=== PATIENT | male | born 1940 | race Caucasian/White ===

== ENCOUNTER 2016-08-18 14:46 | Inpatient (IN) | payer MEDICARE, BC ==
[2016-08-18] MEDS ORDERED: SODIUM CHLORIDE 0.9% 1,000 ML IV STA (15:18)
[2016-08-18 15:40] LABS: Basophils # (A) 0.1 k/uL (0-0.2); Basophils % (A) 1 %; CH 30.2; CHCM 34.6; Eosinophils # (A) 0.2 k/uL (0-0.7); Eosinophils % (A) 2 %; HCT 41.3 % (39.0-53.0); HDW 2.87; HGB 13.9 gm/dL (13.0-17.5); Luc # (Auto) 0.21; Luc % (Auto) 2; Lymphocytes % (A) 35 %; MCH 29.6 pg (25.0-35.0); MCHC 33.8 g/dL (31.0-37.0); MCV 87.7 fL (80.0-100.0); Mean Platelet Volume 7.3; Monocytes # (A) 0.5 k/uL (0-1.0); Monocytes % (A) 5 %; Neutrophils # (A) 4.8 k/uL (1.3-7.7); Neutrophils % (A) 55 %; RBC 4.71 m/uL (4.30-5.90); RDW 13.7 % (11.5-15.5); WBC 8.7 k/uL (3.8-10.6); WBC (Perox) 9.03
[2016-08-18 15:47] LABS: ALT 26 U/L (21-72); AST 21 U/L (17-59); Alkaline Phosphatase 63 U/L (38-126); Anion Gap 14 mmol/L; Blood Urea Nitrogen 21 mg/dL (9-20); Calcium 9.4 mg/dL (8.4-10.2); Carbon Dioxide 23 mmol/L (22-30); Chloride 102 mmol/L (98-107); Glucose 253 mg/dL (74-99); Non-African American GFR(MDRD) >60 (>60 ml/min/1.73 sqM); Potassium 4.4 mmol/L (3.5-5.1); Sodium 139 mmol/L (137-145); Total Bilirubin 0.5 mg/dL (0.2-1.3); Total Protein 6.7 g/dL (6.3-8.2)
[2016-08-18 15:50] LABS: INR 1.1 (<1.1); Prothrombin Time 10.9 sec (9.0-12.0)
--- NOTE | 2016-08-18 15:58 | CT ---
EXAMINATION TYPE: CT brain wo con DATE OF EXAM: 08/18/2016 3:44 PM COMPARISON: 01/14/2015 HISTORY: 75-year-old male with slurred speech yesterday on 08/17/16. TECHNIQUE: Examination was done in axial plane without intravenous contrast. Coronal and sagittal reconstructio ns performed. CT DLP: 993.6 mGycm Automated exposure control for dose reduction was used. FINDINGS: There is no evidence of acute intracranial hemorrhage, acute ischemic changes, mass, mass-effect, or extra-axial fluid collection. There is no effacement of cerebral sulci or basal subarachnoid cister ns. There is no hydrocephalus. There is no midline shift. E[place]-white matter distinction is preserv ed. There is mild patchy periventricular white matter hypodensity. Paranasal sinuses and mastoid air cells are well pneumatized. Orbits and globes are intact. IMPRESSION: No acute intracranial abnormality seen. Mild changes of chronic small vessel ischemic disease.
[2016-08-18 16:00] LABS: Creatine Kinase 36 U/L (55-170)
--- NOTE | 2016-08-18 16:00 | XR ---
EXAMINATION TYPE: XR chest 2V DATE OF EXAM: 08/18/2016 3:45 PM COMPARISON: 01/14/2015 HISTORY: 75 year-old male altered mental status TECHNIQUE: Frontal and lateral views FINDINGS: The cardiomediastinal silhouette, aorta, and pulmonary vasculature are within normal limits. Hazy low er lung densities especially on the left related to overlying soft tissue. Some strandy atelectasis i s also noted at the left base. No consolidation or pleural effusion seen. A lap band device is presen t. IMPRESSION: Slightly underpenetrated left base. No acute cardiopulmonary process seen.
--- NOTE | 2016-08-18 16:04 | ED ---
General Adult HPI <Brett Dove J - Last Filed: 08/18/16 16:46> - General Source: patient, RN notes reviewed Mode of arrival: ambulatory <Valdemar Pope - Last Filed: 08/18/16 17:01> - General Chief complaint: Neuro Symptoms/Deficit Stated complaint: Poss stroke/yesterday Time Seen by Provider: 08/18/16 15:07 - History of Present Illness Initial comments: Patient 75-year-old male who presents emergency room today with a chief complaint of possible TIA that occurred yesterday. He does admit that between the hours of 3 and 4 PM he experienced a episode that lasted less than 15 minutes where he had a difficult time with his speech and finding words. Daughter at bedside states she didn't witness and was less than 15 minutes that lasted. States today he has no problems no complaints. He admits to some low back pain but he states this is chronic. He denies any other complaints or symptoms currently at this time. Patient denies any recent fever, chills, shortness of breath, chest pain, abdominal pain, nausea or vomiting, numbness or tingling, dysuria or hematuria, constipation or diarrhea, headaches or visual changes, or any other complaints. (Valdemar Pope) - Related Data Home Medications Medication Instructions Recorded Confirmed Citalopram Hydrobromide [CeleXA] 40 mg PO DAILY 01/14/15 08/18/16 amLODIPine [Norvasc] 5 mg PO DAILY 01/14/15 08/18/16 Carvedilol [Coreg] 6.25 mg PO BID 01/15/15 08/18/16 metFORMIN HCL 1,000 mg PO BID 01/15/15 08/18/16 Cholecalciferol [Vitamin D3] 2,000 unit PO DAILY 08/18/16 08/18/16 HYDROcodone/APAP 10-325MG [[place] 1 tab PO Q8H PRN 08/18/16 08/18/16 10-325] Pravastatin Sodium [Pravachol] 20 mg PO DAILY 08/18/16 08/18/16 Vit C/E/Zn/Coppr/Lutein/Zeaxan 2 cap PO DAILY 08/18/16 08/18/16 [Preservision Areds 2 Softgel] glipiZIDE [Glucotrol] 5 mg PO AC-SUPPER 08/18/16 08/18/16 Allergies Allergy/AdvReac Type Severity Reaction Status Date / Time Penicillins Allergy Rash/Hives Verified 08/18/16 15:04 Review of Systems ROS Other: All systems not noted in ROS Statement are negative. <Brett Dove - Last Filed: 08/18/16 16:46> ROS Other: All systems not noted in ROS Statement are negative. <Valdemar Pope - Last Filed: 08/18/16 17:01> ROS Statement: Those systems with pertinent positive or pertinent negative responses have been documented in the HPI. Past Medical History Past Medical History: Diabetes Mellitus, Hyperlipidemia, Hypertension, Sleep Apnea/CPAP/BIPAP History of Any Multi-Drug Resistant Organisms: None Reported Past Surgical History: Appendectomy, Cholecystectomy Additional Past Surgical History / Comment(s): lap band Past Anesthesia/Blood Transfusion Reactions: No Reported Reaction Past Psychological History: Anxiety Smoking Status: Former smoker Past Alcohol Use History: None Reported Past Drug Use History: None Reported - Past Family History Father Additional Family Medical History / Comment(s): stroke Mother Additional Family Medical History / Comment(s): stroke <Valdemar Pope - Last Filed: 08/18/16 17:01> General Exam <Brett Dove - Last Filed: 08/18/16 16:46> <Valdemar Pope - Last Filed: 08/18/16 17:01> - General Exam Comments Initial Comments: General: The patient is awake and alert, in no distress, and does not appear acutely ill. Eye: Pupils are equal, round and reactive to light, extra-ocular movements are intact. No nystagmus. There is normal conjunctiva bilaterally. No signs of icterus. Ears, nose, mouth and throat: There are moist mucous membranes and no oral lesions. Neck: The neck is supple, there is no tenderness or JVD. Cardiovascular: There is a regular rate and rhythm. No murmur, rub or gallop is appreciated. Respiratory: Lungs are clear to auscultation, respirations are non-labored, breath sounds are equal. No wheezes, stridor, rales, or rhonchi. Gastrointestinal: Soft, non-distended, non-tender abdomen without masses or organomegaly noted. There is no rebound or guarding present. No CVA tenderness. Bowel sounds are unremarkable. Musculoskeletal: Normal ROM, no tenderness. Strength 5/5. Sensation intact. Pulses equal bilaterally 2+. Neurological: A&O x 3. CN II-XII intact, There are no obvious motor or sensory deficits. Coordination appears grossly intact. Speech is normal. Skin: Skin is warm and dry and no rashes or lesions are noted. Psychiatric: Cooperative, appropriate mood & affect, normal judgment. (Valdemar Pope) EKG Findings - EKG Comments: EKG Findings:: EKG performed at 1509: A 12-lead EKG was performed and interpreted by me as showing the following: Rate is 70, and rhythm is normal sinus. There are normal QRS complexes and normal R-wave progression. ST segments have no elevation or depression, and VA segments appear normal. <Valdemar Pope - Last Filed: 08/18/16 17:01> Medical Decision Making - Lab Data Result diagrams: 08/18/16 15:20 08/18/16 15:20 <Brett Dove - Last Filed: 08/18/16 16:46> - Lab Data Result diagrams: 08/18/16 15:20 08/18/16 15:20 <Valdemar Pope - Last Filed: 08/18/16 17:01> - Medical Decision Making The patient was seen and examined. All diagnostics were reviewed. Case will be discussed with internal medicine in the near future and patient will be admitted to the hospital. The case is discussed with the PA and I agree with the findings as documented. (Brett Dove) - Lab Data Lab Results 08/18/16 08/18/16 08/18/16 Range/Units 15:20 15:20 15:20 WBC 8.7 (3.8-10.6) k/uL RBC 4.71 (4.30-5.90) m/uL Hgb 13.9 (13.0-17.5) gm/dL Hct 41.3 (39.0-53.0) % MCV 87.7 (80.0-100.0) fL MCH 29.6 (25.0-35.0) pg MCHC 33.8 (31.0-37.0) g/dL RDW 13.7 (11.5-15.5) % Plt Count 201 (150-450) k/uL Neutrophils % 55 % Lymphocytes % 35 % Monocytes % 5 % Eosinophils % 2 % Basophils % 1 % Neutrophils # 4.8 (1.3-7.7) k/uL Lymphocytes # 3.0 (1.0-4.8) k/uL Monocytes # 0.5 (0-1.0) k/uL Eosinophils # 0.2 (0-0.7) k/uL Basophils # 0.1 (0-0.2) k/uL PT (9.0-12.0) sec INR (<1.1) APTT (22.0-30.0) sec Sodium 139 (137-145) mmol/L Potassium 4.4 (3.5-5.1) mmol/L Chloride 102 (98-107) mmol/L Carbon Dioxide 23 (22-30) mmol/L Anion Gap 14 mmol/L BUN 21 H (9-20) mg/dL Creatinine 0.89 (0.66-1.25) mg/dL Est GFR (MDRD) Af Amer >60 (>60 ml/min/1.73 sqM) Est GFR (MDRD) Non-Af >60 (>60 ml/min/1.73 sqM) Glucose 253 H (74-99) mg/dL Calcium 9.4 (8.4-10.2) mg/dL Total Bilirubin 0.5 (0.2-1.3) mg/dL AST 21 (17-59) U/L ALT 26 (21-72) U/L Alkaline Phosphatase 63 (38-126) U/L Total Creatine Kinase 36 L (55-170) U/L CK-MB (CK-2) 0.5 (0.0-2.4) ng/mL CK-MB (CK-2) Rel Index 1.4 Troponin I <0.012 (0.000-0.034) ng/mL Total Protein 6.7 (6.3-8.2) g/dL Albumin 4.3 (3.5-5.0) g/dL 08/18/16 Range/Units 15:20 WBC (3.8-10.6) k/uL RBC (4.30-5.90) m/uL Hgb (13.0-17.5) gm/dL Hct (39.0-53.0) % MCV (80.0-100.0) fL MCH (25.0-35.0) pg MCHC (31.0-37.0) g/dL RDW (11.5-15.5) % Plt Count (150-450) k/uL Neutrophils % % Lymphocytes % % Monocytes % % Eosinophils % % Basophils % % Neutrophils # (1.3-7.7) k/uL Lymphocytes # (1.0-4.8) k/uL Monocytes # (0-1.0) k/uL Eosinophils # (0-0.7) k/uL Basophils # (0-0.2) k/uL PT 10.9 (9.0-12.0) sec INR 1.1 (<1.1) APTT 25.0 (22.0-30.0) sec Sodium (137-145) mmol/L Potassium (3.5-5.1) mmol/L Chloride (98-107) mmol/L Carbon Dioxide (22-30) mmol/L Anion Gap mmol/L BUN (9-20) mg/dL Creatinine (0.66-1.25) mg/dL Est GFR (MDRD) Af Amer (>60 ml/min/1.73 sqM) Est GFR (MDRD) Non-Af (>60 ml/min/1.73 sqM) Glucose (74-99) mg/dL Calcium (8.4-10.2) mg/dL Total Bilirubin (0.2-1.3) mg/dL AST (17-59) U/L ALT (21-72) U/L Alkaline Phosphatase (38-126) U/L Total Creatine Kinase (55-170) U/L CK-MB (CK-2) (0.0-2.4) ng/mL CK-MB (CK-2) Rel Index Troponin I (0.000-0.034) ng/mL Total Protein (6.3-8.2) g/dL Albumin (3.5-5.0) g/dL Disposition <Brett Dove - Last Filed: 08/18/16 16:46> Time of Disposition: 17:01 <Valdemar Pope - Last Filed: 08/18/16 17:01> Clinical Impression: TIA (transient ischemic attack), Expressive aphasia Disposition: ADMITTED IP TO THIS [facility] Condition: Stable
[2016-08-18 16:12] LABS: Creatine Kinase MB 0.5 ng/mL (0.0-2.4); Troponin I <0.012 ng/mL (0.000-0.034)
[2016-08-18] MEDS ORDERED: ASPIRIN 325 MG TAB PO STA (17:01)
[2016-08-18] MEDS ORDERED: SODIUM CHLORIDE 0.9% 1,000 ML IV ONE (17:01)
[2016-08-18] MEDS ORDERED: HYDROcodone/APAP 10-325MG 1 EACH TAB PO PRN (17:06)
--- NOTE | 2016-08-18 18:44 | US ---
EXAMINATION TYPE: US carotid duplex BILAT DATE OF EXAM: 08/18/2016 5:58 PM COMPARISON: NONE CLINICAL HISTORY: slurred speech yesterday. EXAM MEASUREMENTS: RIGHT: Peak Systolic Velocity (PSV) cm/sec ----- Right CCA: 77.6 ----- Right ICA: 237.7 ----- Right ECA: 236.2 ICA/CCA ratio: 3.1 RIGHT: End Diastole cm/sec ----- Right CCA: 8.4 ----- Right ICA: 30.8 ----- Right ECA: 17.8 LEFT: Peak Systolic Velocity (PSV) cm/sec ----- Left CCA: 59.3 ----- Left ICA: 127.2 ----- Left ECA: 100.0 ICA/CCA ratio: 2.1 LEFT: End Diastole cm/sec ----- Left CCA: 10.2 ----- Left ICA: 28.9 ----- Left ECA: 6.9 VERTEBRALS (direction of flow): Right Vertebral: Antegrade Left Vertebral: Antegrade TECHNOLOGIST IMPRESSION: Moderate plaque seen bilaterally, stenosis seen at right mid ICA IMPRESSION: There is antegrade flow in the vertebral arteries. There is significant elevated velocity and plaque formation at the right carotid artery bifurcation c onsistent with more than 70% stenosis of the right internal carotid artery. The images and measurements suggest 50-70% stenosis of the left internal carotid artery. Criteria for Assigning % of Stenosis / Diameter reduction (Estimation based on the indirect measurements of the internal carotid artery velocities (ICA PSV). 1. Normal (no stenosis)=ICA PSV < 125 cm/s: ratio < 2.0: ICA EDV<40 cm/s. 2. Less than 50% stenosis=ICA PSV < 125 cm/s: ratio < 2.0: ICA EDV<40 cm/s. 3. 50 to 69% stenosis=ICA PSV of 125 to 230 cm/s: ration 2.0 ? 4.0: ICA EDV 40-100 cm/s. 4. Greater than 70% stenosis to near occlusion= ICA PSV > 230 cm/s: ratio > 4.0: ICA EDV > 100 cm/s. 5. Near occlusion= ICA PSV velocities may be low or undetectable: variable ratio and ICA EDV. 6. Total occlusion=unable to detect flow.
[2016-08-18] MEDS: INSULIN LISPRO (humaLOG) 300 UNIT/3 ML VIAL SQ SCH ×2 (18:58→21:30)
[2016-08-18] MEDS: CARVEDILOL 6.25 MG TAB PO SCH (19:11)
[2016-08-18 21:00] LABS: Glucose,Whole Blood 202 mg/dL (75-99)
[2016-08-19 05:53] LABS: CHCM 34.4; HCT 37.9 % (39.0-53.0); HGB 12.9 gm/dL (13.0-17.5); MCH 29.8 pg (25.0-35.0); MCV 87.7 fL (80.0-100.0); Mean Platelet Volume 8.2; RBC 4.32 m/uL (4.30-5.90); RDW 13.6 % (11.5-15.5); WBC 9.2 k/uL (3.8-10.6)
[2016-08-19 06:04] LABS: ALT 33 U/L (21-72); AST 18 U/L (17-59); Alkaline Phosphatase 59 U/L (38-126); Anion Gap 9 mmol/L; Blood Urea Nitrogen 17 mg/dL (9-20); Calcium 8.9 mg/dL (8.4-10.2); Carbon Dioxide 26 mmol/L (22-30); Chloride 105 mmol/L (98-107); Glucose 180 mg/dL (74-99); Non-African American GFR(MDRD) >60 (>60 ml/min/1.73 sqM); Potassium 4.3 mmol/L (3.5-5.1); Sodium 140 mmol/L (137-145); Total Bilirubin 0.6 mg/dL (0.2-1.3)
[2016-08-19 06:06] LABS: Glucose,Whole Blood 206 mg/dL (75-99)
[2016-08-19] MEDS: INSULIN LISPRO (humaLOG) 300 UNIT/3 ML VIAL SQ SCH ×4 (06:31→21:59)
[2016-08-19] MEDS: CARVEDILOL 6.25 MG TAB PO SCH ×2 (06:31→17:17)
[2016-08-19] MEDS: CHOLECALCIFEROL 1,000 UNIT TAB PO SCH (08:53)
[2016-08-19] MEDS: CITALOPRAM HYDROBROMIDE 20 MG TAB PO SCH (08:53)
[2016-08-19] MEDS: ASPIRIN 325 MG TAB PO SCH (08:53)
[2016-08-19] MEDS: amLODIPine 5 MG TAB PO SCH (08:53)
[2016-08-19] MEDS: PRAVASTATIN SODIUM 20 MG TAB PO SCH (08:54)
--- NOTE | 2016-08-19 11:46 | P.HPIM ---
History of Present Illness H&P Date: 08/18/16 Chief Complaint: Slurred speech 75-year-old gentleman who presented on the day of admission to the emergency room to be evaluated for developing an acute onset episode where "I could not get my words to come out" patient stated occurred suddenly last for "about a minute and then went away patient states he had no dizziness no lightheadedness no chest pain or shortness of breath. Patient denied any prior episodes. Patient stated that the symptoms occurred around 3 or 4 in the evening they lasted briefly and has not had any reoccurrence. Subsequently the patient was seen in the emergency room admitted to the services of the attending with a neurology consultation requested. Patient did have carotid Doppler studies done which did show 70% right internal carotid artery stenosis.. Past Medical History Past Medical History: Chest Pain / Angina, Diabetes Mellitus, Eye Disorder, Hyperlipidemia, Hypertension, Sleep Apnea/CPAP/BIPAP Additional Past Medical History / Comment(s): 2015 stress wnl, tinnitus, chronic lower back pain, rt eye blurry-diff reading needs new glasses,"knocked out at work 1975/concussion", "occassional hand tremors", shingles approx 10 years ago,uses a cpap machine History of Any Multi-Drug Resistant Organisms: None Reported Past Surgical History: Appendectomy, Cholecystectomy, Hernia Repair Additional Past Surgical History / Comment(s): lap band, colonoscopy, cataracts, Past Anesthesia/Blood Transfusion Reactions: No Reported Reaction Past Psychological History: Anxiety Smoking Status: Former smoker Past Alcohol Use History: None Reported Additional Past Alcohol Use History / Comment(s): started smoking at age 7(1948 ) ,quit 1994,was smoking 1.5 ppd. Past Drug Use History: None Reported - Past Family History Father Additional Family Medical History / Comment(s): stroke Mother Additional Family Medical History / Comment(s): stroke Medications and Allergies Home Medications Medication Instructions Recorded Confirmed Type Citalopram Hydrobromide [CeleXA] 40 mg PO DAILY 01/14/15 08/18/16 History amLODIPine [Norvasc] 5 mg PO DAILY 01/14/15 08/18/16 History Carvedilol [Coreg] 6.25 mg PO BID 01/15/15 08/18/16 History metFORMIN HCL 1,000 mg PO BID 01/15/15 08/18/16 History Cholecalciferol [Vitamin D3] 2,000 unit PO DAILY 08/18/16 08/18/16 History HYDROcodone/APAP 10-325MG [[place] 1 tab PO Q8H PRN 08/18/16 08/18/16 History 10-325] Pravastatin Sodium [Pravachol] 20 mg PO DAILY 08/18/16 08/18/16 History Vit C/E/Zn/Coppr/Lutein/Zeaxan 2 cap PO DAILY 08/18/16 08/18/16 History [Preservision Areds 2 Softgel] glipiZIDE [Glucotrol] 5 mg PO AC-SUPPER 08/18/16 08/18/16 History Allergies Allergy/AdvReac Type Severity Reaction Status Date / Time Penicillins Allergy Rash/Hives Verified 08/18/16 15:04 Physical Exam Vitals: Vital Signs Temp Pulse Pulse Resp BP BP Pulse Ox 08/19/16 10:02 96.8 F L 72 16 162/74 96 08/19/16 08:00 96.5 F L 66 18 175/72 92 L 08/19/16 06:02 68 18 143/66 98 08/19/16 04:02 97.0 F L 68 18 121/59 95 08/19/16 04:00 97.0 F L 68 18 121/59 95 08/19/16 02:02 60 18 147/67 96 08/19/16 00:02 97.5 F L 65 18 141/63 96 08/19/16 00:00 97.5 F L 65 18 141/63 96 08/18/16 22:02 65 18 153/71 96 08/18/16 20:02 96.9 F L 70 18 177/76 94 L 08/18/16 20:00 96.9 F L 70 18 177/76 94 L 08/18/16 18:56 97.1 F L 66 14 198/84 98 08/18/16 17:59 98.1 F 62 18 180/87 97 08/18/16 17:22 64 18 171/78 98 Intake and Output 08/18/16 08/19/16 08/19/16 22:59 06:59 14:59 Output Total 300 600 Balance -300 -600 Output: Urine 300 600 Other: # Voids 1 1 2 Weight 98.7 kg GENERAL APPEARANCE: 75-year-old male patient is alert, oriented, 3 in no acute distress. Speech audible no evidence of an expressive aphasia no facial droop VITAL SIGNS: Reviewed HEENT: Head is normocephalic and atraumatic. Pupils are equal and reactive. The nares are patent. Oropharynx is clear without lesions. NECK: Supple without lymphadenopathy. Traches midline. HEART: S1, S2. Regular rate and rhythm. Positive murmur noted monitor sinus rhythm denying chest pain when questioning LUNGS: No crackles or wheezes are heard. Currently on room air sats 94% no shortness of breath noted ABDOMEN: Soft, nontender, nondistended with good bowel sounds. No peritoneal signs. No palpable organomegaly or masses. EXTREMITIES: Normal skin color and turgor. No cyanosis, rash, ulceration, clubbing or edema. Radial pedal pulses are 2/4 bilaterally. NEUROLOGICAL: No focal deficits. Strength and sensation are grossly intact. Results CBC & Chem 7: 08/19/16 05:33 08/19/16 05:33 Labs: Abnormal Lab Results - Last 24 Hours (Table) 08/18/16 08/19/16 08/19/16 Range/Units 20:59 05:33 05:33 Hgb 12.9 L (13.0-17.5) gm/dL Hct 37.9 L (39.0-53.0) % Glucose 180 H (74-99) mg/dL POC Glucose (mg/dL) 202 H (75-99) mg/dL Total Protein 6.0 L (6.3-8.2) g/dL 08/19/16 Range/Units 06:05 Hgb (13.0-17.5) gm/dL Hct (39.0-53.0) % Glucose (74-99) mg/dL POC Glucose (mg/dL) 206 H (75-99) mg/dL Total Protein (6.3-8.2) g/dL Assessment and Plan Plan: Impression Present on admission episode of expressive aphasia suspect due to a TIA Carotid Doppler study shows evidence of 70% stenosis right internal carotid artery Type 2 diabetes insulin hemoglobin A1c 7 controlled Obesity BMI 33 History of hypertension essential benign Depressive disorder nonspecified Chronic lower back pain narcotic dependent Dyslipidemia New-onset heart murmur Plan Consult vascular Dr. Damian evaluate abnormal carotid Doppler studies await further recommendations PT OT eval Monitor blood sugars address as indicated Check a lipid panel Resume home meds as appropriate DVT and GI prophylaxis Further recommendations pending will follow Check echocardiogram follow up on results The above dictated assessment and findings were discussed with dr sarah Choe and the plan of care have been dictated as directed. Anjana Gonzalez nurse practitioner acting as a scribe for dr smith
[2016-08-19 11:49] LABS: Glucose,Whole Blood 227 mg/dL (75-99)
--- NOTE | 2016-08-19 11:55 | P.CNNES ---
History of Present Illness Consult date: 08/19/16 Reason for Consult: Patient with expressive aphasia and TIA. History of Present Illness: This patient is a 75-year-old right-handed white male who was in his usual state of health until yesterday afternoon. Patient was at home with his family and noted that he suddenly developed a episode of garbled speech and difficulty getting his words out. The episode lasted about 15 minutes in duration. The symptoms did resolve in the next day he did mention this to his daughter. His daughter was very concerned and recommended that he go into the emergency room for further evaluation. Patient denies any previous history of TIA like symptoms such as expressive aphasia. He does have several stroke risk factors including history of diabetes mellitus and hyperlipidemia. He states his blood sugars have not been well controlled recently. He is on treatment for hyperlipidemia and is currently taking pravastatin 20 mg daily. Patient was evaluated yesterday in the emergency room by Dr. Dove. He was sent for a computed tomography scan of the brain which revealed no acute abnormality. There is chronic small vessel ischemic changes noted. He also underwent a carotid Doppler ultrasound which was completed yesterday evening. This carotid reveals significant carotid stenosis greater than 70% of the right internal carotid artery. There is 50-70% stenosis of the left internal carotid artery. The patient's stroke risk factors include the diabetes mellitus and hyperlipidemia. His blood pressure has been under fairly good control. The patient has had no further recurrence of expressive aphasia. His clinical history does suggest acute TIA syndrome. We reviewed the clinical findings with the patient today in detail. We would recommend a complete stroke evaluation for the patient. Given the results of his carotid Doppler ultrasound we would recommend a vascular surgery consultation for further assessment. He should continue on 1 aspirin daily for secondary stroke prevention. We will continue close neurological follow-up for the patient during this admission. Review of Systems Constitutional: Denies chills, Denies fever Eyes: denies blurred vision, denies pain Ears, nose, mouth and throat: Denies headache, Denies sore throat Cardiovascular: Denies chest pain, Denies shortness of breath Respiratory: Denies cough Gastrointestinal: Denies abdominal pain, Denies diarrhea, Denies nausea, Denies vomiting Musculoskeletal: Denies myalgias Integumentary: Denies pruritus, Denies rash Neurological: Reports aphasia, Reports change in speech, Denies numbness, Denies weakness Psychiatric: Denies anxiety, Denies depression Endocrine: Denies fatigue, Denies weight change Past Medical History Past Medical History: Chest Pain / Angina, Diabetes Mellitus, Eye Disorder, Hyperlipidemia, Hypertension, Sleep Apnea/CPAP/BIPAP Additional Past Medical History / Comment(s): 2015 stress wnl, tinnitus, chronic lower back pain, rt eye blurry-diff reading needs new glasses,"knocked out at work 1976/concussion", "occassional hand tremors", shingles approx 10 years ago,uses a cpap machine History of Any Multi-Drug Resistant Organisms: None Reported Past Surgical History: Appendectomy, Cholecystectomy, Hernia Repair Additional Past Surgical History / Comment(s): lap band, colonoscopy, cataracts, Past Anesthesia/Blood Transfusion Reactions: No Reported Reaction Past Psychological History: Anxiety Smoking Status: Former smoker Past Alcohol Use History: None Reported Additional Past Alcohol Use History / Comment(s): started smoking at age 7(1948 ) ,quit 1994,was smoking 1.5 ppd. Past Drug Use History: None Reported - Past Family History Father Additional Family Medical History / Comment(s): stroke Mother Additional Family Medical History / Comment(s): stroke Medications and Allergies Home Medications Medication Instructions Recorded Confirmed Type Citalopram Hydrobromide [CeleXA] 40 mg PO DAILY 01/14/15 08/18/16 History amLODIPine [Norvasc] 5 mg PO DAILY 01/14/15 08/18/16 History Carvedilol [Coreg] 6.25 mg PO BID 01/15/15 08/18/16 History metFORMIN HCL 1,000 mg PO BID 01/15/15 08/18/16 History Cholecalciferol [Vitamin D3] 2,000 unit PO DAILY 08/18/16 08/18/16 History HYDROcodone/APAP 10-325MG [[place] 1 tab PO Q8H PRN 08/18/16 08/18/16 History 10-325] Pravastatin Sodium [Pravachol] 20 mg PO DAILY 08/18/16 08/18/16 History Vit C/E/Zn/Coppr/Lutein/Zeaxan 2 cap PO DAILY 08/18/16 08/18/16 History [Preservision Areds 2 Softgel] glipiZIDE [Glucotrol] 5 mg PO AC-SUPPER 08/18/16 08/18/16 History Allergies Allergy/AdvReac Type Severity Reaction Status Date / Time Penicillins Allergy Rash/Hives Verified 08/18/16 15:04 Physical Examination - Vital Signs Vital Signs: Vital Signs Temp Pulse Pulse Resp BP BP Pulse Ox 08/19/16 06:02 68 18 143/66 98 08/19/16 04:02 97.0 F L 68 18 121/59 95 08/19/16 04:00 97.0 F L 68 18 121/59 95 08/19/16 02:02 60 18 147/67 96 08/19/16 00:02 97.5 F L 65 18 141/63 96 08/19/16 00:00 97.5 F L 65 18 141/63 96 08/18/16 22:02 65 18 153/71 96 08/18/16 20:02 96.9 F L 70 18 177/76 94 L 08/18/16 20:00 96.9 F L 70 18 177/76 94 L 08/18/16 18:56 97.1 F L 66 14 198/84 98 08/18/16 17:59 98.1 F 62 18 180/87 97 08/18/16 17:22 64 18 171/78 98 Intake and Output 08/18/16 08/19/16 08/19/16 22:59 06:59 14:59 Output Total 300 600 Balance -300 -600 Output: Urine 300 600 Other: # Voids 1 1 Weight 98.7 kg - Constitutional General appearance: average body habitus, cooperative - EENT EENT: PERRL, mucous membranes moist - Respiratory Respiratory: lungs clear, normal breath sounds - Cardiovascular Cardiovascular: regular rate, normal S1, normal S2 Extremities: no peripheral edema bilaterally - Gastrointestinal Gastrointestinal: normoactive bowel sounds - Integumentary Integumentary: normal - Neurologic Cranial nerve examination: PERRL, EOMI, VFF, V1/V2/V3 grossly intact, face symmetric, tongue midline, intact gag reflex, intact corneal reflex, normal palatal elevation Speech examination: intact Sensorimotor examination: intact Detailed motor examination: grossly full strength in all extremities, full strength in all major muscle groups Motor examination - right side: 12/08: biceps, triceps, wrist flexion, wrist extension, hogshead hooper, hip flexors, knee extensors, dorsiflexion, toe extension (EHL) , plantarflexion Motor examination - left side: 5/5: biceps, triceps, wrist flexion, wrist extension, hogshead hooper, hip flexors, knee extensors, dorsiflexion, toe extension (EHL) , plantarflexion Detailed sensory examination: intact Reflex and gait examination: intact Reflexes: 1+: ankle, bicep, knee, tricep - Musculoskeletal Musculoskeletal: no pain - Psychiatric Psychiatric: mood/affect appropriate, cooperative Results - Laboratory Findings CBC and BMP: 08/19/16 05:33 08/19/16 05:33 Abnormal Lab Findings: Abnormal Labs 08/18/16 08/19/16 08/19/16 20:59 05:33 05:33 Hgb 12.9 L Hct 37.9 L Glucose 180 H POC Glucose (mg/dL) 202 H Total Protein 6.0 L 08/19/16 06:05 Hgb Hct Glucose POC Glucose (mg/dL) 206 H Total Protein Assessment and Plan (1) TIA (transient ischemic attack) Status: Acute Code(s): G45.9 - TRANSIENT CEREBRAL ISCHEMIC ATTACK, UNSPECIFIED (2) Expressive aphasia Status: Acute Code(s): R47.01 - APHASIA (3) Carotid artery stenosis Status: Acute Code(s): I65.29 - OCCLUSION AND STENOSIS OF UNSPECIFIED CAROTID ARTERY (4) Diabetes mellitus Status: Acute Code(s): E11.9 - TYPE 2 DIABETES MELLITUS WITHOUT COMPLICATIONS Plan: This patient is a 75-year-old male who experienced an episode of acute expressive aphasia yesterday afternoon at home. Apparently he had garbled speech and difficulty getting his words out and this episode lasted 15 minutes in duration. He subsequently was admitted to the emergency room for further evaluation. He underwent a computed tomography scan and carotid Doppler ultrasound the results of which are noted above. His clinical history at this time is consistent with acute TIA. He had an episode of expressive aphasia. He does have evidence of significant carotid artery stenosis involving the right internal carotid artery. We have recommended a vascular surgery consultation for further assessment. He shouldn't should be maintained on aspirin daily at this time for secondary stroke prevention. We will await further recommendations from vascular surgery in regards to his carotid artery stenosis. He does have several stroke risk factors including diabetes mellitus and hyperlipidemia. We recommend tight control of both of these conditions. Case was discussed at length with the patient today at bedside. All this questions were answered. He is aware of the guarded condition at this time. We will continue close neurological follow-up with this patient during this admission. Time with Patient: Greater than 30
--- NOTE | 2016-08-19 12:32 | P.PN ---
Progress Note - Text Patient seen and examined by myself H&P dictated by Anjana Gonzalez nurse practitioner working with me today
--- NOTE | 2016-08-19 12:43 | P.GSCN ---
History of Present Illness History of present illness: 75-year-old white male, patient had an episode of expressive a phase area and garbled speech this happened on Sunday. Patient came to the emergency room and had a stroke workup computed tomography scan showed no acute bleed no infarction noted speech came back which was for short duration had no motor deficit or any seizure episode patient was evaluated by neurology Medical history history of high cholesterol on medication, history of hypertension controlled with medication, patient has a history of diabetes which is uncontrolled Personal history ALLERGY to penicillin Neck examination neck is supple no bruit appreciated no jugular distention noted Chest examination first and second sound normal good entry both lungs Abdomen soft nontender Vascular examination brachial radial and femoral pulses are present Central nervous system oriented time and place normal motor function noted of both lower extremity Ultrasound of the carotids showed right carotid more than 70% left side 50-79 both vertebrals are antegrade Plan is patient had one episode of 4 a phase area with no motor deficit patient has known carotid artery stenosis under care of Dr. Levy discuss with Dr. Levy patient will be kept on antiplatelet therapy and we will schedule for angiography of the carotid if needed we will follow with you thank you very much Past Medical History Past Medical History: Chest Pain / Angina, Diabetes Mellitus, Eye Disorder, Hyperlipidemia, Hypertension, Sleep Apnea/CPAP/BIPAP Additional Past Medical History / Comment(s): 2015 stress wnl, tinnitus, chronic lower back pain, rt eye blurry-diff reading needs new glasses,"knocked out at work 1975/concussion", "occassional hand tremors", shingles approx 10 years ago,uses a cpap machine History of Any Multi-Drug Resistant Organisms: None Reported Past Surgical History: Appendectomy, Cholecystectomy, Hernia Repair Additional Past Surgical History / Comment(s): lap band, colonoscopy, cataracts, Past Anesthesia/Blood Transfusion Reactions: No Reported Reaction Past Psychological History: Anxiety Smoking Status: Former smoker Past Alcohol Use History: None Reported Additional Past Alcohol Use History / Comment(s): started smoking at age 7(1950 ) ,quit 1994,was smoking 1.5 ppd. Past Drug Use History: None Reported - Past Family History Father Additional Family Medical History / Comment(s): stroke Mother Additional Family Medical History / Comment(s): stroke Medications and Allergies Home Medications Medication Instructions Recorded Confirmed Type Citalopram Hydrobromide [CeleXA] 40 mg PO DAILY 01/14/15 08/18/16 History amLODIPine [Norvasc] 5 mg PO DAILY 01/14/15 08/18/16 History Carvedilol [Coreg] 6.25 mg PO BID 01/15/15 08/18/16 History metFORMIN HCL 1,000 mg PO BID 01/15/15 08/18/16 History Cholecalciferol [Vitamin D3] 2,000 unit PO DAILY 08/18/16 08/18/16 History HYDROcodone/APAP 10-325MG [[place] 1 tab PO Q8H PRN 08/18/16 08/18/16 History 10-325] Pravastatin Sodium [Pravachol] 20 mg PO DAILY 08/18/16 08/18/16 History Vit C/E/Zn/Coppr/Lutein/Zeaxan 2 cap PO DAILY 08/18/16 08/18/16 History [Preservision Areds 2 Softgel] glipiZIDE [Glucotrol] 5 mg PO AC-SUPPER 08/18/16 08/18/16 History Allergies Allergy/AdvReac Type Severity Reaction Status Date / Time Penicillins Allergy Rash/Hives Verified 08/18/16 15:04 Surgical - Exam Vital Signs Temp Pulse Resp BP Pulse Ox 98 F 70 18 164/72 96 08/18/16 14:58 08/18/16 14:58 08/18/16 14:58 08/18/16 14:58 08/18/16 14:58 Results - Labs 08/19/16 05:33 08/19/16 05:33 Abnormal Lab Results - Last 24 Hours (Table) 08/18/16 08/19/16 08/19/16 Range/Units 20:59 05:33 05:33 Hgb 12.9 L (13.0-17.5) gm/dL Hct 37.9 L (39.0-53.0) % Glucose 180 H (74-99) mg/dL POC Glucose (mg/dL) 202 H (75-99) mg/dL Total Protein 6.0 L (6.3-8.2) g/dL 08/19/16 08/19/16 Range/Units 06:05 11:41 Hgb (13.0-17.5) gm/dL Hct (39.0-53.0) % Glucose (74-99) mg/dL POC Glucose (mg/dL) 206 H 227 H (75-99) mg/dL Total Protein (6.3-8.2) g/dL Diabetes panel 08/19/16 Range/Units 05:33 Sodium 140 (137-145) mmol/L Potassium 4.3 (3.5-5.1) mmol/L Chloride 105 (98-107) mmol/L Carbon Dioxide 26 (22-30) mmol/L BUN 17 (9-20) mg/dL Creatinine 0.82 (0.66-1.25) mg/dL Glucose 180 H (74-99) mg/dL Calcium 8.9 (8.4-10.2) mg/dL AST 18 (17-59) U/L ALT 33 (21-72) U/L Alkaline Phosphatase 59 (38-126) U/L Total Protein 6.0 L (6.3-8.2) g/dL Albumin 3.7 (3.5-5.0) g/dL Calcium panel 08/19/16 Range/Units 05:33 Calcium 8.9 (8.4-10.2) mg/dL Albumin 3.7 (3.5-5.0) g/dL Pituitary panel 08/19/16 Range/Units 05:33 Sodium 140 (137-145) mmol/L Potassium 4.3 (3.5-5.1) mmol/L Chloride 105 (98-107) mmol/L Carbon Dioxide 26 (22-30) mmol/L BUN 17 (9-20) mg/dL Creatinine 0.82 (0.66-1.25) mg/dL Glucose 180 H (74-99) mg/dL Calcium 8.9 (8.4-10.2) mg/dL Adrenal panel 08/19/16 Range/Units 05:33 Sodium 140 (137-145) mmol/L Potassium 4.3 (3.5-5.1) mmol/L Chloride 105 (98-107) mmol/L Carbon Dioxide 26 (22-30) mmol/L BUN 17 (9-20) mg/dL Creatinine 0.82 (0.66-1.25) mg/dL Glucose 180 H (74-99) mg/dL Calcium 8.9 (8.4-10.2) mg/dL Total Bilirubin 0.6 (0.2-1.3) mg/dL AST 18 (17-59) U/L ALT 33 (21-72) U/L Alkaline Phosphatase 59 (38-126) U/L Total Protein 6.0 L (6.3-8.2) g/dL Albumin 3.7 (3.5-5.0) g/dL
--- NOTE | 2016-08-19 13:25 | ECHOF ---
Referral Reason:murmur MEASUREMENTS -------- HEIGHT: 172.7 cm WEIGHT: 98.4 kg BP: IVSd: 1.0 cm (0.6 - 1.1) LVIDd: 4.9 cm (3.9 - 5.3) LVPWd: 0.8 cm (0.6 - 1.1) IVSs: 1.8 cm LVIDs: 3.0 cm LVPWs: 1.7 cm Ao Diam: 3.0 cm (2.0 - 3.7) AV Cusp: 1.5 cm (1.5 - 2.6) LA Diam: 3.8 cm (2.7 - 3.8) MV E Uri: 0.77 m/s MV DecT: 259 ms MV A Uri: 0.99 m/s MV E/A Ratio: 0.77 AV maxP.12 mmHg AV meanP.20 mmHg RAP: 5.00 mmHg RVSP: 9.71 mmHg FINDINGS -------- Sinus rhythm. This was a technically difficult study with suboptimal views. Left ventricular wall thickness is normal. Overall left ventricular systolic function is normal with, an EF between 55 - 60 %. The right ventricle is normal in size and function. The left atrium was not well visualized. The right atrium is normal in size. 1.5mg of Definity was utilized for enhancement of images There is moderate aortic stenosis present. Peak/mean gradient across the Aortic Valve is 35.12mmHg / 19.20mmHg. The mitral valve leaflets are mildly thickened. Mild mitral regurgitation is present. Mild tricuspid regurgitation present. The right ventricular systolic pressure, as measured by Doppler, is 9.71mmHg. Pulmonic valve appears structurally normal. The aortic root, ascending aorta and aortic arch are normal. The pericardium is normal. CONCLUSIONS -------- 1. Sinus rhythm. 2. Peak/mean gradient across the Aortic Valve is 35.12mmHg / 19.20mmHg. 3. The mitral valve leaflets are mildly thickened. 4. Mild mitral regurgitation is present. 5. Mild tricuspid regurgitation present. 6. The right ventricular systolic pressure, as measured by Doppler, is 9.71mmHg. 7. Pulmonic valve appears structurally normal. 8. The aortic root, ascending aorta and aortic arch are normal. 9. The pericardium is normal. 10. This was a technically difficult study with suboptimal views. 11. Left ventricular wall thickness is normal. 12. Overall left ventricular systolic function is normal with, an EF between 55 - 60 %. 13. The right ventricle is normal in size and function. 14. The left atrium was not well visualized. 15. The right atrium is normal in size. 16. 1.5mg of Definity was utilized for enhancement of images 17. There is moderate aortic stenosis present. ZYGLO INSPECTOR: Morena Hensley RDCS
[2016-08-19 17:20] LABS: Glucose,Whole Blood 132 mg/dL (75-99)
[2016-08-19] MEDS ORDERED: glipiZIDE 5 MG TAB PO SCH (17:30)
[2016-08-19] MEDS: metFORMIN 500 MG TAB PO SCH (17:37)
[2016-08-19 21:02] LABS: Glucose,Whole Blood 189 mg/dL (75-99)
[2016-08-19] MEDS: FAMOTIDINE 20 MG TAB PO SCH (21:59)
[2016-08-20 06:17] LABS: Basophils # (A) 0.1 k/uL (0-0.2); Basophils % (A) 1 %; CH 29.9; CHCM 34.6; Eosinophils # (A) 0.3 k/uL (0-0.7); Eosinophils % (A) 3 %; HCT 37.9 % (39.0-53.0); HDW 2.92; HGB 12.7 gm/dL (13.0-17.5); Luc # (Auto) 0.16; Luc % (Auto) 2; Lymphocytes # (A) 2.8 k/uL (1.0-4.8); Lymphocytes % (A) 31 %; MCHC 33.4 g/dL (31.0-37.0); MCV 86.9 fL (80.0-100.0); Mean Platelet Volume 8.1; Monocytes # (A) 0.5 k/uL (0-1.0); Monocytes % (A) 5 %; Neutrophils # (A) 5.4 k/uL (1.3-7.7); Neutrophils % (A) 59 %; RBC 4.36 m/uL (4.30-5.90); RDW 13.6 % (11.5-15.5); WBC 9.2 k/uL (3.8-10.6); WBC (Perox) 9.74
[2016-08-20 06:21] LABS: Glucose,Whole Blood 162 mg/dL (75-99)
[2016-08-20] MEDS: INSULIN LISPRO (humaLOG) 300 UNIT/3 ML VIAL SQ SCH ×2 (06:32→11:59)
[2016-08-20] MEDS: CARVEDILOL 6.25 MG TAB PO SCH (06:32)
[2016-08-20 06:34] LABS: ALT 34 U/L (21-72); AST 21 U/L (17-59); Alkaline Phosphatase 57 U/L (38-126); Anion Gap 9 mmol/L; Blood Urea Nitrogen 17 mg/dL (9-20); Calcium 9.3 mg/dL (8.4-10.2); Carbon Dioxide 26 mmol/L (22-30); Chloride 103 mmol/L (98-107); Cholesterol 174 mg/dL (<200); Glucose 152 mg/dL (74-99); HDL Cholesterol 56 mg/dL (40-60); Non-African American GFR(MDRD) >60 (>60 ml/min/1.73 sqM); Potassium 4.6 mmol/L (3.5-5.1); Sodium 138 mmol/L (137-145); Total Bilirubin 0.6 mg/dL (0.2-1.3); Total Protein 5.8 g/dL (6.3-8.2); Triglycerides 87 mg/dL (<150)
[2016-08-20] MEDS: metFORMIN 500 MG TAB PO SCH (06:34)
[2016-08-20] MEDS: CITALOPRAM HYDROBROMIDE 20 MG TAB PO SCH (08:01)
[2016-08-20] MEDS: PRAVASTATIN SODIUM 20 MG TAB PO SCH (08:01)
[2016-08-20] MEDS: ASPIRIN 325 MG TAB PO SCH (08:01)
[2016-08-20] MEDS: amLODIPine 5 MG TAB PO SCH (08:01)
[2016-08-20] MEDS: CHOLECALCIFEROL 1,000 UNIT TAB PO SCH (08:01)
[2016-08-20] MEDS: FAMOTIDINE 20 MG TAB PO SCH (08:07)
[2016-08-20 11:31] VITALS: BP 154/72; PULSE 64; RESP 14; TEMP 97
[2016-08-20 11:55] LABS: Glucose,Whole Blood 201 mg/dL (75-99)
--- NOTE | 2016-08-20 12:13 | P.DS ---
Providers Date of admission: 08/18/16 17:05 Expected date of discharge: 08/20/16 Attending physician: Mell Baer Consults: 08/19/16 11:35 Consult Physician Stat Consulting Provider: John Damian Consult Reason/Comments: Abnormal carotid right Do you want consulting provider notified?: Yes Primary care physician: Mell Buffy [facility] Course: Diagnoses on discharge #1 transient ischemic attack #2 left internal carotid stenosis 50-70% #3 underlying history of hypertension #4 underlying history of hyperlipidemia #5 underlying history of diabetes [facility] course Patient is a 75-year-old male who presented to [facility] emergency room, was a chief complaint of slurred speech, patient was unable to find words or sentences, this lasted for a few minutes and then resolved, he decided to come to emergency room to be evaluated, he has a known history of hypertension hyperlipidemia and diabetes mellitus, he was not taking aspirin at home. He was admitted to telemetry floor he was asymptomatic through this admission, no recurrence of his symptoms, carotid Doppler revealed 50-70% stenosis on the left, echocardiogram revealed no significant abnormality, there was no evidence of atrial fibrillation or flutter during this admission. He was discharged home on 08/20/2016. Aspirin was added again to his regimen and he was counseled in length to take a full aspirin every day without missing any days he will be continued on his home medication for hypertension hyperlipidemia and diabetes he will be followed in our office in 2-3 days. Patient Condition at Discharge: Stable Plan - Discharge Summary Discharge Medication List Citalopram Hydrobromide [CeleXA] 40 mg PO DAILY 01/14/15 [History] amLODIPine [Norvasc] 5 mg PO DAILY 01/14/15 [History] Carvedilol [Coreg] 6.25 mg PO BID 01/15/15 [History] metFORMIN HCL 1,000 mg PO BID 01/15/15 [History] Cholecalciferol [Vitamin D3] 2,000 unit PO DAILY 08/18/16 [History] HYDROcodone/APAP 10-325MG [[place] 10-325] 1 tab PO Q8H PRN 08/18/16 [History] Pravastatin Sodium [Pravachol] 20 mg PO DAILY 08/18/16 [History] Vit C/E/Zn/Coppr/Lutein/Zeaxan [Preservision Areds 2 Softgel] 2 cap PO DAILY [History] glipiZIDE [Glucotrol] 5 mg PO AC-SUPPER 08/18/16 [History] Aspirin 325 mg PO DAILY tab 08/20/16 [Rx] Follow up Appointment(s)/Referral(s): Mell Baer MD [Primary Care Provider] - 1-2 days
--- NOTE | 2016-08-20 13:35 | P.PN ---
Subjective This patient is a 75-year-old male who was admitted to hospital with episode of expressive aphasia. Patient presented with 15 minute episode in which she had difficulty with word finding and garbled speech. He was noted to hospital for possible TIA versus stroke. He underwent a carotid Doppler ultrasound which revealed greater than 70% stenosis of the right internal carotid artery. There was 50-70% stenosis of the left internal carotid artery. Given this carotid artery stenosis of vascular surgery consultation was recommended. Patient was seen by vascular surgery yesterday and they're recommending that he continue with antiplatelet therapy. He'll be scheduled for a angiography study of the carotids in the outpatient setting. Patient otherwise seems to be doing well today and remains asymptomatic. Evaluation of his EKG and cardiac monitoring fails to reveal any evidence of atrial fibrillation or atrial flutter. He should follow-up with vascular surgery as recommended. Overall the patient seems to be doing otherwise well. Neurologically he is intact with no deficits on examination today. He is to be discharged home and should follow-up with vascular surgery as instructed. He may follow-up in the outpatient neurology clinic as needed. Objective - Vital Signs Vital signs: Vital Signs Temp 97 F L 08/20/16 11:30 Pulse 64 08/20/16 11:30 Resp 14 08/20/16 11:30 BP 154/72 08/20/16 11:30 Pulse Ox 95 08/20/16 11:30 Intake & Output 08/19/16 08/20/16 08/20/16 18:59 06:59 18:59 Intake Total 360 Output Total 350 600 Balance -350 -240 Weight 98.5 kg Intake: Oral 360 Output: Urine 350 600 Other: # Voids 3 0 2 # Bowel Movements 0 - Exam Physical examination: PHYSICAL EXAMINATION: Patient is resting comfortably in bed. VITAL SIGNS: Blood pressure is [154/72]. Heart rate is [64]. Respiration is [15] . Temperature is [97.0]. HEENT: Head is atraumatic, neck is supple, there were no carotid bruits. CHEST: Lungs are clear to auscultation and percussion. CARDIAC: S1, S2 normal rate and rhythm. There is no murmur. ABDOMEN: Soft and nontender. Bowel sounds are present. EXTREMITIES: There is no pedal edema. Peripheral pulses are present. Neurological examination: Patient has a nonfocal neurological exam at this time. - Labs CBC & Chem 7: 08/20/16 05:37 08/20/16 05:37 Labs: Abnormal Lab Results - Last 24 Hours (Table) 08/19/16 08/19/16 08/20/16 Range/Units 17:04 21:00 05:37 Hgb 12.7 L (13.0-17.5) gm/dL Hct 37.9 L (39.0-53.0) % Glucose (74-99) mg/dL POC Glucose (mg/dL) 132 H 189 H (75-99) mg/dL Total Protein (6.3-8.2) g/dL LDL Cholesterol, Calc (0-99) mg/dL 08/20/16 08/20/16 08/20/16 Range/Units 05:37 06:20 11:46 Hgb (13.0-17.5) gm/dL Hct (39.0-53.0) % Glucose 152 H (74-99) mg/dL POC Glucose (mg/dL) 162 H 201 H (75-99) mg/dL Total Protein 5.8 L (6.3-8.2) g/dL LDL Cholesterol, Calc 101 H (0-99) mg/dL Assessment and Plan (1) TIA (transient ischemic attack) Status: Acute Code(s): G45.9 - TRANSIENT CEREBRAL ISCHEMIC ATTACK, UNSPECIFIED (2) Expressive aphasia Status: Acute Code(s): R47.01 - APHASIA (3) Carotid artery stenosis Status: Acute Code(s): I65.29 - OCCLUSION AND STENOSIS OF UNSPECIFIED CAROTID ARTERY (4) Diabetes mellitus Status: Acute Code(s): E11.9 - TYPE 2 DIABETES MELLITUS WITHOUT COMPLICATIONS Plan: This patient is a 75-year-old male who was admitted to hospital with episode of expressive aphasia. He had a 15 minute episode on the day of admission in which he had word finding difficulties. He also had garbled speech. He was surgically admitted to Hospital. He underwent a carotid Doppler ultrasound which did reveal greater than 70% stenosis of the right internal carotid artery. He was seen by vascular surgery and they're recommending a angiogram study of the carotids to be done in the outpatient setting. Patient is to continue on aspirin for long-term antiplatelet therapy. His neurological examination today is nonfocal. His laboratory test results reveals his total cholesterol to be 174. His blood sugars are to be tightly controlled as well for secondary stroke prevention. We do recommend he continue on full adult aspirin 325 mg daily for secondary stroke prevention. He may follow-up in the outpatient neurology clinic as needed. So overall prognosis at this time remains guarded.
[2016-08-21 08:56] LABS: Hemoglobin A1C 7.1 % (4.2-6.1)
--- NOTE | 2016-08-22 11:42 | CDI ---
In responding to this query, please exercise your independent professional judgment. The [facility] Coding Staff and Clinical Documentation Specialists appreciate your assistance in clarifying documentation, maintaining compliance with coding guidelines, accurately documenting patients condition and capturing severity of illness. The fact that a question is asked does not imply that any particular answer is desired or expected. Communication forms are a method of clarifying documentation and are not made part of the Legal Health Record. Thank you in advance for your clarification. Last Revision, October 2015 Nikolay Petersen [address] [facility] [place] [address] Documentation Clarification Form Date: 08/22/2016 11:25:00 AM From: Tosha Hancock Phone: Admit Date: 08/18/2016 5:05:00 PM Patient Name: Alejo Lees Visit Number: [id number] Discharge Date: 08/22/16 Dr. Mell Baer TIA is documented as a diagnosis in the discharge summary. Patient history/risk factors: slurred speech, hx of angina, DM, hyperlipidemia, HTN, sleep apnea Clinical indicators: CT head: No acute intracranial abnormality seen. Mild changes of chronic small vessel ischemic disease. Carotid US: There is significan elevated velocity and plaque formation at the right carotid artery bifurcation consistent with more than 70% stenosis of the right internal carotid artery. Echo: no significant abnormality Treatment: Aspirin added. plan angography of carotids as an outpatient Consult: Neuro In your professional opinion, please specify underlying etiology of the transient ischemic attack: Carotid Sinus Syncope Carotid Stenosis Hemorrhagic Stroke (if know specify specific location) Ischemic Stroke (if know specify cause, specific vessel/location, and laterality): Sequelae of Cerebrovascular Disease (specify Type of Cerebrovascular Disease ) Vertebo-Basilar Artery Syndrome Other (please specify): Etiology unknown or Unable to determine Please document in your progress notes and discharge summary in order to capture severity of illness and risk of mortality. Include clinical findings that support your diagnosis. FYI: Press F11 to launch patient chart ROBIN Aguilera, CCS, AHICARLEEN Certified [employer] Line Painting Machine Operator/[place] [employer] Painting Machine Operator II CARLO
== END 2016-08-20 14:06 | disposition home or self-care (01) | DRG 69 ==
LOC: EC 14:46 → 6SEL 17:05
PROVIDERS: ADMIT Internal Medicine; ATTEND Internal Medicine
DX: G45.9 Transient cerebral ischemic attack, unspecified (principal); F11.20 Opioid dependence, uncomplicated; E11.9 Type 2 diabetes mellitus without complications; I10 Essential (primary) hypertension; I65.23 Occlusion and stenosis of bilateral carotid arteries; E78.00 Pure hypercholesterolemia, unspecified; E78.5 Hyperlipidemia, unspecified; G47.30 Sleep apnea, unspecified; F32.9 Major depressive disorder, single episode, unspecified; G89.29 Other chronic pain; M54.5 Low back pain; R25.1 Tremor, unspecified; E66.9 Obesity, unspecified; Z88.0 Allergy status to penicillin; Z87.891 Personal history of nicotine dependence; Z68.33 Body mass index [BMI] 33.0-33.9, adult; Z98.42 Cataract extraction status, left eye; Z98.41 Cataract extraction status, right eye; Z86.19 Personal history of other infectious and parasitic diseases; Z79.84 Long term (current) use of oral hypoglycemic drugs; Z79.899 Other long term (current) drug therapy; Z82.3 Family history of stroke
CPT/HCPCS: 36415; 70450; 71020; 80053; 80061; 82550; 82553; 83036; 84484; 85025; 85027; 85610; 85730; 93005; 93306; 93880; 99285

== ENCOUNTER 2017-05-28 19:15 | Emergency (ER) | payer MEDICARE, BC ==
[2017-05-28 19:21] VITALS: TEMP 97.7
--- NOTE | 2017-05-28 20:43 | ED ---
Extremity Problem HPI <JaidenBrett - Last Filed: 05/28/17 22:00> - General Source: patient, RN notes reviewed Mode of arrival: ambulatory Limitations: no limitations <Yolie Hawkins - Last Filed: 05/28/17 22:03> - General Chief complaint: Extremity Problem,Nontraumatic Stated complaint: RT ARM PAIN, Hx BLOCKAGE IN NECK Time Seen by Provider: 05/28/17 19:46 - History of Present Illness Initial comments: This is a 76-year-old male who presents emergency department chief complaint of right upper extremity pain. Patient states that he has been experiencing increased constant right upper extremity pain for the past few weeks. He states that ever since he fell from a boat dock one year ago he has experienced mild amount of pain. He describes the pain as a dull ache starting at the right side of his neck radiating down to proximal forearm. He denies any numbness or tingling. He states he has limited range of motion of his right shoulder. Denies fever, chills, chest pain, shortness of breath, abdominal pain, nausea or vomiting, constipation or diarrhea, dysuria or hematuria, headache or vision changes. (Yolie Hawkins) - Related Data Home Medications Medication Instructions Recorded Confirmed Citalopram Hydrobromide [CeleXA] 40 mg PO DAILY 01/14/15 05/28/17 amLODIPine [Norvasc] 5 mg PO DAILY 01/14/15 05/28/17 Carvedilol [Coreg] 6.25 mg PO BID 01/15/15 05/28/17 metFORMIN HCL 1,000 mg PO BID 01/15/15 05/28/17 HYDROcodone/APAP 10-325MG [Lapaz 1 tab PO Q8H PRN 08/18/16 05/28/17 10-325] Pravastatin Sodium [Pravachol] 20 mg PO HS 08/18/16 05/28/17 glipiZIDE [Glucotrol] 5 mg PO AC-SUPPER 08/18/16 05/28/17 Aspirin EC [Ecotrin Low Dose] 81 mg PO DAILY 05/28/17 05/28/17 Ergocalciferol (Vitamin D2) 50,000 unit PO SIMS 05/28/17 05/28/17 [Vitamin D2] Multivitamins, Thera [Multivitamin 1 tab PO DAILY 05/28/17 05/28/17 (formulary)] Ubidecarenone [Co Q-10] 100 mg PO DAILY 05/28/17 05/28/17 Allergies Allergy/AdvReac Type Severity Reaction Status Date / Time Penicillins Allergy Rash/Hives Verified 05/28/17 19:49 Review of Systems ROS Other: All systems not noted in ROS Statement are negative. <Brett Hwang - Last Filed: 05/28/17 22:00> ROS Other: All systems not noted in ROS Statement are negative. <Yolie Hawkins - Last Filed: 05/28/17 22:03> ROS Statement: Those systems with pertinent positive or pertinent negative responses have been documented in the HPI. Past Medical History Past Medical History: Chest Pain / Angina, Diabetes Mellitus, Eye Disorder, Hyperlipidemia, Hypertension, Sleep Apnea/CPAP/BIPAP Additional Past Medical History / Comment(s): 2015 stress wnl, tinnitus, chronic lower back pain, rt eye blurry-diff reading needs new glasses,"knocked out at work 1975/concussion", "occassional hand tremors", shingles approx 10 years ago,uses a cpap machine History of Any Multi-Drug Resistant Organisms: None Reported Past Surgical History: Appendectomy, Cholecystectomy, Hernia Repair Additional Past Surgical History / Comment(s): lap band, colonoscopy, cataracts, Past Anesthesia/Blood Transfusion Reactions: No Reported Reaction Past Psychological History: Anxiety Smoking Status: Former smoker Past Alcohol Use History: None Reported Past Drug Use History: None Reported - Past Family History Father Additional Family Medical History / Comment(s): stroke Mother Additional Family Medical History / Comment(s): stroke <Yolie Hawkins - Last Filed: 05/28/17 22:03> General Exam <Brett Hwang - Last Filed: 05/28/17 22:00> Limitations: no limitations <Yolie Hawkins - Last Filed: 05/28/17 22:03> - General Exam Comments Initial Comments: General: Awake and alert, well-developed; in no apparent distress. HEENT: Head atraumatic, normocephalic. Pupils are equal, round and reactive to light. Extraocular movements intact. Neck: Supple. Normal ROM. Tenderness on palpation of right sternocleidomastoid muscle. Cardiovascular: Regular rate and rhythm. No murmurs, rubs or gallops. Chest symmetrical. Respiratory: Lungs clear to auscultation bilaterally. No wheezes, rales or rhonchi. Normal respiratory effort with no use of accessory muscles. Musculoskeletal: Generalized tenderness on palpation of right upper arm, shoulder and neck. No bony point tenderness. Passive ROM of right shoulder and elbow are intact. Limited active ROM, particularly adduction of right shoulder. Sensation is intact. Strength 5/5. Radial pulses 2+ equal and palpable bilaterally. Skin: [place], warm and dry without rashes or lesions. Neurological: Alert and oriented x3. CN II-XII grossly intact. Speech is fluent and answers are appropriate. No focal neuro deficits. Psychiatric: Normal mood and affect. No overt signs of depression or anxiety noted. (Yolie Hawkins) Vital Signs 05/28/17 05/28/17 05/28/17 19:17 20:08 21:28 Temperature 97.7 F Pulse Rate 78 66 65 Respiratory 16 18 Rate Blood Pressure 224/96 187/85 164/70 O2 Sat by Pulse 99 95 Oximetry - Reevaluation(s) Reevaluation #1: 05/28/17 22:00 PG supervision: I did personally do a [id number] evaluation of this patient and did discuss the findings with him. Patient complains of right shoulder pain radiating down from the right side of his neck posteriorly. He's had of her weeks. He gets worse with certain movements and turning his head and moving his neck. He denies any focal weakness. He did demonstrate reproducible tenderness palpation over the lateral right neck musculature and trapezius tenderness palpation of the shoulder musculature. No sensorimotor vascular deficits. The presentation is consistent with a musculoskeletal etiology of pain likely with cervical radiculopathy. Patient does have an appointment to see his doctor tomorrow he'll get 1 shot of a nonsteroidal anti- inflammatory tonight. Chest lungs are clear in this patient neck was unremarkable no stridor JVD or bruits (Brett Hwang) Medical Decision Making <Brett Hwang - Last Filed: 05/28/17 22:00> - Radiology Data Radiology results: report reviewed <Yolie Hawkins - Last Filed: 05/28/17 22:03> - Medical Decision Making This is a 68-year-old male who presents with complaint of right upper extremity pain. Case was discussed in detail with attending physician, Dr. Hwang, who also evaluated the patient. Patient's cervical spine x-ray revealed narrowing of C5-C6 which is likely contributing to patient's right upper extremity pain. Tenderness with palpation of musculature of neck and shoulder. Patient received a dose of Toradol while in the emergency department and is in no acute distress at this time. He has a doctor's appointment scheduled for tomorrow morning and is to follow up about this issue at that time. Patient is in agreement to the plan voices understanding. All questions were answered. (Yolie Hawkins) - Radiology Data X-ray right shoulder findings: No fracture nor dislocation. Glenohumeral joint is intact. There are no pathologic calcifications of the greater tuberosity. Impression: Negative right shoulder exam Cervical spine x-ray findings: Vertebral have normal alignment. There is mild hypertrophic spurring of the endplates. Posterior elements are intact. The atlantoaxial facet joint is normal. There are no cervical ribs. Impression: Spondylotic changes. There is progression of disc space narrowing at C5 to C6 compared to old exam. No fracture. (Yolie Hawkins) Disposition <Brett Hwang - Last Filed: 05/28/17 22:00> Time of Disposition: 22:03 <Yolie Hawkins - Last Filed: 05/28/17 22:03> Clinical Impression: Cervical radiculopathy Disposition: HOME SELF-CARE Condition: Good Instructions: Cervical Radiculopathy (ED) Additional Instructions: Please follow up with primary care provider within 1-2 days. Return to emergency department if symptoms should worsen or any concerns arise. Referrals: Mell Baer MD [Primary Care Provider] - 1-2 days
--- NOTE | 2017-05-28 21:23 | XR ---
EXAMINATION TYPE: XR cervical spine comp DATE OF EXAM: 05/28/2017 COMPARISON: 08/15/2013 HISTORY: Pain TECHNIQUE: 6 views FINDINGS: Vertebra have normal alignment. There is mild hypertrophic spurring of the endplates. Poste rior elements are intact. The atlantoaxial facet joint is normal. There are no cervical ribs. IMPRESSION: Spondylotic changes. There is progression of disc space narrowing at C5-6 compared to old exam. No fracture.
--- NOTE | 2017-05-28 21:27 | XR ---
EXAMINATION TYPE: XR shoulder complete RT DATE OF EXAM: 05/28/2017 COMPARISON: NONE HISTORY: Neck pain arm pain TECHNIQUE: 3 views FINDINGS: I see no fracture nor dislocation. Glenohumeral joint is intact. There are no pathologic ca lcifications at the greater tuberosity. IMPRESSION: Negative right shoulder exam.
[2017-05-28 21:28] VITALS: BP 164/70; PULSE 65; RESP 18
[2017-05-28] MEDS ORDERED: KETOROLAC 30 MG/ML 1 ML VIAL IM STA (21:51)
== END 2017-05-28 22:11 | disposition home or self-care (01) ==
LOC: EC 19:15
DX: M47.22 Other spondylosis with radiculopathy, cervical region (principal); M48.02 Spinal stenosis, cervical region; E78.5 Hyperlipidemia, unspecified; I10 Essential (primary) hypertension; E11.9 Type 2 diabetes mellitus without complications; G89.29 Other chronic pain; Z87.891 Personal history of nicotine dependence; Z79.82 Long term (current) use of aspirin; Z79.84 Long term (current) use of oral hypoglycemic drugs; Z79.899 Other long term (current) drug therapy; Z88.0 Allergy status to penicillin; Z86.79 Personal history of other diseases of the circulatory system
CPT/HCPCS: 99283; 96372; 72050; 73030; J1885

== ENCOUNTER → 2017-06-15 | Outpatient (CLI) | payer MEDICARE, BC ==
[2017-06-15 11:18] LABS: Non-African American GFR(MDRD) >60 (>60 ml/min/1.73 sqM)
--- NOTE | 2017-06-15 17:09 | MR ---
EXAMINATION TYPE: MR cervical spine wo con DATE OF EXAM: 06/15/2017 COMPARISON: NONE HISTORY: Neck pain TECHNIQUE: Multiplanar, multisequence images of the cervical spine were acquired. C2-C3: Broad-based disc bulge has mild anterior thecal sac compression. No AP spinal canal stenosis c ord contact or neural foraminal stenosis is present. C3-C4: Broad-based disc bulge has anterior thecal sac compression. No AP spinal canal stenosis is pre sent. Neural foramen are patent. Degenerative disc changes are present C4-C5: There is a small central protrusion with mild anterior thecal sac compression. No AP spinal ca nal stenosis present. Neural foramen are patent. C5-C6: Broad-based disc bulge has mild to moderate anterior thecal sac compression. No AP spinal nura l stenosis present. Uncovertebral joint hypertrophy has moderate bilateral foraminal narrowing. C6-C7: Broad-based left paracentral disc herniation has moderate anterior thecal sac compression. Thi s comes in close approximation with spinal cord. No cord contact or deformity is evident. Moderate le ft foraminal narrowing is present from disc bulging and facet hypertrophy. Degenerative disc changes are present. C7-T1: No evidence for degenerative disc disease. No disc bulge/herniation or protrusion. No Canal stenosis. Foramina are patent bilaterally. There is normal alignment. Cervical spinal cord is of normal signal. Craniovertebral junction relat ionships are within normal limits. IMPRESSION: 1. Broad-based left paracentral disc herniation at C6-7 is moderate anterior thecal sac compression w ithout cord contact. 2. Degenerative disc changes and uncovertebral joint hypertrophy discussed above. 3. There are additional areas of disc bulging with milder anterior thecal sac impression.
--- NOTE | 2017-06-15 17:15 | MR ---
EXAMINATION TYPE: MR brain/orbits wo/w con DATE OF EXAM: 06/15/2017 COMPARISON: NONE HISTORY: Blurry vision, rt side CONTRAST: Performed utilizing 10 mL intravenous Gadavist gadolinium contrast. TECHNIQUE: Multiplanar, multiecho imaging on a 3.0 Denisha magnet is performed through the brain. Stud y is performed within 24 hours of arrival to the hospital. Dedicated images were obtained through the orbits. The craniovertebral junction is normal. The pituitary is normal. Diffusion-weighted imaging is performed. No abnormal hyperintensity is present to suggest an acute i ntracranial infarct or acute ischemic change. There is some increased signal within the lower brainstem can be compatible some ischemic type change . Some additional chronic appearing white matter ischemic changes in the periventricular white matter . Other etiologies that could be considered would be vasculitis, multiple sclerosis, Lyme disease. Globes are symmetrical. Intraconal and extraconal fat is normal. Extraocular muscles appear normal. L acrimal gland regions are normal. Optic chiasm is normal. Visualized intracranial cerebral vasculatur e is normal flow voids. The right A1 segment is hypoplastic. Paranasal sinuses are clear. No suspicious enhancement is evident within the brain within the visualized orbits. Ventricles and sulci are appropriate for the patient age. IMPRESSIONS: 1. Periventricular white matter ischemic type changes appear chronic. 2. Normal appearing bilateral orbits. 3. Hypoplastic right A1 segment within the [place] of [place].
== END | disposition home or self-care (01) ==
LOC: RADMRIMAIN 10:37
PROVIDERS: ATTEND Internal Medicine
DX: M50.223 Other cervical disc displacement at C6-C7 level (principal); M50.30 Other cervical disc degeneration, unspecified cervical region; M53.82 Other specified dorsopathies, cervical region; I67.89 Other cerebrovascular disease; Q28.3 Other malformations of cerebral vessels
CPT/HCPCS: 82565; 70543; 70553; 72141; 36415; A9581

== ENCOUNTER → 2018-10-25 | Outpatient (CLI) | payer MEDICARE, OTHER ==
--- NOTE | 2018-10-25 13:52 | US ---
EXAMINATION TYPE: US carotid duplex BILAT DATE OF EXAM: 10/25/2018 COMPARISON: US 2017 CLINICAL HISTORY: R42 Dizziness, I35.0 Aortic stenosis. Headaches and dizziness EXAM MEASUREMENTS: RIGHT: Peak Systolic Velocity (PSV) cm/sec ----- Right CCA: 41.1 ----- Right ICA: 474.0 ----- Right ECA: 230.3 ICA/CCA ratio: 11.5 RIGHT: End Diastole cm/sec ----- Right CCA: 7.6 ----- Right ICA: 97.5 ----- Right ECA: 0.0 LEFT: Peak Systolic Velocity (PSV) cm/sec ----- Left CCA: 61.6 ----- Left ICA: 213.5 ----- Left ECA: 148.1 ICA/CCA ratio: 3.5 LEFT: End Diastole cm/sec ----- Left CCA: 11.9 ----- Left ICA: 46.3 ----- Left ECA: 9.1 VERTEBRALS (direction of flow): Right Vertebral: Antegrade Left Vertebral: Antegrade Rhythm: Normal Significant increase in stenosis and ratio within right ICA when compared to previous/ Elevated veloc ities also within bilateral ECA's and left ICA IMPRESSION: 1. High-grade stenosis right ICA with progression noted relative to prior examination. 2. Estimated diameter reduction left ICA between 50 and 69%. Criteria for Assigning % of Stenosis / Diameter reduction (Estimation based on the indirect measurements of the internal carotid artery velocities (ICA PSV). 1. Normal (no stenosis)=ICA PSV < 125 cm/s: ratio < 2.0: ICA EDV<40 cm/s. 2. Less than 50% stenosis=ICA PSV < 125 cm/s: ratio < 2.0: ICA EDV<40 cm/s. 3. 50 to 69% stenosis=ICA PSV of 125 to 230 cm/s: ration 2.0 ? 4.0: ICA EDV 40-100 cm/s. 4. Greater than 70% stenosis to near occlusion= ICA PSV > 230 cm/s: ratio > 4.0: ICA EDV > 100 cm/s. 5. Near occlusion= ICA PSV velocities may be low or undetectable: variable ratio and ICA EDV. 6. Total occlusion=unable to detect flow.
--- NOTE | 2018-10-25 19:00 | ECHOF ---
Referral Reason:R42 Dizziness, I35.0 Aortic stenosis MEASUREMENTS -------- HEIGHT: 172.7 cm WEIGHT: 97.5 kg BP: RVIDd: 3.5 cm (< 3.3) IVSd: 1.3 cm (0.6 - 1.1) LVIDd: 4.1 cm (3.9 - 5.3) LVPWd: 1.3 cm (0.6 - 1.1) IVSs: 1.6 cm LVIDs: 3.5 cm LVPWs: 1.8 cm Ao Diam: 2.7 cm (2.0 - 3.7) AV Cusp: 0.8 cm (1.5 - 2.6) LA Diam: 4.1 cm (2.7 - 3.8) MV EXCURSION: 13.666 mm (> 18.000) MV EF SLOPE: 77 mm/s (70 - 150) EPSS: 0.3 cm MV E Uri: 0.75 m/s MV DecT: 310 ms MV A Uri: 1.15 m/s MV E/A Ratio: 0.65 AV maxP.20 mmHg AV meanP.62 mmHg RAP: 5.00 mmHg RVSP: 16.65 mmHg FINDINGS -------- Sinus rhythm. This was a technically adequate study. The left ventricular size is normal. There is mild concentric left ventricular hypertrophy. Overa ll left ventricular systolic function is low-normal with, an EF between 50 - 55 %. The right ventricle is normal in size. The left atrial size is normal. The right atrial size is normal. There is moderate to severe aortic valve sclerosis. Moderate to severe aortic stenosis with peak/me an pressure gradient of 53.20mmHg / 28.62mmHg, . Peak/mean gradient across the Aortic Valve is 53.20 mmHg / 28.62mmHg. Can't exclude possible Bicuspid Aov. Mild mitral annular calcification present. Mild mitral regurgitation is present. Mild tricuspid regurgitation present. There is no evidence of pulmonary hypertension. The right v entricular systolic pressure, as measured by Doppler, is 16.65mmHg. There is no pulmonic regurgitation present. The aortic root size is normal. There is no pericardial effusion. CONCLUSIONS -------- 1. The left ventricular size is normal. 2. There is mild concentric left ventricular hypertrophy. 3. Overall left ventricular systolic function is low-normal with, an EF between 50 - 55 %. 4. The right ventricle is normal in size. 5. The left atrial size is normal. 6. The right atrial size is normal. 7. Peak/mean gradient across the Aortic Valve is 53.20mmHg / 28.62mmHg. 8. Can't exclude possible Bicuspid Aov. 9. Mild mitral annular calcification present. 10. Mild mitral regurgitation is present. 11. Mild tricuspid regurgitation present. 12. There is no evidence of pulmonary hypertension. 13. The right ventricular systolic pressure, as measured by Doppler, is 16.65mmHg. 14. There is no pulmonic regurgitation present. 15. The aortic root size is normal. 16. There is no pericardial effusion. CAR SHUNTER: Michelle Russ RDCS
== END ==
LOC: RADUSMAIN 12:19
PROVIDERS: ATTEND Internal Medicine
DX: I65.21 Occlusion and stenosis of right carotid artery (principal)
CPT/HCPCS: 93306; 93880

== ENCOUNTER → 2018-12-19 | Outpatient (CLI) | payer MEDICARE, OTHER ==
--- NOTE | 2018-12-19 15:46 | US ---
EXAMINATION TYPE: US venous doppler duplex LE RT DATE OF EXAM: 12/19/2018 3:37 PM COMPARISON: US CLINICAL HISTORY: M79.661, R22.41 PAIN AND SWELLING IN RT LEG. Pt states right calf pain SIDE PERFORMED: Right TECHNIQUE: The lower extremity deep venous system is examined utilizing real time linear array sonog maicol with graded compression, doppler sonography and color-flow sonography. VESSELS IMAGED: External Iliac Vein (EIV) Common Femoral Vein Deep Femoral Vein Greater Saphenous Vein * Femoral Vein Popliteal Vein Small Saphenous Vein * Proximal Calf Veins (* superficial vessels) Right Leg: Negative for DVT Results called to Dr. Baer's office at time of exam IMPRESSION: 1. No diagnostic evidence of DVT as visualized.
== END | disposition home or self-care (01) ==
LOC: RADUSWWP 15:16
PROVIDERS: ATTEND Internal Medicine
DX: M79.661 Pain in right lower leg (principal); R22.41 Localized swelling, mass and lump, right lower limb

== ENCOUNTER → 2019-10-07 | Outpatient (CLI) | payer MEDICARE ==
[2019-10-07 16:53] LABS: African American GFR (CKD) 73.1 (60.0-200.0); Albumin 4.5 g/dL (3.80-4.90); Anion Gap 9.8 mmol/L (4.00-12.00); BUN/Creat Ratio 20.91 Ratio (12.00-20.00); Calcium 9.4 mg/dL (8.7-10.3); Carbon Dioxide 23.2 mmol/L (21.6-31.8); Non-African American GFR(CKD) 63.1 (60.0-200.0); Potassium 5.1 mmol/L (3.5-5.5)
== END | disposition home or self-care (01) ==
LOC: LABWHC1 09:07
PROVIDERS: ATTEND Orthopaedic Surgery
DX: Z01.812 Encounter for preprocedural laboratory examination (principal)
CPT/HCPCS: 36415; 80048; 82040; 87070

== ENCOUNTER → 2020-01-05 | Outpatient (CLI) | payer MEDICARE | END | disposition home or self-care (01) | LOC: LABWHC1 11:21 | PROVIDERS: ATTEND Internal Medicine Interventional Cardiology | DX: U07.1 COVID-19 (principal) ==

== ENCOUNTER 2020-01-07 05:51 | Day surgery (SDC) | payer MEDICARE ==
[2020-01-07] MEDS ORDERED: ASPIRIN 325 MG TAB PO STA (05:59)
[2020-01-07] MEDS ORDERED: ALPRAZolam 0.5 MG TAB PO PRN (05:59)
[2020-01-07] MEDS ORDERED: ALPRAZolam 0.25 MG TAB PO PRN (05:59)
[2020-01-07] MEDS ORDERED: SODIUM CHLORIDE 0.9% 1,000 ML in EMPTY BAG 1 BAG IV ONE (05:59)
[2020-01-07] MEDS ORDERED: NITROGLYCERIN SL TABS 0.4 MG TAB SUBLINGUAL PRN ×2 (05:59→09:43)
[2020-01-07] MEDS ORDERED: CARVEDILOL 6.25 MG TAB PO STA (06:38)
[2020-01-07] MEDS ORDERED: HYDROcodone/APAP 10-325MG 1 EACH TAB PO ONE (06:38)
[2020-01-07] MEDS ORDERED: LOSARTAN 50 MG TAB PO STA (06:38)
[2020-01-07] MEDS ORDERED: amLODIPine 5 MG TAB PO STA (06:39)
[2020-01-07 06:49] LABS: Glucose,Whole Blood 230 mg/dL (75-99)
[2020-01-07 06:56] LABS: Basophils % (A) 1 %; Eosinophils # (A) 0.2 k/uL (0-0.7); Eosinophils % (A) 3 %; HCT 38.8 % (39.0-53.0); Lymphocytes # (A) 2.3 k/uL (1.0-4.8); Lymphocytes % (A) 29 %; MCH 30.6 pg (25.0-35.0); MCHC 33.5 g/dL (31.0-37.0); MCV 91.5 fL (80.0-100.0); Mean Platelet Volume 8.6; Monocytes # (A) 0.5 k/uL (0-1.0); Monocytes % (A) 6 %; Neutrophils # (A) 4.7 k/uL (1.3-7.7); Neutrophils % (A) 59 %; Platelet Count 209 k/uL (150-450); RBC 4.24 m/uL (4.30-5.90); RDW 13.6 % (11.5-15.5); WBC 7.9 k/uL (3.8-10.6)
[2020-01-07] MEDS: INSULIN ASPART (NovoLOG) 100 UNIT/ML VIAL SQ SCH ×5 (06:56→21:35)
[2020-01-07] MEDS ORDERED: fentaNYL (PF) 50 MCG/ML 2 ML AMP ONE (07:05)
[2020-01-07] MEDS ORDERED: SODIUM CHLORIDE 0.9% 1,000 ML IV ONE (07:05)
[2020-01-07 07:09] LABS: African American GFR (CKD) >90 (>60 ml/min/1.73 sqM); Anion Gap 10 mmol/L; Blood Urea Nitrogen 25 mg/dL (9-20); Calcium 9.1 mg/dL (8.4-10.2); Carbon Dioxide 20 mmol/L (22-30); Chloride 106 mmol/L (98-107); Glucose 231 mg/dL (74-99); Non-African American GFR(CKD) 81 (>60 ml/min/1.73 sqM); Potassium 4.7 mmol/L (3.5-5.1); Sodium 136 mmol/L (137-145)
[2020-01-07] MEDS: BENZOCAINE SPRAY 1 CAN TOPICAL ONE ×2 (07:10→07:15)
[2020-01-07] MEDS: fentaNYL (PF) 50 MCG/ML 2 ML AMP IV ONE ×2 (07:15→07:25)
[2020-01-07] MEDS ORDERED: MIDAZOLAM 2 MG/2 ML VIAL IV ONE ×2 (07:15→07:25)
[2020-01-07] MEDS ORDERED: LIDOCAINE 1% INJ 10MG/ML (20 ML MDV) ONE (07:30)
[2020-01-07] MEDS ORDERED: HEPARIN SODIUM 1,000 UN/ML (10ML VL) ONE (07:30)
[2020-01-07] MEDS ORDERED: VERAPAMIL 2.5 MG/ML 2 ML AMP ONE (07:30)
[2020-01-07] MEDS ORDERED: LIDOCAINE 1% INJ 10MG/ML (20 ML MDV) SQ ONE (07:58)
[2020-01-07] MEDS ORDERED: VERAPAMIL SYRINGE (5 MG/10 ML) INTRAARTER ONE (08:13)
[2020-01-07 08:34] LABS: O2 Sat Blood Gas 71.7 %
[2020-01-07 08:36] LABS: O2 Sat Blood Gas 70.1 %
[2020-01-07] MEDS ORDERED: CLOPIDOGREL 75 MG TAB ONE (08:37)
[2020-01-07 08:38] LABS: O2 Sat Blood Gas 98.1 %
[2020-01-07] MEDS ORDERED: CLOPIDOGREL 75 MG TAB PO ONE (08:41)
[2020-01-07] MEDS ORDERED: IOPAMIDOL-370 125ML BTL INJ ONE ×2 (09:02→09:18)
[2020-01-07] MEDS ORDERED: NITROGLYCERIN SL TABS 0.4 MG TAB SUBLINGUAL ONE ×2 (09:19→09:21)
--- NOTE | 2020-01-07 09:22 | ECHOT ---
TRANSESOPHAGEAL ECHOCARDIOGRAM INDICATION: Evaluation of aortic valve. PROCEDURE: After explaining the procedure to the patient, its risks and complications, his blood pressure, heart rate, O2 saturation was monitored. The throat was sprayed with Cetacaine, he received 4 mg intravenous Versed, 100 mcg intravenous fentanyl. The probe was introduced in the esophagus without difficulty. Images were obtained. Following that, the probe was removed. There was no immediate complication. FINDINGS: Left atrial size is dilated. Left atrial appendage is normal. Left ventricular size and systolic function normal. The aortic valve is a tricuspid valve with severe fibrocalcific changes and reduced opening by planimetry the valve area is 0.8 cm2. Mitral anulus calcification was noted. The tricuspid valve is normal, descending thoracic aorta revealed mild atherosclerotic changes of the descending thoracic aorta. No pericardial effusion was noted. Contrast bubble study revealed no evidence of shunting across the interatrial septum with Valsalva maneuver. Doppler pulse wave and color Doppler obtained revealed mild mitral, tricuspid and mild aortic regurgitation. There was inability to obtain a gradient across the aortic valve. No shunting was noted by color Doppler study. CONCLUSION: 1. Mildly dilated left atrium. 2. Normal left ventricular size and systolic function. 3. Severe tricuspid aortic valve stenosis with mild aortic regurgitation. 4. Mild mitral and tricuspid regurgitation. 5. Mild atherosclerotic changes of the descending thoracic aorta. 6. No pericardial effusion. MMODL / IJN: [id number] /
[2020-01-07] MEDS ORDERED: MAG HYDROX/AL HYDROX/SIMETH 30 ML CUP PO PRN (09:43)
[2020-01-07] MEDS ORDERED: RX INFO: IV CONTRAST WAS GIVEN 1 EACH MISC MISCELLANE PRN (09:43)
[2020-01-07] MEDS ORDERED: ZOLPIDEM 5 MG TAB PO PRN (09:43)
[2020-01-07] MEDS ORDERED: ATROPINE SULFATE 0.1 MG/ML 10ML SYRINGE IV PRN (09:43)
[2020-01-07] MEDS ORDERED: SODIUM CHLORIDE 0.9% 1,000 ML IV SCH (09:45)
--- NOTE | 2020-01-07 10:34 | CC ---
CARDIAC CATHETERIZATION REPORT Mr. Lees is an 79-year-old male with a known history of hypertension, hyperlipidemia who is scheduled to undergo total knee arthroplasty and was found to have significant heart murmur. An echocardiogram was consistent with moderate severe aortic stenosis seen at stress test consistent with inducible ischemia involving the lateral wall. In view of that, recommendation made regarding cardiac catheterization. The procedures, risks, and complication were discussed with the patient under full understanding and agreement. PROCEDURE: Patient was brought to the computer lab aide in a fasting semi-sedated state after receiving fentanyl and Benadryl and achieving moderate conscious sedated state. Using Xylocaine anesthesia and Seldinger technique, a 6-Burmese sheath was introduced in the right radial artery. Subsequently using a guidewire exchange technique, the venous access catheter in the brachial vein was exchanged to a 6-Burmese sheath. Following that, right heart catheterization was performed using Purlear-Stefano catheter, multiple pressure and samples were obtained. Cardiac output by thermodilution was calculated. Following that selective right and left coronary angiography performed using 5-Burmese 3.5 bend right and left Tonja catheter. Multiple views of the coronary artery including hemiaxial views obtained, the left Tonja catheter was used to cross the aortic valve and left ventricular end-diastolic pressure was calculated. Following that, catheter removed, images were reviewed. Of note, the patient received 5000 units of intravenous heparin as well as intra-arterial verapamil. HEMODYNAMICS: Pulmonary artery systolic pressure of 34-36 with a diastolic of 18 and a mean of 22 mmHg. Right ventricle systolic pressure of 36 with an end-diastolic of 10 mmHg. RA A-wave of 8, V-wave of 10 with a mean of 9 mmHg. Left ventricular end- diastolic pressure of 14 to 16 mmHg. The peak to peak gradient across the aortic valve was 40 mmHg. Cardiac output by thermodilution was 4.5, by Carlos Eduardo 5.2 L/minute. Right atrial saturation 72%, pulmonary artery saturation of 71%, arterial saturation 91%. The aortic valve area by Hakki formula 0.7 cm2. Pulmonary capillary wedge pressure A- wave of 20, V-wave 20 with a mean of 20 mmHg. 1. FLUOROSCOPY: There is calcification involving the coronary arteries, with calcification of the aortic valve and the mitral anulus calcification. 2. LEFT MAIN: This is a short size vessel, large in caliber, bifurcating into left circumflex, left anterior descending artery. Left main coronary artery has no evidence of high-grade stenosis. 3. LEFT ANTERIOR DESCENDING ARTERY: This is a large-sized vessel, reaching toward the apex with a wraparound apex segment. The left anterior descending artery is calcified throughout its course. The mid segment has 20% to 30% plaque,distally at the apex there is an 80% stenosis. The rest of the vessel has no high-grade stenosis. 4. LEFT CIRCUMFLEX: This is a large nondominant vessel, giving rise to 2 obtuse marginal branch. After takeoff of the first obtuse marginal branch, there is long tubular lesion of up to 90%. The rest of the vessel has no high-grade stenosis. 5. RIGHT CORONARY ARTERY: This is a dominant vessel, bifurcating distally into PDA and posterolateral segment and branches. The mid RCA has an eccentric 80% stenosis. The rest of the vessel has mild obstructive disease without any evidence of high- grade stenosis. CONCLUSION: 1. Critical stenosis involving the left circumflex and the right coronary artery. 2. Severe aortic stenosis. 3. Significant stenosis in the distal LAD. RECOMMENDATION: In view of finding anatomy, I recommend proceeding with angioplasty and stenting of the RCA and the left circumflex in preparation for transaortic valve replacement. Those findings and recommendation were discussed with the patient and his family who are in full understanding and agreement. MMODL / IJN: [id number] / CARLO
--- NOTE | 2020-01-07 10:43 | PTCA ---
PERCUTANEOUSTRANS CORORONARY ANGIOGRAPHY Mr. Lees is an 79-year-old male with a known history of hypertension, hyperlipidemia, who has history of severe aortic stenosis, underwent stress test that revealed evidence of inducible ischemia involving the lateral wall. In view of that, recommendation made regarding angioplasty and stenting. The procedures, risks, and complication were discussed with the patient who is in full understanding and agreement. PROCEDURE: A 6-Burundian FR4 guiding catheter introduced into the system after cannulating the right coronary ostium, a 0.014 balanced medium weight J-wire was advanced across the lesion, positioned distally, then a 3.0 x 15 mm Xience Brigid stent was deployed, post dilated at 16 atmospheres. Following that, a 3.25 x 12 mm NC Trek balloon was advanced and one inflation at 14 atmospheres was done. Following that, the balloon was removed. Images were obtained and repeated that revealed stable successful stenting. At that point, the guiding catheter, the balloon and the guidewire were removed and a 6-Burundian FL 3.5 guiding catheter introduced into the system. Subsequently, at that point, a 0.014 balanced medium weight J-wire was advanced in the distal second obtuse marginal branch and a 2.5 x 15 mm Trek balloon was advanced and multiple inflations, maximum of 10 atmospheres were done. Following that, the balloon was removed and attempt to advance a 3.0 x 38 mm Xience Brigid stent were unsuccessful. That stent was removed and another 0.014 balanced medium weight J-wire was advanced next to the first one in a vidhi fashion, positioned distally. Subsequently, the stent was advanced, deployed and postdilated at 16 atmospheres. After removing the balloon, a 3.0 x 23 mm Xience Brigid stent was deployed proximal to the first one, deployed and postdilated to 16 atmospheres and after removing the balloon, a 3.25 x 12 mm NC Trek balloon was advanced and inflation at 14 atmospheres were done. Following that, the balloon and the guidewire was removed. Images were obtained and repeated. Those images reveal stable successful stenting. At that point, the guiding catheter, the balloon and the guidewire were removed. Patient was returned to his room in stable condition. Of note, the patient had chest discomfort and EKG changes with the left circumflex inflation that resulted in procedure. He received a total of 10,000 units of intravenous heparin throughout the procedure. His ACT was monitored and he received an oral loading dose of clopidogrel. RESULTS: 1. Successful stenting of the mid right coronary artery with reduction of stenosis from 80% to 0%. 2. Successful stenting of the mid left circumflex and a long segment with reduction of stenosis from 90% to 0%. RECOMMENDATION: Patient will be continued on aspirin, Plavix, beta jr, AARON inhibitor and statin. He will be evaluated down the road to undergo transaortic valve replacement. Those findings and recommendation were discussed with the patient and his family and they are full understanding and agreement. Duration of procedure is 84 minutes. MMODL / IJN: [id number] / MTDJayashree
--- NOTE | 2020-01-07 10:49 | PTCA ---
PERCUTANEOUSTRANS CORORONARY ANGIOGRAPHY DATE OF SERVICE: 01/07/2020 RE: Alejo Lees Dear Dr. Baer; I had the pleasure to perform cardiac catheterization and angioplasty and stenting on Mr. Lees at [facility] on January 07, 2020 and a full copy of the procedure note will be forwarded to you. In brief, he was found to have severe aortic stenosis with evidence of significant stenosis involving the RCA and the left circumflex. He underwent successful stenting of those two vessels and he will be evaluated at a later time to undergo transaortic valve replacement. Thank you again for allowing me to participate in this patient's care. Please feel free to call for any questions. Sincerely yours. MD KATERIN Rutherford / SVETA: [id number] /
[2020-01-07 12:23] LABS: Glucose,Whole Blood 204 mg/dL (75-99)
[2020-01-07 15:10] VITALS: BMI 32.6
[2020-01-07 16:56] LABS: Glucose,Whole Blood 234 mg/dL (75-99)
[2020-01-07] MEDS: CARVEDILOL 6.25 MG TAB PO SCH (17:24)
[2020-01-07 20:00] VITALS: RESP 18
[2020-01-07 20:10] LABS: Glucose,Whole Blood 285 mg/dL (75-99)
[2020-01-08 01:05] LABS: Glucose,Whole Blood 69 mg/dL (75-99)
[2020-01-08 01:07] LABS: Glucose,Whole Blood 85 mg/dL (75-99)
[2020-01-08 01:39] LABS: Glucose,Whole Blood 164 mg/dL (75-99)
[2020-01-08 06:12] LABS: Glucose,Whole Blood 214 mg/dL (75-99)
[2020-01-08 07:44] LABS: African American GFR (CKD) >90 (>60 ml/min/1.73 sqM); Anion Gap 7 mmol/L; Blood Urea Nitrogen 15 mg/dL (9-20); Calcium 9.3 mg/dL (8.4-10.2); Carbon Dioxide 25 mmol/L (22-30); Chloride 104 mmol/L (98-107); Glucose 196 mg/dL (74-99); Non-African American GFR(CKD) 83 (>60 ml/min/1.73 sqM); Potassium 4.9 mmol/L (3.5-5.1); Sodium 136 mmol/L (137-145)
[2020-01-08] MEDS ORDERED: amLODIPine 5 MG TAB PO SCH (09:00)
[2020-01-08] MEDS ORDERED: ASPIRIN 81 MG PO SCH (09:00)
[2020-01-08] MEDS ORDERED: LOSARTAN 50 MG TAB PO SCH (09:00)
[2020-01-08] MEDS ORDERED: CITALOPRAM HYDROBROMIDE 20 MG TAB PO SCH (09:00)
[2020-01-08] MEDS ORDERED: ATORVASTATIN 40 MG TAB PO SCH (09:00)
[2020-01-08] MEDS ORDERED: CLOPIDOGREL 75 MG TAB PO SCH (09:00)
--- NOTE | 2020-01-08 09:16 | PN ---
PROGRESS NOTE Mr. Lees is an 79-year-old male with known history of hypertension, hyperlipidemia, diabetes mellitus, who presented for evaluation of severe aortic stenosis and abnormal stress test. He was found to have severe aortic stenosis by BRITTNEY and cardiac catheterization and evidence of significant obstructive disease involving the RCA and the left circumflex, underwent successful stenting of both vessels. He is doing well this morning. His breathing is stable. He denies any chest pain. No dizziness. No palpitation. No nausea. He continues on aspirin once a day, Plavix 75 mg daily, amlodipine 5 mg daily, Coreg 6.25 mg twice a day, citalopram, insulin, losartan 100 mg daily and Lipitor 40 mg daily. PHYSICAL EXAMINATION: Blood pressure running in the 150-170 with a heart rate in the 60s. LUNGS: Clear. HEART: Regular rate and rhythm, S1, S2. No S3 with systolic murmur heard at the base, ejection type, no diastolic murmur, no rub. ABDOMEN: Soft, nontender. EXTREMITIES: No edema, right radial pulse intact. EKG revealed no acute changes. IMPRESSION: 1. Status post stenting of the RCA in the left circumflex. 2. Severe aortic stenosis. 3. Hypertension. 4. Hyperlipidemia. 5. Diabetes mellitus. RECOMMENDATION: Patient will be discharged home today and followed as an outpatient to undergo further evaluation for TAVR. MMMACEY / LINHN: [id number] /
[2020-01-08] MEDS: INSULIN ASPART (NovoLOG) 100 UNIT/ML VIAL SQ SCH ×2 (09:40→13:02)
[2020-01-08] MEDS: CARVEDILOL 6.25 MG TAB PO SCH (09:43)
[2020-01-08 10:45] VITALS: TEMP 97.6
[2020-01-08 11:34] VITALS: PULSE 65
[2020-01-08 11:34] LABS: Glucose,Whole Blood 238 mg/dL (75-99)
[2020-01-08] MEDS ORDERED: amLODIPine 10 MG TAB PO SCH (11:45)
[2020-01-08 13:09] VITALS: BP 183/71
== END 2020-01-08 15:11 | disposition home or self-care (01) ==
LOC: CATHCVL 05:51 → 3SCARD 09:21 → CATHCVL 01-08 15:11
PROVIDERS: ATTEND Internal Medicine Interventional Cardiology
DX: I25.10 Atherosclerotic heart disease of native coronary artery without angina pectoris (principal); I08.3 Combined rheumatic disorders of mitral, aortic and tricuspid valves; I70.0 Atherosclerosis of aorta; I10 Essential (primary) hypertension; E78.5 Hyperlipidemia, unspecified; E11.9 Type 2 diabetes mellitus without complications; E66.9 Obesity, unspecified; Z79.4 Long term (current) use of insulin; Z79.02 Long term (current) use of antithrombotics/antiplatelets; Z79.82 Long term (current) use of aspirin; Z79.899 Other long term (current) drug therapy; Z88.0 Allergy status to penicillin; Z98.84 Bariatric surgery status; Z87.891 Personal history of nicotine dependence; Z68.32 Body mass index [BMI] 32.0-32.9, adult
CPT/HCPCS: 93312; 93325; 93460; 85347; 80048 ×2; 85018; 82810; 85025; C9600 ×2; C1769 ×2; C1887 ×2; C1725 ×2; C1751; C1874; C1894; J2250; J2001; J3010; J1644; Q9967

== ENCOUNTER 2020-01-19 13:33 | Observation (INO) | payer MEDICARE ==
[2020-01-19 13:46] LABS: Glucose,Whole Blood 196 mg/dL (75-99)
[2020-01-19] MEDS ORDERED: SODIUM CHLORIDE 0.9% 1,000 ML IV STA (13:52)
--- NOTE | 2020-01-19 13:56 | ED ---
General Adult HPI - General Chief complaint: Neuro Symptoms/Deficit Stated complaint: poss stroke Time Seen by Provider: 01/19/20 13:40 Source: patient Mode of arrival: wheelchair Limitations: no limitations - History of Present Illness Initial comments: Dictation was produced using [employer] dictation software. please excuse any grammatical, word or spelling errors. This patient was cared for during a federal and state declared state of emergency secondary to Covid 19 Chief Complaint: 79 yo male presents stroke like symptoms started 30 minutes ago. History of Present Illness: An is an 79-year-old male presents with strokelike symptoms started 30 minutes ago. Patient was having knee pain and was sitting in his car getting ready to go to his appointment when he all of a sudden developed right-sided facial droop, drooling and slurred speech. Patient is accompanied by daughter who witnessed the event. He woke up with no apparent issues. Patient states that he feels well. Daughter bedside is adamant that patient is still displaying symptoms of slurred speech although he does not have any facial droop at the moment. Patient denies any other complaints. He did take a nitroglycerin approximately one hour ago for feelings of nausea. He did not have any chest pain or shortness of breath at all today. Patient does take plavix for coronary artery disease status post multiple stents. Patient feels well at the moment. Denies any numbness Jesenia or weakness to the arms or legs. Currently feels at baseline without medical complaints. Bedside is adamant that patient still has slurred speech though his facial droop is resolved. The ROS documented in this emergency department record has been reviewed and confirmed by me. Those systems with pertinent positive or negative responses have been documented in the HPI. All other systems are other negative and/or noncontributory. PHYSICAL EXAM: General Impression: Alert and oriented x3, not in acute distress HEENT: Normocephalic atraumatic, extra-ocular movements intact, pupils equal and reactive to light bilaterally, mucous membranes moist. Cardiovascular: Heart regular rate and rhythm Chest: Able to complete full sentences, no retractions, no tachypnea Abdomen: abdomen soft, non-tender, non-distended, no organomegaly Musculoskeletal: Pulses present and equal in all extremities, no peripheral edema Motor: no focal deficits noted Neurological: CN II-XII grossly intact, no focal motor or sensory deficits noted, slurred speech according to daughter, no extremity drift, not aphasic, no facial droop Skin: Intact with no visualized rashes Psych: Normal affect and mood ED course: 79 Old male presents with 30 minutes of persistent slurred speech. At the time of the onset of the symptoms she did also have right-sided facial droop and drooling from the right mouth. All signs upon arrival are within acceptable limits. NIH of 1. Patient's speech does not seem to be very slurred to me however daughter is adamant that patient's speech is different from his baseline. Chart review from our electronic medical record shows that patient had carotid Doppler study performed in October 2018 showing vascular disease to the right and left internal carotid artery. Computed tomography scan of the brain shows no acute intracranial abnormality. CT angiogram of the head and neck was obtained showing reduction and internal carotid artery caliber. Discussed patient case with Dr. Ortiz. Patient is not a candidate for TPA at this time. Chest x-rays unremarkable. Patient given aspirin. Clinical presentation consistent with CVA versus TIA. Given low NIH score and benign clinical appearance risks of TPA administration of a benefits. Family and patient is agreeable with this plan. Patient be admitted with consultation to vascular surgery and neurology. Patient reevaluated bedside with resolution of patient's slurred speech. EKG interpretation: Ventricular rate 63, sinus rhythm with first-degree AV block, AR interval to 52, QRS 94, QTC 411. No AR prolongation, no QTC prolongation, no ST or T-wave changes noted. Overall, this EKG is unremarkable - Related Data Home Medications Medication Instructions Recorded Confirmed Citalopram Hydrobromide [CeleXA] 40 mg PO DAILY 01/14/15 01/19/20 metFORMIN HCL 1,000 mg PO BID 01/15/15 01/19/20 HYDROcodone/APAP 10-325MG [Webster 1 tab PO Q8H PRN 08/18/16 01/19/20 10-325] Aspirin EC [Ecotrin Low Dose] 81 mg PO DAILY 05/28/17 01/19/20 Losartan Potassium 100 mg PO DAILY 01/05/20 01/19/20 Naproxen Sodium [Aleve] 220 mg PO DAILY 01/05/20 01/19/20 Carvedilol [Coreg] 12.5 mg PO BID 06/15/20 06/15/20 amLODIPine [Norvasc] 5 mg PO DAILY 01/19/20 01/19/20 Previous Rx's Medication Instructions Recorded Atorvastatin [Lipitor] 40 mg PO DAILY #90 tab 01/08/20 Clopidogrel [Plavix] 75 mg PO DAILY #90 tab 01/08/20 Nitroglycerin Sl Tabs [Nitrostat] 0.4 mg SUBLINGUAL Q5M PRN #25 tab 01/08/20 Allergies Allergy/AdvReac Type Severity Reaction Status Date / Time Penicillins Allergy Rash/Hives Verified 01/19/20 14:32 Review of Systems ROS Statement: Those systems with pertinent positive or pertinent negative responses have been documented in the HPI. ROS Other: All systems not noted in ROS Statement are negative. Past Medical History Past Medical History: Chest Pain / Angina, Diabetes Mellitus, Eye Disorder, Hyperlipidemia, Hypertension, Sleep Apnea/CPAP/BIPAP Additional Past Medical History / Comment(s): 2015 stress wnl, tinnitus, chronic lower back pain,"knocked out at work 1976/concussion", "occassional hand tremors", shingles approx 13 years ago,uses a cpap machine. stents x 2 cx and 1 to the rca 01-06. History of Any Multi-Drug Resistant Organisms: None Reported Past Surgical History: Appendectomy, Cholecystectomy, Hernia Repair Additional Past Surgical History / Comment(s): lap band, colonoscopy, cataracts, Past Anesthesia/Blood Transfusion Reactions: No Reported Reaction Past Psychological History: Anxiety Smoking Status: Former smoker Past Alcohol Use History: None Reported Past Drug Use History: None Reported - Past Family History Father Additional Family Medical History / Comment(s): stroke Mother Additional Family Medical History / Comment(s): stroke General Exam Limitations: no limitations Course Vital Signs 01/19/20 01/19/20 01/19/20 13:43 13:45 14:00 Temperature 98.1 F 98.1 F Pulse Rate 61 64 61 Respiratory 18 18 18 Rate Blood Pressure 161/81 164/72 145/69 O2 Sat by Pulse 98 98 99 Oximetry 01/19/20 01/19/20 14:15 15:15 Temperature 98 F Pulse Rate 62 56 L Respiratory 18 16 Rate Blood Pressure 144/70 141/72 O2 Sat by Pulse 98 98 Oximetry Medical Decision Making - Lab Data Result diagrams: 01/19/20 13:48 01/19/20 13:48 Lab Results 01/19/20 01/19/20 01/19/20 Range/Units 13:45 13:48 13:48 WBC 9.8 (3.8-10.6) k/uL RBC 4.27 L (4.30-5.90) m/uL Hgb 12.6 L (13.0-17.5) gm/dL Hct 38.1 L (39.0-53.0) % MCV 89.0 (80.0-100.0) fL MCH 29.5 (25.0-35.0) pg MCHC 33.1 (31.0-37.0) g/dL RDW 13.3 (11.5-15.5) % Plt Count 230 (150-450) k/uL Neutrophils % 58 % Lymphocytes % 32 % Monocytes % 6 % Eosinophils % 2 % Basophils % 1 % Neutrophils # 5.7 (1.3-7.7) k/uL Lymphocytes # 3.1 (1.0-4.8) k/uL Monocytes # 0.5 (0-1.0) k/uL Eosinophils # 0.2 (0-0.7) k/uL Basophils # 0.1 (0-0.2) k/uL PT 10.0 (9.0-12.0) sec INR 1.0 (<1.2) APTT 23.7 (22.0-30.0) sec Sodium (137-145) mmol/L Potassium (3.5-5.1) mmol/L Chloride (98-107) mmol/L Carbon Dioxide (22-30) mmol/L Anion Gap mmol/L BUN (9-20) mg/dL Creatinine (0.66-1.25) mg/dL Est GFR (CKD-EPI)AfAm (>60 ml/min/1.73 sqM) Est GFR (CKD-EPI)NonAf (>60 ml/min/1.73 sqM) Glucose (74-99) mg/dL POC Glucose (mg/dL) 196 H (75-99) mg/dL POC Glu Cigarette Machines Mechanic ID Jamaal Streeter Calcium (8.4-10.2) mg/dL Total Bilirubin (0.2-1.3) mg/dL AST (17-59) U/L ALT (4-49) U/L Alkaline Phosphatase (38-126) U/L Troponin I (0.000-0.034) ng/mL Total Protein (6.3-8.2) g/dL Albumin (3.5-5.0) g/dL 01/19/20 01/19/20 Range/Units 13:48 13:48 WBC (3.8-10.6) k/uL RBC (4.30-5.90) m/uL Hgb (13.0-17.5) gm/dL Hct (39.0-53.0) % MCV (80.0-100.0) fL MCH (25.0-35.0) pg MCHC (31.0-37.0) g/dL RDW (11.5-15.5) % Plt Count (150-450) k/uL Neutrophils % % Lymphocytes % % Monocytes % % Eosinophils % % Basophils % % Neutrophils # (1.3-7.7) k/uL Lymphocytes # (1.0-4.8) k/uL Monocytes # (0-1.0) k/uL Eosinophils # (0-0.7) k/uL Basophils # (0-0.2) k/uL PT (9.0-12.0) sec INR (<1.2) APTT (22.0-30.0) sec Sodium 134 L (137-145) mmol/L Potassium 4.7 (3.5-5.1) mmol/L Chloride 105 (98-107) mmol/L Carbon Dioxide 20 L (22-30) mmol/L Anion Gap 9 mmol/L BUN 23 H (9-20) mg/dL Creatinine 1.01 (0.66-1.25) mg/dL Est GFR (CKD-EPI)AfAm 80 (>60 ml/min/1.73 sqM) Est GFR (CKD-EPI)NonAf 70 (>60 ml/min/1.73 sqM) Glucose 181 H (74-99) mg/dL POC Glucose (mg/dL) (75-99) mg/dL POC Glu Cigarette Machines Mechanic ID Calcium 9.6 (8.4-10.2) mg/dL Total Bilirubin 0.6 (0.2-1.3) mg/dL AST 24 (17-59) U/L ALT 16 (4-49) U/L Alkaline Phosphatase 55 (38-126) U/L Troponin I 0.020 (0.000-0.034) ng/mL Total Protein 7.1 (6.3-8.2) g/dL Albumin 4.4 (3.5-5.0) g/dL Critical Care Time Critical Care Time: Yes Total Critical Care Time: 33 Disposition Clinical Impression: TIA (transient ischemic attack) Disposition: ADMITTED IP TO THIS [facility] Condition: Fair Referrals: Mell Baer MD [Primary Care Provider] - 1-2 days Decision Time: 15:48
--- NOTE | 2020-01-19 14:20 | CT ---
EXAMINATION TYPE: CT brain wo con for TPA DATE OF EXAM: 01/19/2020 COMPARISON: 08/18/2016 HISTORY: 79-year-old male neurologic deficits, acute, stroke suspected. CODE STROKE TECHNIQUE: Examination was done in axial plane without intravenous contrast. Coronal and sagittal r econstructions performed. CT DLP: Not available at this time Automated exposure control for dose reduction was used. FINDINGS: There is no evidence of acute intracranial hemorrhage, acute ischemic changes, mass, mass-effect, or extra-axial fluid collection. There is no effacement of cerebral sulci or basal subarachnoid cister ns. There is no hydrocephalus. There is no midline shift. Ely-white matter distinction is preserv ed. Atherosclerotic calcifications within the bilateral carotid siphons. Slight leftward nasal septal deviation. Paranasal sinuses and mastoid air cells are well pneumatized. Orbits and globes are intact. IMPRESSION: No acute intracranial abnormality seen.
[2020-01-19 14:45] LABS: Basophils # (A) 0.1 k/uL (0-0.2); Basophils % (A) 1 %; Eosinophils # (A) 0.2 k/uL (0-0.7); Eosinophils % (A) 2 %; HCT 38.1 % (39.0-53.0); HGB 12.6 gm/dL (13.0-17.5); Lymphocytes # (A) 3.1 k/uL (1.0-4.8); Lymphocytes % (A) 32 %; MCH 29.5 pg (25.0-35.0); MCHC 33.1 g/dL (31.0-37.0); Mean Platelet Volume 8.1; Monocytes # (A) 0.5 k/uL (0-1.0); Monocytes % (A) 6 %; Neutrophils # (A) 5.7 k/uL (1.3-7.7); Neutrophils % (A) 58 %; Platelet Count 230 k/uL (150-450); RBC 4.27 m/uL (4.30-5.90); RDW 13.3 % (11.5-15.5); WBC 9.8 k/uL (3.8-10.6)
[2020-01-19 14:56] LABS: Albumin 4.4 g/dL (3.5-5.0); Calcium 9.6 mg/dL (8.4-10.2); Potassium 4.7 mmol/L (3.5-5.1); Total Bilirubin 0.6 mg/dL (0.2-1.3); Total Protein 7.1 g/dL (6.3-8.2)
[2020-01-19 14:57] LABS: Partial Thromboplastin Time 23.7 sec (22.0-30.0)
--- NOTE | 2020-01-19 15:13 | CT ---
EXAMINATION TYPE: CT angio head neck DATE OF EXAM: 01/19/2020 HISTORY: Neuro deficit, acute, stroke suspected. COMPARISON: CT brain same date CT DLP: 1719.2 mGycm. Automated Exposure Control for Dose Reduction was Utilized. TECHNIQUE: CTA scan of the neck is performed with IV Contrast, patient injected with 65 mL of Isovue 370, axial images are obtained, coronal and sagittal reformatted images are reviewed. Three-D recons tructed images are created on an independent workstation and reviewed. FINDINGS: Carotid/Vascular Structures: There are coronary artery calcifications present. Atheromatous changes a re present in the transverse aorta, super aortic branch vessels. There are 3 super aortic branch vess els. The innominate, left and right subclavian, left and right common carotid, left and right vertebr al arteries are patent. Internal and external carotid arteries are patent. Atheromatous changes are p resent at the carotid bifurcations. There is a high-grade stenosis of the proximal internal carotid a rtery on the left and on the right. Anterior posterior circulation are patent within the t[place] of [place]. No evident embolus, dissection , or aneurysm. Other: IMPRESSION: Bilateral hemodynamic significant stenosis of the proximal internal carotid arteries by N ascet criteria. Findings are thought to represent 80-90%+ diameter reduction of the proximal internal carotid arteries.
--- NOTE | 2020-01-19 15:38 | XR ---
EXAMINATION TYPE: XR chest 2V DATE OF EXAM: 01/19/2020 COMPARISON: Chest x-ray August 18, 2016. HISTORY: Altered mental status and weakness. TECHNIQUE: Frontal and lateral views of the chest are obtained. FINDINGS: There is chronic parenchymal changes bilaterally without suspicious focal air space opacity, pleural effusion, or pneumothorax seen. The cardiac silhouette size remains enlarged. Lap band device epigastric region redemonstrated. Multilevel spurring in the lower thorac ic spine again seen. IMPRESSION: Chronic changes and cardiomegaly without acute pulmonary process.
[2020-01-19] MEDS ORDERED: ASPIRIN 81 MG PO STA (15:41)
[2020-01-19] MEDS: SODIUM CHLORIDE 0.9% 1,000 ML IV SCH (16:03)
[2020-01-19 17:44] LABS: Glucose,Whole Blood 106 mg/dL (75-99)
--- NOTE | 2020-01-19 18:37 | P.HPIM ---
History of Present Illness H&P Date: 01/19/20 Alejo Lees is an 79-year-old male who presented to [facility] emergency room due to an episode of slurred speech, patient stated that he had some chest discomfort he took a sublingual nitroglycerin after that he felt dizzy and lightheaded and had an episode of slurred speech that lasted about 30 minutes patient was evaluated in emergency room, he had a CT angiogram that revealed 80-90% stenosis in bilateral carotid arteries, computed tomography scan of the brain did not reveal any acute intracranial abnormality, EKG revealed normal sinus rhythm with first-degree AV block, troponin level was 0.02, patient was admitted to telemetry floor for further evaluation and treatment, neurology consult and vascular surgery consult was requested cardiology consult was added. Past Medical History Past Medical History: Chest Pain / Angina, Diabetes Mellitus, Eye Disorder, Hyperlipidemia, Hypertension, Sleep Apnea/CPAP/BIPAP Additional Past Medical History / Comment(s): 2014 stress wnl, tinnitus, chronic lower back pain,"knocked out at work 1975/concussion", "occassional hand tremors", shingles approx 13 years ago,uses a cpap machine. stents x 2 cx and 1 to the rca 01-06. History of Any Multi-Drug Resistant Organisms: None Reported Past Surgical History: Appendectomy, Cholecystectomy, Hernia Repair Additional Past Surgical History / Comment(s): lap band, colonoscopy, cataracts, Past Anesthesia/Blood Transfusion Reactions: No Reported Reaction Past Psychological History: Anxiety Smoking Status: Former smoker Past Alcohol Use History: None Reported Additional Past Alcohol Use History / Comment(s): started smoking at age 7(1948) ,quit 1994,was smoking 1.5 ppd. Past Drug Use History: None Reported - Past Family History Father Additional Family Medical History / Comment(s): stroke Mother Additional Family Medical History / Comment(s): stroke Medications and Allergies Home Medications Medication Instructions Recorded Confirmed Type Citalopram Hydrobromide [CeleXA] 40 mg PO DAILY 01/14/15 01/19/20 History metFORMIN HCL 1,000 mg PO BID 01/15/15 01/19/20 History HYDROcodone/APAP 10-325MG [[place] 1 tab PO Q8H PRN 08/18/16 01/19/20 History 10-325] Aspirin EC [Ecotrin Low Dose] 81 mg PO DAILY 05/28/17 01/19/20 History Losartan Potassium 100 mg PO DAILY 01/05/20 01/19/20 History Naproxen Sodium [Aleve] 220 mg PO DAILY 01/05/20 01/19/20 History Atorvastatin [Lipitor] 40 mg PO DAILY #90 tab 01/08/20 01/19/20 Rx Clopidogrel [Plavix] 75 mg PO DAILY #90 tab 01/08/20 01/19/20 Rx Nitroglycerin Sl Tabs [Nitrostat] 0.4 mg SUBLINGUAL Q5M PRN #25 tab 01/08/20 01/19/20 Rx Carvedilol [Coreg] 12.5 mg PO BID 01/19/20 01/19/20 History amLODIPine [Norvasc] 5 mg PO DAILY 01/19/20 01/19/20 History Allergies Allergy/AdvReac Type Severity Reaction Status Date / Time Penicillins Allergy Rash/Hives Verified 01/19/20 14:32 Physical Exam Vitals: Vital Signs Temp Pulse Pulse Resp BP BP Pulse Ox 01/19/20 16:43 98.7 F 55 L 18 176/76 100 01/19/20 16:26 61 18 156/75 100 01/19/20 15:15 56 L 16 141/72 98 01/19/20 14:15 98 F 62 18 144/70 98 01/19/20 14:00 98.1 F 61 18 145/69 99 01/19/20 13:45 98.1 F 64 18 164/72 98 01/19/20 13:43 61 18 161/81 98 Intake and Output 01/19/20 01/19/20 01/19/20 06:59 14:59 22:59 Intake Total 0 Balance 0 Intake: Oral 0 Other: Weight 93.894 kg 93.894 kg In general patient is alert and oriented 3 in no apparent distress HEENT head normocephalic and atraumatic Neck is supple no JVD no goiter no lymphadenopathy Cardiac exam reveals regular heart sounds S1 and S2 no gallops no murmurs Abdomen is soft nontender no organomegaly with normal bowel sounds Extremity exam reveals no edema no cyanosis or clubbing Neurological examination at this time reveals no focal neurological deficits speech is fluent at this time. Results CBC & Chem 7: 01/19/20 13:48 01/19/20 13:48 Labs: Abnormal Lab Results - Last 24 Hours (Table) 01/19/20 01/19/20 01/19/20 Range/Units 13:45 13:48 13:48 RBC 4.27 L (4.30-5.90) m/uL Hgb 12.6 L (13.0-17.5) gm/dL Hct 38.1 L (39.0-53.0) % Sodium 134 L (137-145) mmol/L Carbon Dioxide 20 L (22-30) mmol/L BUN 23 H (9-20) mg/dL Glucose 181 H (74-99) mg/dL POC Glucose (mg/dL) 196 H (75-99) mg/dL 01/19/20 Range/Units 17:43 RBC (4.30-5.90) m/uL Hgb (13.0-17.5) gm/dL Hct (39.0-53.0) % Sodium (137-145) mmol/L Carbon Dioxide (22-30) mmol/L BUN (9-20) mg/dL Glucose (74-99) mg/dL POC Glucose (mg/dL) 106 H (75-99) mg/dL Thrombosis Risk Factor Assmnt - Choose All That Apply Any of the Below Risk Factors Present?: Yes Each Risk Factor Represents 3 Points: Age 75 years or older Thrombosis Risk Factor Assessment Total Risk Factor Score: 3 Thrombosis Risk Factor Assessment Level: Moderate Risk Assessment and Plan Plan: 1. Episode of chest discomfort, patient took sublingual nitroglycerin, his symptoms resolved, EKG does not reveal any acute ischemic changes, first troponin 0.02 Will check serial troponins and consult cardiology 2. Episode of slurred speech and lightheadedness after patient took sublingual nitroglycerin could be related to hypotension, possible TIA 3. Evidence of severe carotid stenosis bilaterally 4. Underlying history of hypertension 5. Underlying history of hyperlipidemia 6. Underlying history of uof-cagnjzi-dwhzhtqkk diabetes mellitus 7. Underlying history of chronic back pain. 8. Underlying history of valvular heart disease At this time will check serial troponin levels, will check echocardiogram, consult cardiology Neurology consultation requested in the emergency room for possible TIA with slurred speech Vascular surgery consultation requested in regard to severe bilateral carotid stenosis Will follow closely
[2020-01-19] MEDS ORDERED: CLOPIDOGREL 75 MG TAB PO SCH (20:15)
[2020-01-19 21:00] LABS: Glucose,Whole Blood 318 mg/dL (75-99)
[2020-01-19] MEDS: INSULIN ASPART (NovoLOG) 100 UNIT/ML VIAL SQ SCH (21:22)
--- NOTE | 2020-01-19 21:56 | P.CNNES ---
History of Present Illness Consult date: 01/19/20 Requesting physician: Tito Burns Reason for Consult: TIA History of Present Illness: Patient is an 79-year-old male came to the hospital today at 1:33 PM with stroke like symptoms that started 30 minutes prior to arrival. Patient was having knee pain and was sitting in the car getting ready to go to the appointment when he all of a sudden started having right-sided facial droop, drooling and slurred speech. Patient's daughter witnessed this event. Patient's slurred speech persisted while he was in the ER although facial droop had resolved. Patient states his symptoms lasted for about 20 minutes. Patient takes aspirin 81 mg and Plavix 75 mg for coronary artery disease, status post multiple stents. Also on Lipitor 40 mg daily. Patient's NIH stroke scale was 1. Case was discussed by ED staff with stroke neurologist Dr. Ortiz, and patient was considered not a candidate for TPA. At present patient feels fine, and all symptoms have resolved. Computed tomography scan of head was negative. CTA of head and neck showed bilateral hemodynamic significant stenosis of the proximal ICA. Findings are t hought to represent 80-90% diameter reduction of the proximal ICAs. Chest x-ray showed chronic changes and cardiomegaly without acute pulmonary process. EKG shows sinus rhythm with first-degree AV block. Blood test shows normal WBC, hemoglobin 12.6 and platelets are 230. PT/PTT normal. Sodium 134 potassium 4.7, BUN 23, creatinine 1.01. Liver panel normal. Troponin negative. Patient's last hemoglobin A1c 5.8 on 04/29/2018. Patient had a transesophageal echocardiogram on 01/07/2020, which revealed mildly dilated left atrium. Severe tricuspid aortic valve stenosis with mild aortic regurgitation. Mild mitral and tricuspid regurgitation. Patient has history of TIA/CVA on 08/19/2016, when he presented with expressive aphasia and TIA. Patient has history of diabetes for about 20-25 years. Has hypertension. He smoked 1 pack per day for 30-40 years, quit 25 years ago. Review of Systems Patient complained of dizziness earlier today. It lasted for an hour. Patient is very hard of hearing. Denies any chest pain shortness of breath. He is having problems with memory. Denies diplopia. Denies abdominal pain nausea vomiting diarrhea. Denies neck or back pain. Past Medical History Past Medical History: Chest Pain / Angina, Diabetes Mellitus, Eye Disorder, Hyperlipidemia, Hypertension, Sleep Apnea/CPAP/BIPAP Additional Past Medical History / Comment(s): 2015 stress wnl, tinnitus, chronic lower back pain,"knocked out at work 1976/concussion", "occassional hand tremors", shingles approx 13 years ago,uses a cpap machine. stents x 2 cx and 1 to the rca 01-06. History of Any Multi-Drug Resistant Organisms: None Reported Past Surgical History: Appendectomy, Cholecystectomy, Hernia Repair Additional Past Surgical History / Comment(s): lap band, colonoscopy, cataracts, Past Anesthesia/Blood Transfusion Reactions: No Reported Reaction Past Psychological History: Anxiety Smoking Status: Former smoker Past Alcohol Use History: None Reported Additional Past Alcohol Use History / Comment(s): started smoking at age 7(1950) ,quit 1994,was smoking 1.5 ppd. Past Drug Use History: None Reported - Past Family History Father Additional Family Medical History / Comment(s): stroke Mother Additional Family Medical History / Comment(s): stroke Medications and Allergies Home Medications Medication Instructions Recorded Confirmed Type Citalopram Hydrobromide [CeleXA] 40 mg PO DAILY 01/14/15 01/19/20 History metFORMIN HCL 1,000 mg PO BID 01/15/15 01/19/20 History HYDROcodone/APAP 10-325MG [[place] 1 tab PO Q8H PRN 08/18/16 01/19/20 History 10-325] Aspirin EC [Ecotrin Low Dose] 81 mg PO DAILY 05/28/17 01/19/20 History Losartan Potassium 100 mg PO DAILY 01/05/20 01/19/20 History Naproxen Sodium [Aleve] 220 mg PO DAILY 01/05/20 01/19/20 History Atorvastatin [Lipitor] 40 mg PO DAILY #90 tab 01/08/20 01/19/20 Rx Clopidogrel [Plavix] 75 mg PO DAILY #90 tab 01/08/20 01/19/20 Rx Nitroglycerin Sl Tabs [Nitrostat] 0.4 mg SUBLINGUAL Q5M PRN #25 tab 01/08/20 01/19/20 Rx Carvedilol [Coreg] 12.5 mg PO BID 01/19/20 01/19/20 History amLODIPine [Norvasc] 5 mg PO DAILY 01/19/20 01/19/20 History Allergies Allergy/AdvReac Type Severity Reaction Status Date / Time Penicillins Allergy Rash/Hives Verified 01/19/20 14:32 Physical Examination - Vital Signs Vital Signs: Vital Signs Temp Pulse Pulse Resp BP BP Pulse Ox 01/19/20 16:43 98.7 F 55 L 18 176/76 100 01/19/20 16:26 61 18 156/75 100 01/19/20 15:15 56 L 16 141/72 98 01/19/20 14:15 98 F 62 18 144/70 98 01/19/20 14:00 98.1 F 61 18 145/69 99 01/19/20 13:45 98.1 F 64 18 164/72 98 01/19/20 13:43 61 18 161/81 98 Intake and Output 01/19/20 01/19/20 01/19/20 06:59 14:59 22:59 Intake Total 0 Balance 0 Intake: Oral 0 Other: Weight 93.894 kg 93.894 kg On examination patient is an elderly male, in no acute distress. He is alert and awake fairly well oriented. Speech and language functions are no rmal. Attention and concentration fund of knowledge is adequate. Unclear examination pupils are round and reactive to light, visual harry are full on confrontation, extraocular muscles intact with no nystagmus. Face is symmetric, tongue protrudes the midline. Palatal elevation sensation normal. Hearing is moderately decreased, shoulder shrug normal. On muscle strength testing there is no pronator drift and the strength is normal in arms and legs distally and proximally. Reflexes are 1+ and plantars downgoing. Sensory touch is equal. No ataxia for qgznhv-ky-isal testing. Tone and bulk of muscles normal. Patient has bilateral carotid bruit. Patient has significant systolic murmur. Abdomen is soft nontender. Chest is clear. Results - Laboratory Findings CBC and BMP: 01/19/20 13:48 01/19/20 13:48 Abnormal Lab Findings: Abnormal Labs 01/19/20 01/19/20 01/19/20 13:45 13:48 13:48 RBC 4.27 L Hgb 12.6 L Hct 38.1 L Sodium 134 L Carbon Dioxide 20 L BUN 23 H Glucose 181 H POC Glucose (mg/dL) 196 H 01/19/20 17:43 RBC Hgb Hct Sodium Carbon Dioxide BUN Glucose POC Glucose (mg/dL) 106 H Assessment and Plan Assessment: * TIA, likely due to symptomatic ICA stenosis. Patient CTA of head and neck showed bilateral ICA stenosis 80-90%. * Aortic valve stenosis * Hypertension * Diabetes * CAD. Plan: * Patient will be continued on aspirin and Plavix 75 mg. Continue statins. * Await vascular surgical consultation for bilateral ICA stenosis. * Patient also has aortic valve stenosis, which may need further treatment in the future. * Fasting a.m. lipid panel and hemoglobin A1c. * Neurology will follow.
[2020-01-19] MEDS ORDERED: ATORVASTATIN 40 MG TAB PO SCH (22:00)
[2020-01-20 01:33] LABS: Cholesterol 131 mg/dL (<200); HDL Cholesterol 59 mg/dL (40-60); LDL Cholesterol,Calculated 55 mg/dL (0-99); Triglycerides 86 mg/dL (<150)
[2020-01-20 06:23] LABS: Glucose,Whole Blood 138 mg/dL (75-99)
[2020-01-20] MEDS: INSULIN ASPART (NovoLOG) 100 UNIT/ML VIAL SQ SCH ×4 (06:41→21:03)
[2020-01-20] MEDS ORDERED: ASPIRIN 325 MG TAB PO SCH (09:00)
[2020-01-20] MEDS: amLODIPine 5 MG TAB PO SCH (09:17)
[2020-01-20] MEDS: ASPIRIN 81 MG PO SCH (09:17)
[2020-01-20] MEDS: ATORVASTATIN 40 MG TAB PO SCH (09:17)
[2020-01-20] MEDS: CLOPIDOGREL 75 MG TAB PO SCH (09:17)
[2020-01-20] MEDS: LOSARTAN 50 MG TAB PO SCH (09:17)
--- NOTE | 2020-01-20 10:51 | ECHOF ---
Referral Reason:TIA MEASUREMENTS -------- HEIGHT: 170.2 cm WEIGHT: 96.2 kg BP: 150/72 RVIDd: 3.6 cm (< 3.3) IVSd: 1.4 cm (0.6 - 1.1) LVIDd: 4.7 cm (3.9 - 5.3) LVPWd: 1.4 cm (0.6 - 1.1) IVSs: 2.0 cm LVIDs: 2.6 cm LVPWs: 1.8 cm LA Diam: 4.2 cm (2.7 - 3.8) LAESV Index (A-L): 30.15 ml/m Ao Diam: 3.4 cm (2.0 - 3.7) AV Cusp: 1.4 cm (1.5 - 2.6) MV EXCURSION: 12.148 mm (> 18.000) MV EF SLOPE: 38 mm/s (70 - 150) EPSS: 0.9 cm MV E Uri: 1.01 m/s MV DecT: 262 ms MV A Uri: 1.34 m/s MV E/A Ratio: 0.76 AV maxP.23 mmHg AV meanP.80 mmHg FINDINGS -------- This was a technically adequate study. The left ventricular size is normal. There is moderate concentric left ventricular hypertrophy. O verall left ventricular systolic function is normal with, an EF between 60 - 65 %. The right ventricle is mildly enlarged. LA is midly dilated 29-33ml/m2. The right atrium is normal in size. Lipomatous Hypertrophy of the atrial septum is present There is moderate aortic valve sclerosis. There is moderate aortic stenosis present. Peak/mean gr adient across the Aortic Valve is 49.23mmHg / 27.80mmHg. Mild mitral annular calcification present. Trace tricuspid regurgitation present. There is no pulmonic regurgitation present. The aortic root size is normal. IVC Not well visulized. There is no pericardial effusion. CONCLUSIONS -------- 1. This was a technically adequate study. 2. The left ventricular size is normal. 3. There is moderate concentric left ventricular hypertrophy. 4. Overall left ventricular systolic function is normal with, an EF between 60 - 65 %. 5. The right ventricle is mildly enlarged. 6. LA is midly dilated 29-33ml/m2. 7. The right atrium is normal in size. 8. Lipomatous Hypertrophy of the atrial septum is present 9. There is moderate aortic valve sclerosis. 10. There is moderate aortic stenosis present. 11. Peak/mean gradient across the Aortic Valve is 49.23mmHg / 27.80mmHg. 12. Mild mitral annular calcification present. 13. Trace tricuspid regurgitation present. 14. There is no pulmonic regurgitation present. 15. The aortic root size is normal. 16. IVC Not well visulized. 17. There is no pericardial effusion. STATISTICAL MACHINE SERVICER: Angelina Villasenor RDCS
[2020-01-20 11:45] LABS: Glucose,Whole Blood 219 mg/dL (75-99)
--- NOTE | 2020-01-20 12:31 | US ---
EXAMINATION TYPE: US carotid duplex BILAT DATE OF EXAM: 01/20/2020 COMPARISON: CTA 01/19/2020, US 10/25/2018. CLINICAL HISTORY: carotid stenosis, TIA. EXAM MEASUREMENTS: RIGHT: Peak Systolic Velocity (PSV) cm/sec ----- Right CCA: 55.7 ----- Right ICA: 485.4 ----- Right ECA: 213.1 ICA/CCA ratio: 8.7 RIGHT: End Diastole cm/sec ----- Right CCA: 4.3 ----- Right ICA: 169.2 ----- Right ECA: 0.0 LEFT: Peak Systolic Velocity (PSV) cm/sec ----- Left CCA: 55.9 ----- Left ICA: 759.6 ----- Left ECA: 192.6 ICA/CCA ratio: 13.6 LEFT: End Diastole cm/sec ----- Left CCA: 14.2 ----- Left ICA: 212.8 ----- Left ECA: 0.0 VERTEBRALS (direction of flow): Right Vertebral: Antegrade Left Vertebral: Antegrade Rhythm: Normal Bilateral high grade stenosis to near occlusion. Greatly elevated velocities on bilateral ICA's and E CA's. Extensive shadowing plaque. Turbulent flow is present. Visualized plaquing has apparent stenosi s based on appearance. IMPRESSION: 1. Marked elevated velocities and ratios compatible with severe to critical stenoses. Atheromatous pl aque visualization suggests very severe stenoses as well. Findings appear compatible with the 01/19/20 CT angiography head and neck. Criteria for Assigning % of Stenosis / Diameter reduction (Estimation based on the indirect measurements of the internal carotid artery velocities (ICA PSV). 1. Normal (no stenosis)=ICA PSV < 125 cm/s: ratio < 2.0: ICA EDV<40 cm/s. 2. Less than 50% stenosis=ICA PSV < 125 cm/s: ratio < 2.0: ICA EDV<40 cm/s. 3. 50 to 69% stenosis=ICA PSV of 125 to 230 cm/s: ration 2.0 ? 4.0: ICA EDV 40-100 cm/s. 4. Greater than 70% stenosis to near occlusion= ICA PSV > 230 cm/s: ratio > 4.0: ICA EDV > 100 cm/s. 5. Near occlusion= ICA PSV velocities may be low or undetectable: variable ratio and ICA EDV. 6. Total occlusion=unable to detect flow.
--- NOTE | 2020-01-20 13:19 | CONS ---
CONSULTATION Mr. Lees is an 79-year-old male with known history of severe aortic stenosis, history of coronary artery disease who underwent cardiac catheterization recently for evaluation and at that time was found to have severe obstructive disease involving the left circumflex and the right coronary artery. He underwent stenting of the RCA and the left circumflex and was scheduled to undergo evaluation for TAVR at [facility]. Yesterday, he was scheduled to undergo injection of his knee when he did not feel well, had some vague feeling in the chest. He took a nitroglycerin. Then became dizzy. He had drooping in the face and he had an episode of slurred speech that resolved at this time. He was found to have evidence of obstructive carotid disease. The patient is feeling well at this time. He denies any symptoms of chest pain. He denies any dizziness or palpitation. His breathing is unchanged. His activity is limited because of his history of chronic arthritic pain in the knee. By echocardiography, during his last admission, his transesophageal echocardiogram showed a preserved systolic function with severe aortic stenosis with mild mitral and tricuspid regurgitation. His coronary risk factors are positive for history of diabetes, hypertension, hyperlipidemia. His medication at the time of admission included metformin 1 g twice a day, amlodipine 5 mg daily, losartan 100 mg daily, Plavix 75 mg daily, aspirin once a day, Celexa, Coreg 12.5 mg twice a day, Lipitor 40 mg daily. REVIEW OF SYSTEMS: RESPIRATORY SYSTEM: He has some dyspnea on exertion. No recent wheezing or cough. GI SYSTEM: No recent GI bleeding, no peptic ulcer disease. SYSTEM No dysuria or hematuria. NERVOUS SYSTEM: He presented with TIA. No history of seizure. PHYSICAL EXAMINATION: He is an 79-year-old male, alert, oriented, in no apparent distress. Blood pressure 150/70 with a heart rate in the 60s. HEAD: Normocephalic. EYES: Sclerae nonicteric. NECK: With bilateral bruit. No jugular venous distention. LUNGS: Clear to auscultation. HEART: Regular rate and rhythm. S1, S2. No S3 with systolic ejection murmur, 3/6 late peaking, no diastolic murmur, no rub. ABDOMEN: Soft, nontender, positive bowel sounds, no organomegaly. EXTREMITIES: No edema, intact pulses. LAB DATA: Revealed a cholesterol 131, LDL of 55, a troponin of 0.02. BUN and creatinine 23 and 1.01, potassium 4.7, hemoglobin 12.6. EKG revealed a sinus mechanism, normal axis, first-degree AV block. CT angiogram of his carotid revealed significant obstructive disease in both proximal internal carotid arteries. His brain CT revealed no acute intracranial abnormalities. IMPRESSION: 1. TIA could be exacerbated by hypotension after taking nitroglycerin with severe carotid disease. 2. History of coronary artery disease, status post recent stenting of the left circumflex and right coronary artery with no evidence for acute coronary syndrome. 3. History of severe aortic stenosis. 4. Hypertension. 5. Hyperlipidemia. 6. Diabetes mellitus. RECOMMENDATION: From the cardiac standpoint, I will resume his medical therapy. Patient will need to be evaluated for possible carotid stenting prior to his aortic valve replacement. We will continue other therapy. Thank you for this consult. Will follow with you. KATERIN / SVETA: [id number] / MTDD
[2020-01-20 14:17] LABS: Hemoglobin A1C 7.1 % (4.0-6.0)
--- NOTE | 2020-01-20 14:38 | P.GSCN ---
History of Present Illness Consult date: 01/20/20 Reason for Consult: Carotid stenosis, TIA versus stroke History of present illness: The patient is a 79-year-old male who came into the hospital yesterday with strokelike symptoms that started 30 minutes prior to his arrival. The patient states he had left-sided facial drooping, however the emergency department and neurology notes state right sided facial drooping and right-sided weakness along with slurring of the speech. Patient's daughter had witnessed this event as well. The symptoms only lasted approximately 20-30 minutes and then resolved, patient states he has not had any further symptoms. He denied any visual changes. Patient states he's been up and ambulating in the bathroom. She is alert and oriented 3. He reports a history of carotid stenosis and has been being monitored, he also reports he has a history of a TIA in the past. Patient has an area artery disease with multiple cardiac stents, along with aortic v alve stenosis. He is currently on aspirin, statin, and Plavix. His past medical history also includes diabetes, hypertension, and hyperlipidemia. He has a past history of smoking 1 pack per day for approximately 30-40 years, however quit 25 years ago. He currently denies any shortness of breath, chest pain, bilateral upper or lower extremity weakness. He denies any facial drooping, slurred speech, or visual changes. CT angiogram of the neck revealed bilateral hemodynamic significant stenosis of the proximal internal carotid arteries. Findings to represent 80-90% diameter reduction of the proximal internal carotid arteries. Brain CT showed no acute intracranial abnormality. Patient had a prior carotid ultrasound done in October 2018 which showed severe carotid stenosis in the right ICA. Review of Systems Review of system was completed, all pertinent positives and negatives as stated in HPI. Past Medical History Past Medical History: Chest Pain / Angina, Diabetes Mellitus, Eye Disorder, Hyperlipidemia, Hypertension, Sleep Apnea/CPAP/BIPAP Additional Past Medical History / Comment(s): 2015 stress wnl, tinnitus, chronic lower back pain,"knocked out at work 1975/concussion", "occassional hand tremors", shingles approx 13 years ago,uses a cpap machine. stents x 2 cx and 1 to the rca 6-. History of Any Multi-Drug Resistant Organisms: None Reported Past Surgical History: Appendectomy, Cholecystectomy, Hernia Repair Additional Past Surgical History / Comment(s): lap band, colonoscopy, cataracts, Past Anesthesia/Blood Transfusion Reactions: No Reported Reaction Past Psychological History: Anxiety Smoking Status: Former smoker Past Alcohol Use History: None Reported Additional Past Alcohol Use History / Comment(s): started smoking at age 7(1948) ,quit 1994,was smoking 1.5 ppd. Past Drug Use History: None Reported - Past Family History Father Additional Family Medical History / Comment(s): stroke Mother Additional Family Medical History / Comment(s): stroke Medications and Allergies Home Medications Medication Instructions Recorded Confirmed Type Citalopram Hydrobromide [CeleXA] 40 mg PO DAILY 01/14/15 01/19/20 History metFORMIN HCL 1,000 mg PO BID 01/15/15 01/19/20 History HYDROcodone/APAP 10-325MG [[place] 1 tab PO Q8H PRN 08/18/16 01/19/20 History 10-325] Aspirin EC [Ecotrin Low Dose] 81 mg PO DAILY 05/28/17 01/19/20 History Losartan Potassium 100 mg PO DAILY 01/05/20 01/19/20 History Naproxen Sodium [Aleve] 220 mg PO DAILY 01/05/20 01/19/20 History Atorvastatin [Lipitor] 40 mg PO DAILY #90 tab 01/08/20 01/19/20 Rx Clopidogrel [Plavix] 75 mg PO DAILY #90 tab 01/08/20 01/19/20 Rx Nitroglycerin Sl Tabs [Nitrostat] 0.4 mg SUBLINGUAL Q5M PRN #25 tab 01/08/20 01/19/20 Rx Carvedilol [Coreg] 12.5 mg PO BID 01/19/20 01/19/20 History amLODIPine [Norvasc] 5 mg PO DAILY 01/19/20 01/19/20 History Allergies Allergy/AdvReac Type Severity Reaction Status Date / Time Penicillins Allergy Rash/Hives Verified 01/19/20 14:32 Surgical - Exam Vital Signs Pulse Resp BP Pulse Ox 61 18 161/81 98 01/19/20 13:43 01/19/20 13:43 01/19/20 13:43 01/19/20 13:43 General appearance: The patient is alert, oriented, in no acute distress. HET: Head is normocephalic and atraumatic. Pupils are equal and reactive. Neck: Supple without lymphadenopathy. Trachea midline. Audible bilateral carotid bruit Heart: S1 S2. Regular rate and rhythm. Grade 3 systolic murmur Lungs: No crackles or wheezes are heard. Abdomen: Soft, nontender, nondistended with bowel sounds. Extremities: Normal skin color and turgor. No cyanosis, rash, ulceration, clubbing, or edema. Radial and pedal pulses are 2/4 bilaterally. Neurological: No focal deficits. Patient is alert and oriented 3. Strength and sensation are grossly intact. Speech is fluent, no facial drooping noted. 5/5 equal hand grasp bilaterally. Results Brain CT: Reviewed CT angiogram of head and chest: Reviewed Carotid ultrasound: Reviewed - Labs 01/19/20 13:48 01/19/20 13:48 Abnormal Lab Results - Last 24 Hours (Table) 01/19/20 01/19/20 01/19/20 Range/Units 13:45 13:48 13:48 RBC 4.27 L (4.30-5.90) m/uL Hgb 12.6 L (13.0-17.5) gm/dL Hct 38.1 L (39.0-53.0) % Sodium 134 L (137-145) mmol/L Carbon Dioxide 20 L (22-30) mmol/L BUN 23 H (9-20) mg/dL Glucose 181 H (74-99) mg/dL POC Glucose (mg/dL) 196 H (75-99) mg/dL 01/19/20 01/19/20 01/20/20 Range/Units 17:43 20:58 06:21 RBC (4.30-5.90) m/uL Hgb (13.0-17.5) gm/dL Hct (39.0-53.0) % Sodium (137-145) mmol/L Carbon Dioxide (22-30) mmol/L BUN (9-20) mg/dL Glucose (74-99) mg/dL POC Glucose (mg/dL) 106 H 318 H 138 H (75-99) mg/dL Diabetes panel 01/19/20 01/20/20 Range/Units 13:48 01:11 Sodium 134 L (137-145) mmol/L Potassium 4.7 (3.5-5.1) mmol/L Chloride 105 (98-107) mmol/L Carbon Dioxide 20 L (22-30) mmol/L BUN 23 H (9-20) mg/dL Creatinine 1.01 (0.66-1.25) mg/dL Glucose 181 H (74-99) mg/dL Calcium 9.6 (8.4-10.2) mg/dL AST 24 (17-59) U/L ALT 16 (4-49) U/L Alkaline Phosphatase 55 (38-126) U/L Total Protein 7.1 (6.3-8.2) g/dL Albumin 4.4 (3.5-5.0) g/dL Triglycerides 86 (<150) mg/dL HDL Cholesterol 59 (40-60) mg/dL Calcium panel 01/19/20 Range/Units 13:48 Calcium 9.6 (8.4-10.2) mg/dL Albumin 4.4 (3.5-5.0) g/dL Pituitary panel 01/19/20 Range/Units 13:48 Sodium 134 L (137-145) mmol/L Potassium 4.7 (3.5-5.1) mmol/L Chloride 105 (98-107) mmol/L Carbon Dioxide 20 L (22-30) mmol/L BUN 23 H (9-20) mg/dL Creatinine 1.01 (0.66-1.25) mg/dL Glucose 181 H (74-99) mg/dL Calcium 9.6 (8.4-10.2) mg/dL Adrenal panel 01/19/20 Range/Units 13:48 Sodium 134 L (137-145) mmol/L Potassium 4.7 (3.5-5.1) mmol/L Chloride 105 (98-107) mmol/L Carbon Dioxide 20 L (22-30) mmol/L BUN 23 H (9-20) mg/dL Creatinine 1.01 (0.66-1.25) mg/dL Glucose 181 H (74-99) mg/dL Calcium 9.6 (8.4-10.2) mg/dL Total Bilirubin 0.6 (0.2-1.3) mg/dL AST 24 (17-59) U/L ALT 16 (4-49) U/L Alkaline Phosphatase 55 (38-126) U/L Total Protein 7.1 (6.3-8.2) g/dL Albumin 4.4 (3.5-5.0) g/dL Assessment and Plan Assessment: 1. TIA 2. Bilateral internal carotid stenosis 3. Coronary artery disease 4. Aortic valve stenosis 5. Hypertension 6. Diabetes Plan: Bilateral carotid ultrasound ordered. Continue aspirin, Plavix [address] Royal discussed with patient surgical options regarding his internal carotid stenosis. Await further recommendations per neurology. Patient will also continue to follow with cardiology regarding coronary artery disease and aortic valve stenosis. Further recommendations to follow. Thank you for this consultation and allowing us to take part in the plan of care of this patient during his hospital stay. The above dictated assessment and findings were discussed with Barrera Royal. The impression and plan of care have been directed as dictated.
[2020-01-20 16:10] VITALS: RESP 16
[2020-01-20 17:00] LABS: Glucose,Whole Blood 227 mg/dL (75-99)
[2020-01-20] MEDS: carvediloL 12.5 MG TAB PO SCH (17:27)
[2020-01-20] MEDS: SODIUM CHLORIDE 0.9% 1,000 ML IV SCH (17:29)
--- NOTE | 2020-01-20 18:21 | P.PN ---
Subjective Progress Note Date: 01/20/20 Alejo Lees is an 79-year-old male who presented to [facility] emergency room due to an episode of slurred speech, patient stated that he had some chest discomfort he took a sublingual nitroglycerin after that he felt dizzy and lightheaded and had an episode of slurred speech that lasted about 30 minutes patient was evaluated in emergency room, he had a CT angiogram that revealed 80-90% stenosis in bilateral carotid arteries, computed tomography scan of the brain did not reveal any acute intracranial abnormality, EKG revealed normal sinus rhythm with first-degree AV block, troponin level was 0.02, patient was admitted to telemetry floor for further evaluation and treatment, neurology consult and vascular surgery consult was requested cardiology consult was added. On 01/20/2020 patient was seen and examined on the medical floor, he is alert and oriented 3 in no apparent distress, no new episodes of chest discomfort or dizziness, speech is fluent without any new episodes of slurred speech, there is no fever or chills no headache or dizziness no chest pain no shortness of breath no cough no nausea or vomiting no abdominal pain no diarrhea no burning was urination no frequency or urgency no hematuria Objective - Vital Signs Vital signs: Vital Signs Temp 98 F 01/20/20 04:00 Pulse 62 01/20/20 04:00 Resp 16 01/20/20 04:00 BP 150/72 01/20/20 04:00 Pulse Ox 98 01/20/20 04:00 Intake & Output 01/19/20 01/20/20 01/20/20 18:59 06:59 18:59 Intake Total 0 450 Balance 0 450 Weight 93.894 kg 96.3 kg Intake: Oral 0 450 Other: Voiding Method Toilet Urinal # Voids 1 - Exam In general patient is alert and oriented 3 in no apparent distress HEENT head normocephalic and atraumatic Neck is supple no JVD no goiter no lymphadenopathy Cardiac exam reveals regular heart sounds S1 and S2 no gallops no murmurs Abdomen is soft nontender no organomegaly with normal bowel sounds Extremity exam reveals no edema no cyanosis or clubbing Neurological examination at this time reveals no focal neurological deficits speech is fluent at this time. - Labs CBC & Chem 7: 01/19/20 13:48 01/19/20 13:48 Labs: Abnormal Lab Results - Last 24 Hours (Table) 01/19/20 01/19/20 01/19/20 Range/Units 13:45 13:48 13:48 RBC 4.27 L (4.30-5.90) m/uL Hgb 12.6 L (13.0-17.5) gm/dL Hct 38.1 L (39.0-53.0) % Sodium 134 L (137-145) mmol/L Carbon Dioxide 20 L (22-30) mmol/L BUN 23 H (9-20) mg/dL Glucose 181 H (74-99) mg/dL POC Glucose (mg/dL) 196 H (75-99) mg/dL 01/19/20 01/19/20 01/20/20 Range/Units 17:43 20:58 06:21 RBC (4.30-5.90) m/uL Hgb (13.0-17.5) gm/dL Hct (39.0-53.0) % Sodium (137-145) mmol/L Carbon Dioxide (22-30) mmol/L BUN (9-20) mg/dL Glucose (74-99) mg/dL POC Glucose (mg/dL) 106 H 318 H 138 H (75-99) mg/dL Assessment and Plan Plan: 1. Episode of chest discomfort, patient took sublingual nitroglycerin, his symptoms resolved, EKG does not reveal any acute ischemic changes, first troponin 0.02 Will check serial troponins and consult cardiology 2. Episode of slurred speech and lightheadedness after patient took sublingual nitroglycerin could be related to hypotension, possible TIA 3. Evidence of severe carotid stenosis bilaterally 4. Underlying history of hypertension 5. Underlying history of hyperlipidemia 6. Underlying history of guy-ghyvhwr-geqlzoctw diabetes mellitus 7. Underlying history of chronic back pain. 8. Underlying history of valvular heart disease At this time will check serial troponin levels, will check echocardiogram, consult cardiology Neurology consultation requested in the emergency room for possible TIA with slurred speech Vascular surgery consultation requested in regard to severe bilateral carotid stenosis Awaiting further recommendations from neurology, vascular surgery and cardiology, If no intervention is recommended at this time possible discharge to home tomorrow Will follow closely
--- NOTE | 2020-01-20 18:31 | P.PN ---
Subjective Progress Note Date: 01/20/20 Offers no new complaints. No further TIAs. Objective - Vital Signs Vital signs: Vital Signs Temp 97.9 F 01/20/20 16:00 Pulse 74 01/20/20 16:00 Resp 16 01/20/20 16:00 BP 144/66 01/20/20 16:00 Pulse Ox 98 01/20/20 16:00 Intake & Output 01/19/20 01/20/20 01/20/20 18:59 06:59 18:59 Intake Total 0 450 480 Balance 0 450 480 Weight 93.894 kg 96.3 kg Intake: Oral 0 450 480 Other: Voiding Method Toilet Urinal # Voids 1 1 - Exam Nonfocal. - Labs CBC & Chem 7: 01/19/20 13:48 01/19/20 13:48 Labs: Abnormal Lab Results - Last 24 Hours (Table) 01/19/20 01/20/20 01/20/20 Range/Units 20:58 01:11 06:21 POC Glucose (mg/dL) 318 H 138 H (75-99) mg/dL Hemoglobin A1c 7.1 H (4.0-6.0) % 01/20/20 01/20/20 Range/Units 11:43 16:47 POC Glucose (mg/dL) 219 H 227 H (75-99) mg/dL Hemoglobin A1c (4.0-6.0) % Assessment and Plan Assessment: * TIA, likely due to symptomatic ICA stenosis. Patient CTA of head and neck showed bilateral ICA stenosis 80-90%. * Aortic valve stenosis * Hypertension * Diabetes * CAD. Plan: * Patient will be continued on aspirin and Plavix 75 mg. Continue statins. * Patient to undergo trans-carotid arterial revascularization on 01/23/2020. Appreciate vascular surgery input. * Patient also has aortic valve stenosis, which may need further treatment in the future. Cardiology on board. * Fasting a.m. lipid panel showed cholesterol 131, LDL 55, HDL 59, triglycerides 86. Hemoglobin A1c 7.1. * Neurology will follow.
[2020-01-20 20:00] LABS: Glucose,Whole Blood 222 mg/dL (75-99)
[2020-01-21 06:33] LABS: Glucose,Whole Blood 206 mg/dL (75-99)
[2020-01-21] MEDS: carvediloL 12.5 MG TAB PO SCH (06:45)
[2020-01-21] MEDS: INSULIN ASPART (NovoLOG) 100 UNIT/ML VIAL SQ SCH ×2 (06:45→12:23)
[2020-01-21] MEDS: ATORVASTATIN 40 MG TAB PO SCH (09:43)
[2020-01-21] MEDS: amLODIPine 5 MG TAB PO SCH (09:43)
[2020-01-21] MEDS: LOSARTAN 50 MG TAB PO SCH (09:43)
--- NOTE | 2020-01-21 10:17 | PN ---
PROGRESS NOTE Mr. Lees is an 79-year-old male with known history of Crohn disease, severe aortic stenosis, history of high diabetes who presented with a TIA, was found to have severe carotid disease. He was evaluated by Dr. Royal and is scheduled to undergo percutaneous stenting of his carotid artery on Sunday. He denies any chest pain, his breathing is stable. He denies any dizziness or palpitation. He denies any nausea. His speech is normal. He continues to be on amlodipine 5 mg daily, aspirin once a day, Lipitor 40 mg daily, Coreg 12.5 mg twice a day, Plavix 75 mg daily, Cozaar 100 mg daily. PHYSICAL EXAMINATION: Blood pressure 142/60 with a heart rate in the 70s. LUNGS: Clear. HEART: Regular rate and rhythm, S1, S2. No S3. No rub with a systolic ejection murmur, 3/6 early, late peaking, no diastolic murmur. Neck with bilateral bruit. ABDOMEN: Soft, nontender. EXTREMITIES: No edema. IMPRESSION: 1. TIA with severe carotid disease. 2. Severe aortic stenosis, being evaluated for TAVR. 3. Diabetes. 4. Coronary artery disease. 5. Hypertension. 6. Hyperlipidemia. RECOMMENDATION: Will continue present therapy. Await the percutaneous revascularization of his carotid arteries and subsequent to that, patient will proceed with evaluation for TAVR. MMODL / IJN: [id number] /
[2020-01-21] MEDS: ASPIRIN 81 MG PO SCH (11:28)
[2020-01-21] MEDS: CLOPIDOGREL 75 MG TAB PO SCH (11:28)
[2020-01-21 11:32] LABS: Glucose,Whole Blood 268 mg/dL (75-99)
--- NOTE | 2020-01-21 12:37 | P.PN ---
Subjective Progress Note Date: 01/21/20 Patient seen and examined lying in bed. Patient denies any acute changes through the night. Patient has been up and ambulating without difficulty. He has had no further stroke like symptoms. Patient had a repeat carotid duplex done yesterday which shows marked elevated velocities and ratios compatible with severe to critical stenosis. He states he would like to be discharged home and come back for Outpatient procedure on Sunday. Objective - Vital Signs Vital signs: Vital Signs Temp 98 F 01/21/20 08:00 Pulse 70 01/21/20 08:00 Resp 16 01/21/20 08:00 BP 159/74 01/21/20 08:00 Pulse Ox 94 L 01/21/20 08:00 Intake & Output 01/20/20 01/21/20 01/21/20 18:59 06:59 18:59 Intake Total 480 240 Output Total 120 Balance 480 -120 240 Intake: Oral 480 240 Output: Urine 120 Other: Voiding Method Toilet Toilet Urinal Urinal # Voids 1 1 4 # Bowel Movements 1 - Exam General appearance: The patient is alert, oriented, in no acute distress. HET: Head is normocephalic and atraumatic. Neck: Supple without lymphadenopathy. Trachea midline. Bilateral carotid bruit. Heart: S1 S2. Regular rate and rhythm. Lungs: No crackles or wheezes are heard. Extremities: Normal skin color and turgor. No cyanosis, rash, ulceration, c lubbing, or edema. Radial and pedal pulses are 2/4 bilaterally. Neurological: No focal deficits. Strength and sensation are grossly intact. - Labs CBC & Chem 7: 01/19/20 13:48 01/19/20 13:48 Labs: Abnormal Lab Results - Last 24 Hours (Table) 01/20/20 01/20/20 01/20/20 Range/Units 01:11 11:43 16:47 POC Glucose (mg/dL) 219 H 227 H (75-99) mg/dL Hemoglobin A1c 7.1 H (4.0-6.0) % 01/20/20 01/21/20 Range/Units 19:58 06:31 POC Glucose (mg/dL) 222 H 206 H (75-99) mg/dL Hemoglobin A1c (4.0-6.0) % Assessment and Plan Assessment: 1. TIA 2. Bilateral internal carotid stenosis 3. Coronary artery disease 4. Aortic valve stenosis 5. Hypertension 6. Diabetes Plan: Bilateral carotid duplex shows right ICA 485.4 with an ICA/CCA ratio of 8.7. Left ICA 759.6 ICA CCA ratio 13.6, with marked elevated velocities and ratios compatible with severe to critical stenosis. Dr. Martines had extensive discussion with the patient regarding surgical options for his carotid stenosis. Patient states he would like to go home and come back as an outpatient. Patient is scheduled for a left Transcarotid artery revascularization is Sunday with Dr. Royal. From a vascular surgery standpoint the patient is able to be discha rged home per clearance by medicine and neurology to return for his procedure Sunday. Patient was instructed to continue to take his daily aspirin and Plavix all the way through surgery morning. The above dictated assessment and findings were discussed with Dr. Martines. The impression and plan of care have been directed as dictated.
[2020-01-21 13:03] VITALS: BP 163/72; PULSE 65; TEMP 98.1
--- NOTE | 2020-02-18 11:11 | P.DS ---
Providers Date of admission: 01/19/20 15:45 Expected date of discharge: 02/18/20 Attending physician: Mell Baer Consults: 01/19/20 15:46 Consult Physician Routine Consulting Provider: Michael Byrne Consult Reason/Comments: carotid artery stenosis Do you want consulting provider notified?: Yes Consult Physician Routine Consulting Provider: Jayden Cho Consult Reason/Comments: tia Do you want consulting provider notified?: Yes 01/19/20 18:38 Consult Physician Routine Consulting Provider: Missy Forbes Consult Reason/Comments: chest pain Do you want consulting provider notified?: Yes Primary care physician: [facility] Course: Diagnosis on discharge: 1. Episode of chest discomfort, patient took sublingual nitroglycerin, his symptoms resolved, EKG does not reveal any acute ischemic changes, first troponin 0.02 Will check serial troponins and consult cardiology 2. Episode of slurred speech and lightheadedness after patient took sublingual nitroglycerin could be related to hypotension, possible TIA 3. Evidence of severe carotid stenosis bilaterally 4. Underlying history of hypertension 5. Underlying history of hyperlipidemia 6. Underlying history of zjy-fuueyka-trrvwmcew diabetes mellitus 7. Underlying history of chronic back pain. 8. Underlying history of valvular heart disease Hospital course: Alejo Lees is an 79-year-old male who presented to [facility] emergency room due to an episode of slurred speech, patient stated that he had some chest discomfort he took a sublingual nitroglycerin after that he felt dizzy and lightheaded and had an episode of slurred speech that lasted about 30 minutes patient was evaluated in emergency room, he had a CT angiogram that revealed 80-90% stenosis in bilateral carotid arteries, computed tomography scan of the brain did not reveal any acute intracranial abnormality, EKG revealed normal sinus rhythm with first-degree AV block, troponin level was 0.02, patient was admitted to telemetry floor for further evaluation and treatment, neurology consult and vascular surgery consult was requested cardiology consult was added. On 01/20/2020 patient was seen and examined on the medical floor, he is alert and oriented 3 in no apparent distress, no new episodes of chest discomfort or dizziness, speech is fluent without any new episodes of slurred speech, there is no fever or chills no headache or dizziness no chest pain no shortness of breath no cough no nausea or vomiting no abdominal pain no diarrhea no burning was urination no frequency or urgency no hematuria Patient Condition at Discharge: Fair Plan - Discharge Summary Discharge Rx Participant: No New Discharge Prescriptions: Continue Citalopram Hydrobromide [CeleXA] 40 mg PO DAILY metFORMIN HCL 1,000 mg PO BID HYDROcodone/APAP 10-325MG [[place] 10-325] 1 tab PO Q8H PRN PRN Reason: Pain Aspirin EC [Ecotrin Low Dose] 81 mg PO DAILY Losartan Potassium 100 mg PO DAILY Atorvastatin [Lipitor] 40 mg PO DAILY #90 tab Nitroglycerin Sl Tabs [Nitrostat] 0.4 mg SUBLINGUAL Q5M PRN #25 tab PRN Reason: Chest Pain Clopidogrel [Plavix] 75 mg PO DAILY #90 tab amLODIPine [Norvasc] 5 mg PO DAILY Carvedilol [Coreg] 12.5 mg PO BID Discharge Medication List Citalopram Hydrobromide [CeleXA] 40 mg PO DAILY 01/14/15 [History] metFORMIN HCL 1,000 mg PO BID 01/15/15 [History] HYDROcodone/APAP 10-325MG [[place] 10-325] 1 tab PO Q8H PRN 08/18/16 [History] Aspirin EC [Ecotrin Low Dose] 81 mg PO DAILY 05/28/17 [History] Losartan Potassium 100 mg PO DAILY 01/05/20 [History] Atorvastatin [Lipitor] 40 mg PO DAILY #90 tab 01/08/20 [Rx] Clopidogrel [Plavix] 75 mg PO DAILY #90 tab 01/08/20 [Rx] Nitroglycerin Sl Tabs [Nitrostat] 0.4 mg SUBLINGUAL Q5M PRN #25 tab 01/08/20 [ Rx] Carvedilol [Coreg] 12.5 mg PO BID 01/19/20 [History] amLODIPine [Norvasc] 5 mg PO DAILY 01/19/20 [History] Follow up Appointment(s)/Referral(s): Barrera Royal DO [STAFF PHYSICIAN] - 1 Week (Will be doing your surgery Sunday) Mell Baer MD [Primary Care Provider] - 01/28/20 4:00 pm (an appointment will be made post sunday procedure) Patient Instructions/Handouts: Transient Ischemic Attack (GEN) Activity/Diet/Wound Care/Special Instructions: Surgery scheduled for Sunday. You will receive a phone call with further details. Discharge Disposition: HOME SELF-CARE
== END 2020-01-21 14:00 | disposition home or self-care (01) ==
LOC: EC 13:33 → 3SCARD 15:45 → INTOOBSV 01-21 09:54 → OBSVTOIN 01-21 09:54 → UNDODISIN 01-21 14:00
PROVIDERS: ADMIT Internal Medicine; ATTEND Internal Medicine
DX: I65.23 Occlusion and stenosis of bilateral carotid arteries (principal); I08.3 Combined rheumatic disorders of mitral, aortic and tricuspid valves; I10 Essential (primary) hypertension; R07.89 Other chest pain; T46.3X5A Adverse effect of coronary vasodilators, initial encounter; Z86.73 Personal history of transient ischemic attack (TIA), and cerebral infarction without residual deficits; R29.701 NIHSS score 1; E78.5 Hyperlipidemia, unspecified; I44.0 Atrioventricular block, first degree; E11.51 Type 2 diabetes mellitus with diabetic peripheral angiopathy without gangrene; Z95.5 Presence of coronary angioplasty implant and graft; Z11.59 Encounter for screening for other viral diseases; G89.29 Other chronic pain; M54.5 Low back pain; G47.30 Sleep apnea, unspecified; Z99.89 Dependence on other enabling machines and devices; H93.19 Tinnitus, unspecified ear; R25.1 Tremor, unspecified; Z90.49 Acquired absence of other specified parts of digestive tract; Z98.84 Bariatric surgery status; Z98.890 Other specified postprocedural states; Z98.49 Cataract extraction status, unspecified eye; F41.9 Anxiety disorder, unspecified; Z87.891 Personal history of nicotine dependence; Z82.3 Family history of stroke; Z86.19 Personal history of other infectious and parasitic diseases; K50.90 Crohn's disease, unspecified, without complications; I25.10 Atherosclerotic heart disease of native coronary artery without angina pectoris; M17.11 Unilateral primary osteoarthritis, right knee; Z79.84 Long term (current) use of oral hypoglycemic drugs; Z79.02 Long term (current) use of antithrombotics/antiplatelets; Z79.891 Long term (current) use of opiate analgesic; Z79.899 Other long term (current) drug therapy; Z88.0 Allergy status to penicillin
CPT/HCPCS: 99291; 36415; 93005; 93306; 97161; 97165; 92522; 80061; 80053; 84484 ×2; 85025; 85610; 85730; 83036; 71046; 93880; 70496; 70450; 70498; G0378 ×3; U0003; Q9967

== ENCOUNTER 2020-01-23 06:29 | Inpatient (IN) | payer MEDICARE ==
[2020-01-21 18:32] VITALS: BMI 33.2
[~2020-01-23 06:29] MED LIST: ALPRAZolam 0.25 MG TAB PO PRN; ALPRAZolam 0.5 MG TAB PO PRN; ASPIRIN 325 MG TAB PO STA; CLOPIDOGREL 75 MG TAB PO STA; NITROGLYCERIN SL TABS 0.4 MG TAB SUBLINGUAL PRN; SODIUM CHLORIDE 0.9% 1,000 ML in EMPTY BAG 1 BAG IV ONE
[2020-01-23] MEDS: INSULIN ASPART (NovoLOG) 100 UNIT/ML VIAL SQ SCH ×4 (07:25→21:33)
[2020-01-23 07:26] LABS: Glucose,Whole Blood 218 mg/dL (75-99)
[2020-01-23] MEDS ORDERED: ASPIRIN 81 MG ONE (08:10)
[2020-01-23] MEDS ORDERED: GLYCOPYRROLATE 0.2 MG/ML 2 ML VIAL ONE (10:01)
[2020-01-23] MEDS ORDERED: MIDAZOLAM 2 MG/2 ML VIAL ONE (10:01)
[2020-01-23] MEDS ORDERED: NITROGLYCERIN-D5W PMX 50 MG/250 ML BOTTLE IV ONE (10:01)
[2020-01-23] MEDS ORDERED: fentaNYL (PF) 50 MCG/ML 2 ML AMP ONE (10:01)
[2020-01-23] MEDS ORDERED: DEXMEDETOMIDINE/0.9% NACL(PMX) 400 MCG/100 ML IV ONE (10:01)
[2020-01-23] MEDS ORDERED: PROTAMINE SULFATE 10 MG/ML 5 ML VIAL IV ONE (10:01)
[2020-01-23] MEDS ORDERED: HEPARIN SODIUM,PORCINE 10,000 UNIT/ML 1 ML VIAL ONE (10:01)
[2020-01-23] MEDS ORDERED: LIDOCAINE 1% INJ 10MG/ML (20 ML MDV) SQ ONE (10:36)
[2020-01-23] MEDS ORDERED: IOPAMIDOL-250 50ML BTL INTRAARTER ONE (11:41)
[2020-01-23] MEDS ORDERED: ATROPINE SULFATE 0.1 MG/ML 10ML SYRINGE IV PRN (12:08)
[2020-01-23] MEDS ORDERED: MAG HYDROX/AL HYDROX/SIMETH 30 ML CUP PO PRN (12:08)
[2020-01-23] MEDS ORDERED: RX INFO: IV CONTRAST WAS GIVEN 1 EACH MISC MISCELLANE PRN (12:08)
--- NOTE | 2020-01-23 12:08 | P.OP ---
Date of Procedure: 01/23/20 Preoperative Diagnosis: Left internal carotid artery severe stenosis Recent TIA Postoperative Diagnosis: Same Procedure(s) Performed: Left trans-carotid artery revascularization with internal carotid artery stenting Ultrasound-guided right common femoral vein access Left carotid angiogram with cerebral angiogram Implants: 10 x 40 mm eNRoute stent Anesthesia: local, other (Conscious sedation) Surgeon: Barrera Royal General Claims Agent #1: Leticia Martines Estimated Blood Loss (ml): 20 IV fluids (ml): 500 Pathology: none sent Condition: stable Disposition: PACU Indications for Procedure: 79-year-old gentleman who originally presented to the hospital secondary to aphasia and left sided facial droop which subsided within 24 hours. He under went CT angiogram as well as carotid Doppler which demonstrated bilateral internal carotid artery severe stenosis greater than 90%. We discussed with the neurologist for timing of procedure and after his 24 hours he had resolved all symptoms and therefore per his severity of his stenosis bilaterally he was a candidate for TCAR within the next 2 weeks. He presents today for procedure. Description of Procedure: After written informed consent was obtained the patient all risks benefits and competitions were described the patient is brought to the [employer] laid in a supine position the area of the neck and groins were prepped and draped in usual sterile fashion after appropriate anesthetic was performed per the anesthesiologist. A timeout was performed in normal fashion antibiotics were administered prior to incision. Utilizing ultrasound the common carotid artery on the left was visualized and marked and a transverse incision was then created with a 10 blade scalpel after local anesthetic was infused overlying the vessel. Dissection was then carried down with electrocautery to the sternocleidomastoid musculature. Dissection between the 2 heads of the sternocleidomastoid muscle was performed down to the carotid sheath. The carotid sheath was then incised and access to the common carotid artery was obtained. To just dissection in a circumferential manner was performed and the common carotid artery was controlle d with umbilical tape. Once controlled patient was administered heparin and followed with serial ACTs for appropriate heparinization. Utilizing 5-0 Prolene suture a pursestring suture was placed at the common carotid artery and utilizing a multipurpose needle the artery was accessed and a 4-[place] sheath was placed in normal fashion. Carotid angiogram was then obtained demonstrating severe stenosis greater than 90% at the internal carotid artery but it was patent. Guidewire was then placed into the external carotid artery followed by the sheath and a stiff wire was then placed into the external carotid artery. EnRoute sheath was then placed in normal fashion at the common carotid artery. Utilizing ultrasound the right femoral vein was accessed and the femoral sheath was placed utilizing Seldinger technique. The Enroute DRYING ROOM OPERATOR system was then connected and reversal of flow was performed after TCAR timeout was completed. Reversal flow was checked and seemed to be brisk. Patient was monitored the entire time with cerebral oximetry and his pre-clamp history of oximetry was 65 and dropped to 58 during clamping. Utilizing a an 014 angled wire the lesion was then crossed followed by a 5.5 x 30 mm Mendez balloon and balloon angioplasty was performed followed by a 10 x 40 mm eNRoute stent. Final angiogram was performed demonstrating complete resolution of the stenosis. Multiple angles were also performed demonstrating resolution of the stenosis as well as good brisk flow into the MCA and filling of the distal branches within the skull. All guidewires and catheters were then removed, the sheath was removed after flow was reestablished. Reversal flow was approximated 12 minutes. Once sheath was removed the Prolene suture was secured for hemostasis. The area was irrigated with saline and hemostasis was assured with Surgicel and protamine was reversed with 20mg. Incision was then closed in a multilayer fashion. The femoral sheath was also removed and pressure was held for hemostasis. Patient tolerated procedure well and was following commands and moving all extremities at the conclusion of the procedure.
[2020-01-23] MEDS ORDERED: NITROGLYCERIN SL TABS 0.4 MG TAB SUBLINGUAL PRN (12:11)
[2020-01-23 12:42] LABS: Glucose,Whole Blood 197 mg/dL (75-99)
[2020-01-23 13:08] LABS: Glucose,Whole Blood 225 mg/dL (75-99)
--- NOTE | 2020-01-23 14:31 | P.CONS ---
History of Present Illness - Reason for Consult Consult date: 01/23/20 - History of Present Illness Alejo Lees is an 79-year-old male who was admitted to [facility] by Dr. Royal and underwent left internal carotid artery stenting, patient was admitted to intensive care unit post procedure, medical consultation was requested for management while hospitalized. Patient was recently admitted to [facility] on 01/20/2020 and was discharged home on 01/22/2020 patient presented with evidence of TIA at that time he underwent CT angiogram of the neck that revealed bilateral stenosis of the carotid arteries. Patient has a known history of hypertension, hyperlipidemia, coronary artery disease, non insulin-dependent diabetes mellitus, and history of depression. Patient was seen and examined in the ICU he is alert and oriented 3 in no apparent distress he is complaining of some neck discomfort otherwise he denies any complaints there is no fever or chills no headache or dizziness no chest pain no shortness of breath no cough no nausea or vomiting no abdominal pain no diarrhea no burning was urination no frequency or urgency and no hematuria this or numbness in any of his extremities no change in his vision speech or gait. Past Medical History Past Medical History: Coronary Artery Disease (CAD), Chest Pain / Angina, CVA/TIA, Diabetes Mellitus, Eye Disorder, Hearing Disorder / Deafness, Hyperlipidemia, Hypertension, Musculoskeletal Disorder, Sleep Apnea/CPAP/BIPAP Additional Past Medical History / Comment(s): [employer] hearing aids, tinnitus, chronic lower back pain, work injury 1976 w/concussion", "occ hand tremors", hx shingles 2009, has a cpap machine. PTCA w/ stents x 2 01/07/20. Heart murmur. Varicose veins. Admit w/ TIA 01/19/20. History of Any Multi-Drug Resistant Organisms: None Reported Past Surgical History: Appendectomy, Cholecystectomy, Heart Catheterization With Stent, Hernia Repair Additional Past Surgical History / Comment(s): Lap band, colonoscopy, cataracts, glaucoma surg, PTCA w/ stents x2 01/07/20. Past Anesthesia/Blood Transfusion Reactions: No Reported Reaction Date of Last Stent Placement:: 01/07/20 Smoking Status: Former smoker - Past Family History Father Family Medical History: CVA/TIA Additional Family Medical History / Comment(s): stroke Mother Family Medical History: No Reported History Additional Family Medical History / Comment(s): stroke Medications and Allergies Home Medications Medication Instructions Recorded Confirmed Type Citalopram Hydrobromide [CeleXA] 40 mg PO DAILY 01/14/15 01/23/20 History metFORMIN HCL 1,000 mg PO BID 01/15/15 01/23/20 History HYDROcodone/APAP 10-325MG [[place] 1 tab PO Q8H PRN 08/18/16 01/23/20 History 10-325] Aspirin EC [Ecotrin Low Dose] 81 mg PO DAILY 05/28/17 01/23/20 History Losartan Potassium 100 mg PO DAILY 01/05/20 01/23/20 History Naproxen Sodium [Aleve] 220 mg PO DAILY 01/05/20 01/23/20 History Atorvastatin [Lipitor] 40 mg PO DAILY #90 tab 01/08/20 01/23/20 Rx Clopidogrel [Plavix] 75 mg PO DAILY #90 tab 01/08/20 01/23/20 Rx Nitroglycerin Sl Tabs [Nitrostat] 0.4 mg SUBLINGUAL Q5M PRN #25 tab 01/08/20 01/23/20 Rx Carvedilol [Coreg] 12.5 mg PO BID 01/19/20 01/23/20 History amLODIPine [Norvasc] 5 mg PO DAILY 01/19/20 01/23/20 History Allergies Allergy/AdvReac Type Severity Reaction Status Date / Time Penicillins Allergy Rash/Hives Verified 01/21/20 18:06 Physical Exam Vitals: Vital Signs Temp Pulse Pulse Resp BP BP Pulse Ox 01/23/20 12:45 53 L 16 132/47 99 01/23/20 12:30 55 L 16 135/52 99 01/23/20 12:15 97 F L 57 L 16 146/50 99 01/23/20 07:24 98.3 F 63 18 171/76 193/79 97 Intake and Output 01/22/20 01/23/20 01/23/20 22:59 06:59 14:59 Intake Total 550 Output Total 500 Balance 50 Intake: IV 550 Output: Urine 500 In general patient is alert and oriented 3 in no apparent distress HEENT head normocephalic and atraumatic Neck is supple no JVD no goiter no lymphadenopathy Chest exam reveals a few scattered rhonchi no wheezing Cardiac exam reveals regular heart sounds S1 and S2 no gallops no murmurs Abdomen is soft nontender no organomegaly was normal bowel sounds Extremity exam reveals no edema no cyanosis or clubbing Results Labs: Abnormal Lab Results - Last 24 Hours (Table) 01/23/20 01/23/20 01/23/20 Range/Units 07:18 12:38 13:06 POC Glucose (mg/dL) 218 H 197 H 225 H (75-99) mg/dL Assessment and Plan Plan: 1. Severe carotid stenosis status post left internal carotid stenting 2. Underlying history of hypertension well-controlled on medications continue 3. Underlying history of hyperlipidemia 4. Underlying history of ekp-sygilpa-dcajuhzpz diabetes mellitus, will hold metformin at this time due to the use of contrast, will cover with insulin sliding scale 5. Recent TIA with admission to the hospital discharged yesterday 6. Underlying history of depression stable At this time medication and labs were reviewed Home medications will re-ordered Will follow during this admission for medical management
[2020-01-23] MEDS: DEXMEDETOMIDINE/0.9% NACL(PMX) 400 MCG in EMPTY BAG 1 BAG IV SCH (14:40)
--- NOTE | 2020-01-23 15:48 | IR ---
Fluoroscopy HISTORY: Carotid stenosis on the left 5.1 minutes fluoroscopy time supplied to the referring clinician. 290 intraoperative C-arm images do cument the procedure. See dictated report from vascular surgery.
[2020-01-23 17:04] LABS: Glucose,Whole Blood 107 mg/dL (75-99)
[2020-01-23] MEDS: HYDROcodone/APAP 10-325MG 1 EACH TAB PO PRN (17:04)
[2020-01-23] MEDS: CARVEDILOL 12.5 MG TAB PO SCH (17:04)
[2020-01-23] MEDS ORDERED: ATORVASTATIN 40 MG TAB PO SCH (21:00)
[2020-01-23 21:32] LABS: Glucose,Whole Blood 197 mg/dL (75-99)
[2020-01-24 04:56] LABS: Basophils % (A) 0 %; Eosinophils # (A) 0.2 k/uL (0-0.7); Eosinophils % (A) 2 %; HCT 33.3 % (39.0-53.0); HGB 10.9 gm/dL (13.0-17.5); Lymphocytes # (A) 2.1 k/uL (1.0-4.8); Lymphocytes % (A) 20 %; MCH 29.2 pg (25.0-35.0); MCHC 32.7 g/dL (31.0-37.0); MCV 89.4 fL (80.0-100.0); Mean Platelet Volume 9.4; Monocytes # (A) 0.6 k/uL (0-1.0); Monocytes % (A) 6 %; Neutrophils # (A) 7.4 k/uL (1.3-7.7); Neutrophils % (A) 71 %; Platelet Count 179 k/uL (150-450); RBC 3.73 m/uL (4.30-5.90); RDW 13.3 % (11.5-15.5); WBC 10.5 k/uL (3.8-10.6)
[2020-01-24 05:05] LABS: ALT 17 U/L (4-49); AST 21 U/L (17-59); African American GFR (CKD) >90 (>60 ml/min/1.73 sqM); Albumin 3.3 g/dL (3.5-5.0); Alkaline Phosphatase 55 U/L (38-126); Anion Gap 6 mmol/L; Blood Urea Nitrogen 16 mg/dL (9-20); Calcium 8.6 mg/dL (8.4-10.2); Carbon Dioxide 23 mmol/L (22-30); Chloride 105 mmol/L (98-107); Glucose 167 mg/dL (74-99); Non-African American GFR(CKD) 83 (>60 ml/min/1.73 sqM); Potassium 4.3 mmol/L (3.5-5.1); Sodium 134 mmol/L (137-145); Total Bilirubin 0.7 mg/dL (0.2-1.3); Total Protein 5.7 g/dL (6.3-8.2)
[2020-01-24 06:42] LABS: Glucose,Whole Blood 178 mg/dL (75-99)
[2020-01-24] MEDS: INSULIN ASPART (NovoLOG) 100 UNIT/ML VIAL SQ SCH ×2 (06:45→12:22)
[2020-01-24] MEDS: CARVEDILOL 12.5 MG TAB PO SCH (07:00)
[2020-01-24] MEDS: DEXMEDETOMIDINE/0.9% NACL(PMX) 400 MCG in EMPTY BAG 1 BAG IV SCH (08:22)
[2020-01-24] MEDS ORDERED: ENOXAPARIN 40 MG/0.4 ML SYRINGE SQ SCH (09:00)
[2020-01-24] MEDS ORDERED: amLODIPine 5 MG TAB PO SCH (09:00)
[2020-01-24] MEDS ORDERED: CITALOPRAM HYDROBROMIDE 20 MG TAB PO SCH (09:00)
[2020-01-24] MEDS ORDERED: ASPIRIN 81 MG PO SCH (09:00)
[2020-01-24] MEDS ORDERED: LOSARTAN 50 MG TAB PO SCH (09:00)
[2020-01-24] MEDS: HYDROcodone/APAP 10-325MG 1 EACH TAB PO PRN (09:20)
--- NOTE | 2020-01-24 11:50 | P.PN ---
Subjective Progress Note Date: 01/24/20 Alejo Lees is an 79-year-old male who was admitted to [facility] by Dr. Royal and underwent left internal carotid artery stenting, patient was admitted to intensive care unit post procedure, medical consultation was requested for management while hospitalized. Patient was recently admitted to [facility] on 01/20/2020 and was discharged home on 01/22/2020 patient presented with evidence of TIA at that time he underwent CT angiogram of the neck that revealed bilateral stenosis of the carotid arteries. Patient has a known history of hypertension, hyperlipidemia, coronary artery disease, non insulin-dependent diabetes mellitus, and history of depression. Patient was seen and examined in the ICU he is alert and oriented 3 in no apparent distress he is complaining of some neck discomfort otherwise he denies any complaints there is no fever or chills no headache or dizziness no chest pain no shortness of breath no cough no nausea or vomiting no abdominal pain no diarrhea no burning was urination no frequency or urgency and no hematuria this or numbness in any of his extremities no change in his vision speech or gait. On 01/24/2020 patient was seen and examined in the ICU he is alert and oriented 3 in no apparent distress there is no fever or chills no headache or dizziness no chest pain no shortness of breath no cough no nausea or vomiting no abdominal pain no diarrhea no blood in the stools no burning was urination no frequency or urgency and no hematuria. Patient was evaluated and he is cleared for discharge from medical standpoint. Objective - Vital Signs Vital signs: Vital Signs Temp 99 F 01/24/20 08:00 Pulse 63 01/24/20 10:00 Resp 16 01/24/20 10:00 BP 125/57 01/24/20 10:00 Pulse Ox 96 01/24/20 10:00 Intake & Output 01/23/20 01/24/20 01/24/20 18:59 06:59 18:59 Intake Total 950 490 Output Total 775 425 315 Balance 175 -425 175 Weight 98.6 kg Intake: IV 550 Intake, IV Titration 400 Amount Sodium Chloride 0.9% 1, 400 000 ml In Empty Bag 1 bag @ 1 ML/KG/HR 96.162 mls/ hr IV .[id number] ONE Rx#: [id number] Oral 490 Output: Urine 775 425 315 Other: Voiding Method Indwelling Catheter Indwelling Catheter Indwelling Catheter # Voids 0 ABP, PAP, CO, CI - Last Documented Arterial Blood Pressure 153/50 - Exam In general patient is alert and oriented 3 in no apparent distress HEENT head normocephalic and atraumatic Neck is supple no JVD no goiter no lymphadenopathy Chest exam reveals a few scattered rhonchi no wheezing Cardiac exam reveals regular heart sounds S1 and S2 no gallops no murmurs Abdomen is soft nontender no organomegaly was normal bowel sounds Extremity exam reveals no edema no cyanosis or clubbing - Labs CBC & Chem 7: 01/24/20 04:45 01/24/20 04:45 Labs: Abnormal Lab Results - Last 24 Hours (Table) 01/23/20 01/23/20 01/23/20 Range/Units 12:38 13:06 17:02 RBC (4.30-5.90) m/uL Hgb (13.0-17.5) gm/dL Hct (39.0-53.0) % Sodium (137-145) mmol/L Glucose (74-99) mg/dL POC Glucose (mg/dL) 197 H 225 H 107 H (75-99) mg/dL Total Protein (6.3-8.2) g/dL Albumin (3.5-5.0) g/dL 01/23/20 01/24/20 01/24/20 Range/Units 21:31 04:45 04:45 RBC 3.73 L (4.30-5.90) m/uL Hgb 10.9 L (13.0-17.5) gm/dL Hct 33.3 L (39.0-53.0) % Sodium 134 L (137-145) mmol/L Glucose 167 H (74-99) mg/dL POC Glucose (mg/dL) 197 H (75-99) mg/dL Total Protein 5.7 L (6.3-8.2) g/dL Albumin 3.3 L (3.5-5.0) g/dL 01/24/20 Range/Units 06:40 RBC (4.30-5.90) m/uL Hgb (13.0-17.5) gm/dL Hct (39.0-53.0) % Sodium (137-145) mmol/L Glucose (74-99) mg/dL POC Glucose (mg/dL) 178 H (75-99) mg/dL Total Protein (6.3-8.2) g/dL Albumin (3.5-5.0) g/dL Assessment and Plan Plan: 1. Severe carotid stenosis status post left internal carotid stenting 2. Underlying history of hypertension well-controlled on medications continue 3. Underlying history of hyperlipidemia 4. Underlying history of prg-qeoyvue-pdxgfufyq diabetes mellitus, will hold metformin at this time due to the use of contrast, will cover with insulin sliding scale 5. Recent TIA with admission to the hospital discharged yesterday 6. Underlying history of depression stable At this time medication and labs were reviewed Patient was examined in ICU He is cleared for discharge from medical standpoint.
[2020-01-24 12:06] LABS: Glucose,Whole Blood 268 mg/dL (75-99)
[2020-01-24 12:07] LABS: Glucose,Whole Blood 259 mg/dL (75-99)
[2020-01-24 12:09] VITALS: TEMP 98.7
[2020-01-24] MEDS ORDERED: CLOPIDOGREL 75 MG TAB PO SCH (12:09)
[2020-01-24 13:05] VITALS: BP 123/53; RESP 20
--- NOTE | 2020-01-24 14:15 | P.PN ---
Subjective Progress Note Date: 01/24/20 Patient is evaluated today status post TCAR on the left. He voices no complaints. Physical examination: Patient is awake alert cooperative no apparent stress. Vital signs are stable patient is afebrile. Neck is supple with no significant hematoma. A small degree of ecchymosis is identified around the surgical site. Neurologically the patient demonstrates no focal motor deficit. Cranial nerves II through XII are intact. Impression: Postop day #1, doing well. Stable for discharge. Plan: All discharge instructions were reviewed with the patient. He takes both aspirin and Plavix as an outpatient and these will be continued. He was informed that he can shower over his wound starting today. He was asked to make an appointment for office follow-up in approximately 2 weeks. Objective - Vital Signs Vital signs: Vital Signs Temp 98.7 F 01/24/20 12:00 Pulse 64 01/24/20 13:00 Resp 20 01/24/20 13:00 BP 123/53 01/24/20 13:00 Pulse Ox 95 01/24/20 13:00 Intake & Output 01/23/20 01/24/20 01/24/20 18:59 06:59 18:59 Intake Total 950 730 Output Total 775 425 315 Balance 175 -425 415 Weight 98.6 kg Intake: IV 550 Intake, IV Titration 400 Amount Sodium Chloride 0.9% 1, 400 000 ml In Empty Bag 1 bag @ 1 ML/KG/HR 96.162 mls/ hr IV .[id number] ONE Rx#: [id number] Oral 730 Output: Urine 775 425 315 Other: Voiding Method Indwelling Catheter Indwelling Catheter Indwelling Catheter # Voids 0 ABP, PAP, CO, CI - Last Documented Arterial Blood Pressure 153/50 - Labs CBC & Chem 7: 01/24/20 04:45 01/24/20 04:45 Labs: Abnormal Lab Results - Last 24 Hours (Table) 01/23/20 01/23/20 01/24/20 Range/Units 17:02 21:31 04:45 RBC 3.73 L (4.30-5.90) m/uL Hgb 10.9 L (13.0-17.5) gm/dL Hct 33.3 L (39.0-53.0) % Sodium (137-145) mmol/L Glucose (74-99) mg/dL POC Glucose (mg/dL) 107 H 197 H (75-99) mg/dL Total Protein (6.3-8.2) g/dL Albumin (3.5-5.0) g/dL 01/24/20 01/24/20 01/24/20 Range/Units 04:45 06:40 12:05 RBC (4.30-5.90) m/uL Hgb (13.0-17.5) gm/dL Hct (39.0-53.0) % Sodium 134 L (137-145) mmol/L Glucose 167 H (74-99) mg/dL POC Glucose (mg/dL) 178 H 268 H (75-99) mg/dL Total Protein 5.7 L (6.3-8.2) g/dL Albumin 3.3 L (3.5-5.0) g/dL 01/24/20 Range/Units 12:06 RBC (4.30-5.90) m/uL Hgb (13.0-17.5) gm/dL Hct (39.0-53.0) % Sodium (137-145) mmol/L Glucose (74-99) mg/dL POC Glucose (mg/dL) 259 H (75-99) mg/dL Total Protein (6.3-8.2) g/dL Albumin (3.5-5.0) g/dL
[2020-01-24 14:18] VITALS: PULSE 63
== END 2020-01-24 15:05 | disposition home or self-care (01) | DRG 36 ==
LOC: 2ORMAIN 06:29 → 2SICU 11:48
PROVIDERS: ADMIT Surgery; ATTEND Surgery
PROC: 037L3DZ Dilation of Left Internal Carotid Artery with Intraluminal Device, Percutaneous Approach (ICD-10-PCS; principal; 2020-01-23 09:30)
DX: I65.23 Occlusion and stenosis of bilateral carotid arteries (principal); E11.9 Type 2 diabetes mellitus without complications; E78.5 Hyperlipidemia, unspecified; I35.0 Nonrheumatic aortic (valve) stenosis; F41.9 Anxiety disorder, unspecified; H91.93 Unspecified hearing loss, bilateral; I10 Essential (primary) hypertension; I25.10 Atherosclerotic heart disease of native coronary artery without angina pectoris; F32.9 Major depressive disorder, single episode, unspecified; G47.30 Sleep apnea, unspecified; G89.29 Other chronic pain; H40.9 Unspecified glaucoma; H93.19 Tinnitus, unspecified ear; I83.90 Asymptomatic varicose veins of unspecified lower extremity; M54.5 Low back pain; Z79.02 Long term (current) use of antithrombotics/antiplatelets; Z79.82 Long term (current) use of aspirin; Z79.84 Long term (current) use of oral hypoglycemic drugs; Z79.899 Other long term (current) drug therapy; Z88.0 Allergy status to penicillin; Z86.73 Personal history of transient ischemic attack (TIA), and cerebral infarction without residual deficits; Z97.4 Presence of external hearing-aid; Z95.5 Presence of coronary angioplasty implant and graft; Z87.891 Personal history of nicotine dependence; Z90.49 Acquired absence of other specified parts of digestive tract; Z98.84 Bariatric surgery status; Z98.42 Cataract extraction status, left eye; Z98.41 Cataract extraction status, right eye; Z82.3 Family history of stroke; Z87.820 Personal history of traumatic brain injury
CPT/HCPCS: 37215; 80053; 85025; 86850; 86900; 86901

== ENCOUNTER 2020-02-11 16:42 | Inpatient (IN) | payer MEDICARE ==
[2020-02-11 17:31] LABS: Basophils # (A) 0.1 k/uL (0-0.2); Basophils % (A) 1 %; Eosinophils # (A) 0.3 k/uL (0-0.7); Eosinophils % (A) 3 %; HCT 36.6 % (39.0-53.0); HGB 11.9 gm/dL (13.0-17.5); Lymphocytes # (A) 2.8 k/uL (1.0-4.8); Lymphocytes % (A) 33 %; MCH 29.1 pg (25.0-35.0); MCHC 32.7 g/dL (31.0-37.0); Mean Platelet Volume 7.9; Monocytes # (A) 0.5 k/uL (0-1.0); Monocytes % (A) 6 %; Neutrophils # (A) 4.8 k/uL (1.3-7.7); Neutrophils % (A) 56 %; Platelet Count 217 k/uL (150-450); RBC 4.11 m/uL (4.30-5.90); RDW 13.3 % (11.5-15.5); WBC 8.6 k/uL (3.8-10.6)
[2020-02-11 17:42] LABS: Albumin 4.2 g/dL (3.5-5.0); Calcium 9.5 mg/dL (8.4-10.2); Magnesium 1.6 mg/dL (1.6-2.3); Potassium 4.4 mmol/L (3.5-5.1); Total Bilirubin 0.8 mg/dL (0.2-1.3); Total Protein 6.5 g/dL (6.3-8.2)
--- NOTE | 2020-02-11 18:41 | CT ---
EXAMINATION TYPE: CT brain wo con DATE OF EXAM: 02/11/2020 COMPARISON: 01/19/2020 HISTORY: Left arm and facial numbness CT DLP: 1102.8 mGycm Automated exposure control for dose reduction was used. There is cerebral cortical atrophy. There is no mass effect nor midline shift. There is no sign of in tracranial hemorrhage. The calvarium is intact. There is no evidence of cerebral edema. The skull bas e is intact. There is normal aeration of the temporal bones. IMPRESSION: Cerebral atrophy. No acute intracranial abnormality. No change.
--- NOTE | 2020-02-11 18:56 | CT ---
EXAMINATION TYPE: CT angio head neck DATE OF EXAM: 02/11/2020 COMPARISON: 01/19/2020 HISTORY: LEFT ARM AND FACIAL NUMBNESS CT DLP: 512 mGycm Automated exposure control for dose reduction was used. CONTRAST: Performed with IV Contrast, patient injected with 65 mL of Isovue 370. There are 3-D post processed images. There is normal branching pattern of the great vessels on the aortic arch. There is bilateral arteria l flow in the subclavian arteries. Thoracic aorta is atheromatous. There is bilateral arterial flow i n the common internal and external carotid arteries. There is apparent stent in the left carotid brian ry bifurcation. There is probably 70% stenosis of the proximal left internal carotid artery. There ap pears to be arterial flow through the stent. There is plaque formation at the right carotid artery bi furcation. There is diminutive right internal carotid artery. There appears to be subtotal occlusion of the origin of the right internal carotid artery. There is evidence of more than 90% stenosis. There is arterial flow in the vertebrobasilar artery system. There is bilateral arterial flow in the vertebral arteries. There is arterial flow in the anterior middle and posterior cerebral arteries. I see no evidence of intracranial aneurysm or neovascularity. There is no mass effect. There is no evid ence of intracranial hemodynamic stenosis. There is normal contrast opacification of the venous sinus es. IMPRESSION: There is subtotal occlusion of the proximal right internal carotid artery that has progressed compare d to recent exam. There is approximate 70% stenosis of the proximal left internal carotid artery with apparent stent. Normal vertebral arteries.
--- NOTE | 2020-02-11 19:55 | ED ---
General Adult HPI - General Chief complaint: Neuro Symptoms/Deficit Stated complaint: Poss Stroke Time Seen by Provider: 02/11/20 17:13 Source: patient, EMS, RN notes reviewed, old records reviewed Mode of arrival: EMS Limitations: no limitations - History of Present Illness Initial comments: 79-year-old male presenting for evaluation of right arm numbness and weakness and slurred speech. Patient's symptoms began approximately one hour prior to arrival. They have resolved at the time my initial evaluation. Patient has previous history of carotid artery disease and had a left ICA stent placed a proximally 3 weeks ago. He has been compliant with his aspirin and Plavix. Patient denies any complaints the time my evaluation, no chest pain, no ab dominal pain. No residual focal numbness or weakness. Speech has returned to normal. - Related Data Home Medications Medication Instructions Recorded Confirmed Citalopram Hydrobromide [CeleXA] 40 mg PO DAILY 01/14/15 01/23/20 metFORMIN HCL 1,000 mg PO BID 01/15/15 01/23/20 HYDROcodone/APAP 10-325MG [[place] 1 tab PO Q8H PRN 08/18/16 01/23/20 10-325] Aspirin EC [Ecotrin Low Dose] 81 mg PO DAILY 05/28/17 01/23/20 Losartan Potassium 100 mg PO DAILY 01/05/20 01/23/20 Naproxen Sodium [Aleve] 220 mg PO DAILY 01/05/20 01/23/20 Carvedilol [Coreg] 12.5 mg PO BID 01/19/20 01/23/20 amLODIPine [Norvasc] 5 mg PO DAILY 01/19/20 01/23/20 Previous Rx's Medication Instructions Recorded Atorvastatin [Lipitor] 40 mg PO DAILY #90 tab 01/08/20 Clopidogrel [Plavix] 75 mg PO DAILY #90 tab 01/08/20 Nitroglycerin Sl Tabs [Nitrostat] 0.4 mg SUBLINGUAL Q5M PRN #25 tab 01/08/20 Allergies Allergy/AdvReac Type Severity Reaction Status Date / Time Penicillins Allergy Rash/Hives Verified 01/21/20 18:06 Review of Systems ROS Statement: Those systems with pertinent positive or pertinent negative responses have been documented in the HPI. ROS Other: All systems not noted in ROS Statement are negative. Past Medical History Past Medical History: Coronary Artery Disease (CAD), Chest Pain / Angina, CVA/TIA, Diabetes Mellitus, Eye Disorder, Hearing Disorder / Deafness, Hyperlipi demia, Hypertension, Musculoskeletal Disorder, Sleep Apnea/CPAP/BIPAP Additional Past Medical History / Comment(s): [employer] hearing aids, tinnitus, chronic lower back pain, work injury 1976 w/concussion", "occ hand tremors", hx shingles 2009, has a cpap machine. PTCA w/ stents x 2 01/07/20. Heart murmur. Varicose veins. Admit w/ TIA 01/19/20. History of Any Multi-Drug Resistant Organisms: None Reported Past Surgical History: Appendectomy, Cholecystectomy, Heart Catheterization With Stent, Hernia Repair Additional Past Surgical History / Comment(s): Lap band, colonoscopy, cataracts, glaucoma surg, PTCA w/ stents x2 01/07/20. Past Anesthesia/Blood Transfusion Reactions: No Reported Reaction Date of Last Stent Placement:: 01/07/20 Past Psychological History: Anxiety, Depression Smoking Status: Former smoker Past Alcohol Use History: None Reported Past Drug Use History: None Reported - Past Family History Father Family Medical History: CVA/TIA Additional Family Medical History / Comment(s): stroke Mother Family Medical History: No Reported History Additional Family Medical History / Comment(s): stroke General Exam Limitations: no limitations General appearance: alert, in no apparent distress Head exam: Present: atraumatic, normocephalic Eye exam: Present: normal appearance, PERRL ENT exam: Present: normal exam Neck exam: Present: normal inspection. Absent: tenderness, meningismus Respiratory exam: Present: normal lung sounds bilaterally. Absent: respiratory distress, wheezes Cardiovascular Exam: Present: regular rate, normal rhythm GI/Abdominal exam: Present: soft. Absent: distended, tenderness, guarding Extremities exam: Present: normal inspection, normal capillary refill. Absent: pedal edema Back exam: Present: normal inspection Neurological exam: Present: alert, oriented X3, CN II-XII intact, other (NIH of 0). Absent: motor sensory deficit Psychiatric exam: Present: normal affect, normal mood Skin exam: Present: warm, dry, intact. Absent: cyanosis, diaphoretic Course Vital Signs 02/11/20 16:55 Temperature 98.4 F Pulse Rate 58 L Respiratory 18 Rate Blood Pressure 145/69 O2 Sat by Pulse 98 Oximetry EKG Findings - EKG Comments: EKG Findings:: EKG: Sinus bradycardia with first-degree AV block, rate 59, AL interval 224, QRS duration 88, QTC 429, no ST segment elevation. Medical Decision Making - Medical Decision Making 79-year-old male with signs and symptoms concerning for TIA. Patient is in sinus rhythm. CT is performed which is negative for intracranial hemorrhage or mass effect. CT angiography showing a patent left ICA stents and a subtotal occlusion of the right ICA. Patient's limb symptoms were on the right. I did discuss case with Dr. Jhoan reardon for vascular surgery who is familiar with this patient. He recommends continuing aspirin and Plavix and admission for evaluation by both ask her surgery and neurology. Case discussed with Dr. Baer who will admit. - Lab Data Result diagrams: 02/11/20 17:20 02/11/20 17:20 Lab Results 02/11/20 02/11/20 Range/Units 17:20 17:20 WBC 8.6 (3.8-10.6) k/uL RBC 4.11 L (4.30-5.90) m/uL Hgb 11.9 L (13.0-17.5) gm/dL Hct 36.6 L (39.0-53.0) % MCV 89.0 (80.0-100.0) fL MCH 29.1 (25.0-35.0) pg MCHC 32.7 (31.0-37.0) g/dL RDW 13.3 (11.5-15.5) % Plt Count 217 (150-450) k/uL Neutrophils % 56 % Lymphocytes % 33 % Monocytes % 6 % Eosinophils % 3 % Basophils % 1 % Neutrophils # 4.8 (1.3-7.7) k/uL Lymphocytes # 2.8 (1.0-4.8) k/uL Monocytes # 0.5 (0-1.0) k/uL Eosinophils # 0.3 (0-0.7) k/uL Basophils # 0.1 (0-0.2) k/uL Sodium 136 L (137-145) mmol/L Potassium 4.4 (3.5-5.1) mmol/L Chloride 105 (98-107) mmol/L Carbon Dioxide 21 L (22-30) mmol/L Anion Gap 10 mmol/L BUN 27 H (9-20) mg/dL Creatinine 1.24 (0.66-1.25) mg/dL Est GFR (CKD-EPI)AfAm 63 (>60 ml/min/1.73 sqM) Est GFR (CKD-EPI)NonAf 55 (>60 ml/min/1.73 sqM) Glucose 130 H (74-99) mg/dL Calcium 9.5 (8.4-10.2) mg/dL Magnesium 1.6 (1.6-2.3) mg/dL Total Bilirubin 0.8 (0.2-1.3) mg/dL AST 23 (17-59) U/L ALT 15 (4-49) U/L Alkaline Phosphatase 60 (38-126) U/L Total Protein 6.5 (6.3-8.2) g/dL Albumin 4.2 (3.5-5.0) g/dL Disposition Clinical Impression: TIA (transient ischemic attack) Disposition: ADMITTED IP TO THIS [facility] Condition: Stable Is patient prescribed a controlled substance at d/c from ED?: No Referrals: Mell Baer MD [Primary Care Provider] - 1-2 days Decision to Admit Reason: Admit from EC Decision Date: 02/11/20 Decision Time: 19:55
[2020-02-12] MEDS ORDERED: NITROGLYCERIN SL TABS 0.4 MG TAB SUBLINGUAL PRN (09:42)
[2020-02-12] MEDS: SODIUM CHLORIDE 0.9% 1,000 ML IV SCH ×2 (10:25→17:51)
[2020-02-12] MEDS: ASPIRIN 81 MG PO SCH (10:26)
[2020-02-12] MEDS: amLODIPine 5 MG TAB PO SCH (10:26)
[2020-02-12] MEDS: CITALOPRAM HYDROBROMIDE 20 MG TAB PO SCH (10:26)
[2020-02-12] MEDS: carvediloL 12.5 MG TAB PO SCH ×2 (10:26→17:50)
[2020-02-12] MEDS: ATORVASTATIN 40 MG TAB PO SCH (10:26)
[2020-02-12] MEDS: CLOPIDOGREL 75 MG TAB PO SCH (10:27)
[2020-02-12] MEDS: metFORMIN 500 MG TAB PO SCH ×2 (10:27→20:32)
[2020-02-12] MEDS: LOSARTAN 50 MG TAB PO SCH (10:27)
[2020-02-12] MEDS: HYDROcodone/APAP 10-325MG 1 EACH TAB PO PRN (10:50)
[2020-02-12 11:55] LABS: Glucose,Whole Blood 226 mg/dL (75-99)
--- NOTE | 2020-02-12 12:13 | P.GSCN ---
History of Present Illness Consult date: 02/12/20 Reason for Consult: Severe right terminal carotid artery stenosis, TIA History of present illness: The patient is a 79-year-old male who came into the hospital yesterday with strokelike symptoms that started 30 minutes prior to his arrival. The patient states he had right-sided upper extremity numbness and tingling from his shoulder to fingertips. He states then he began to have slurred speech, questionable memory loss and visual disturbances. The symptoms only lasted approximately 20-30 minutes and then resolved, patient states he has not had any further symptoms. Patient states he's been up and ambulating in the bathroom. She is alert and oriented 3. He reports a history of carotid stenosis and he also reports he has a history of a TIA in the past. The patient underwent a left trans carotid artery revascularization of the ICA on January 22 of this year with Dr. Royal with stent. Patient has a history of coronary artery disease with multiple cardiac stents, along with aortic valve stenosis. He is currently on aspirin, atorvastatin, and Plavix. His past medical history also includes diabetes, hypertension, and hyperlipidemia. He has a past history of smoking 1 pack per day for approximately 30-40 years, however quit 25 years ago. He currently denies any shortness of breath, chest pain, bilateral upper or lower extremity weakness. He denies any facial drooping, slurred speech, or visual changes at this time. CT angiogram of the head and neck shows subtotal occlusion of the proximal right internal carotid artery that has progressed compared to recent exam, there is approximate 70% stenosis of the proximal left internal carotid artery with apparent stent. Normal vertebral arteries. Brain CT showed no acute intracranial abnormality. Patient had a prior carotid ultrasound done in October 2018 which showed severe carotid stenosis in the right ICA. Review of Systems A 14 point review of systems was completed and all pertinent positives and negatives as stated in the HPI. Past Medical History Past Medical History: Coronary Artery Disease (CAD), Chest Pain / Angina, CVA/TIA, Diabetes Mellitus, Eye Disorder, Hearing Disorder / Deafness, Hyperlipidemia, Hypertension, Musculoskeletal Disorder, Sleep Apnea/CPAP/BIPAP Additional Past Medical History / Comment(s): [employer] hearing aids, tinnitus, chronic lower back pain, work injury 1976 w/concussion", "occ hand tremors", hx shingles 2009, has a cpap machine. PTCA w/ stents x 2 6/3/20. Heart murmur. Varicose veins. Admit w/ TIA 01/19/20. History of Any Multi-Drug Resistant Organisms: None Reported Past Surgical History: Appendectomy, Cholecystectomy, Heart Catheterization With Stent, Hernia Repair Additional Past Surgical History / Comment(s): Lap band, colonoscopy, cataracts, glaucoma surg, PTCA w/ stents x2 01/07/20. Past Anesthesia/Blood Transfusion Reactions: No Reported Reaction Date of Last Stent Placement:: 01/07/20 Past Psychological History: Anxiety, Depression Smoking Status: Former smoker Past Alcohol Use History: None Reported Additional Past Alcohol Use History / Comment(s): started smoking at age 7 (1948),quit 1994, was smoking 1.5 ppd. Past Drug Use History: None Reported - Past Family History Father Family Medical History: CVA/TIA Additional Family Medical History / Comment(s): stroke Mother Family Medical History: No Reported History Additional Family Medical History / Comment(s): stroke Medications and Allergies Home Medications Medication Instructions Recorded Confirmed Type Citalopram Hydrobromide [CeleXA] 40 mg PO DAILY 01/14/15 02/11/20 History metFORMIN HCL 1,000 mg PO BID 01/15/15 02/11/20 History HYDROcodone/APAP 10-325MG [[place] 1 tab PO Q8H PRN 08/18/16 02/11/20 History 10-325] Aspirin EC [Ecotrin Low Dose] 81 mg PO DAILY 05/28/17 02/11/20 History Losartan Potassium 100 mg PO DAILY 01/05/20 02/11/20 History Atorvastatin [Lipitor] 40 mg PO DAILY #90 tab 01/08/20 02/11/20 Rx Clopidogrel [Plavix] 75 mg PO DAILY #90 tab 01/08/20 02/11/20 Rx Nitroglycerin Sl Tabs [Nitrostat] 0.4 mg SUBLINGUAL Q5M PRN #25 tab 01/08/20 02/11/20 Rx Carvedilol [Coreg] 12.5 mg PO BID 01/19/20 02/11/20 History amLODIPine [Norvasc] 5 mg PO DAILY 01/19/20 02/11/20 History Allergies Allergy/AdvReac Type Severity Reaction Status Date / Time Penicillins Allergy Rash/Hives Verified 02/11/20 20:05 Surgical - Exam Vital Signs Temp Pulse Resp BP Pulse Ox 98.4 F 58 L 18 145/69 98 02/11/20 16:55 02/11/20 16:55 02/11/20 16:55 02/11/20 16:55 02/11/20 16:55 General appearance: The patient is alert, oriented, in no acute distress. HET: Head is normocephalic and atraumatic. Pupils are equal and reactive. Oropharynx is clear without lesions. Neck: Supple without lymphadenopathy. Trachea midline. No carotid bruit the right side, no audible bruit on the left. Heart: S1 S2. Regular rate and rhythm. Lungs: No crackles or wheezes are heard. Extremities: Normal skin color and turgor. No cyanosis, rash, ulceration, clubbing, or edema. Radial and pedal pulses are 2/4 bilaterally. Neurological: No focal deficits. Strength and sensation are grossly intact. Speech is fluent, patient is able to follow commands and answer questions appropriately. Tongue protrudes midline. Patient has equal bilateral upper and lower strength. Results CT angiogram head and neck reviewed CT brain reviewed - Labs 02/11/20 17:20 02/11/20 17:20 Abnormal Lab Results - Last 24 Hours (Table) 02/11/20 02/11/20 Range/Units 17:20 17:20 RBC 4.11 L (4.30-5.90) m/uL Hgb 11.9 L (13.0-17.5) gm/dL Hct 36.6 L (39.0-53.0) % Sodium 136 L (137-145) mmol/L Carbon Dioxide 21 L (22-30) mmol/L BUN 27 H (9-20) mg/dL Glucose 130 H (74-99) mg/dL Diabetes panel 02/11/20 Range/Units 17:20 Sodium 136 L (137-145) mmol/L Potassium 4.4 (3.5-5.1) mmol/L Chloride 105 (98-107) mmol/L Carbon Dioxide 21 L (22-30) mmol/L BUN 27 H (9-20) mg/dL Creatinine 1.24 (0.66-1.25) mg/dL Glucose 130 H (74-99) mg/dL Calcium 9.5 (8.4-10.2) mg/dL AST 23 (17-59) U/L ALT 15 (4-49) U/L Alkaline Phosphatase 60 (38-126) U/L Total Protein 6.5 (6.3-8.2) g/dL Albumin 4.2 (3.5-5.0) g/dL Calcium panel 02/11/20 Range/Units 17:20 Calcium 9.5 (8.4-10.2) mg/dL Albumin 4.2 (3.5-5.0) g/dL Pituitary panel 02/11/20 Range/Units 17:20 Sodium 136 L (137-145) mmol/L Potassium 4.4 (3.5-5.1) mmol/L Chloride 105 (98-107) mmol/L Carbon Dioxide 21 L (22-30) mmol/L BUN 27 H (9-20) mg/dL Creatinine 1.24 (0.66-1.25) mg/dL Glucose 130 H (74-99) mg/dL Calcium 9.5 (8.4-10.2) mg/dL Adrenal panel 02/11/20 Range/Units 17:20 Sodium 136 L (137-145) mmol/L Potassium 4.4 (3.5-5.1) mmol/L Chloride 105 (98-107) mmol/L Carbon Dioxide 21 L (22-30) mmol/L BUN 27 H (9-20) mg/dL Creatinine 1.24 (0.66-1.25) mg/dL Glucose 130 H (74-99) mg/dL Calcium 9.5 (8.4-10.2) mg/dL Total Bilirubin 0.8 (0.2-1.3) mg/dL AST 23 (17-59) U/L ALT 15 (4-49) U/L Alkaline Phosphatase 60 (38-126) U/L Total Protein 6.5 (6.3-8.2) g/dL Albumin 4.2 (3.5-5.0) g/dL Assessment and Plan Assessment: 1. TIA 2. Bilateral internal carotid stenosis, status post recent T-Car to left carotid artery, right ICA subtotal occlusion greater than 90% stenosis 3. Coronary artery disease 4. Aortic valve stenosis 5. Hypertension 6. Diabetes Plan: Patient was discussed with both Dr. Royal and Dr. Staples. We'll continue medical management at this time with his Plavix, aspirin, and statin. Await neurology consult and recommendations. to review CT angiogram of head and neck. Further recommendations to follow. Thank you for this consultation and allowing us to take part in the plan of care of your patient during his hospital stay. The above dictated assessment and findings were discussed with Dr. Royal. The impression and plan of care have been directed as dictated.
--- NOTE | 2020-02-12 12:21 | P.CNNES ---
History of Present Illness Consult date: 02/12/20 Requesting physician: Brett Knight Reason for Consult: TIA History of Present Illness: Patient is a 79-year-old male, well known to me from recent admission to the hospital for TIA, after which he underwent left ICA stenting on 01/23/2020. Patient states that yesterday he had an episode of transient neurological deficits. He noticed his right arm became numb from shoulder all the way up to the fingertips, speech was slurred, droopiness of the right side of the mouth. The symptoms lasted for 15-20 minutes. He called the ambulance, and arrived to ER at 4:42 PM. Patient's blood pressure on arrival was 145/69, pulse rate 58, temperature 98.4. At present patient has no symptoms. Patient underwent CTA of head and neck showed subtotal occlusion of the proximal right ICA that has progressed compared to recent exam. There is approximate 70% stenosis of the proximal left ICA with apparent stent. Normal vertebral arteries. CT head showed cerebral atrophy. No acute intracranial abnormality. EKG shows sinus bradycardia with first-degree AV block. CBC with normal WBC hemoglobin 11.9, platelets 170. Sodium 136 potassium 4.4, BU and 27, creatinine 1.24. Hepatic panel normal. Patient's hemoglobin A1c 7.1, lipid panel showed cholesterol 131, LDL 55, HDL 59 and triglycerides 86. Patient was recently admitted on 01/19/2024 TIA, in which he had presented with right-sided facial droop, drooling and slurred speech. He was found to have bilateral ICA stenosis of 80-90%. He also has aortic valve stenosis. Patient underwent left ICA stenting on 01/23/2020. Patient's 2-D echo on 01/20/2020 sh owed EF 60-65%. Moderate concentric LVH. Left atrium is mildly dilated. Right atrium is normal. Lipomatous hypertrophy of the atrial septum. Moderate aortic valve sclerosis. Moderate aortic stenosis. Patient has history of TIA/CVA on 08/19/2016 when he presented with expressive aphasia. Patient has history of diabetes for about 20-25 years. He has hypertension. Patient has smoked 1 pack per day for 30-40 years, quit 25 years ago. Review of Systems As per HPI. All other review of systems unremarkable. Denies any chest pain shortness of breath wheezing or cough. Denies abdominal pain nausea vomiting diarrhea. Denies headache. Past Medical History Past Medical History: Coronary Artery Disease (CAD), Chest Pain / Angina, CVA/TIA, Diabetes Mellitus, Eye Disorder, Hearing Disorder / Deafness, Hyperlipidemia, Hypertension, Musculoskeletal Disorder, Sleep Apnea/CPAP/BIPAP Additional Past Medical History / Comment(s): [employer] hearing aids, tinnitus, chronic lower back pain, work injury 1975 w/concussion", "occ hand tremors", hx shingles 2009, has a cpap machine. PTCA w/ stents x 2 01/07/20. Heart murmur. Varicose veins. Admit w/ TIA 01/19/20. History of Any Multi-Drug Resistant Organisms: None Reported Past Surgical History: Appendectomy, Cholecystectomy, Heart Catheterization With Stent, Hernia Repair Additional Past Surgical History / Comment(s): Lap band, colonoscopy, cataracts, glaucoma surg, PTCA w/ stents x2 01/07/20. Past Anesthesia/Blood Transfusion Reactions: No Reported Reaction Date of Last Stent Placement:: 01/07/20 Past Psychological History: Anxiety, Depression Smoking Status: Former smoker Past Alcohol Use History: None Reported Additional Past Alcohol Use History / Comment(s): started smoking at age 7 (1948),quit 1994, was smoking 1.5 ppd. Past Drug Use History: None Reported - Past Family History Father Family Medical History: CVA/TIA Additional Family Medical History / Comment(s): stroke Mother Family Medical History: No Reported History Additional Family Medical History / Comment(s): stroke Medications and Allergies Home Medications Medication Instructions Recorded Confirmed Type Citalopram Hydrobromide [CeleXA] 40 mg PO DAILY 01/14/15 02/11/20 History metFORMIN HCL 1,000 mg PO BID 01/15/15 02/11/20 History HYDROcodone/APAP 10-325MG [[place] 1 tab PO Q8H PRN 08/18/16 02/11/20 History 10-325] Aspirin EC [Ecotrin Low Dose] 81 mg PO DAILY 05/28/17 02/11/20 History Losartan Potassium 100 mg PO DAILY 01/05/20 02/11/20 History Atorvastatin [Lipitor] 40 mg PO DAILY #90 tab 01/08/20 02/11/20 Rx Clopidogrel [Plavix] 75 mg PO DAILY #90 tab 01/08/20 02/11/20 Rx Nitroglycerin Sl Tabs [Nitrostat] 0.4 mg SUBLINGUAL Q5M PRN #25 tab 01/08/20 02/11/20 Rx Carvedilol [Coreg] 12.5 mg PO BID 01/19/20 02/11/20 History amLODIPine [Norvasc] 5 mg PO DAILY 01/19/20 02/11/20 History Allergies Allergy/AdvReac Type Severity Reaction Status Date / Time Penicillins Allergy Rash/Hives Verified 02/11/20 20:05 Physical Examination - Vital Signs Vital Signs: Vital Signs Temp Pulse Pulse Resp BP BP Pulse Ox 02/12/20 08:44 97.1 F L 71 16 179/82 97 02/12/20 04:00 98.2 F 63 97 H 159/68 02/12/20 00:00 98.0 F 16 185/76 97 02/11/20 22:56 18 02/11/20 22:38 98.4 F 78 18 156/89 99 02/11/20 16:55 98.4 F 58 L 18 145/69 98 Intake and Output 02/11/20 02/12/20 02/12/20 22:59 06:59 14:59 Intake Total 240 Balance 240 Intake: Oral 240 Other: # Voids 1 1 Weight 95.254 kg 95.5 kg On examination patient is an elderly male, in no acute distress. Patient is alert and awake oriented to time place and person. Speech and language functions recent and remote memory are normal. Attention concentration fund of knowledge is adequate. On cranial examination pupils are round and reactive to light. Visual harry are full on confrontation. Extraocular muscles are intact with no nystagmus. Face is symmetric, tongue protrudes in midline. Palatal elevation and sensation normal. Hearing is moderately decreased, shoulder shrug normal. On muscle strength testing there is no pronator drift and the strength is normal in arms and legs distally and proximally. Reflexes are trace to 1 in the upper and lower limbs and plantars downgoing. Sensory touch is equal with no neglect. No ataxia for [id number] testing. Tone and bulk of muscles normal. Gait deferred. S1 an d S2 audible. Patient has murmur. Abdomen soft nontender. No peripheral edema. Results - Laboratory Findings CBC and BMP: 02/11/20 17:20 02/11/20 17:20 Abnormal Lab Findings: Abnormal Labs 02/11/20 02/11/20 17:20 17:20 RBC 4.11 L Hgb 11.9 L Hct 36.6 L Sodium 136 L Carbon Dioxide 21 L BUN 27 H Glucose 130 H Assessment and Plan Assessment: * TIA manifesting with transient numbness of the right facial-brachial region, l asting for 15-20 minutes associated slurred speech and drooping face. * Patient recently underwent left ICA stenting on 01/23/2020. Continues to be symptomatic. * Subtotal occlusion of the right ICA. * Hypertension * Diabetes * Dyslipidemia * X tobacco use * Aortic stenosis Plan: * Patient currently is on dual antiplatelet medications including aspirin 81 mg and Plavix 75 mg, compliant with medication. Patient states that he did not miss any dose of his medications. Also on Lipitor 40 mg daily. His last LDL is 55, which is optimal. 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 Patient has undergone left ICA stenting recently, but the same vessel continues to be symptomatic. Patient has subtotal occlusion of the right ICA, which is clinically asymptomatic at this time. * Consider switching to Brilinta. * Neurology will follow. * Continue telemetry monitoring.
[2020-02-12 15:41] LABS: Glucose,Whole Blood 201 mg/dL (75-99)
[2020-02-12 16:51] LABS: Glucose,Whole Blood 250 mg/dL (75-99)
--- NOTE | 2020-02-12 19:00 | P.HPIM ---
History of Present Illness H&P Date: 02/12/20 Alejo Lees is a 79-year-old male, well-known to my practice who was recently admitted to [facility] for TIA, after which he underwent left internal carotid artery stenting on 01/23/2020. Patient states that yesterday he started having numbness in his right arm and started having some slurred speech and some facial drooping symptoms lasted about 20 minutes. He called the ambulance and was brought to emergency room he was evaluated in the emergency room Patient's blood pressure on arrival was 145/69, pulse rate [address], [address] angiogram of the neck revealed subtotal occlusion of the proximal right internal carotid artery that progressed compared to recent exam patient was admitted to telemetry floor vascular surgery consultation was requested .At present patient has no symptoms. Past Medical History Past Medical History: Coronary Artery Disease (CAD), Chest Pain / Angina, CVA/TIA, Diabetes Mellitus, Eye Disorder, Hearing Disorder / Deafness, Hyperlipidemia, Hypertension, Musculoskeletal Disorder, Sleep Apnea/CPAP/BIPAP Additional Past Medical History / Comment(s): [employer] hearing aids, tinnitus, chronic lower back pain, work injury 1975 w/concussion", "occ hand tremors", hx shingles 2009, has a cpap machine. PTCA w/ stents x 2 01/07/20. Heart murmur. Varicose veins. Admit w/ TIA 01/19/20. History of Any Multi-Drug Resistant Organisms: None Reported Past Surgical History: Appendectomy, Cholecystectomy, Heart Catheterization With Stent, Hernia Repair Additional Past Surgical History / Comment(s): Lap band, colonoscopy, cataracts, glaucoma surg, PTCA w/ stents x2 01/07/20. Past Anesthesia/Blood Transfusion Reactions: No Reported Reaction Date of Last Stent Placement:: 01/07/20 Past Psychological History: Anxiety, Depression Smoking Status: Former smoker Past Alcohol Use History: None Reported Additional Past Alcohol Use History / Comment(s): started smoking at age 7 (1950),quit 1994, was smoking 1.5 ppd. Past Drug Use History: None Reported - Past Family History Father Family Medical History: CVA/TIA Additional Family Medical History / Comment(s): stroke Mother Family Medical History: No Reported History Additional Family Medical History / Comment(s): stroke Medications and Allergies Home Medications Medication Instructions Recorded Confirmed Type Citalopram Hydrobromide [CeleXA] 40 mg PO DAILY 01/14/15 02/11/20 History metFORMIN HCL 1,000 mg PO BID 01/15/15 02/11/20 History HYDROcodone/APAP 10-325MG [[place] 1 tab PO Q8H PRN 08/18/16 02/11/20 History 10-325] Aspirin EC [Ecotrin Low Dose] 81 mg PO DAILY 05/28/17 02/11/20 History Losartan Potassium 100 mg PO DAILY 01/05/20 02/11/20 History Atorvastatin [Lipitor] 40 mg PO DAILY #90 tab 01/08/20 02/11/20 Rx Clopidogrel [Plavix] 75 mg PO DAILY #90 tab 01/08/20 02/11/20 Rx Nitroglycerin Sl Tabs [Nitrostat] 0.4 mg SUBLINGUAL Q5M PRN #25 tab 01/08/20 02/11/20 Rx Carvedilol [Coreg] 12.5 mg PO BID 01/19/20 02/11/20 History amLODIPine [Norvasc] 5 mg PO DAILY 01/19/20 02/11/20 History Allergies Allergy/AdvReac Type Severity Reaction Status Date / Time Penicillins Allergy Rash/Hives Verified 02/11/20 20:05 Physical Exam Vitals: Vital Signs Temp Pulse Pulse Resp BP BP Pulse Ox 02/12/20 16:44 97 F L 60 16 151/78 98 02/12/20 12:44 58 L 16 171/75 96 02/12/20 08:44 97.1 F L 71 16 179/82 97 02/12/20 04:00 98.2 F 63 97 H 159/68 02/12/20 00:00 98.0 F 16 185/76 97 02/11/20 22:56 18 02/11/20 22:38 98.4 F 78 18 156/89 99 Intake and Output 02/12/20 02/12/20 02/12/20 06:59 14:59 22:59 Intake Total 480 240 Balance 480 240 Intake: Oral 480 240 Other: # Voids 1 2 Weight 95.5 kg In general patient is alert and oriented 3 in no apparent distress HEENT head normocephalic and atraumatic Neck is supple no JVD no goiter no lymphadenopathy Chest exam reveals a few scattered rhonchi no wheezing Cardiac exam reveals regular heart sounds S1 and S2 no gallops no murmurs Abdomen is soft nontender no organomegaly with normal bowel sounds Extremity exam reveals no edema no cyanosis or clubbing Neurological examination reveals no gross focal deficit Results CBC & Chem 7: 02/11/20 17:20 02/11/20 17:20 Labs: Abnormal Lab Results - Last 24 Hours (Table) 02/11/20 02/11/20 02/12/20 Range/Units 17: 17:20 06:14 RBC 4.11 L (4.30-5.90) m/uL Hgb 11.9 L (13.0-17.5) gm/dL Hct 36.6 L (39.0-53.0) % Sodium 136 L (137-145) mmol/L Carbon Dioxide 21 L (22-30) mmol/L BUN 27 H (9-20) mg/dL Glucose 130 H (74-99) mg/dL POC Glucose (mg/dL) 201 H (75-99) mg/dL 02/12/20 02/12/20 Range/Units 11:53 16:50 RBC (4.30-5.90) m/uL Hgb (13.0-17.5) gm/dL Hct (39.0-53.0) % Sodium (137-145) mmol/L Carbon Dioxide (22-30) mmol/L BUN (9-20) mg/dL Glucose (74-99) mg/dL POC Glucose (mg/dL) 226 H 250 H (75-99) mg/dL Thrombosis Risk Factor Assmnt - Choose All That Apply Any of the Below Risk Factors Present?: Yes Each Factor Represents 1 point: Obesity (BMI >25) Other Risk Factors: Yes Each Risk Factor Represents 3 Points: Age 75 years or older Other congenital or acquired thrombophilia - If yes, enter type in comment: Yes Each Risk Factor Represents 5 Points: Stroke (< 1 month) Thrombosis Risk Factor Assessment Total Risk Factor Score: 9 Thrombosis Risk Factor Assessment Level: High Risk Assessment and Plan Plan: 1. Transient ischemic attack with slurred speech and right arm numbness 2. Underlying history of severe carotid disease, with recent stenting of the left internal carotid artery 3. Underlying history of hypertension 4. Underlying history of hyperlipidemia 5. Underlying history of [id number] diabetes mellitus 6. Underlying history of degenerative disc disease with chronic back pain maintained on narcotics 7. Underlying history of valvular heart disease, followed by Dr. Forbes . At this time patient is admitted to telemetry floor awaiting input from neurology and vascular surgery which follow closely Home medications reviewed and reordered
[2020-02-12 20:43] LABS: Glucose,Whole Blood 200 mg/dL (75-99)
[2020-02-13] MEDS: HYDROcodone/APAP 10-325MG 1 EACH TAB PO PRN (00:53)
[2020-02-13 05:55] LABS: Glucose,Whole Blood 207 mg/dL (75-99)
[2020-02-13] MEDS: carvediloL 12.5 MG TAB PO SCH ×2 (06:36→16:29)
[2020-02-13] MEDS: SODIUM CHLORIDE 0.9% 1,000 ML IV SCH (06:45)
[2020-02-13] MEDS: CLOPIDOGREL 75 MG TAB PO SCH (08:34)
[2020-02-13] MEDS: ASPIRIN 81 MG PO SCH (08:34)
[2020-02-13] MEDS: ATORVASTATIN 40 MG TAB PO SCH (08:34)
[2020-02-13] MEDS: LOSARTAN 50 MG TAB PO SCH (08:34)
[2020-02-13] MEDS: CITALOPRAM HYDROBROMIDE 20 MG TAB PO SCH (08:34)
[2020-02-13] MEDS: amLODIPine 5 MG TAB PO SCH (08:34)
[2020-02-13] MEDS: metFORMIN 500 MG TAB PO SCH (08:34)
--- NOTE | 2020-02-13 09:00 | P.PN ---
Subjective Progress Note Date: 02/13/20 Patient seen and examined lying in bed. Patient denies any acute changes through the night. Denies any focal deficits. States that there are known to numbness or tingling in the right upper extremity. Vision is clear. Patient states he is under the impression he may be able to go home today and will follow up with Dr. Royal in the office next week. Objective - Vital Signs Vital signs: Vital Signs Temp 98.3 F 02/13/20 08:33 Pulse 63 02/13/20 08:33 Resp 16 02/13/20 08:33 BP 144/67 02/13/20 08:33 Pulse Ox 97 02/13/20 08:33 Intake & Output 02/12/20 02/13/20 02/13/20 18:59 06:59 18:59 Intake Total 720 240 Balance 720 240 Weight 93.8 kg Intake: Oral 720 240 Other: Voiding Method Toilet # Voids 2 1 - Exam General appearance: The patient is alert, oriented, in no acute distress. HET: Head is normocephalic and atraumatic. Pupils are equal and reactive. Oropharynx is clear without lesions. Neck: Supple without lymphadenopathy. Trachea midline. No carotid bruit the right side, no audible bruit on the left. Heart: S1 S2. Regular rate and rhythm. Lungs: No crackles or wheezes are heard. Extremities: Normal skin color and turgor. No cyanosis, rash, ulceration, clubbing, or edema. Radial and pedal pulses are 2/4 bilaterally. Neurological: No focal deficits. Strength and sensation are grossly intact. Speech is fluent, patient is able to follow commands and answer questions appropriately. Tongue protrudes midline. Patient has equal bilateral upper and lower strength. - Labs CBC & Chem 7: 02/11/20 17:20 02/11/20 17:20 Labs: Abnormal Lab Results - Last 24 Hours (Table) 02/12/20 02/12/20 02/12/20 Range/Units 06:14 11:53 16:50 POC Glucose (mg/dL) 201 H 226 H 250 H (75-99) mg/dL 02/12/20 02/13/20 Range/Units 20:34 05:54 POC Glucose (mg/dL) 200 H 207 H (75-99) mg/dL Assessment and Plan Assessment: 1. TIA 2. Bilateral internal carotid stenosis, status post recent T-Car to left carotid artery, right ICA subtotal occlusion greater than 90% stenosis 3. Coronary artery disease 4. Aortic valve stenosis 5. Hypertension 6. Diabetes Plan: Patient continues to be asymptomatic. Continue Plavix aspirin and statin at this time. Dr. Royal to evaluate patient this afternoon. Patient will follow up with Dr. Royal next week to discuss further her surgical interventions. Further recommendations to come. The above dictated assessment and findings were discussed with Dr. Royal. The impression and plan of care have been directed as dictated.
[2020-02-13 09:37] VITALS: TEMP 98.3
[2020-02-13 12:40] LABS: Glucose,Whole Blood 212 mg/dL (75-99)
--- NOTE | 2020-02-13 15:06 | P.PN ---
Subjective Progress Note Date: 02/13/20 Patient denies any focal symptoms. Laying comfortably in the bed. Objective - Vital Signs Vital signs: Vital Signs Temp 98.3 F 02/13/20 08:33 Pulse 59 L 02/13/20 11:20 Resp 16 02/13/20 11:20 BP 158/70 02/13/20 11:20 Pulse Ox 96 02/13/20 11:20 Intake & Output 02/12/20 02/13/20 02/13/20 18:59 06:59 18:59 Intake Total 720 480 Balance 720 480 Weight 93.8 kg Intake: Oral 720 480 Other: Voiding Method Toilet Toilet # Voids 2 1 1 - Exam Nonfocal. - Labs CBC & Chem 7: 02/11/20 17:20 02/11/20 17:20 Labs: Abnormal Lab Results - Last 24 Hours (Table) 02/12/20 02/12/20 02/12/20 Range/Units 06:14 16:50 20:34 POC Glucose (mg/dL) 201 H 250 H 200 H (75-99) mg/dL 02/13/20 02/13/20 Range/Units 05:54 12:06 POC Glucose (mg/dL) 207 H 212 H (75-99) mg/dL Assessment and Plan Assessment: * TIA manifesting with transient numbness of the right facial-brachial region, lasting for 15-20 minutes associated slurred speech and drooping face. * Patient recently underwent left ICA stenting on 01/23/2020. Continues to be symptomatic. * Subtotal occlusion of the right ICA. * Hypertension * Diabetes * Dyslipidemia * X tobacco use * Aortic stenosis Plan: * Patient currently is on dual antiplatelet medications including aspirin 81 mg and Plavix 75 mg, compliant with medication. Patient states that he did not miss any dose of his medications. Also on Lipitor 40 mg daily. His last LDL is 55, which is optimal. 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 Patient has undergone left ICA stenting recently, but the same vessel continues to be symptomatic. Patient has subtotal occlusion of the right ICA, which is clinically asymptomatic at this time. * Consider switching to Brilinta. * Hemoglobin A1c 7.1. * Telemetry monitoring in the last 24 hours only showing sinus rhythm with sinus bradycardia. * Patient to follow up with vascular surgery as outpatient for possible right CEA versus stenting.
--- NOTE | 2020-02-13 16:13 | P.DS ---
Providers Date of admission: 02/11/20 20:00 Expected date of discharge: 02/13/20 Attending physician: Mell Baer Consults: 02/12/20 04:43 Consult Physician Routine Consulting Provider: Michael Byrne Consult Reason/Comments: TIA Do you want consulting provider notified?: Yes, Notify in am 02/12/20 04:44 Consult Physician Routine Consulting Provider: Jayden Cho Consult Reason/Comments: TIA Do you want consulting provider notified?: Yes, Notify in am Primary care physician: Mell Baer [facility] Course: Diagnosis on discharge: 1. Transient ischemic attack with slurred speech and right arm numbness 2. Underlying history of severe carotid disease, with recent stenting of the left internal carotid artery 3. Underlying history of hypertension 4. Underlying history of hyperlipidemia 5. Underlying history of ezg-dpvhsuy-mbuawjjrr diabetes mellitus 6. Underlying history of degenerative disc disease with chronic back pain maintained on narcotics 7. Underlying history of valvular heart disease, followed by Dr. Forbes . Hospital course: Alejo Lees is a 79-year-old male, well-known to my practice who was recently admitted to [facility] for TIA, after which he underwent left internal carotid artery stenting on 01/23/2020. Patient states that yesterday he started having numbness in his right arm and started having some slurred speech and some facial drooping symptoms lasted about 20 minutes. He called the ambulance and was brought to emergency room he was evaluated in the emergency room Patient's blood pressure on arrival was 145/69, pulse rate [address], [address] angiogram of the neck revealed subtotal occlusion of the proximal right internal carotid artery that progressed compared to recent exam patient was admitted to telemetry floor vascular surgery consultation was requested .At present patient has no symptoms. On 02/13/2020 patient was seen and examined on the medical floor alert and oriented 3 in no apparent distress there is no fever or chills no headache or dizziness no chest pain no shortness of breath no cough no nausea or vomiting no abdominal pain no diarrhea no burning with urination no frequency or urgency no hematuria. Symptoms have totally resolved, reviewed recommendation by Dr. Farah patient to continue on aspirin and Plavix and follow-up as outpatient with Dr. Royal, reviewed recommendation by Dr. hCo who advised to consider Brilinta instead of Plavix, this was discussed with patient and he states that he cannot afford the co-pay. He will be discharged home on aspirin and Plavix as prior to admission, follow-up was Dr. Royal within 1 week Patient Condition at Discharge: Stable Plan - Discharge Summary Discharge Rx Participant: No New Discharge Prescriptions: Continue Citalopram Hydrobromide [CeleXA] 40 mg PO DAILY metFORMIN HCL 1,000 mg PO BID HYDROcodone/APAP 10-325MG [[place] 10-325] 1 tab PO Q8H PRN PRN Reason: Pain Aspirin EC [Ecotrin Low Dose] 81 mg PO DAILY Losartan Potassium 100 mg PO DAILY Atorvastatin [Lipitor] 40 mg PO DAILY #90 tab Nitroglycerin Sl Tabs [Nitrostat] 0.4 mg SUBLINGUAL Q5M PRN #25 tab PRN Reason: Chest Pain Clopidogrel [Plavix] 75 mg PO DAILY #90 tab amLODIPine [Norvasc] 5 mg PO DAILY Carvedilol [Coreg] 12.5 mg PO BID Discharge Medication List Citalopram Hydrobromide [CeleXA] 40 mg PO DAILY 01/14/15 [History] metFORMIN HCL 1,000 mg PO BID 01/15/15 [History] HYDROcodone/APAP 10-325MG [[place] 10-325] 1 tab PO Q8H PRN 08/18/16 [History] Aspirin EC [Ecotrin Low Dose] 81 mg PO DAILY 05/28/17 [History] Losartan Potassium 100 mg PO DAILY 01/05/20 [History] Atorvastatin [Lipitor] 40 mg PO DAILY #90 tab 01/08/20 [Rx] Clopidogrel [Plavix] 75 mg PO DAILY #90 tab 01/08/20 [Rx] Nitroglycerin Sl Tabs [Nitrostat] 0.4 mg SUBLINGUAL Q5M PRN #25 tab 01/08/20 [Rx] Carvedilol [Coreg] 12.5 mg PO BID 01/19/20 [History] amLODIPine [Norvasc] 5 mg PO DAILY 01/19/20 [History] Follow up Appointment(s)/Referral(s): Mell Baer MD [Primary Care Provider] - 1-2 days
[2020-02-13 16:47] VITALS: BP 147/60; PULSE 62; RESP 18
--- NOTE | 2020-02-15 09:45 | CDI ---
Documentation Clarification Form Date: 02/15/2020 09:34:37 AM From: Katharine Moreno Phone: If you have a question about this query, please contact Nanci Mclean Director Smb Sales at [phone] between 8am and 5pm. Admit Date: 02/11/2020 08:00:00 PM Patient Name: Alejo Lees Visit Number: [id number] Discharge Date: 02/13/2020 04:57:00 PM ATTENTION: The Clinical Documentation Specialists (CDI) and [facility] Coding Staff appreciate your assistance in clarifying documentation. Please respond to the clarification below the line at the bottom and electronically sign. The CDI & [facility] Coding staff will review the response and follow-up if needed. Please note: Queries are made part of the Legal Health Record. If you have any questions, please contact the author of this message via ITS. Dr. Mell Baer TIA is documented as a diagnosis in the H and P and DCS. Patient recent prior admit CT showing bilateral ICA stenosis, stent placed. CT on this admit showing subtotal occlusion of Right Internal carotid artery which has progressed compared to recent exam. Was TIA due to patient's carotid stenosis? Patient history/risk factors: subtotal occlusion of RI carotid artery. Recent stent. Clinical indicators: CT head: Subtotal occlusion CORBY artery which has progressed. Treatment: Patient DC's on aspirin and Plavix Consult: neurology In your professional opinion, please specify underlying etiology of the transient ischemic attack: Carotid Stenosis Other (please specify): Etiology unknown or Unable to determine Carotid stenosis MTDD
== END 2020-02-13 16:57 | disposition home or self-care (01) | DRG 68 ==
LOC: EC 16:42 → 3SCARD 20:00
PROVIDERS: ADMIT Internal Medicine; ATTEND Internal Medicine
DX: I65.23 Occlusion and stenosis of bilateral carotid arteries (principal); E11.9 Type 2 diabetes mellitus without complications; E78.5 Hyperlipidemia, unspecified; F32.9 Major depressive disorder, single episode, unspecified; F41.9 Anxiety disorder, unspecified; H91.90 Unspecified hearing loss, unspecified ear; I10 Essential (primary) hypertension; I25.10 Atherosclerotic heart disease of native coronary artery without angina pectoris; I35.0 Nonrheumatic aortic (valve) stenosis; I44.0 Atrioventricular block, first degree; R29.810 Facial weakness; R47.81 Slurred speech; Z11.59 Encounter for screening for other viral diseases; Z79.02 Long term (current) use of antithrombotics/antiplatelets; Z79.82 Long term (current) use of aspirin; Z79.84 Long term (current) use of oral hypoglycemic drugs; Z79.891 Long term (current) use of opiate analgesic; Z79.899 Other long term (current) drug therapy; Z82.3 Family history of stroke; Z86.73 Personal history of transient ischemic attack (TIA), and cerebral infarction without residual deficits; Z87.891 Personal history of nicotine dependence; Z95.5 Presence of coronary angioplasty implant and graft; Z97.4 Presence of external hearing-aid; Z98.84 Bariatric surgery status; E66.9 Obesity, unspecified; Z68.32 Body mass index [BMI] 32.0-32.9, adult; Z98.49 Cataract extraction status, unspecified eye; M54.9 Dorsalgia, unspecified; G89.29 Other chronic pain; R06.81 Apnea, not elsewhere classified; Z99.89 Dependence on other enabling machines and devices; Z86.19 Personal history of other infectious and parasitic diseases; Z90.49 Acquired absence of other specified parts of digestive tract; Z88.0 Allergy status to penicillin; Z95.828 Presence of other vascular implants and grafts
CPT/HCPCS: 36415; 70450; 70496; 70498; 80053; 83735; 85025; 93005; 99285

== ENCOUNTER 2020-03-16 09:15 | Inpatient (IN) | payer MEDICARE ==
[2020-03-10 14:23] VITALS: BMI 31.3
[~2020-03-16 09:15] MED LIST changes: +DEXAMETHASONE SOD PHOSPHATE 10 MG/ML 1 ML VIAL IV ONE; +HYDROmorphone 0.5 MG/0.5 ML SYRINGE IVP PRN; +LIDOCAINE 1% (10MG/ML) FOR IV START INTRADERMA PRN
[2020-03-16] MEDS ORDERED: CLOPIDOGREL 75 MG TAB PO STA (09:45)
[2020-03-16 10:00] LABS: Basophils # (A) 0.1 k/uL (0-0.2); Basophils % (A) 1 %; Eosinophils # (A) 0.2 k/uL (0-0.7); Eosinophils % (A) 3 %; HCT 38.9 % (39.0-53.0); HGB 12.8 gm/dL (13.0-17.5); Lymphocytes # (A) 2.1 k/uL (1.0-4.8); Lymphocytes % (A) 27 %; MCH 28.9 pg (25.0-35.0); MCHC 32.8 g/dL (31.0-37.0); Mean Platelet Volume 8.1; Monocytes # (A) 0.4 k/uL (0-1.0); Monocytes % (A) 5 %; Neutrophils # (A) 4.8 k/uL (1.3-7.7); Neutrophils % (A) 62 %; Platelet Count 199 k/uL (150-450); RBC 4.42 m/uL (4.30-5.90); RDW 13.7 % (11.5-15.5); WBC 7.7 k/uL (3.8-10.6)
[2020-03-16 10:07] LABS: Glucose,Whole Blood 306 mg/dL (75-99)
[2020-03-16] MEDS ORDERED: INSULIN ASPART (NovoLOG) 100 UNIT/ML VIAL SQ ONE ×3 (10:08→13:54)
[2020-03-16 10:14] LABS: African American GFR (CKD) >90 (>60 ml/min/1.73 sqM); Anion Gap 8 mmol/L; Blood Urea Nitrogen 18 mg/dL (9-20); Calcium 9.2 mg/dL (8.4-10.2); Carbon Dioxide 24 mmol/L (22-30); Chloride 103 mmol/L (98-107); Glucose 309 mg/dL (74-99); Non-African American GFR(CKD) 82 (>60 ml/min/1.73 sqM); Potassium 4.6 mmol/L (3.5-5.1); Sodium 135 mmol/L (137-145)
[2020-03-16] MEDS ORDERED: CLINDAMYCIN 600 MG in SODIUM CHLORIDE 0.9% IRRIGATIO 250 ML IRRIGATION ONE (10:50)
[2020-03-16] MEDS ORDERED: CLINDAMYCIN 900 MG in DEXTROSE 5% IN WATER 50 ML IVPB STA ×2 (10:50)
[2020-03-16] MEDS ORDERED: DEXMEDETOMIDINE/0.9% NACL(PMX) 400 MCG in EMPTY BAG 1 BAG IV ONE (11:00)
[2020-03-16] MEDS ORDERED: DEXMEDETOMIDINE/0.9% NACL(PMX) 400 MCG/100 ML IV ONE (11:07)
[2020-03-16] MEDS ORDERED: PHENYLEPHRINE-0.9% NACL SYG 1 MG/10 ML SYRINGE ONE (11:07)
[2020-03-16] MEDS ORDERED: MIDAZOLAM 2 MG/2 ML VIAL ONE (11:07)
[2020-03-16] MEDS ORDERED: GLYCOPYRROLATE 0.2 MG/ML 2 ML VIAL ONE (11:07)
[2020-03-16] MEDS ORDERED: PROTAMINE SULFATE 10 MG/ML 5 ML VIAL IV ONE (11:07)
[2020-03-16] MEDS ORDERED: HEPARIN SODIUM,PORCINE 10,000 UNIT/ML 1 ML VIAL ONE (11:07)
[2020-03-16] MEDS ORDERED: fentaNYL (PF) 50 MCG/ML 2 ML AMP ONE (11:07)
[2020-03-16 11:08] LABS: Glucose,Whole Blood 289 mg/dL (75-99)
[2020-03-16] MEDS ORDERED: LIDOCAINE 1% INJ 10MG/ML (20 ML MDV) SQ ONE (11:42)
[2020-03-16] MEDS ORDERED: IOPAMIDOL-250 100ML BTL INTRAARTER ONE (12:33)
--- NOTE | 2020-03-16 13:05 | P.OP ---
Date of Procedure: 03/16/20 Preoperative Diagnosis: Right internal carotid artery stenosis greater than 95% Postoperative Diagnosis: Same Procedure(s) Performed: 1. Right trans-carotid artery revascularization with stenting 2. Ultrasound-guided left common femoral vein access 3. Right Carotid angiogram with cerebral angiogram Implants: 10 x 40 mm enRoute stent Anesthesia: MAC, local Surgeon: Barrera Royal Road Crew Member #1: Leticia Martines Estimated Blood Loss (ml): 20 IV fluids (ml): 1,000 Urine output (ml): 150 Pathology: none sent Condition: stable Disposition: PACU Indications for Procedure: 79-year-old gentleman who originally presented to the hospital secondary to a TIA and previously needed his left carotid artery revascularized which he underwent approximately 2 months ago. During his workup in the hospital was noted that he had severe stenosis bilaterally with ratios above 10. During his follow-up for his left carotid stent which went well it was noted that his right internal carotid artery was now greater than 95% narrowed. After discussion with the patient and his increased risk for stroke he was determined that he would require another TCAR procedure. He presents today for such procedure. He has been taking his aspirin, Plavix, statin. Description of Procedure: After written and informed consent was obtained the patient all risks benefits and competitions were described the patient is brought to the [employer] and laid in a supine position. The area of the neck and groins were prepped and draped in usual sterile fashion after appropriate anesthetic was performed per the anesthesiologist. Timeout was performed in normal fashion antibiotics were administered prior to incision. Utilizing ultrasound the common carotid artery on the right was located and marked. Local anesthetic was then infused overlying this area and utilizing a 10 blade scalpel a transverse incision was created and dissection was carried down to the carotid sheath with electrocautery. Sternal cleidomastoid musculature was retracted laterally and dissection was carried between the 2 heads. Once the carotid was located and was dissected free in a circumferential manner and controlled with umbilical tape. Attention was then placed to the femoral vein access and utilizing ultrasound the common femoral vein was located and shown to be patent without any thrombus. Utilizing a multipurpose needle and Seldinger technique the 8- [place] and Route sheath was placed in the groin without complication. Attention was then placed back to the carotid artery and a pursestring suture with 6-0 Prolene suture was performed at the access point on the anterior surface of the carotid artery. Patient was administered heparin and followed with ACT. Utilizing a micro-access kit the common carotid artery on the right was accessed and a Glidewire was placed followed by a 4-[place] sheath. Multiple views were then obtained of the carotid and internal and external carotid arteries. A stiff Glidewire was then placed at the common carotid artery just before the bifurcation and the 8-[place] sheath was placed in normal fashion. Reversal of flow was then established with the enRoute BUSINESS APPLICATIONS MANAGER system. Once ACT was greater than 230 and blood pressure was greater than 140s to 160 and heart rate was created and 60 the vessel was clamped and once again reversal of flow was checked which demonstrated brisk reversal of flow. 014 Glidewire was then utilized to access the internal carotid artery and cross the lesion which was approximately 95%. Once across a 5 x 30 mm [employer] balloon was utilized and balloon angioplasty was performed followed by a 10 x 40 mm enRoute stent. Reversal flow was allowed to continue for approximately 16 minutes. Final angiogram was obtained demonstrating complete resolution of the stenosis with good brisk flow to the cerebral vessels. All guidewires and catheters were then removed and antegrade flow was reestablished. The pursestring suture was then secured after removal of the catheter. Utilizing Doppler good signal was noted in the carotid artery without any evidence of occlusion. The femoral sheath was also removed and hemostasis was assured with manual pressure. The incision at the neck was then irrigated with antibiotic solution and hemostasis was assured with Surgicel. The incision was then closed in a multilayer fashion. Skin was cleansed and dressings were placed. Patient tolerated procedure well and was moving all extremities and following commands of the conclusion of the procedure.
[2020-03-16] MEDS ORDERED: MAG HYDROX/AL HYDROX/SIMETH 30 ML CUP PO PRN (13:06)
[2020-03-16] MEDS ORDERED: ATROPINE SULFATE 0.1 MG/ML 10ML SYRINGE IV PRN (13:06)
[2020-03-16] MEDS ORDERED: RX INFO: IV CONTRAST WAS GIVEN 1 EACH MISC MISCELLANE PRN (13:06)
[2020-03-16] MEDS ORDERED: HYDROcodone/APAP 5-325MG 1 EACH TAB PO PRN (13:07)
[2020-03-16] MEDS ORDERED: NITROGLYCERIN SL TABS 0.4 MG TAB SUBLINGUAL PRN (13:09)
[2020-03-16] MEDS ORDERED: SODIUM CHLORIDE 0.9% 500 ML 500 ML IV ONE (13:10)
--- NOTE | 2020-03-16 13:11 | IR ---
EXAMINATION TYPE: IR stent intravas non coronary DATE OF EXAM: 03/16/2020 CLINICAL HISTORY: Carotid stenosis. TECHNIQUE: Fluoroscopy. COMPARISON: CTA head and neck February 11, 2020.. FINDINGS: Fluoroscopic guidance was provided during carotid angiogram and stent insertion procedure performed by Dr. Royal. A total of 5.9 minutes of fluoroscopic time was utilized during the proced ure and several cine runs and spot images are acquired. Please refer to procedure note for further de tails I was not present nor performed procedure. IMPRESSION: As Above.
[2020-03-16 13:36] LABS: Glucose,Whole Blood 201 mg/dL (75-99)
[2020-03-16 15:15] LABS: Glucose,Whole Blood 159 mg/dL (75-99)
[2020-03-16] MEDS: SODIUM CHLORIDE 0.9% 1,000 ML IV SCH (15:15)
[2020-03-16] MEDS ORDERED: CLEVIDIPINE BUTYRATE 25 MG in EMPTY BAG 1 BAG IV SCH (16:15)
[2020-03-16] MEDS: LACTATED RINGERS 1,000 ML IV SCH ×2 (16:28→17:56)
--- NOTE | 2020-03-16 16:42 | P.CNPUL ---
History of Present Illness Consult date: 03/16/20 Requesting physician: Barrera Royal Chief complaint: Right internal carotid artery stenosis, status post revascularization/stent History of present illness: 79-year-old white male patient of Dr. Baer with recent medical history of TIA, bilateral carotid artery stenosis with recent history of left carotid artery revascularization on 01/23/2020. During his follow-up for his left carotid stent, it was noted that his right internal carotid artery stenosis was greater than 95. Patient was recommended to undergo right-sided TCAR procedure. Other medical history includes coronary artery disease with PCI and stenting, diabetes mellitus, hypertension, hyperlipidemia, sleep apnea on CPAP, anxiety, depression, former smoker, chronic back pain. On 03/16/2020 patient presented for right transplanted artery revascularization with stenting. Were seen the patient in the postoperative period in the intensive care unit. He is awake and alert, in no acute distress, currently on 2 L of oxygen and a pulse ox of 97%, hemodynamically patient is hypertensive with systolic in the 170s, and there is about 30 points difference between cuff pressures with cuff pressure reading in the 140 systolic. Afebrile, in sinus mechanism with a controlled rate on the monitor, we will combine such chest pain, right neck incision is clean dry and intact, soft without evidence of tracheal deviation. No facial symmetry, neurologically patient is intact, denies any acute complaints. Patient is on aspirin, Lipitor, and Plavix, he is on clindamycin per surgery, 0.9 normal saline at a rate of 100 ML per hour, dexmedetomidine drip has been ordered, however not started, as the patient is calm and comfortable, no complaints of di scomfort, no agitation, no anxiety. Review of Systems All systems: negative Constitutional: Denies chills, Denies fever Eyes: denies blurred vision, denies pain Ears, nose, mouth and throat: Denies headache, Denies sore throat Cardiovascular: Denies chest pain, Denies shortness of breath Respiratory: Denies cough Gastrointestinal: Denies abdominal pain, Denies diarrhea, Denies nausea, Denies vomiting Musculoskeletal: Denies myalgias Integumentary: Denies pruritus, Denies rash Neurological: Denies numbness, Denies weakness Psychiatric: Denies anxiety, Denies depression Endocrine: Denies fatigue, Denies weight change Past Medical History Past Medical History: Coronary Artery Disease (CAD), Chest Pain / Angina, CVA/TIA, Diabetes Mellitus, Eye Disorder, Hearing Disorder / Deafness, Hyperlipidemia, Hypertension, Sleep Apnea/CPAP/BIPAP Additional Past Medical History / Comment(s): Claude hearing aids, tinnitus, ch ronic lower back pain, work injury 1975 w/concussion", "occ hand tremors", hx shingles 2009, not using cpap regularly, . Heart murmur. Varicose veins. Admit w/ TIA 01/19/20- no residual effects. leaky heart valve History of Any Multi-Drug Resistant Organisms: None Reported Past Surgical History: Appendectomy, Bariatric Surgery, Cholecystectomy, Heart Catheterization With Stent, Hernia Repair Additional Past Surgical History / Comment(s): Lap band, colonoscopy, claude cataracts, glaucoma surg, PTCA w/ stents x2 01/07/20. left TCAR 01/23/20. Past Anesthesia/Blood Transfusion Reactions: No Reported Reaction Date of Last Stent Placement:: 01/07/20 Smoking Status: Former smoker - Past Family History Father Family Medical History: CVA/TIA Additional Family Medical History / Comment(s): stroke Mother Family Medical History: No Reported History Additional Family Medical History / Comment(s): stroke Medications and Allergies Home Medications Medication Instructions Recorded Confirmed Type Citalopram Hydrobromide [CeleXA] 40 mg PO DAILY 01/14/15 03/16/20 History metFORMIN HCL 1,000 mg PO BID 01/15/15 03/16/20 History HYDROcodone/APAP 10-325MG [[place] 1 tab PO Q8H PRN 08/18/16 03/16/20 History 10-325] Aspirin EC [Ecotrin Low Dose] 81 mg PO DAILY 05/28/17 03/16/20 History Losartan Potassium 100 mg PO DAILY 01/05/20 03/16/20 History Atorvastatin [Lipitor] 40 mg PO DAILY #90 tab 01/08/20 03/16/20 Rx Clopidogrel [Plavix] 75 mg PO DAILY #90 tab 01/08/20 03/16/20 Rx Nitroglycerin Sl Tabs [Nitrostat] 0.4 mg SUBLINGUAL Q5M PRN #25 tab 01/08/20 Rx Carvedilol [Coreg] 12.5 mg PO BID 01/19/20 03/16/20 History amLODIPine [Norvasc] 5 mg PO DAILY 01/19/20 03/16/20 History Allergies Allergy/AdvReac Type Severity Reaction Status Date / Time Penicillins Allergy Rash/Hives Verified 03/10/20 14:14 Physical Exam Vitals: Vital Signs Temp Pulse Resp BP BP BP Pulse Ox 03/16/20 15:51 97.6 F 18 97 03/16/20 14:45 56 L 16 132/63 100 03/16/20 14:30 56 L 16 135/61 98 03/16/20 14:15 60 112/57 92 L 03/16/20 13:40 59 L 12 107/60 109/52 94 L 03/16/20 13:25 63 12 105/60 112/51 96 03/16/20 13:10 97 F L 65 20 121/58 110/52 93 L 03/16/20 10:03 98.3 F 66 16 194/84 99 Intake and Output 03/16/20 03/16/20 03/16/20 06:59 14:59 22:59 Intake Total 1231 Output Total 235 Balance 996 Intake: IV 1231 Sodium Chloride 0.9% 1, 75 000 ml @ 100 mls/hr IV . Q10H [facility] Rx#:[id number] Output: Urine 235 Other: Weight 95.8 kg GENERAL EXAM: Alert, very pleasant, 79-year-old white male, on 2 L of oxygen with pulse ox of 97% comfortable in no apparent distress. HEAD: Normocephalic/atraumatic. EYES: Normal reaction of pupils, equal size. Conjunctiva pink, sclera white. NOSE: Clear with pink turbinates. THROAT: No erythema or exudates. NECK: No masses, no JVD, no thyroid enlargement, no adenopathy. Right neck incision is clean dry and intact, soft, no tracheal deviation CHEST: No chest wall deformity. Symmetrical expansion. LUNGS: Equal air entry with no crackles, wheeze, rhonchi or dullness. CVS: Regular rate and rhythm, normal S1 and S2, no gallops, no murmurs, no rubs ABDOMEN: Soft, nontender. No hepatosplenomegaly, normal bowel sounds, no guarding or rigidity. EXTREMITIES: No clubbing, no edema, no cyanosis, 2+ pulses and upper and lower extremities. MUSCULOSKELETAL: Muscle strength and tone normal. SPINE: No scoliosis or deformity SKIN: No rashes CENTRAL NERVOUS SYSTEM: Alert and oriented -3. No focal deficits, tone is normal in all 4 extremities. PSYCHIATRIC: Alert and oriented -3. Appropriate affect. Intact judgment and insight. Results - Laboratory Findings CBC and BMP: 03/16/20 09:45 03/16/20 09:45 Abnormal lab findings: Abnormal Labs 03/16/20 03/16/20 03/16/20 09:45 09:45 09:56 Hgb 12.8 L Hct 38.9 L Sodium 135 L Glucose 309 H POC Glucose (mg/dL) 306 H 03/16/20 03/16/20 03/16/20 11:07 13:34 15:13 Hgb Hct Sodium Glucose POC Glucose (mg/dL) 289 H 201 H 159 H Assessment and Plan Plan: Assessment: #1. Subtotal occlusion of the right internal carotid artery stenosis greater than 95%, status post right transverse carotid artery revascularization with stenting, postoperative day #0 #2. Recent history of transient ischemic accident, with symptoms of transient numbness of the right facial region associated with slurred speech and drooping face, resolved #3. Recent history of left ICA revascularization and stenting on 01/23/2020 #4. Hypertension #5. Diabetes mellitus type 2 #6. Dyslipidemia #7. History of nicotine dependence, currently in remission #8. Severe tricuspid aortic valve stenosis with mild aortic regurgitation as seen on the transesophageal echocardiogram on 01/07/2020 #9. History of coronary artery disease with previous PCI and stenting #10. Sleep apnea on CPAP machine #11. History of anxiety and depression Plan: Continue close hemodynamic monitoring, antibiotics, GI and DVT prophylaxis per vascular surgery, Plavix, Lipitor and aspirin have been resumed. Continue neurologic monitoring per protocol. Patient is noted to be hypertensive, we'll start Cleviprex drip and titrate to keep systolic at or less than 130 mmHg. blood work in the morning, close blood sugar monitoring. Pain control. Med reconciliation has been completed by vascular surgery. We'll continue to closely monitor in the intensive care unit I performed a history & physical examination of the patient and discussed their management with my nurse practitioner, Angie Pryor. I reviewed the nurse practitioner's note and agree with the documented findings and plan of care. Lung sounds are positive for clear breath sounds. The findings and the impression was discussed with the patient. I attest to the documentation by the nurse practitioner. Time with Patient: Greater than 30
[2020-03-16] MEDS: carvediloL 12.5 MG TAB PO SCH (16:45)
[2020-03-16] MEDS ORDERED: NALOXONE 0.4 MG/ML 1 ML VIAL IV PRN (17:01)
[2020-03-16] MEDS: INSULIN ASPART (NovoLOG) 100 UNIT/ML VIAL SQ SCH ×2 (17:55→21:29)
[2020-03-16 17:56] LABS: Glucose,Whole Blood 92 mg/dL (75-99)
--- NOTE | 2020-03-16 19:10 | P.CONS ---
History of Present Illness - History of Present Illness Alejo Lees, he is an 79-year-old male well-known to my practice, with known history of right internal carotid stenosis was admitted to [facility] by Dr. Royal, and underwent right transfer carotd artery revascularization with stenting, patient was subsequently admitted to intensive care unit for care postprocedure, medical consultation was requested. atki has a known history of hypertension, hyperlipidemia, recent stroke, depression, degenerative disc disease with chronic pain syndrome, and history of recent stroke. On review of systems patient is alert and oriented 3 in no apparent distress, he has minimal discomfort in his neck otherwise he denies any complaints there is no fever or chills no headache or dizziness no chest pain no shortness of breath no cough no nausea or vomiting no abdominal pain no diarrhea no burning with urination no frequency or urgency and no hematuria. Past Medical History Past Medical History: Coronary Artery Disease (CAD), Chest Pain / Angina, CVA/TIA, Diabetes Mellitus, Eye Disorder, Hearing Disorder / Deafness, Hyperlipidemia, Hypertension, Sleep Apnea/CPAP/BIPAP Additional Past Medical History / Comment(s): [employer] hearing aids, tinnitus, ch ronic lower back pain, work injury 1975 w/concussion", "occ hand tremors", hx shingles 2009, not using cpap regularly, . Heart murmur. Varicose veins. Admit w/ TIA 01/19/20- no residual effects. leaky heart valve History of Any Multi-Drug Resistant Organisms: None Reported Past Surgical History: Appendectomy, Bariatric Surgery, Cholecystectomy, Heart Catheterization With Stent, Hernia Repair Additional Past Surgical History / Comment(s): Lap band, colonoscopy, claude cataracts, glaucoma surg, PTCA w/ stents x2 01/07/20. left TCAR 01/23/20. Past Anesthesia/Blood Transfusion Reactions: No Reported Reaction Date of Last Stent Placement:: 01/07/20 Smoking Status: Former smoker - Past Family History Father Family Medical History: CVA/TIA Additional Family Medical History / Comment(s): stroke Mother Family Medical History: No Reported History Additional Family Medical History / Comment(s): stroke Medications and Allergies Home Medications Medication Instructions Recorded Confirmed Type Citalopram Hydrobromide [CeleXA] 40 mg PO DAILY 01/14/15 03/16/20 History metFORMIN HCL 1,000 mg PO BID 01/15/15 03/16/20 History HYDROcodone/APAP 10-325MG [[place] 1 tab PO Q8H PRN 08/18/16 03/16/20 History 10-325] Aspirin EC [Ecotrin Low Dose] 81 mg PO DAILY 05/28/17 03/16/20 History Losartan Potassium 100 mg PO DAILY 01/05/20 03/16/20 History Atorvastatin [Lipitor] 40 mg PO DAILY #90 tab 01/08/20 03/16/20 Rx Clopidogrel [Plavix] 75 mg PO DAILY #90 tab 01/08/20 03/16/20 Rx Nitroglycerin Sl Tabs [Nitrostat] 0.4 mg SUBLINGUAL Q5M PRN #25 tab 01/08/20 Rx Carvedilol [Coreg] 12.5 mg PO BID 01/19/20 03/16/20 History amLODIPine [Norvasc] 5 mg PO DAILY 01/19/20 03/16/20 History Allergies Allergy/AdvReac Type Severity Reaction Status Date / Time Penicillins Allergy Rash/Hives Verified 03/10/20 14:14 Physical Exam Vitals: Vital Signs Temp Pulse Pulse Resp BP BP BP 03/16/20 19:00 66 14 03/16/20 18:45 65 16 03/16/20 18:30 65 16 03/16/20 18:15 67 8 L 176/77 03/16/20 18:00 62 16 03/16/20 17:45 70 9 L 03/16/20 17:30 60 14 03/16/20 17:15 60 14 165/77 03/16/20 17:00 61 12 172/75 03/16/20 16:45 65 8 L 03/16/20 16:30 60 8 L 161/72 03/16/20 16:15 58 L 15 155/73 03/16/20 16:00 97.9 F 57 L 6 L 143/61 03/16/20 15:51 97.6 F 18 03/16/20 15:45 60 12 03/16/20 15:30 57 L 12 143/61 03/16/20 15:15 55 L 9 L 143/61 03/16/20 15:10 56 L 48 H 03/16/20 14:45 56 L 16 132/63 03/16/20 14:30 56 L 16 135/61 03/16/20 14:15 60 112/57 03/16/20 13:40 59 L 12 107/60 03/16/20 13:25 63 12 105/60 03/16/20 13:10 97 F L 65 20 121/58 03/16/20 10:03 98.3 F 66 16 194/84 BP Pulse Ox 03/16/20 19:00 96 03/16/20 18:45 96 03/16/20 18:30 96 03/16/20 18:15 97 03/16/20 18:00 96 03/16/20 17:45 98 03/16/20 17:30 97 03/16/20 17:15 97 03/16/20 17:00 97 03/16/20 16:45 100 03/16/20 16:30 98 03/16/20 16:15 99 03/16/20 16:00 99 03/16/20 15:51 97 03/16/20 15:45 99 03/16/20 15:30 99 03/16/20 15:15 99 03/16/20 15:10 100 03/16/20 14:45 100 03/16/20 14:30 98 03/16/20 14:15 92 L 03/16/20 13:40 109/52 94 L 03/16/20 13:25 112/51 96 03/16/20 13:10 110/52 93 L 03/16/20 10:03 99 Intake and Output 03/16/20 03/16/20 03/16/20 06:59 14:59 22:59 Intake Total 1231 275 Output Total 235 625 Balance 996 -350 Intake: IV 1231 275 Sodium Chloride 0.9% 1, 75 275 000 ml @ 100 mls/hr IV . Q10H [facility] Rx#:[id number] Output: Urine 235 625 Other: Voiding Method Indwelling Catheter Weight 95.8 kg ABP, PAP, CO, CI - Last 8 Hours Arterial Blood Pressure 182/54 Arterial Blood Pressure 184/54 Arterial Blood Pressure 189/60 Arterial Blood Pressure 177/63 Arterial Blood Pressure 187/61 Arterial Blood Pressure 190/66 Arterial Blood Pressure 198/67 Arterial Blood Pressure 180/57 Arterial Blood Pressure 177/60 Arterial Blood Pressure 189/60 Arterial Blood Pressure 181/60 Arterial Blood Pressure 183/62 Arterial Blood Pressure 167/59 Arterial Blood Pressure 172/60 in general patient is alert and oriented 3 in no apparent distress HEENT head normocephalic and atraumatic Neck is supple no JVD Chest exam reveals a few scattered rhonchi no wheezing cardiac exam reveals regular heart sounds no gallops no murmurs Abdomen is soft nontender no organomegaly with normal bowel sounds Extremity exam reveals no edema no cyanosis or clubbing Neurological examination reveals no gross focal deficit Results CBC & Chem 7: 03/16/20 09:45 03/16/20 09:45 Labs: Abnormal Lab Results - Last 24 Hours (Table) 03/16/20 03/16/20 03/16/20 Range/Units 09:45 09:45 09:56 Hgb 12.8 L (13.0-17.5) gm/dL Hct 38.9 L (39.0-53.0) % Sodium 135 L (137-145) mmol/L Glucose 309 H (74-99) mg/dL POC Glucose (mg/dL) 306 H (75-99) mg/dL 03/16/20 03/16/20 03/16/20 Range/Units 11:07 13:34 15:13 Hgb (13.0-17.5) gm/dL Hct (39.0-53.0) % Sodium (137-145) mmol/L Glucose (74-99) mg/dL POC Glucose (mg/dL) 289 H 201 H 159 H (75-99) mg/dL Assessment and Plan Plan: 1. severe right carotid stenosis status post right distress carotid artery revascularization with stenting. 2. Underlying history of hypertension 3. Underlying history of hyperlipidemia 4. Underlying history of depression 5. Underlying history of degenerative disc disease with chronic back pain at this time medication and labs were reviewed, home medication reorder Will follow during this admission for medical management
[2020-03-16] MEDS ORDERED: ATORVASTATIN 40 MG TAB PO SCH (21:00)
[2020-03-16 21:14] LABS: Glucose,Whole Blood 232 mg/dL (75-99)
[2020-03-17] MEDS: SODIUM CHLORIDE 0.9% 1,000 ML IV SCH (01:19)
[2020-03-17 04:17] LABS: Basophils % (A) 0 %; Eosinophils # (A) 0.1 k/uL (0-0.7); Eosinophils % (A) 2 %; HCT 36.4 % (39.0-53.0); HGB 11.6 gm/dL (13.0-17.5); Lymphocytes % (A) 20 %; MCH 28.2 pg (25.0-35.0); MCHC 31.8 g/dL (31.0-37.0); MCV 88.7 fL (80.0-100.0); Mean Platelet Volume 8.9; Monocytes # (A) 0.5 k/uL (0-1.0); Monocytes % (A) 5 %; Neutrophils % (A) 71 %; Platelet Count 175 k/uL (150-450); RBC 4.11 m/uL (4.30-5.90); RDW 13.7 % (11.5-15.5); WBC 9.8 k/uL (3.8-10.6)
[2020-03-17 04:25] LABS: African American GFR (CKD) >90 (>60 ml/min/1.73 sqM); Anion Gap 4 mmol/L; Blood Urea Nitrogen 15 mg/dL (9-20); Calcium 8.6 mg/dL (8.4-10.2); Carbon Dioxide 24 mmol/L (22-30); Chloride 105 mmol/L (98-107); Glucose 168 mg/dL (74-99); Non-African American GFR(CKD) 81 (>60 ml/min/1.73 sqM); Sodium 133 mmol/L (137-145)
[2020-03-17 07:00] LABS: Glucose,Whole Blood 198 mg/dL (75-99)
[2020-03-17] MEDS: carvediloL 12.5 MG TAB PO SCH (07:09)
[2020-03-17] MEDS: INSULIN ASPART (NovoLOG) 100 UNIT/ML VIAL SQ SCH (07:10)
[2020-03-17 08:27] VITALS: TEMP 98.7
[2020-03-17] MEDS ORDERED: amLODIPine 5 MG TAB PO SCH (09:00)
[2020-03-17] MEDS ORDERED: ASPIRIN 81 MG PO SCH (09:00)
[2020-03-17] MEDS ORDERED: ATORVASTATIN 40 MG TAB PO SCH (09:00)
[2020-03-17] MEDS ORDERED: LOSARTAN 50 MG TAB PO SCH (09:00)
[2020-03-17] MEDS ORDERED: CLOPIDOGREL 75 MG TAB PO SCH ×2 (09:00→12:00)
[2020-03-17] MEDS ORDERED: CITALOPRAM HYDROBROMIDE 20 MG TAB PO SCH (09:00)
--- NOTE | 2020-03-17 09:23 | P.DS ---
Providers Date of admission: 03/16/20 09:15 Attending physician: Barrera Royal DO Consults: 03/16/20 13:06 Consult Physician Routine Consulting Provider: Ena Irving Consult Reason/Comments: icu Do you want consulting provider notified?: Yes 03/16/20 13:07 Consult Physician Routine Consulting Provider: Mell Baer Consult Reason/Comments: medical management Do you want consulting provider notified?: Yes Primary care physician: Mell [facility] Hospital Course: This is a pleasant 79-year-old male with a history of right internal carotid artery stenosis greater than 95% who had previously presented to the hospital secondary to a TIA with lateral internal carotid artery stenosis. He had a previous left carotid artery revascularization approximately 2 months ago.. He scheduled yesterday yesterday for an outpatient right trans-carotid artery revascularization with stenting. He is postop day 1 today. He is without any complaints. He denies any pain, denies any focal deficits including weakness, slurred speech, or visual changes. He denies any shortness of breath or chest pain. His Martines catheter has been discontinued as well as his arterial line. Patient tolerated breakfast well. Assessment: General appearance: The patient is alert, oriented, in no acute distress. HET: Head is normocephalic and atraumatic. Pupils are equal and reactive. Or opharynx is clear without lesions. Neck: Supple without lymphadenopathy. Trachea midline. Incision to the right side of the neck with dressing that is clean dry and intact. Heart: S1 S2. Regular rate and rhythm. Lungs: No crackles or wheezes are heard. Abdomen: Soft, nontender, nondistended with bowel sounds. Extremities: Normal skin color and turgor. No cyanosis, rash, ulceration, clubbing, or edema. Radial and pedal pulses are 2/4 bilaterally. Neurological: No focal deficits. Strength and sensation are grossly intact. Assessment: 1. Postop day 1 status post right trans-carotid artery revascularization with stenting 2. Right internal carotid artery stenosis greater than 95% 3. History of TIAs 4. Diabetes 5. Hypertension 6. Coronary artery disease 7. Aortic valve stenosis Plan: Once patient has voided after Martines catheter removal and ambulating well, patient may be discharged home. Continue with aspirin, Plavix, and statin. Patient was instructed he may shower tomorrow, no tub bath. No heavy lifting greater than 10 pounds until further evaluated with Dr. Royal. The above dictated assessment and findings were discussed with Dr. Martines. The impression and plan of care have been directed as dictated. Procedures: Right trans-carotid artery revascularization with stenting Patient Condition at Discharge: Good Plan - Discharge Summary Discharge Rx Participant: Yes New Discharge Prescriptions: Continue Citalopram Hydrobromide [CeleXA] 40 mg PO DAILY metFORMIN HCL 1,000 mg PO BID HYDROcodone/APAP 10-325MG [[place] 10-325] 1 tab PO Q8H PRN PRN Reason: Pain Aspirin EC [Ecotrin Low Dose] 81 mg PO DAILY Losartan Potassium 100 mg PO DAILY Atorvastatin [Lipitor] 40 mg PO DAILY #90 tab Nitroglycerin Sl Tabs [Nitrostat] 0.4 mg SUBLINGUAL Q5M PRN #25 tab PRN Reason: Chest Pain Clopidogrel [Plavix] 75 mg PO DAILY #90 tab amLODIPine [Norvasc] 5 mg PO DAILY Carvedilol [Coreg] 12.5 mg PO BID Discharge Medication List Citalopram Hydrobromide [CeleXA] 40 mg PO DAILY 01/14/15 [History] metFORMIN HCL 1,000 mg PO BID 01/15/15 [History] HYDROcodone/APAP 10-325MG [[place] 10-325] 1 tab PO Q8H PRN 08/18/16 [History] Aspirin EC [Ecotrin Low Dose] 81 mg PO DAILY 05/28/17 [History] Losartan Potassium 100 mg PO DAILY 01/05/20 [History] Atorvastatin [Lipitor] 40 mg PO DAILY #90 tab 01/08/20 [Rx] Clopidogrel [Plavix] 75 mg PO DAILY #90 tab 01/08/20 [Rx] Nitroglycerin Sl Tabs [Nitrostat] 0.4 mg SUBLINGUAL Q5M PRN #25 tab 01/08/20 [Rx] Carvedilol [Coreg] 12.5 mg PO BID 01/19/20 [History] amLODIPine [Norvasc] 5 mg PO DAILY 01/19/20 [History] Follow up Appointment(s)/Referral(s): Barrera Royal DO [STAFF PHYSICIAN] - 1 Week (7-10 days) Activity/Diet/Wound Care/Special Instructions: May shower starting tomorrow, no tub baths. No heavy lifting greater than 10 pounds until further evaluated. Watch for signs of infection including fever greater than 100.4 her bleeding from surgical sites. Call office if these occur. Discharge Disposition: HOME SELF-CARE
[2020-03-17 11:30] VITALS: BP 151/70; PULSE 62; RESP 14
--- NOTE | 2020-03-17 13:40 | P.PN ---
Subjective Progress Note Date: 03/17/20 Principal diagnosis: Status post right carotid endarterectomy. 79-year-old white male patient of Dr. Baer with recent medical history of TIA, bilateral carotid artery stenosis with recent history of left carotid artery revascularization on 01/23/2020. During his follow-up for his left carotid stent, it was noted that his right internal carotid artery stenosis was greater than 95. Patient was recommended to undergo right-sided TCAR procedure. Other medical history includes coronary artery disease with PCI and stenting, diabetes mellitus, hypertension, hyperlipidemia, sleep apnea on CPAP, anxiety, depression, former smoker, chronic back pain. On 03/16/2020 patient presented for right transplanted artery revascularization with stenting. Were seen the patient in the postoperative period in the intensive care unit. He is awake and alert, in no acute distress, currently on 2 L of oxygen and a pulse ox of 97%, hemodynamically patient is hypertensive with systolic in the 170s, and there is about 30 points difference between cuff pressures with cuff pressure reading in the 140 systolic. Afebrile, in sinus mechanism with a controlled rate on the monitor, we will combine such chest pain, right neck incision is clean dry and intact, soft without evidence of tracheal deviation. No facial symmetry, neurologically patient is intact, denies any acute complaints. Patient is on aspirin, Lipitor, and Plavix, he is on clindamycin per surgery, 0.9 normal saline at a rate of 100 ML per hour, dexmedetomidine drip has been ordered, however not started, as the patient is calm and comfortable, no complaints of discomfort, no agitation, no anxiety. Patient was reevaluated today on 03/17/20, patient is doing great, asymptomatic, hemodynamically stable, denies any shortness of breath, no cough no wheezing, seen by vascular surgery, and the plan is to discharge the patient home today Objective - Vital Signs Vital signs: Vital Signs Temp 98.7 F 03/17/20 08:00 Pulse 62 03/17/20 11:00 Resp 14 03/17/20 11:00 BP 151/70 03/17/20 11:00 Pulse Ox 95 03/17/20 10:00 Intake & Output 03/16/20 03/17/20 03/17/20 18:59 06:59 18:59 Intake Total 1506 1059 100 Output Total 860 1080 250 Balance 646 -21 -150 Weight 95.8 kg 103.6 kg Intake: IV 1506 1059 100 Artline flush 9 Sodium Chloride 0.9% 1, 350 1050 100 000 ml @ 100 mls/hr IV . Q10H [facility] Rx#:[id number] Output: Urine 860 1080 250 Other: Voiding Method Indwelling Catheter Indwelling Catheter Indwelling Catheter # Voids 1 ABP, PAP, CO, CI - Last Documented Arterial Blood Pressure 218/71 - Exam Physical exam revealed 79-year-old white male extremely pleasant in no distress. On room air. HEENT: PERRLA, EOMI, no icterus. NECK: No masses, no JVD, no thyroid enlargement, no adenopathy. Right neck incision is clean dry and intact, soft, no tracheal deviation CHEST: No chest wall deformity. Symmetrical expansion. LUNGS: Equal air entry with no crackles, wheeze, rhonchi or dullness. CVS: Regular rate and rhythm, normal S1 and S2, no gallops, no murmurs, no rubs ABDOMEN: Soft, nontender. No hepatosplenomegaly, normal bowel sounds, no guarding or rigidity. EXTREMITIES: No clubbing, no edema, no cyanosis, 2+ pulses and upper and lower extremities. MUSCULOSKELETAL: Muscle strength and tone normal. SPINE: No scoliosis or deformity SKIN: No rashes CENTRAL NERVOUS SYSTEM: Alert and oriented -3. No focal deficits, tone is n ormal in all 4 extremities. PSYCHIATRIC: Alert and oriented -3. Appropriate affect. Intact judgment and insight. - Labs CBC & Chem 7: 03/17/20 04:00 03/17/20 04:00 Labs: Abnormal Lab Results - Last 24 Hours (Table) 03/16/20 03/16/20 03/17/20 Range/Units 15:13 21:12 04:00 RBC 4.11 L (4.30-5.90) m/uL Hgb 11.6 L (13.0-17.5) gm/dL Hct 36.4 L (39.0-53.0) % Sodium (137-145) mmol/L Glucose (74-99) mg/dL POC Glucose (mg/dL) 159 H 232 H (75-99) mg/dL 03/17/20 03/17/20 Range/Units 04:00 06:58 RBC (4.30-5.90) m/uL Hgb (13.0-17.5) gm/dL Hct (39.0-53.0) % Sodium 133 L (137-145) mmol/L Glucose 168 H (74-99) mg/dL POC Glucose (mg/dL) 198 H (75-99) mg/dL Assessment and Plan Assessment: #1. Subtotal occlusion of the right internal carotid artery stenosis greater than 95%, status post right transverse carotid artery revascularization with stenting, postoperative day #1 #2. Recent history of transient ischemic accident, with symptoms of transient numbness of the right facial region associated with slurred speech and drooping face, resolved #3. Recent history of left ICA revascularization and stenting on 01/23/2020 #4. Hypertension #5. Diabetes mellitus type 2 #6. Dyslipidemia #7. History of nicotine dependence, currently in remission #8. Severe tricuspid aortic valve stenosis with mild aortic regurgitation as seen on the transesophageal echocardiogram on 01/07/2020 #9. History of coronary artery disease with previous PCI and stenting #10. Sleep apnea on CPAP machine #11. History of anxiety and depression Recommendation: Agree with discharge planning, will follow when necessary Time with Patient: Less than 30
[2020-03-17 14:42] LABS: Hemoglobin A1C 8.7 % (4.0-6.0)
== END 2020-03-17 11:35 | disposition home or self-care (01) | DRG 36 ==
LOC: 2ORMAIN 09:15 → 2SICU 14:40
PROVIDERS: ADMIT Surgery; ATTEND Surgery
PROC: 037K3DZ Dilation of Right Internal Carotid Artery with Intraluminal Device, Percutaneous Approach (ICD-10-PCS; principal; 2020-03-16 10:50)
PROC: B3161ZZ Fluoroscopy of Right Internal Carotid Artery using Low Osmolar Contrast (ICD-10-PCS; principal; 2020-03-16 10:50)
DX: I65.21 Occlusion and stenosis of right carotid artery (principal); E11.9 Type 2 diabetes mellitus without complications; E78.5 Hyperlipidemia, unspecified; I25.10 Atherosclerotic heart disease of native coronary artery without angina pectoris; I10 Essential (primary) hypertension; H91.90 Unspecified hearing loss, unspecified ear; G89.4 Chronic pain syndrome; G47.30 Sleep apnea, unspecified; F32.9 Major depressive disorder, single episode, unspecified; F41.9 Anxiety disorder, unspecified; I08.2 Rheumatic disorders of both aortic and tricuspid valves; M54.5 Low back pain; Z79.02 Long term (current) use of antithrombotics/antiplatelets; Z79.82 Long term (current) use of aspirin; Z79.84 Long term (current) use of oral hypoglycemic drugs; Z79.899 Other long term (current) drug therapy; Z90.49 Acquired absence of other specified parts of digestive tract; Z98.890 Other specified postprocedural states; Z95.5 Presence of coronary angioplasty implant and graft; Z98.42 Cataract extraction status, left eye; Z98.41 Cataract extraction status, right eye; Z87.891 Personal history of nicotine dependence; Z82.3 Family history of stroke; Z86.73 Personal history of transient ischemic attack (TIA), and cerebral infarction without residual deficits; Z88.0 Allergy status to penicillin; Z97.4 Presence of external hearing-aid
CPT/HCPCS: 37215; 80048; 83036; 85025

== ENCOUNTER → 2020-05-11 | Outpatient (CLI) | payer MEDICARE ==
[2020-05-11 12:15] LABS: HCT 39.7 % (39.0-53.0); MCHC 32.7 g/dL (31.0-37.0); MCV 88.5 fL (80.0-100.0); Mean Platelet Volume 7.8; Platelet Count 229 k/uL (150-450); RBC 4.48 m/uL (4.30-5.90); RDW 14.1 % (11.5-15.5); WBC 10.2 k/uL (3.8-10.6)
[2020-05-11 21:13] LABS: African American GFR (CKD) 72.6 (60.0-200.0); Albumin 4.4 g/dL (3.80-4.90); Albumin/Globulin Ratio 2.32 (1.60-3.17); Anion Gap 10.4 mmol/L (4.00-12.00); Calcium 9.4 mg/dL (8.7-10.3); Carbon Dioxide 22.6 mmol/L (21.6-31.8); Globulin 1.9 g/dL (1.6-3.3); Non-African American GFR(CKD) 62.6 (60.0-200.0); Potassium 4.8 mmol/L (3.5-5.5); Total Bilirubin 0.6 mg/dL (0.3-1.2); Total Protein 6.3 g/dL (6.2-8.2)
== END | disposition home or self-care (01) ==
LOC: LABWHC1 09:54
PROVIDERS: ATTEND Student in an Organized Health Care Education/Training Program
DX: R06.02 Shortness of breath (principal)
CPT/HCPCS: 36415; 80053; 83880; 85027

== ENCOUNTER 2020-05-31 17:32 | Observation (INO) | payer MEDICARE ==
[2020-05-31] MEDS ORDERED: SODIUM CHLORIDE 0.9% 500 ML 500 ML IV STA (17:51)
--- NOTE | 2020-05-31 17:53 | ED ---
General Adult HPI - General Chief complaint: Neuro Symptoms/Deficit Stated complaint: poss TIA Time Seen by Provider: 05/31/20 17:42 Source: patient, family Mode of arrival: wheelchair Limitations: no limitations - History of Present Illness Initial comments: Dictation was produced using [employer] dictation software. please excuse any grammatical, word or spelling errors. This patient was cared for during a federal and state declared state of evergreenhealth secondary to Covid 19 Chief Complaint: 79-year-old male with multiple comorbidities presents with strokelike symptoms History of Present Illness: 1-year-old male approximately 45-30 minutes prior to arrival he experienced an episode that was concerning for stroke. He is accompanied by daughter. Daughter reports that she received a phone call at around 5:10 PM from patient's that he was having confusion and facial droop. Patient has extensive history of transient ischemic attack. Months ago he had a carotid endarterectomy. That was the last time he had any sort of tr ansient ischemic attack. Daughter reports that she went over to see him as soon as she got a call from her mother. She noted that patient's right eye was pointed of an patient was having garbled speech and facial droop that lasted for several seconds. Patient states he feels weird. He does not feel any numbness to the paresthesias to the arms or legs. The ROS documented in this emergency department record has been reviewed and confirmed by me. Those systems with pertinent positive or negative responses have been documented in the HPI. All other systems are other negative and/or noncontributory. PHYSICAL EXAM: General Impression: Alert and oriented x3, not in acute distress, hard of hearing HEENT: Normocephalic atraumatic, extra-ocular movements intact, pupils equal and reactive to light bilaterally, mucous membranes moist. Cardiovascular: Heart regular rate and rhythm Chest: Able to complete full sentences, no retractions, no tachypnea Abdomen: abdomen soft, non-tender, non-distended, no organomegaly Musculoskeletal: Pulses present and equal in all extremities, no peripheral edema Motor: no focal deficits noted Neurological: CN II-XII grossly intact, no focal motor or sensory deficits noted, and age 0, no facial droop Skin: Intact with no visualized rashes Psych: Normal affect and mood ED course: 79-year-old male presents with TIA symptoms. Vital signs upon arrival are within acceptable limits. Patient's well-appearing at bedside. He doesn't have any focal neurologic deficits at bedside. Laboratory evaluation obtained. CBC, coag panel, metabolic panel is unre markable. Chronic enzymes negative. Computed tomography scan of the brain and chest x-ray is nonacute. Patient reevaluated at bedside after 2 hours of ER observation with stable medical condition. Daughter reports that he is looking much better now. Patient be admitted with consultation to neurology. Patient will be admitted to Dr. Baer. EKG interpretation: Ventricular rate 65, sinus rhythm with first-degree AV block, OH interval 210, QRS 80, QTC 407. No OH prolongation, no QTC prolonga tion, no ST or T-wave changes noted. Overall, this EKG is unremarkable - Related Data Home Medications Medication Instructions Recorded Confirmed Citalopram Hydrobromide [CeleXA] 40 mg PO DAILY 01/14/15 03/16/20 metFORMIN HCL 1,000 mg PO BID 01/15/15 03/16/20 HYDROcodone/APAP 10-325MG [Sturkie 1 tab PO Q8H PRN 08/18/16 03/16/20 10-325] Aspirin EC [Ecotrin Low Dose] 81 mg PO DAILY 05/28/17 03/16/20 Losartan Potassium 100 mg PO DAILY 01/05/20 03/16/20 Carvedilol [Coreg] 12.5 mg PO BID 01/19/20 03/16/20 amLODIPine [Norvasc] 5 mg PO DAILY 01/19/20 03/16/20 Previous Rx's Medication Instructions Recorded Atorvastatin [Lipitor] 40 mg PO DAILY #90 tab 01/08/20 Clopidogrel [Plavix] 75 mg PO DAILY #90 tab 01/08/20 Nitroglycerin Sl Tabs [Nitrostat] 0.4 mg SUBLINGUAL Q5M PRN #25 tab 01/08/20 Allergies Allergy/AdvReac Type Severity Reaction Status Date / Time Penicillins Allergy Rash/Hives Verified 05/31/20 17:40 Review of Systems ROS Statement: Those systems with pertinent positive or pertinent negative responses have been documented in the HPI. ROS Other: All systems not noted in ROS Statement are negative. Past Medical History Past Medical History: Coronary Artery Disease (CAD), Chest Pain / Angina, CVA/TIA, Diabetes Mellitus, Eye Disorder, Hearing Disorder / Deafness, Hyperlipidemia, Hypertension, Sleep Apnea/CPAP/BIPAP Additional Past Medical History / Comment(s): Claude hearing aids, tinnitus, chronic lower back pain, work injury 1975 w/concussion", "occ hand tremors", hx shingles 2009, not using cpap regularly, . Heart murmur. Varicose veins. Admit w/ TIA 01/19/20- no residual effects. leaky heart valve History of Any Multi-Drug Resistant Organisms: None Reported Past Surgical History: Appendectomy, Bariatric Surgery, Cholecystectomy, Heart Catheterization With Stent, Hernia Repair Additional Past Surgical History / Comment(s): Lap band, colonoscopy, claude cataracts, glaucoma surg, PTCA w/ stents x2 01/07/20. left TCAR 01/23/20. Past Anesthesia/Blood Transfusion Reactions: No Reported Reaction Date of Last Stent Placement:: 01/07/20 Past Psychological History: Anxiety, Depression Smoking Status: Former smoker Past Alcohol Use History: None Reported Past Drug Use History: None Reported - Past Family History Father Family Medical History: CVA/TIA Additional Family Medical History / Comment(s): stroke Mother Family Medical History: No Reported History Additional Family Medical History / Comment(s): stroke General Exam Limitations: no limitations Course Vital Signs 05/31/20 17:33 Temperature 97.1 F L Pulse Rate 63 Respiratory 18 Rate Blood Pressure 194/73 O2 Sat by Pulse 98 Oximetry Medical Decision Making - Lab Data Result diagrams: 05/31/20 18:09 05/31/20 18:09 Lab Results 05/31/20 05/31/20 05/31/20 Range/Units 18:09 18:09 18:09 WBC 9.3 (3.8-10.6) k/uL RBC 4.59 (4.30-5.90) m/uL Hgb 13.6 (13.0-17.5) gm/dL Hct 40.6 (39.0-53.0) % MCV 88.5 (80.0-100.0) fL MCH 29.7 (25.0-35.0) pg MCHC 33.5 (31.0-37.0) g/dL RDW 13.6 (11.5-15.5) % Plt Count 229 (150-450) k/uL Neutrophils % 52 % Lymphocytes % 38 % Monocytes % 5 % Eosinophils % 2 % Basophils % 1 % Neutrophils # 4.8 (1.3-7.7) k/uL Lymphocytes # 3.6 (1.0-4.8) k/uL Monocytes # 0.5 (0-1.0) k/uL Eosinophils # 0.2 (0-0.7) k/uL Basophils # 0.1 (0-0.2) k/uL PT 9.7 (9.0-12.0) sec INR 0.9 (<1.2) APTT 23.8 (22.0-30.0) sec Sodium 133 L (137-145) mmol/L Chloride 103 (98-107) mmol/L Carbon Dioxide 24 (22-30) mmol/L Anion Gap 6 mmol/L BUN 28 H (9-20) mg/dL Creatinine 1.23 (0.66-1.25) mg/dL Est GFR (CKD-EPI)AfAm 64 (>60 ml/min/1.73 sqM) Est GFR (CKD-EPI)NonAf 55 (>60 ml/min/1.73 sqM) Glucose 199 H (74-99) mg/dL Calcium 9.5 (8.4-10.2) mg/dL Total Bilirubin 0.6 (0.2-1.3) mg/dL AST 23 (17-59) U/L ALT 16 (4-49) U/L Alkaline Phosphatase 70 (38-126) U/L Troponin I (0.000-0.034) ng/mL Total Protein 6.9 (6.3-8.2) g/dL Albumin 4.3 (3.5-5.0) g/dL 05/31/20 Range/Units 18:09 WBC (3.8-10.6) k/uL RBC (4.30-5.90) m/uL Hgb (13.0-17.5) gm/dL Hct (39.0-53.0) % MCV (80.0-100.0) fL MCH (25.0-35.0) pg MCHC (31.0-37.0) g/dL RDW (11.5-15.5) % Plt Count (150-450) k/uL Neutrophils % % Lymphocytes % % Monocytes % % Eosinophils % % Basophils % % Neutrophils # (1.3-7.7) k/uL Lymphocytes # (1.0-4.8) k/uL Monocytes # (0-1.0) k/uL Eosinophils # (0-0.7) k/uL Basophils # (0-0.2) k/uL PT (9.0-12.0) sec INR (<1.2) APTT (22.0-30.0) sec Sodium (137-145) mmol/L Chloride (98-107) mmol/L Carbon Dioxide (22-30) mmol/L Anion Gap mmol/L BUN (9-20) mg/dL Creatinine (0.66-1.25) mg/dL Est GFR (CKD-EPI)AfAm (>60 ml/min/1.73 sqM) Est GFR (CKD-EPI)NonAf (>60 ml/min/1.73 sqM) Glucose (74-99) mg/dL Calcium (8.4-10.2) mg/dL Total Bilirubin (0.2-1.3) mg/dL AST (17-59) U/L ALT (4-49) U/L Alkaline Phosphatase (38-126) U/L Troponin I <0.012 (0.000-0.034) ng/mL Total Protein (6.3-8.2) g/dL Albumin (3.5-5.0) g/dL Disposition Clinical Impression: TIA (transient ischemic attack) Disposition: ADMITTED IP TO THIS HOSP Condition: Fair Referrals: Mell Baer MD [Primary Care Provider] - 1-2 days Decision Time: 19:24
[2020-05-31 18:33] LABS: Basophils # (A) 0.1 k/uL (0-0.2); Basophils % (A) 1 %; Eosinophils # (A) 0.2 k/uL (0-0.7); Eosinophils % (A) 2 %; HCT 40.6 % (39.0-53.0); HGB 13.6 gm/dL (13.0-17.5); Lymphocytes # (A) 3.6 k/uL (1.0-4.8); Lymphocytes % (A) 38 %; MCH 29.7 pg (25.0-35.0); MCHC 33.5 g/dL (31.0-37.0); MCV 88.5 fL (80.0-100.0); Mean Platelet Volume 7.6; Monocytes # (A) 0.5 k/uL (0-1.0); Monocytes % (A) 5 %; Neutrophils # (A) 4.8 k/uL (1.3-7.7); Neutrophils % (A) 52 %; Platelet Count 229 k/uL (150-450); RBC 4.59 m/uL (4.30-5.90); RDW 13.6 % (11.5-15.5); WBC 9.3 k/uL (3.8-10.6)
[2020-05-31 18:42] LABS: INR 0.9 (<1.2); Partial Thromboplastin Time 23.8 sec (22.0-30.0); Prothrombin Time 9.7 sec (9.0-12.0)
--- NOTE | 2020-05-31 18:45 | XR ---
EXAMINATION TYPE: XR chest 2V DATE OF EXAM: 05/31/2020 COMPARISON: 01/19/2020 HISTORY: Altered mental status TECHNIQUE: FINDINGS: There is no heart failure. There is some minimal subsegmental atelectasis left lung base. C ostophrenic angles show no fluid. . Bony thorax is intact. There are some calcified granulomata at th e pulmonary shemar. IMPRESSION: Mild subsegmental atelectasis at the left lung base appears new compared to old exam. Nor mal heart.
--- NOTE | 2020-05-31 19:00 | CT ---
EXAMINATION TYPE: CT brain wo con DATE OF EXAM: 05/31/2020 COMPARISON: 02/11/2020 HISTORY: STROKE SUSPECTED NEURO DEFICIT CT DLP: 1126 mGycm Automated exposure control for dose reduction was used. There is cerebral cortical atrophy. There is no mass effect nor midline shift. There is no sign of in tracranial hemorrhage. The calvarium is intact. There is normal aeration of the mastoid sinuses. IMPRESSION: Cerebral atrophy. No acute intracranial abnormality. No change compared to old exam.
[2020-05-31 19:15] LABS: Albumin 4.3 g/dL (3.5-5.0); Calcium 9.5 mg/dL (8.4-10.2); Total Bilirubin 0.6 mg/dL (0.2-1.3); Total Protein 6.9 g/dL (6.3-8.2)
[2020-05-31] MEDS ORDERED: ASPIRIN 81 MG PO STA (19:21)
[2020-05-31] MEDS ORDERED: NALOXONE 0.4 MG/ML 1 ML VIAL IV PRN (19:23)
[2020-05-31] MEDS ORDERED: ACETAMINOPHEN TAB 325 MG TAB PO PRN (19:23)
[2020-05-31 19:26] LABS: Potassium 4.6 mmol/L (3.5-5.1)
[2020-05-31] MEDS ORDERED: NITROGLYCERIN SL TABS 0.4 MG TAB SUBLINGUAL PRN (21:04)
[2020-05-31] MEDS ORDERED: HYDROcodone/APAP 10-325MG 1 EACH TAB PO PRN (21:04)
[2020-05-31] MEDS: metFORMIN 500 MG TAB PO SCH (21:21)
[2020-05-31] MEDS: HYDROcodone/APAP 5-325MG 1 EACH TAB PO PRN (21:21)
[2020-05-31] MEDS: carvediloL 12.5 MG TAB PO SCH (21:21)
[2020-06-01 06:12] LABS: Glucose,Whole Blood 204 mg/dL (75-99)
[2020-06-01] MEDS: carvediloL 12.5 MG TAB PO SCH ×2 (07:01→16:06)
[2020-06-01] MEDS: INSULIN ASPART (NovoLOG) 100 UNIT/ML VIAL SQ SCH ×4 (07:01→21:05)
[2020-06-01] MEDS: ASPIRIN 81 MG PO SCH (08:08)
[2020-06-01] MEDS: amLODIPine 5 MG TAB PO SCH (08:08)
[2020-06-01] MEDS: LOSARTAN 50 MG TAB PO SCH (08:08)
[2020-06-01] MEDS: metFORMIN 500 MG TAB PO SCH ×2 (08:09→21:06)
[2020-06-01] MEDS: CITALOPRAM HYDROBROMIDE 20 MG TAB PO SCH (08:09)
[2020-06-01] MEDS ORDERED: CLOPIDOGREL 75 MG TAB PO SCH (09:00)
[2020-06-01] MEDS ORDERED: ATORVASTATIN 40 MG TAB PO SCH (09:00)
--- NOTE | 2020-06-01 10:18 | US ---
EXAMINATION TYPE: US carotid duplex BILAT DATE OF EXAM: 06/01/2020 COMPARISON: CT 02/11/2020 & US 01/20/2020 carotid arteriogram 01/20/2020, 06/25/2020 CLINICAL HISTORY: TIA. TIA EXAM MEASUREMENTS: RIGHT: Peak Systolic Velocity (PSV) cm/sec ----- Right CCA: 91.0 ----- Right ICA: 205.1 ----- Right ECA: 190.9 ICA/CCA ratio: 2.3 RIGHT: End Diastole cm/sec ----- Right CCA: 12.2 ----- Right ICA: 44.4 ----- Right ECA: 9.0 LEFT: Peak Systolic Velocity (PSV) cm/sec ----- Left CCA: 63.6 ----- Left ICA: 149.6 ----- Left ECA: 119.1 ICA/CCA ratio: 2.4 LEFT: End Diastole cm/sec ----- Left CCA: 11.5 ----- Left ICA: 28.5 ----- Left ECA: 7.9 VERTEBRALS (direction of flow): Right Vertebral: Antegrade Left Vertebral: Antegrade Rhythm: Normal Bilateral intimal thickening, plaque bilateral bulb and ICA, bilateral stents noted right common [place] artery extending into the proximal internal carotid artery as on the left, elevated velocities: r ight prox mid and distal ICA, right proximal ECA, left prox mid and distal ICA, right ICA/CCA ratio 2 .3, left ICA/CCA ratio 2.4 Grayscale, color Doppler, spectral Doppler imaging performed of the carotid arteries. Waveform analys is suggests hemodynamic significant stenosis bilaterally within the internal carotid arteries by Dopp ler criteria. IMPRESSION: Hemodynamic significant stenosis of the proximal internal carotid arteries corresponding to 50-69% diameter reduction by Doppler criteria, an indirect measurement of carotid stenosis . No te that tortuosity within the right internal carotid artery on the right may influence the exam, fle[place] CTA may be of benefit. Criteria for Assigning % of Stenosis / Diameter reduction (Estimation based on the indirect measurements of the internal carotid artery velocities (ICA PSV). 1. Normal (no stenosis)=ICA PSV < 125 cm/s: ratio < 2.0: ICA EDV<40 cm/s. 2. Less than 50% stenosis=ICA PSV < 125 cm/s: ratio < 2.0: ICA EDV<40 cm/s. 3. 50 to 69% stenosis=ICA PSV of 125 to 230 cm/s: ration 2.0 ? 4.0: ICA EDV 40-100 cm/s. 4. Greater than 70% stenosis to near occlusion= ICA PSV > 230 cm/s: ratio > 4.0: ICA EDV > 100 cm/s. 5. Near occlusion= ICA PSV velocities may be low or undetectable: variable ratio and ICA EDV. 6. Total occlusion=unable to detect flow.
[2020-06-01 11:56] LABS: Glucose,Whole Blood 224 mg/dL (75-99)
[2020-06-01 13:08] LABS: Hemoglobin A1C 9.4 % (4.0-6.0)
[2020-06-01] MEDS ORDERED: TICAGRELOR 90 MG TAB PO STA (13:30)
--- NOTE | 2020-06-01 13:32 | P.CNNES ---
History of Present Illness Consult date: 06/01/20 Requesting physician: Tito Burns Reason for Consult: Transient ischemic attack for garbled speech, facial droop History of Present Illness: This is an 79 y.o gentleman with medical history of multiple transient ischemic attack, left ICA stenting 01/23/20, right ICA stenosis status post stenting on 03/16/2020, coronary artery disease, hyperlipidemia, hypertension, sleep apnea on BiPAP, diabetes mellitus, bilateral hearing loss who presented to the emergency department on 05/31/2020 for concern for strokelike symptoms. The daughter reports that she received a phone call around 5:10 PM from the patient's that the patient was having garbled speech and right facial droop. Per the patient the he said that that episode lasted for about 30 minutes to 1 hour. The patient is on aspirin 81 mg, Plavix 75 mg and Lipitor 40 mg and he has not missed any of his medication. The patient's back to baseline now. Patient denies off any jerk in of any of the extremities, loss of consciousness. He denies of any visual disturbance or difficulty swallowing. Of note the patient is known to Dr. Cho, neuro-hospitalist who last saw him on the 02/12/2020 for a transient ischemic attack. At that time the patient had slurred speech and that droopiness of the right side of the face. As a result the patient underwent CTA of the head and neck which showed subtotal occlusion of the proximal right ICA that has progressed compared to the the previous exam reported. And that was about 70% of the proximal left ICA with apparent stent. Normal vertebral arteries. Patient also presented for transient ischemic attack on 01/19/2020 for a TIA as well for slurred speech and right-sided facial droop. He also presented for TIA on 01/17/2017 for expressive aphasia. So the patient seems that the had the right ICA carotid stenosis and had stenting on 03/16/[address] Barrera Royal. Workup in the hospital consisted of: Initial vitals: Blood pressure is 194/73, heart rate of 63, respiratory of 18, temperature of 97.1 Fahrenheit oral and pulse ox of 98% at room air. CT of the head was reported as cerebral atrophy. No acute intracranial abnormality. No change compared to old exam. Personally reviewed the CT of the head and there is no acute ischemia, hemorrhage and there is no pertinent e ncephalomalacia seen. There is mild generalized cerebral atrophy which is appropriate for the patient age. Carotid duplex was reported as hemodynamic significant stenosis of the proximal internal carotid arteries corresponding with 50-69% diameter reduction by Doppler criteria, and in direct management of carotid stenosis. Noted that prosody within the right internal carotid artery on the right may influence the exam, carotid CTA may be of benefit. EKG was reported as sinus rhythm with first-degree AV block. Ventricular rate of 65 bpm. Otherwise normal EKG. Initial glucose by mouth C was 204. The sodium is 133. Patient serum from January 2020 total March 2020 has been hovering between 133-136. Patient the has smoked one pack per day for 30-40 years, quit 25 years ago. Review of Systems Review of system: The 12 point system was reviewed and apparent positive and negative per HPI. Past Medical History Past Medical History: Coronary Artery Disease (CAD), Chest Pain / Angina, CVA/TIA, Diabetes Mellitus, Eye Disorder, Hearing Disorder / Deafness, Hyperlipidemia, Hypertension, Sleep Apnea/CPAP/BIPAP Additional Past Medical History / Comment(s): [place] hearing aids, tinnitus, chronic lower back pain, work injury 1975 w/concussion", "occ hand tremors", hx shingles 2009, not using cpap regularly, . Heart murmur. Varicose veins. Admit w/ TIA 01/19/20- no residual effects. leaky heart valve History of Any Multi-Drug Resistant Organisms: None Reported Past Surgical History: Appendectomy, Bariatric Surgery, Cholecystectomy, Heart Catheterization With Stent, Hernia Repair Additional Past Surgical History / Comment(s): Lap band, colonoscopy, paulette cataracts, glaucoma surg, PTCA w/ stents x2 01/07/20. left TCAR 01/23/20. Past Anesthesia/Blood Transfusion Reactions: No Reported Reaction Date of Last Stent Placement:: 01/07/20 Past Psychological History: Anxiety, Depression Smoking Status: Former smoker Past Alcohol Use History: None Reported Additional Past Alcohol Use History / Comment(s): started smoking at age 7 (1948),quit 1994, was smoking 1.5 ppd. Past Drug Use History: None Reported - Past Family History Father Family Medical History: CVA/TIA Additional Family Medical History / Comment(s): stroke Mother Family Medical History: No Reported History Additional Family Medical History / Comment(s): stroke Medications and Allergies Home Medications Medication Instructions Recorded Confirmed Type Citalopram Hydrobromide [CeleXA] 40 mg PO DAILY 01/14/15 05/31/20 History metFORMIN HCL 1,000 mg PO BID 01/15/15 05/31/20 History HYDROcodone/APAP 10-325MG [[place] 1 tab PO Q8H PRN 08/18/16 05/31/20 History 10-325] Aspirin EC [Ecotrin Low Dose] 81 mg PO DAILY 05/28/17 05/31/20 History Losartan Potassium 100 mg PO DAILY 01/05/20 05/31/20 History Atorvastatin [Lipitor] 40 mg PO DAILY #90 tab 01/08/20 05/31/20 Rx Clopidogrel [Plavix] 75 mg PO DAILY #90 tab 01/08/20 05/31/20 Rx Nitroglycerin Sl Tabs [Nitrostat] 0.4 mg SUBLINGUAL Q5M PRN #25 tab 01/08/20 05/31/20 Rx Carvedilol [Coreg] 12.5 mg PO BID 01/19/20 05/31/20 History amLODIPine [Norvasc] 5 mg PO DAILY 01/19/20 05/31/20 History Allergies Allergy/AdvReac Type Severity Reaction Status Date / Time Penicillins Allergy Rash/Hives Verified 05/31/20 17:40 Physical Examination - Vital Signs Vital Signs: Vital Signs Temp Pulse Pulse Resp BP BP Pulse Ox 06/01/20 08:00 97.5 F L 67 18 135/57 97 06/01/20 04:00 98.1 F 65 16 120/57 94 L 06/01/20 00:00 98.1 F 65 18 150/67 96 05/31/20 20:40 97.4 F L 69 16 192/84 98 05/31/20 19:37 64 19 178/79 97 05/31/20 19:20 63 18 197/83 97 05/31/20 19:00 64 16 195/84 97 05/31/20 18:56 64 18 195/84 97 05/31/20 17:33 97.1 F L 63 18 194/73 98 Intake and Output 05/31/20 06/01/20 06/01/20 22:59 06:59 14:59 Intake Total 240 Output Total 400 Balance -160 Intake: Oral 240 Output: Urine 400 Other: Voiding Method Toilet # Voids 0 1 Weight 90.718 kg 94.2 kg GENERAL: The patient is lying in bed and is not in acute distress. CHEST: The heart rate is regular rate rhythm. No murmurs to auscultation. Positive carotid bruit bilaterally. LUNG: Clear to auscultation bilaterally no wheezing noted throughout. Not lab ored breathing. ABDOMEN/GI: Bowel sounds present in all 4 quadrants. No tenderness to palpation throughout. NEUROLOGICAL: Higher mental function: The patient is awake, alert, oriented to self, place and time. Patient is following commands. No aphasia and no neglect. Cranial nerves: The pupils are round, equal and reactive to light and accommodation. Visual harry are full to confrontation throughout. Extraocular movement is intact no nystagmus is noted. Facial sensation is normal to touch throughout. The facial strength is normal throughout. Hearing is normal bilaterally to hand rub. Tongue is midline and moved [id number] without any difficulty. No dysarthria is noted. Shoulder shrug is normal bilaterally. Motor: The strength is 5 over 5 throughout. Normal tone and bulk. Cerebellum: Normal finger to nose heel to chin bilaterally. Sensation: Sensation is normal to touch throughout. Reflexes (right/left): 2+ throughout. Plantars are downgoing bilaterally. Results - Laboratory Findings CBC and BMP: 05/31/20 18:09 05/31/20 18:09 Abnormal Lab Findings: Abnormal Labs 05/31/20 06/01/20 18:09 06:10 Sodium 133 L BUN 28 H Glucose 199 H POC Glucose (mg/dL) 204 H Assessment and Plan Assessment: This is an 79 y.o gentleman with medical history of multiple transient ischemic attack, left ICA stenosis s/p stenting 01/23/20, right ICA stenosis status post stenting on 03/16/2020, loss who presented to the emergency department on 05/31/2020 for concern for strokelike symptoms. The patient had right facial droop and garbled speech lasting 30 minutes to 1 hour. Transient ischemic attack: Slurred speech and right facial droop Left ICA stenosis s/p stenting 01/23/20--continues to be symptomatic Right ICA stenosis status post stenting on 03/16/2020 (Asymptomatic side) Hypertension Hyperlipidemia Sleep apnea on BiPAP Diabetes mellitus Plan: Currently the patient is on aspirin 81 mg and Plavix 75 mg dual antiplatelet therapy for secondary stroke prophylaxis. The patient has failed the this regimen and therefore I'm will continue the aspirin 81 mg daily but add Brilinta 90mg bid and load him with 180 mg of Brilinta once. We'll increase the Lipitor from 40 mg to 80 mg daily. Lipitor is used as a secondary stroke prophylaxis as well as helps with stabilizing the plaque within the carotids. I will order CTA of neck only. I consulted Dr. Damian for evaluation of his carotid and the patient left internal carotid remain symptomatic even though after stenting. Continue cardiac monitoring 2-D echo is pending. Thank you for the consultation. Gilbert Macedo M.D. Neuro-hospitalist Time with Patient: Greater than 30
[2020-06-01 16:56] LABS: Glucose,Whole Blood 200 mg/dL (75-99)
--- NOTE | 2020-06-01 17:10 | CT ---
EXAMINATION TYPE: CT angio neck DATE OF EXAM: 06/01/2020 HISTORY: Carotid stenosis COMPARISON: Carotid artery Doppler duplex same date, prior CT angiogram of the neck 02/11/2020 CT DLP: 479 mGycm. Automated Exposure Control for Dose Reduction was Utilized. TECHNIQUE: CTA scan of the neck is performed with IV Contrast, patient injected with 65 mL of Isovue 370, axial images are obtained, coronal and sagittal reformatted images are reviewed. Three-D recons tructed images are created on an independent workstation and reviewed. FINDINGS: Carotid/Vascular Structures: Transverse aorta, left and right common carotid artery, innominate arter y, left and right subclavian arteries are patent. Left and right vertebral arteries are patent and co dominant. There are carotid artery stents present bilaterally, internal and external carotid arteries are patent. Marked tortuosity of the internal carotid artery on the left is noted distal to the sten t. I question some intimal thickening within the stent, axial image #51 on the left. On the right the re is also abnormal low attenuation within the stent, irregularity of the stent wall is also question ed. External carotid arteries are patent. Other: No other significant interval changes. IMPRESSION: Bilateral carotid stent placement obscures detail. Difficult to exclude intrastent stenos is, consider digital subtraction angiography for better evaluation, vascular surgery consult
--- NOTE | 2020-06-01 17:22 | P.HPIM ---
History of Present Illness H&P Date: 06/01/20 Alejo Lees, is an 79-year-old male who presented to [facility] emergency room due to an episode of slurred speech and right facial drooping, patient's noticed symptoms around 5 PM yesterday she called his daughter and patient was brought into emergency room. Patient was evaluated in the emergency room his vital examination on presentation reveals a temperature of 97.1 pulse 63 respiration 18 blood pressure 194/73 pulse ox 98% on room air laboratory data revealed a normal CBC sodium 133 BUN 28 glucose 119 9 hemoglobin A1c 9.4 and normal liver function and troponin level patient underwent a computed tomography scan of the brain without contrast in the emergency room wh ich revealed cerebral atrophy no acute intracranial abnormality no change compared to old exam, his chest x-ray revealed mild subsegmental atelectasis of the left lung base otherwise no acute abnormality patient was admitted to telemetry floor neurology consultation was requested echocardiogram and carotid Doppler were requested. Patient has a known history of multiple transient ischemic attack in the past he had left internal carotid artery stenting in January 2020 to and right carotid artery stenting in March 2020 patient also has underlying history of hypertension, hyperlipidemia, obstructive sleep apnea, and diabetes mellitus. On review of systems patient currently is alert and oriented 3 in no apparent distress his speech is fluent she is still having mild drooping on the right side as compared to the left otherwise he denies any complaints there is no fever or chills no headache or dizziness no chest pain no shortness of breath no cough no nausea or vomiting no abdominal pain no diarrhea no blood in the stools no burning with urination no frequency or urgency and no hematuria Past Medical History Past Medical History: Coronary Artery Disease (CAD), Chest Pain / Angina, CVA/TIA, Diabetes Mellitus, Eye Disorder, Hearing Disorder / Deafness, Hyperlipidemia, Hypertension, Sleep Apnea/CPAP/BIPAP Additional Past Medical History / Comment(s): [place] hearing aids, tinnitus, chronic lower back pain, work injury 1975 w/concussion", "occ hand tremors", hx shingles 2009, not using cpap regularly, . Heart murmur. Varicose veins. Admit w/ TIA 01/19/20- no residual effects. leaky heart valve History of Any Multi-Drug Resistant Organisms: None Reported Past Surgical History: Appendectomy, Bariatric Surgery, Cholecystectomy, Heart Catheterization With Stent, Hernia Repair Additional Past Surgical History / Comment(s): Lap band, colonoscopy, [place] cataracts, glaucoma surg, PTCA w/ stents x2 01/07/20. left TCAR 01/23/20. Past Anesthesia/Blood Transfusion Reactions: No Reported Reaction Date of Last Stent Placement:: 01/07/20 Past Psychological History: Anxiety, Depression Smoking Status: Former smoker Past Alcohol Use History: None Reported Additional Past Alcohol Use History / Comment(s): started smoking at age 7 (1948),quit 1994, was smoking 1.5 ppd. Past Drug Use History: None Reported - Past Family History Father Family Medical History: CVA/TIA Additional Family Medical History / Comment(s): stroke Mother Family Medical History: No Reported History Additional Family Medical History / Comment(s): stroke Medications and Allergies Home Medications Medication Instructions Recorded Confirmed Type Citalopram Hydrobromide [CeleXA] 40 mg PO DAILY 01/14/15 05/31/20 History metFORMIN HCL 1,000 mg PO BID 01/15/15 05/31/20 History HYDROcodone/APAP 10-325MG [[place] 1 tab PO Q8H PRN 08/18/16 05/31/20 History 10-325] Aspirin EC [Ecotrin Low Dose] 81 mg PO DAILY 05/28/17 05/31/20 History Losartan Potassium 100 mg PO DAILY 01/05/20 05/31/20 History Atorvastatin [Lipitor] 40 mg PO DAILY #90 tab 01/08/20 05/31/20 Rx Clopidogrel [Plavix] 75 mg PO DAILY #90 tab 01/08/20 05/31/20 Rx Nitroglycerin Sl Tabs [Nitrostat] 0.4 mg SUBLINGUAL Q5M PRN #25 tab 01/08/20 Rx Carvedilol [Coreg] 12.5 mg PO BID 01/19/20 05/31/20 History amLODIPine [Norvasc] 5 mg PO DAILY 01/19/20 05/31/20 History Allergies Allergy/AdvReac Type Severity Reaction Status Date / Time Penicillins Allergy Rash/Hives Verified 05/31/20 17:40 Physical Exam Vitals: Vital Signs Temp Pulse Pulse Resp BP BP Pulse Ox 06/01/20 08:00 97.5 F L 67 18 135/57 97 10/27/20 04:00 98.1 F 65 16 120/57 94 L 06/01/20 00:00 98.1 F 65 18 150/67 96 05/31/20 20:40 97.4 F L 69 16 192/84 98 05/31/20 19:37 64 19 178/79 97 05/31/20 19:20 63 18 197/83 97 05/31/20 19:00 64 16 195/84 97 05/31/20 18:56 64 18 195/84 97 05/31/20 17:33 97.1 F L 63 18 194/73 98 Intake and Output 05/31/20 06/01/20 06/01/20 22:59 06:59 14:59 Intake Total 240 Balance 240 Intake: Oral 240 Other: Voiding Method Toilet # Voids 0 1 Weight 90.718 kg 94.2 kg In general patient is alert and oriented 3 HEENT head normocephalic and atraumatic Neck is supple no JVD no goiter no lymphadenopathy Chest exam reveals a few scattered rhonchi no wheezing Cardiac exam reveals regular heart sounds S1 and S2 no gallops no murmurs nor rubs Abdomen is soft nontender no organomegaly Extremity exam reveals no edema no cyanosis or clubbing Neurological examination reveals mental function patient is alert and oriented 3 speech is fluent cranial nerves II-12 are intact there is minimal right sided facial drooping as compared to the left and it's difficult at this time to tell whether this is chronic or acute, there is no focal motor or sensory deficits reflexes are 2+ symmetrical and Babinski are negative bilaterally Results CBC & Chem 7: 05/31/20 18:09 05/31/20 18:09 Labs: Abnormal Lab Results - Last 24 Hours (Table) 05/31/20 06/01/20 Range/Units 18:09 06:10 Sodium 133 L (137-145) mmol/L BUN 28 H (9-20) mg/dL Glucose 199 H (74-99) mg/dL POC Glucose (mg/dL) 204 H (75-99) mg/dL Thrombosis Risk Factor Assmnt - Choose All That Apply Any of the Below Risk Factors Present?: Yes Each Factor Represents 1 point: Obesity (BMI >25) Other Risk Factors: Yes Each Risk Factor Represents 3 Points: Age 75 years or older Thrombosis Risk Factor Assessment Total Risk Factor Score: 4 Thrombosis Risk Factor Assessment Level: Moderate Risk Assessment and Plan Plan: 1. Acute transient ischemic attack with slurred speech and facial drooping, symptoms resolved at this time 2. Underlying history of carotid stenosis with history of bilateral carotid ar camila stenting carotid Doppler was ordered vascular surgery consultation request 3. Underlying history of diabetes mellitus not well controlled we will adjust medication during this admission 4. Underlying history of hypertension 5. Underlying history of hyperlipidemia At this time medication reviewed and reordered For DVT prophylaxis we'll use subcu Lovenox For GI prophylaxis omeprazole Neurology consultation and vascular surgery consultation requested will follow closely
[2020-06-01 20:35] LABS: Glucose,Whole Blood 175 mg/dL (75-99)
[2020-06-02 06:23] LABS: Glucose,Whole Blood 217 mg/dL (75-99)
[2020-06-02] MEDS: INSULIN ASPART (NovoLOG) 100 UNIT/ML VIAL SQ SCH ×2 (06:36→12:44)
[2020-06-02] MEDS: carvediloL 12.5 MG TAB PO SCH (06:36)
[2020-06-02] MEDS: metFORMIN 500 MG TAB PO SCH (08:48)
[2020-06-02] MEDS: amLODIPine 5 MG TAB PO SCH (08:48)
[2020-06-02] MEDS: CITALOPRAM HYDROBROMIDE 20 MG TAB PO SCH (08:48)
[2020-06-02] MEDS: ASPIRIN 81 MG PO SCH (08:48)
[2020-06-02] MEDS: HYDROcodone/APAP 5-325MG 1 EACH TAB PO PRN (08:48)
[2020-06-02] MEDS: LOSARTAN 50 MG TAB PO SCH (08:48)
[2020-06-02 08:56] LABS: Basophils % (A) 0 %; Eosinophils # (A) 0.1 k/uL (0-0.7); Eosinophils % (A) 1 %; HCT 38.5 % (39.0-53.0); HGB 12.5 gm/dL (13.0-17.5); Lymphocytes # (A) 1.7 k/uL (1.0-4.8); Lymphocytes % (A) 21 %; MCH 29.1 pg (25.0-35.0); MCHC 32.5 g/dL (31.0-37.0); MCV 89.4 fL (80.0-100.0); Mean Platelet Volume 8.9; Monocytes # (A) 0.4 k/uL (0-1.0); Monocytes % (A) 5 %; Neutrophils # (A) 5.7 k/uL (1.3-7.7); Neutrophils % (A) 71 %; Platelet Count 194 k/uL (150-450); RDW 13.8 % (11.5-15.5)
[2020-06-02] MEDS ORDERED: ATORVASTATIN 80 MG TAB PO SCH (09:00)
[2020-06-02] MEDS ORDERED: TICAGRELOR 90 MG TAB PO SCH (09:00)
[2020-06-02] MEDS ORDERED: ENOXAPARIN 40 MG/0.4 ML SYRINGE SQ SCH (09:00)
[2020-06-02 09:12] LABS: Albumin 3.7 g/dL (3.5-5.0); Calcium 9.2 mg/dL (8.4-10.2); Potassium 4.4 mmol/L (3.5-5.1); Total Bilirubin 0.9 mg/dL (0.2-1.3); Total Protein 6.2 g/dL (6.3-8.2)
--- NOTE | 2020-06-02 10:51 | ECHOF ---
Referral Reason:TIA MEASUREMENTS -------- HEIGHT: 177.8 cm WEIGHT: 93.9 kg BP: 135/57 RVIDd: 3.3 cm (< 3.3) IVSd: 1.3 cm (0.6 - 1.1) LVIDd: 4.0 cm (3.9 - 5.3) LVPWd: 1.4 cm (0.6 - 1.1) IVSs: 2.0 cm LVIDs: 2.9 cm LVPWs: 1.7 cm LA Diam: 4.0 cm (2.7 - 3.8) LAESV Index (A-L): 26.56 ml/m Ao Diam: 3.1 cm (2.0 - 3.7) AV Cusp: 1.3 cm (1.5 - 2.6) MV EXCURSION: 11.063 mm (> 18.000) MV EF SLOPE: 24 mm/s (70 - 150) EPSS: 0.9 cm MV E Uri: 0.93 m/s MV DecT: 346 ms MV A Uri: 1.36 m/s MV E/A Ratio: 0.68 AV maxP.04 mmHg AV meanP.57 mmHg RAP: 5.00 mmHg RVSP: 16.07 mmHg FINDINGS -------- Sinus rhythm. This was a technically adequate study. The left ventricular size is normal. There is moderate concentric left ventricular hypertrophy. O verall left ventricular systolic function is normal with, an EF between 60 - 65 %. The right ventricle is mildly enlarged. Normal LA size by volume 22+/-6 ml/m2. The right atrium is normal in size. Interatrial and interventricular septum intact. There is moderate aortic valve sclerosis. There is moderate aortic stenosis present. Peak/mean gr adient across the Aortic Valve is 61.04mmHg / 37.57mmHg. The mitral valve is normal. The mitral valve leaflets are moderately thickened. The peak and farida n MV gradients are 10.94mmHg 3.30mmHg as measured by doppler. Trace tricuspid regurgitation present. There is no pulmonic regurgitation present. The aortic root size is normal. Normal inferior vena cava with normal inspiratory collapse consistent with estimated right atrial pre ssure of 5 mmHg. There is no pericardial effusion. CONCLUSIONS -------- 1. The left ventricular size is normal. 2. There is moderate concentric left ventricular hypertrophy. 3. Overall left ventricular systolic function is normal with, an EF between 60 - 65 %. 4. The right ventricle is mildly enlarged. 5. There is moderate aortic valve sclerosis. 6. There is moderate aortic stenosis present. 7. Peak/mean gradient across the Aortic Valve is 61.04mmHg / 37.57mmHg. 8. The mitral valve is normal. 9. The mitral valve leaflets are moderately thickened. 10. The peak and mean MV gradients are 10.94mmHg 3.30mmHg as measured by doppler. 11. Trace tricuspid regurgitation present. 12. There is no pericardial effusion. SPREADING MACHINE OPERATOR: Angelina Villasenor RDCS
--- NOTE | 2020-06-02 11:03 | P.GSCN ---
History of Present Illness Consult date: 06/02/20 Reason for Consult: Carotid stenosis, TIA History of present illness: This is an 79 y.o gentleman with medical history of multiple transient ischemic attacks. He has a history of bilateral internal carotid artery stenosis for which he underwent a left trans-carotid artery revascularization (TCAR) with stenting 01/23/20 and right TCAR with stenting on 03/16/[address] Royal. His past medical history also includes coronary artery disease with multiple cardiac stents, with aortic valve stenosis, hyperlipidemia, hypertension, sleep apnea on BiPAP, diabetes mellitus, bilateral hearing loss who presented to the emergency department on 05/31/2020 for concern for strokelike symptoms. According to records his daughter reported that she received a phone call around 5:00 PM from the patient's that the patient was having garbled speech and right facial drooping. Per the patient the he said that that episode lasted for about 1-2 hours, but not sure as he was confused during the episode. The patient is on aspirin 81 mg, Plavix 75 mg and Lipitor 40 mg and he has not missed any of his medication. The patient's back to baseline now. Patient denies weakness of the upper and lower extremities, loss of consciousness. He denies of any visual disturbance or difficulty swallowing. Eyes any symptoms since he has been in the hospital. Today he denies any shortness of breath, chest pain, slurred speech, visual changes, facial drooping, or upper or lower extremity weakness. He states he has a pending upcoming surgery at [facility] for valve replacement, however is not scheduled yet. Patient the has smoked one pack per day for 30-40 years, quit 25 years ago. Of note the patient was previously hospitalized with complaints of slurred speech and of the right facial dropping in January of this year. Workup in the hospital consisted of: Initial vitals: Blood pressure is 194/73, heart rate of 63, respiratory of 18, temperature of 97.1 Fahrenheit oral and pulse ox of 98% at room air. CT of the head was reported as cerebral atrophy. No acute intracranial abnormality. No change compared to old exam. Personally reviewed the CT of the head and there is no acute ischemia, hemorrhage and there is no pertinent e ncephalomalacia seen. There is mild generalized cerebral atrophy which is appropriate for the patient age. Carotid duplex was reported as hemodynamic significant stenosis of the proximal internal carotid arteries corresponding with 50-69% diameter reduction by Doppler criteria, and in direct management of carotid stenosis. Noted that prosody within the right internal carotid artery on the right may influence the exam, carotid CTA may be of benefit. CT angiogram of neck bilateral carotid stent placement obscures detail. Difficult to exclude IntraStent stenosis, consider digital subtraction angiographic for better evaluation, vascular surgery consult. It was noted that there was marked tortuosity of the internal carotid artery on the left is noted distal to the stent. EKG was reported as sinus rhythm with first-degree AV block. Ventricular rate of 65 bpm. Otherwise normal EKG. Review of Systems A 14 point review of systems was completed and pertinent positives and negatives as stated in the HPI. Past Medical History Past Medical History: Coronary Artery Disease (CAD), Chest Pain / Angina, CVA/TIA, Diabetes Mellitus, Eye Disorder, Hearing Disorder / Deafness, Hyperlipidemia, Hypertension, Sleep Apnea/CPAP/BIPAP Additional Past Medical History / Comment(s): Claude hearing aids, tinnitus, chronic lower back pain, work injury 1975 w/concussion", "occ hand tremors", hx shingles 2009, not using cpap regularly, . Heart murmur. Varicose veins. Admit w/ TIA 01/19/20- no residual effects. leaky heart valve History of Any Multi-Drug Resistant Organisms: None Reported Past Surgical History: Appendectomy, Bariatric Surgery, Cholecystectomy, Heart Catheterization With Stent, Hernia Repair Additional Past Surgical History / Comment(s): Lap band, colonoscopy, claude cataracts, glaucoma surg, PTCA w/ stents x2 01/07/20. left TCAR 01/23/20. Past Anesthesia/Blood Transfusion Reactions: No Reported Reaction Date of Last Stent Placement:: 01/07/20 Past Psychological History: Anxiety, Depression Smoking Status: Former smoker Past Alcohol Use History: None Reported Additional Past Alcohol Use History / Comment(s): started smoking at age 7 (1948),quit 1994, was smoking 1.5 ppd. Past Drug Use History: None Reported - Past Family History Father Family Medical History: CVA/TIA Additional Family Medical History / Comment(s): stroke Mother Family Medical History: No Reported History Additional Family Medical History / Comment(s): stroke Medications and Allergies Home Medications Medication Instructions Recorded Confirmed Type Citalopram Hydrobromide [CeleXA] 40 mg PO DAILY 01/14/15 05/31/20 History metFORMIN HCL 1,000 mg PO BID 01/15/15 05/31/20 History HYDROcodone/APAP 10-325MG [[place] 1 tab PO Q8H PRN 08/18/16 05/31/20 History 10-325] Aspirin EC [Ecotrin Low Dose] 81 mg PO DAILY 05/28/17 05/31/20 History Losartan Potassium 100 mg PO DAILY 01/05/20 05/31/20 History Nitroglycerin Sl Tabs [Nitrostat] 0.4 mg SUBLINGUAL Q5M PRN #25 tab 01/08/20 05/31/20 Rx Carvedilol [Coreg] 12.5 mg PO BID 01/19/20 05/31/20 History amLODIPine [Norvasc] 5 mg PO DAILY 01/19/20 05/31/20 History Atorvastatin [Lipitor] 80 mg PO DAILY 30 Days #30 tab 06/02/20 Rx Linagliptin [Tradjenta] 5 mg PO DAILY 30 Days #30 tab 06/02/20 Rx Ticagrelor [Brilinta] 90 mg PO BID 30 Days #60 tab 06/02/20 Rx Allergies Allergy/AdvReac Type Severity Reaction Status Date / Time Penicillins Allergy Rash/Hives Verified 05/31/20 17:40 Surgical - Exam Vital Signs Temp Pulse Resp BP Pulse Ox 97.1 F L 63 18 194/73 98 05/31/20 17:33 05/31/20 17:33 05/31/20 17:33 05/31/20 17:33 05/31/20 17:33 General appearance: The patient is alert, oriented, in no acute distress. HET: Head is normocephalic and atraumatic. Pupils are equal and reactive. Oropharynx is clear without lesions. Neck: Supple without lymphadenopathy. Trachea midline. Heart: S1 S2. Grade 3 systolic murmur, Regular rate and rhythm. Lungs: Her to auscultation. Abdomen: Soft, nontender, nondistended with bowel sounds. No peritoneal signs. No palpable organomegaly or masses. Extremities: Normal skin color and turgor. No cyanosis, rash, ulceration, clubbing, or edema. Radial and pedal pulses are 2/4 bilaterally. Neurological: No focal deficits. Strength and sensation are grossly intact. Results CT of the head was reported as cerebral atrophy. No acute intracranial abnormality. No change compared to old exam. Personally reviewed the CT of the head and there is no acute ischemia, hemorrhage and there is no pertinent encephalomalacia seen. There is mild generalized cerebral atrophy which is appropriate for the patient age. Carotid duplex was reported as hemodynamic significant stenosis of the proximal internal carotid arteries corresponding with 50-69% diameter reduction by Doppler criteria, and in direct management of carotid stenosis. Noted that prosody within the right internal carotid artery on the right may influence the exam, carotid CTA may be of benefit. CT angiogram of neck bilateral carotid stent placement obscures detail. Difficult to exclude IntraStent stenosis, consider digital subtraction angiographic for better evaluation, vascular surgery consult. It was noted that there was marked tortuosity of the internal carotid artery on the left is noted distal to the stent. EKG was reported as sinus rhythm with first-degree AV block. Ventricular rate of 65 bpm. Otherwise normal EKG. - Labs 06/02/20 08:44 06/02/20 08:44 Abnormal Lab Results - Last 24 Hours (Table) 05/31/20 06/01/20 06/01/20 Range/Units 18:09 11:55 16:54 POC Glucose (mg/dL) 224 H 200 H (75-99) mg/dL Hemoglobin A1c 9.4 H (4.0-6.0) % 06/01/20 06/02/20 Range/Units 20:34 06:22 POC Glucose (mg/dL) 175 H 217 H (75-99) mg/dL Hemoglobin A1c (4.0-6.0) % Diabetes panel 05/31/20 Range/Units 18:09 Hemoglobin A1c 9.4 H (4.0-6.0) % Assessment and Plan Assessment: 1. Transient ischemic attack: Symptoms of slurred speech and right facial droop 2. Left ICA stenosis status post TCAR stenting on 01/23/2020 3. Right ICA stenosis is post TKR stenting on 03/16/2020 4. Coronary artery disease 5. Hypertension 6. Hyperlipidemia 7. Diabetes mellitus 8. Sleep apnea on BiPAP 9. Former smoker quit 25 years ago Plan: Carotid Doppler ultrasound, CT angiogram of neck, and brain CT reviewed by Dr. Martines. Continue with aspirin and statin. Neurology changed Plavix to Brillinta. Appreciate recommendations from neurology. Patient may be d ischarged home to have outpatient follow-up with Dr. Royal in 2 weeks. Patient to follow up outpatient with Cardiology. Further recommendations to follow. The impression and plan of care has been dictated as directed. Dr. Martines I performed a history and examination of this patient, discussed the same with the dictator. I agree with the dictator's note ,documented as a scribe. Any additional findings or plans will be noted.
[2020-06-02 11:26] VITALS: BMI 28.0
[2020-06-02 11:55] VITALS: BP 147/68; RESP 18; TEMP 97.4
[2020-06-02 11:59] LABS: Glucose,Whole Blood 237 mg/dL (75-99)
--- NOTE | 2020-06-02 13:59 | P.DS ---
Providers Date of admission: 05/31/20 19:23 Expected date of discharge: 06/02/20 Attending physician: Mell Baer Consults: 05/31/20 18:19 Consult Physician Routine Consulting Provider: Gilbert Macedo Consult Reason/Comments: tia Do you want consulting provider notified?: Yes 06/01/20 11:30 Consult Physician Routine Consulting Provider: Barrera Royal Consult Reason/Comments: carotid stenosis Do you want consulting provider notified?: Yes Primary care physician: Mell Baer [facility] Course: Discharge diagnosis 1. Acute transient ischemic attack with slurred speech and facial drooping, symptoms resolved at this time. Patient was evaluated by neurology services. Patient Plavix DC'd on Brilinta added will be DC'd on Brilinta 2. Underlying history of carotid stenosis with history of bilateral carotid artery stenting carotid Doppler was ordered vascular surgery consultation request 3. Underlying history of diabetes mellitus not well controlled we will adjust medication during this admission. A1c 9.4 4. Underlying history of hypertension 5. Underlying history of hyperlipidemia At this time medication reviewed and reordered For DVT prophylaxis we'll use subcu Lovenox For GI prophylaxis omeprazole Neurology consultation and vascular surgery consultation requested will follow closely Hospital course Alejo Lees, is an 79-year-old male who presented to [facility] emergency room due to an episode of slurred speech and right facial drooping, patient's noticed symptoms around 5 PM yesterday she called his daughter and patient was brought into emergency room. Patient was evaluated in the emergency room his vital examination on presentation reveals a temperature of 97.1 pulse 63 respiration 18 blood pressure 194/73 pulse ox 98% on room air laboratory data revealed a normal CBC sodium 133 BUN 28 glucose 119 9 hemoglobin A1c 9.4 and normal liver function and troponin level patient underwent a computed tomography scan of the brain without contrast in the emergency room which revealed cerebral atrophy no acute intracranial abnormality no change compared to old exam, his chest x-ray revealed mild subsegmental atelectasis of the left lung base otherwise no acute abnormality patient was admitted to telemetry floor neurology consultation was requested echocardiogram and carotid Doppler were requested. Patient has a known history of multiple transient ischemic attack in the past he had left internal carotid artery stenting in January 2020 to and right carotid artery stenting in March 2020 patient also has underlying history of hypertension, hyperlipidemia, obstructive sleep apnea, and diabetes mellitus. On review of systems patient currently is alert and oriented 3 in no apparent distress his speech is fluent she is still having mild drooping on the right side as compared to the left otherwise he denies any complaints there is no fever or chills no headache or dizziness no chest pain no shortness of breath no cough no nausea or vomiting no abdominal pain no diarrhea no blood in the stools no burning with urination no frequency or urgency and no hematuria On 06/02/2020 patient alert and oriented 3. Patient reports one episode of dizzines earlier today but has been up ambulating without issue. At this time patient denies chest pain or shortness of breath. Patient denies nausea vomiting or diarrhea. Patient denies any urinary burning or frequency. Patient to be discharged home once cleared by vascular surgery Patient will be discharged on Brilinta Patient Condition at Discharge: Stable Plan - Discharge Summary Discharge Rx Participant: No New Discharge Prescriptions: New Ticagrelor [Brilinta] 90 mg PO BID 30 Days #60 tab Atorvastatin [Lipitor] 80 mg PO DAILY 30 Days #30 tab Continue Citalopram Hydrobromide [CeleXA] 40 mg PO DAILY metFORMIN HCL 1,000 mg PO BID HYDROcodone/APAP 10-325MG [[place] 10-325] 1 tab PO Q8H PRN PRN Reason: Pain Aspirin EC [Ecotrin Low Dose] 81 mg PO DAILY Losartan Potassium 100 mg PO DAILY Nitroglycerin Sl Tabs [Nitrostat] 0.4 mg SUBLINGUAL Q5M PRN #25 tab PRN Reason: Chest Pain amLODIPine [Norvasc] 5 mg PO DAILY Carvedilol [Coreg] 12.5 mg PO BID Discontinued Atorvastatin [Lipitor] 40 mg PO DAILY #90 tab Clopidogrel [Plavix] 75 mg PO DAILY #90 tab Discharge Medication List Citalopram Hydrobromide [CeleXA] 40 mg PO DAILY 01/14/15 [History] metFORMIN HCL 1,000 mg PO BID 01/15/15 [History] HYDROcodone/APAP 10-325MG [[place] 10-325] 1 tab PO Q8H PRN 08/18/16 [History] Aspirin EC [Ecotrin Low Dose] 81 mg PO DAILY 05/28/17 [History] Losartan Potassium 100 mg PO DAILY 01/05/20 [History] Nitroglycerin Sl Tabs [Nitrostat] 0.4 mg SUBLINGUAL Q5M PRN #25 tab 01/08/20 [Rx] Carvedilol [Coreg] 12.5 mg PO BID 01/19/20 [History] amLODIPine [Norvasc] 5 mg PO DAILY 01/19/20 [History] Atorvastatin [Lipitor] 80 mg PO DAILY 30 Days #30 tab 06/02/20 [Rx] Ticagrelor [Brilinta] 90 mg PO BID 30 Days #60 tab 06/02/20 [Rx] Follow up Appointment(s)/Referral(s): Barrera Royal DO [STAFF PHYSICIAN] - 1 Week Mell Baer MD [Primary Care Provider] - 1-2 days Discharge Disposition: HOME SELF-CARE
[2020-06-02 15:05] VITALS: PULSE 62
== END 2020-06-02 15:47 | disposition home or self-care (01) ==
LOC: EC 17:32 → 3SCARD 19:23
PROVIDERS: ADMIT Internal Medicine; ATTEND Internal Medicine
DX: G45.9 Transient cerebral ischemic attack, unspecified (principal); I25.10 Atherosclerotic heart disease of native coronary artery without angina pectoris; R47.01 Aphasia; E11.9 Type 2 diabetes mellitus without complications; E78.5 Hyperlipidemia, unspecified; I10 Essential (primary) hypertension; G47.30 Sleep apnea, unspecified; H93.19 Tinnitus, unspecified ear; G89.29 Other chronic pain; I35.0 Nonrheumatic aortic (valve) stenosis; I44.0 Atrioventricular block, first degree; I38 Endocarditis, valve unspecified; I65.22 Occlusion and stenosis of left carotid artery; Z95.820 Peripheral vascular angioplasty status with implants and grafts; M54.5 Low back pain; H91.93 Unspecified hearing loss, bilateral; F41.9 Anxiety disorder, unspecified; F32.9 Major depressive disorder, single episode, unspecified; R25.1 Tremor, unspecified; Z86.73 Personal history of transient ischemic attack (TIA), and cerebral infarction without residual deficits; Z86.19 Personal history of other infectious and parasitic diseases; Z97.4 Presence of external hearing-aid; Z98.84 Bariatric surgery status; Z90.49 Acquired absence of other specified parts of digestive tract; Z95.5 Presence of coronary angioplasty implant and graft; Z98.42 Cataract extraction status, left eye; Z98.41 Cataract extraction status, right eye; Z98.890 Other specified postprocedural states; Z87.891 Personal history of nicotine dependence; Z82.3 Family history of stroke; Z79.84 Long term (current) use of oral hypoglycemic drugs; Z79.02 Long term (current) use of antithrombotics/antiplatelets; Z79.82 Long term (current) use of aspirin; Z79.899 Other long term (current) drug therapy; Z88.0 Allergy status to penicillin
CPT/HCPCS: 96360; 96361; 99285; 36415; 93005; 93306; 80053 ×2; 84484; 85025 ×2; 85610; 85730; 83036; 71046; 93880; 70450; 70498; G0378 ×3; J1650; Q9967

== ENCOUNTER → 2020-06-07 | Outpatient (CLI) | payer MEDICARE, OTHER | END | disposition home or self-care (01) | LOC: LABWHC1 08:11 | PROVIDERS: ATTEND Student in an Organized Health Care Education/Training Program | DX: I35.0 Nonrheumatic aortic (valve) stenosis (principal) | CPT/HCPCS: U0003; C9803 ==

== ENCOUNTER 2020-12-13 12:23 | Inpatient (IN) | payer MEDICARE ==
[2020-12-13] MEDS ORDERED: ASPIRIN 81 MG PO STA ×2 (12:46→13:00)
--- NOTE | 2020-12-13 12:49 | ED ---
General Adult HPI - General Chief complaint: Recheck/Abnormal Lab/Rx Stated complaint: elevated BP, chest pain Time Seen by Provider: 12/13/20 12:29 Source: patient Mode of arrival: wheelchair Limitations: no limitations - History of Present Illness Initial comments: Dictation was produced using [employer] dictation software. please excuse any grammatical, word or spelling errors. This patient was cared for during a federal and state declared state of emergency secondary to Covid 19 Chief Complaint: 80-year-old male multiple comorbidities presents to the emergency department for elevated blood pressure History of Present Illness: Patient is an 80-year-old male he has past medical history coronary artery disease, CVAs, diabetes dyslipidemia hypertension. Presents emergency department for elevated blood pressure. Patient states he recently had a partial knee replacement. Patient states he's binging his blood pressure at home and his systolic has been measuring approximately 230mmHg. Patient reports a history of hypertension. He takes multiple antihypertensive medications. He is on his way to the emergency department experience an episode of chest heaviness. Started 30 minutes ago. States that it last for several mi nutes. He was observed to be a little flushed during the episode. She states that his symptoms improved. He is asymptomatic currently. Pain. No numbness and paresthesias to the arms or legs. The ROS documented in this emergency department record has been reviewed and confirmed by me. Those systems with pertinent positive or negative responses have been documented in the HPI. All other systems are other negative and/or noncontributory. PHYSICAL EXAM: General Impression: Alert and oriented x3, not in acute distress HEENT: Normocephalic atraumatic, extra-ocular movements intact, pupils equal and reactive to light bilaterally, mucous membranes moist. Cardiovascular: Heart regular rate and rhythm Chest: Able to complete full sentences, no retractions, no tachypnea Abdomen: abdomen soft, non-tender, non-distended, no organomegaly Musculoskeletal: Pulses present and equal in all extremities, no peripheral edema Motor: no focal deficits noted Neurological: CN II-XII grossly intact, no focal motor or sensory deficits noted Skin: Intact with no visualized rashes Psych: Normal affect and mood ED course: 80 year-old male presents to the emergency department for episode of chest pressure and elevated blood pressure. Signs upon arrival shows blood pressure 170/61, rest of vital signs within acceptable limits. Patient denies any symptoms currently. His multiple comorbidities. EKG does not show any signs of ischemia or infarction. Laboratory evaluation obtained. CBC, coag panel, both passively acceptable limits. Troponin is negative. Chest x-ray shows no acute processes. Given patient's age and risk factors and comorbidities patient will be admitted for serial troponins. Patient reevaluated bedside at 1:45 PM in stable medical condition. Is currently asymptomatic. Patient administered aspirin. He'll be admitted with consultation cardiology and blood pressure control. EKG interpretation: Ventricular rate 60, sinus rhythm,. Interval to 12, QRS 80, QTC 425. No OH prolongation, no QTC prolongation, no ST or T-wave changes noted. EKG compared to 05/31/2020 showing no changes. Overall, this EKG is unremarkable - Related Data Home Medications Medication Instructions Recorded Confirmed Citalopram Hydrobromide [CeleXA] 40 mg PO DAILY 01/14/15 05/31/20 metFORMIN HCL 1,000 mg PO BID 01/15/15 05/31/20 HYDROcodone/APAP 10-325MG [[place] 1 tab PO Q8H PRN 08/18/16 05/31/20 10-325] Aspirin EC [Ecotrin Low Dose] 81 mg PO DAILY 05/28/17 05/31/20 Losartan Potassium 100 mg PO DAILY 01/05/20 05/31/20 Carvedilol [Coreg] 12.5 mg PO BID 01/19/20 05/31/20 amLODIPine [Norvasc] 5 mg PO DAILY 01/19/20 05/31/20 Previous Rx's Medication Instructions Recorded Nitroglycerin Sl Tabs [Nitrostat] 0.4 mg SUBLINGUAL Q5M PRN #25 tab 01/08/20 Atorvastatin [Lipitor] 80 mg PO DAILY 30 Days #30 tab 06/02/20 Linagliptin [Tradjenta] 5 mg PO DAILY 30 Days #30 tab 06/02/20 Ticagrelor [Brilinta] 90 mg PO BID 30 Days #60 tab 06/02/20 Allergies Allergy/AdvReac Type Severity Reaction Status Date / Time Penicillins Allergy Rash/Hives Verified 12/13/20 12:24 Review of Systems ROS Statement: Those systems with pertinent positive or pertinent negative responses have been documented in the HPI. ROS Other: All systems not noted in ROS Statement are negative. Past Medical History Past Medical History: Coronary Artery Disease (CAD), Chest Pain / Angina, CVA/TIA, Diabetes Mellitus, Eye Disorder, Hearing Disorder / Deafness, Hyperl ipidemia, Hypertension, Sleep Apnea/CPAP/BIPAP Additional Past Medical History / Comment(s): Claude hearing aids, tinnitus, chronic lower back pain, work injury 1976 w/concussion", "occ hand tremors", hx shingles 2009, not using cpap regularly, . Heart murmur. Varicose veins. Admit w/ TIA 01/19/20- no residual effects. leaky heart valve History of Any Multi-Drug Resistant Organisms: None Reported Past Surgical History: Appendectomy, Bariatric Surgery, Cholecystectomy, Heart Catheterization With Stent, Hernia Repair, Orthopedic Surgery Additional Past Surgical History / Comment(s): Lap band, colonoscopy, claude cataracts, glaucoma surg, PTCA w/ stents x2 01/07/20. left TCAR 01/23/20. left knee surgery. Past Anesthesia/Blood Transfusion Reactions: No Reported Reaction Date of Last Stent Placement:: 01/07/20 Past Psychological History: Anxiety, Depression Smoking Status: Former smoker Past Alcohol Use History: None Reported Past Drug Use History: None Reported - Past Family History Father Family Medical History: CVA/TIA Additional Family Medical History / Comment(s): stroke Mother Family Medical History: No Reported History Additional Family Medical History / Comment(s): stroke General Exam Limitations: no limitations Course Vital Signs 12/13/20 12/13/20 12:25 12:53 Temperature 99.4 F Pulse Rate 72 67 Respiratory 20 18 Rate Blood Pressure 170/61 190/78 O2 Sat by Pulse 97 96 Oximetry Medical Decision Making - Lab Data Result diagrams: 12/13/20 12:48 12/13/20 12:48 Lab Results 12/13/20 12/13/20 12/13/20 Range/Units 12:48 12:48 12:48 WBC 13.1 H (3.8-10.6) k/uL RBC 4.08 L (4.30-5.90) m/uL Hgb 12.4 L (13.0-17.5) gm/dL Hct 35.9 L (39.0-53.0) % MCV 87.9 (80.0-100.0) fL MCH 30.5 (25.0-35.0) pg MCHC 34.7 (31.0-37.0) g/dL RDW 13.3 (11.5-15.5) % Plt Count 210 (150-450) k/uL MPV 8.0 Neutrophils % 79 % Lymphocytes % 13 % Monocytes % 6 % Eosinophils % 2 % Basophils % 0 % Neutrophils # 10.3 H (1.3-7.7) k/uL Lymphocytes # 1.7 (1.0-4.8) k/uL Monocytes # 0.8 (0-1.0) k/uL Eosinophils # 0.2 (0-0.7) k/uL Basophils # 0.0 (0-0.2) k/uL PT 9.7 (9.0-12.0) sec INR 0.9 (<1.2) APTT 22.2 (22.0-30.0) sec Sodium 133 L (137-145) mmol/L Potassium 4.4 (3.5-5.1) mmol/L Chloride 99 (98-107) mmol/L Carbon Dioxide 23 (22-30) mmol/L Anion Gap 11 mmol/L BUN 23 H (9-20) mg/dL Creatinine 1.00 (0.66-1.25) mg/dL Est GFR (CKD-EPI)AfAm 81 (>60 ml/min/1.73 sqM) Est GFR (CKD-EPI)NonAf 70 (>60 ml/min/1.73 sqM) Glucose 347 H (74-99) mg/dL Calcium 9.3 (8.4-10.2) mg/dL Magnesium 1.4 L (1.6-2.3) mg/dL Total Bilirubin 1.0 (0.2-1.3) mg/dL AST 24 (17-59) U/L ALT 19 (4-49) U/L Alkaline Phosphatase 85 (38-126) U/L Troponin I (0.000-0.034) ng/mL Total Protein 6.6 (6.3-8.2) g/dL Albumin 4.0 (3.5-5.0) g/dL Lipase 57 (23-300) U/L 12/13/20 Range/Units 12:48 WBC (3.8-10.6) k/uL RBC (4.30-5.90) m/uL Hgb (13.0-17.5) gm/dL Hct (39.0-53.0) % MCV (80.0-100.0) fL MCH (25.0-35.0) pg MCHC (31.0-37.0) g/dL RDW (11.5-15.5) % Plt Count (150-450) k/uL MPV Neutrophils % % Lymphocytes % % Monocytes % % Eosinophils % % Basophils % % Neutrophils # (1.3-7.7) k/uL Lymphocytes # (1.0-4.8) k/uL Monocytes # (0-1.0) k/uL Eosinophils # (0-0.7) k/uL Basophils # (0-0.2) k/uL PT (9.0-12.0) sec INR (<1.2) APTT (22.0-30.0) sec Sodium (137-145) mmol/L Potassium (3.5-5.1) mmol/L Chloride (98-107) mmol/L Carbon Dioxide (22-30) mmol/L Anion Gap mmol/L BUN (9-20) mg/dL Creatinine (0.66-1.25) mg/dL Est GFR (CKD-EPI)AfAm (>60 ml/min/1.73 sqM) Est GFR (CKD-EPI)NonAf (>60 ml/min/1.73 sqM) Glucose (74-99) mg/dL Calcium (8.4-10.2) mg/dL Magnesium (1.6-2.3) mg/dL Total Bilirubin (0.2-1.3) mg/dL AST (17-59) U/L ALT (4-49) U/L Alkaline Phosphatase (38-126) U/L Troponin I <0.012 (0.000-0.034) ng/mL Total Protein (6.3-8.2) g/dL Albumin (3.5-5.0) g/dL Lipase (23-300) U/L Disposition Clinical Impression: Chest pain, Hypertension Disposition: ADMITTED IP TO THIS [facility] Referrals: Mell Baer MD [Primary Care Provider] - 1-2 days Decision Time: 13:52
[2020-12-13 13:01] LABS: Basophils % (A) 0 %; Eosinophils # (A) 0.2 k/uL (0-0.7); Eosinophils % (A) 2 %; HCT 35.9 % (39.0-53.0); HGB 12.4 gm/dL (13.0-17.5); Lymphocytes # (A) 1.7 k/uL (1.0-4.8); Lymphocytes % (A) 13 %; MCH 30.5 pg (25.0-35.0); MCHC 34.7 g/dL (31.0-37.0); MCV 87.9 fL (80.0-100.0); Monocytes # (A) 0.8 k/uL (0-1.0); Monocytes % (A) 6 %; Neutrophils # (A) 10.3 k/uL (1.3-7.7); Neutrophils % (A) 79 %; Platelet Count 210 k/uL (150-450); RBC 4.08 m/uL (4.30-5.90); RDW 13.3 % (11.5-15.5); WBC 13.1 k/uL (3.8-10.6)
[2020-12-13 13:14] LABS: Calcium 9.3 mg/dL (8.4-10.2); Magnesium 1.4 mg/dL (1.6-2.3); Potassium 4.4 mmol/L (3.5-5.1); Total Protein 6.6 g/dL (6.3-8.2)
[2020-12-13 13:16] LABS: INR 0.9 (<1.2); Partial Thromboplastin Time 22.2 sec (22.0-30.0); Prothrombin Time 9.7 sec (9.0-12.0)
--- NOTE | 2020-12-13 13:35 | XR ---
EXAMINATION TYPE: XR chest 1V portable DATE OF EXAM: 12/13/2020 HISTORY: Shortness of breath. COMPARISON: 05/31/2020 TECHNIQUE: Single view of the chest is submitted. FINDINGS: Demonstrated are scattered senescent parenchymal change. There is no evidence for focal infiltrate. The heart is stable. Hilar and mediastinal structures are within normal limits. Degenerative changes are seen of the dorsal spine. IMPRESSION: 1. Chronic changes without evidence for acute pulmonary disease.
[2020-12-13] MEDS ORDERED: LABETALOL 5 MG/ML VIAL MDV IVP STA (13:53)
[2020-12-13] MEDS: NITROGLYCERIN SL TABS 0.4 MG TAB SUBLINGUAL PRN ×4 (15:56→22:34)
[2020-12-13 17:25] LABS: Glucose,Whole Blood 302 mg/dL (75-99)
[2020-12-13] MEDS ORDERED: ASPIRIN 81 MG PO SCH (17:30)
[2020-12-13] MEDS: GABAPENTIN 100 MG CAP PO SCH ×2 (17:37→23:53)
[2020-12-13] MEDS: carvediloL 12.5 MG TAB PO SCH (17:37)
[2020-12-13] MEDS: HYDROcodone/APAP 10-325MG 1 EACH TAB PO PRN (17:37)
[2020-12-13] MEDS: CEPHALEXIN 250 MG CAP PO SCH ×2 (18:06→19:51)
[2020-12-13] MEDS ORDERED: PANTOPRAZOLE 40 MG/10 ML VIAL IVP SCH (19:45)
--- NOTE | 2020-12-13 19:46 | P.HPIM ---
History of Present Illness H&P Date: 12/13/20 Alejo Lees is an 80 year old male who presented to [facility] emergency room, due to elevated blood pressure and chest pain, patient stated that at home his systolic blood pressure was 230, he takes multiple blood pressure medications and was unable to bring his blood pressure down, on his way to the hospital and he had an episode of chest pain, he was evaluated in the emergency room, vital examination on presentation revealed a temperature of 99.4 pulse 72 respiration 18 blood pressure 190/78 pulse Ox 96 % on room air, white blood count was 13.1, hemoglobin 12.4 platelet count 210, sodium 133 potassium 4.4 chloride 99 CO2 23 BUN 23 creatinine 1.0 glucose 347 troponin less than 0.012 chest x-ray revealed chronic changes without evidence for acute pulmonary disease, EKG reveals sinus rhythm with first-degree AV block, patient was admitted to telemetry floor for further evaluation and treatment serial EKGs were ordered cardiology consultation was requested home medications reviewed and reordered patient was also started on IV hydralazine when necessary for elevated blood pressure. 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 History of Any Multi-Drug Resistant Organisms: None Reported Past Surgical History: Appendectomy, Bariatric Surgery, Cholecystectomy, Heart Catheterization With Stent, Hernia Repair, Joint Replacement, Orthopedic Surgery Additional Past Surgical History / Comment(s): Recent L partial knee replace ment, bilateral carpal tunnel releases, L hand trigger finger surgery, bilateral cataract removals, bilateral eye surgery for glaucoma, Lap banding, bilateral caratid transcaratid artery revascularization/stenting, umbilical hernia repair, vasectomy. Past Anesthesia/Blood Transfusion Reactions: No Reported Reaction Date of Last Stent Placement:: 01/07/20 Smoking Status: Former smoker - Past Family History Father Family Medical History: CVA/TIA Additional Family Medical History / Comment(s): stroke Mother Family Medical History: CVA/TIA Additional Family Medical History / Comment(s): stroke Medications and Allergies Home Medications Medication Instructions Recorded Confirmed Type Citalopram Hydrobromide [CeleXA] 40 mg PO AC-LUNCH 01/14/15 12/13/20 History metFORMIN HCL 1,000 mg PO BID 01/15/15 12/13/20 History Aspirin EC [Ecotrin Low Dose] 81 mg PO AC-BID 05/28/17 12/13/20 History Losartan Potassium 100 mg PO AC-LUNCH 01/05/20 12/13/20 History Carvedilol [Coreg] 12.5 mg PO BID 01/19/20 12/13/20 History amLODIPine [Norvasc] 5 mg PO BID 01/19/20 12/13/20 History Atorvastatin [Lipitor] 80 mg PO HS 12/13/20 12/13/20 History Celecoxib [CeleBREX] 200 mg PO AC-BID 12/13/20 12/13/20 History Clopidogrel [Plavix] 75 mg PO DAILY 12/13/20 12/13/20 History Gabapentin [Neurontin] 200 mg PO Q8H 12/13/20 12/13/20 History Linagliptin [Tradjenta] 5 mg PO AC-LUNCH 12/13/20 12/13/20 History cefaDROXiL [Duricef] 500 mg PO BID 12/13/20 12/13/20 History glipiZIDE [Glucotrol] 5 mg PO BID 12/13/20 12/13/20 History hydroCHLOROthiazide 25 mg PO AC-LUNCH 12/13/20 12/13/20 History oxyCODONE HCL [OxyIR] 5 mg PO Q4-6H PRN 12/13/20 12/13/20 History Allergies Allergy/AdvReac Type Severity Reaction Status Date / Time Penicillins Allergy Rash/Hives Verified 12/13/20 14:06 Physical Exam Vitals: Vital Signs Temp Pulse Pulse Resp BP BP Pulse Ox 12/13/20 16:16 76 165/79 12/13/20 16:10 77 138/63 12/13/20 16:07 69 170/72 12/13/20 16:05 78 14 189/70 98 12/13/20 15:55 68 14 197/70 98 12/13/20 15:00 97.4 F L 65 18 178/98 98 12/13/20 14:33 99.4 F 66 18 184/80 98 12/13/20 14:11 66 18 184/80 98 12/13/20 12:53 67 18 190/78 96 12/13/20 12:25 99.4 F 72 20 170/61 97 Intake and Output 12/13/20 12/13/20 12/13/20 06:59 14:59 22:59 Other: Weight 95.254 kg In general patient is alert and oriented ?-3 in no distress HEENT head normocephalic and atraumatic Neck is supple no JVD no goiter no lymphadenopathy no carotid bruit Chest examination is clear to auscultation no crackles no wheezing Cardiac exam reveals regular heart sounds S1 and S2 no gallops no murmurs Abdomen is soft nontender no organomegaly with normal bowel sounds Extremity exam reveals no edema no cyanosis or clubbing Neurological examination reveals no gross focal deficits Results CBC & Chem 7: 12/13/20 12:48 12/13/20 12:48 Labs: Abnormal Lab Results - Last 24 Hours (Table) 12/13/20 12/13/20 Range/Units 12:48 12:48 WBC 13.1 H (3.8-10.6) k/uL RBC 4.08 L (4.30-5.90) m/uL Hgb 12.4 L (13.0-17.5) gm/dL Hct 35.9 L (39.0-53.0) % Neutrophils # 10.3 H (1.3-7.7) k/uL Sodium 133 L (137-145) mmol/L BUN 23 H (9-20) mg/dL Glucose 347 H (74-99) mg/dL Magnesium 1.4 L (1.6-2.3) mg/dL Thrombosis Risk Factor Assmnt - Choose All That Apply Any of the Below Risk Factors Present?: Yes Each Factor Represents 1 point: Obesity (BMI >25), Varicose veins Other Risk Factors: Yes Each Risk Factor Represents 3 Points: Age 75 years or older Other congenital or acquired thrombophilia - If yes, enter type in comment: No Thrombosis Risk Factor Assessment Total Risk Factor Score: 5 Thrombosis Risk Factor Assessment Level: High Risk Assessment and Plan Plan: 1. Hypertensive emergency 2. Episode of chest pain 3. Underlying history of coronary artery disease 4. Underlying history of hypertension 5. Underlying history of hyperlipidemia 6. Underlying history of diabetes mellitus 7. Epigastric pain patient was started on IV Protonix, will check amylase and lipase, check abdomen ultrasound 8. Osteoarthritis with recent total knee arthroplasty surgery At this time patient is admitted to telemetry floor Home medications reviewed and reordered Patient was started on IV hydralazine 10 mg every 4 hours as needed for systolic blood pressure above 160 or diastolic blood pressure above 90 Cardiology consultation requested Will recheck labs, and follow-up in a.m.
[2020-12-13] MEDS: metFORMIN 500 MG TAB PO SCH (19:51)
[2020-12-13] MEDS: ATORVASTATIN 80 MG TAB PO SCH (19:51)
[2020-12-13 20:53] LABS: Glucose,Whole Blood 310 mg/dL (75-99)
[2020-12-13] MEDS ORDERED: amLODIPine 5 MG TAB PO SCH (21:00)
[2020-12-13 21:08] LABS: Amylase 40 U/L (30-110); Lipase 77 U/L (23-300)
[2020-12-13] MEDS: hydrALAZINE HCL 20 MG/ML 1 ML VIAL IVP PRN (21:45)
[2020-12-13] MEDS ORDERED: ONDANSETRON 4 MG/2 ML VIAL IVP PRN (22:35)
[2020-12-13] MEDS ORDERED: amLODIPine 5 MG TAB PO STA (22:45)
[2020-12-13] MEDS: hydrALAZINE HCL 50 MG TAB PO SCH (23:53)
[2020-12-14] MEDS ORDERED: MORPHINE SULFATE 2 MG/ML SYRINGE IVP PRN
[2020-12-14 00:07] LABS: Appearance,Urine Clear (Clear); Bilirubin,Urine Negative (Negative); Blood,Urine Negative (Negative); Color,Urine Light Yellow; Glucose,Urine (UA) 4+ (Negative); Leukocyte Esterase,Urine Negative (Negative); Nitrite,Urine Negative (Negative); Protein,Urine Trace (Negative); Specific Gravity,Urine 1.023 (1.001-1.035); Urobilinogen,Urine <2.0 mg/dL (<2.0)
[2020-12-14 00:25] LABS: Ketones,Urine 3+ (Negative)
[2020-12-14] MEDS: hydrALAZINE HCL 20 MG/ML 1 ML VIAL IVP PRN ×2 (01:11→08:22)
[2020-12-14] MEDS ORDERED: LORazepam 2 MG/ML INJ IV PRN (01:18)
[2020-12-14] MEDS: HYDROcodone/APAP 10-325MG 1 EACH TAB PO PRN (05:45)
[2020-12-14 07:42] LABS: Glucose,Whole Blood 462 mg/dL (75-99)
[2020-12-14] MEDS ORDERED: INSULIN ASPART (NovoLOG) 100 UNIT/ML VIAL SQ SCH (08:30)
--- NOTE | 2020-12-14 08:59 | US ---
EXAMINATION TYPE: US abdomen complete DATE OF EXAM: 12/14/2020 COMPARISON: renal us CLINICAL HISTORY: epigastric pain. Patient stated had lap band surgery 4 to 5 years ago; cholecystect kolby; abdominal pain with constant vomiting EXAM MEASUREMENTS: Liver Length: 13.4 cm Gallbladder Wall: surgically removed CBD: 0.5 cm Spleen: 9.5 cm Right Kidney: 10.2 x 6.3 x 5.8 cm Left Kidney: 10.9 x 5.5 x 5.9 cm US is technically limited by organ displacement from stomach contents in an enlarged stomach. Pancreas: hyperechoic Liver: limitedly seen Gallbladder: surgically absent Evidence for sonographic Streeter's sign: no CBD: wnl Spleen: lobular borders Right Kidney: No hydronephrosis or masses seen Left Kidney: No hydronephrosis or masses seen Upper IVC: wnl Abd Aorta: not visualized IMPRESSION: 1. No suspicious acute ultrasound abnormality. 2. Large debris-filled stomach causes limitation of the exam.
[2020-12-14] MEDS ORDERED: MELOXICAM 7.5 MG TAB PO SCH (09:00)
[2020-12-14] MEDS ORDERED: ASPIRIN 325 MG TAB PO SCH (09:00)
[2020-12-14] MEDS ORDERED: CLOPIDOGREL 75 MG TAB PO SCH (09:00)
[2020-12-14] MEDS: PANTOPRAZOLE 40 MG/10 ML VIAL IVP SCH ×2 (09:02→21:38)
[2020-12-14] MEDS: ENOXAPARIN 40 MG/0.4 ML SYRINGE SQ SCH (09:02)
[2020-12-14] MEDS: amLODIPine 10 MG TAB PO SCH ×2 (09:05→20:46)
[2020-12-14] MEDS: metFORMIN 500 MG TAB PO SCH (09:07)
[2020-12-14] MEDS: carvediloL 12.5 MG TAB PO SCH ×2 (09:07→15:19)
[2020-12-14] MEDS: hydrALAZINE HCL 50 MG TAB PO SCH ×3 (09:07→20:46)
[2020-12-14 09:12] LABS: Basophils # (A) 0.04 X 10*3/uL (0.00-0.10); Basophils % (A) 0.3 %; Eosinophils # (A) 0 X 10*3/uL (0.04-0.35); Eosinophils % (A) 0 %; HCT 35.8 % (39.6-50.0); HGB 11.8 g/dL (13.0-17.0); Lymphocytes # (A) 0.99 X 10*3/uL (0.90-5.00); Lymphocytes % (A) 6.6 %; MCH 29.3 pg (27.0-32.0); MCV 88.8 fL (80.0-97.0); Mean Platelet Volume 11.1 fL (9.5-12.2); Monocytes # (A) 0.67 X 10*3/uL (0.20-1.00); Monocytes % (A) 4.5 %; Neutrophils # (A) 13.12 X 10*3/uL (1.80-7.70); Neutrophils % (A) 87.7 %; Platelet Count 265 X 10*3/uL (140-440); RBC 4.03 X 10*6/uL (4.40-5.60); RDW 13.2 % (11.5-14.5); WBC 14.96 X 10*3/uL (4.50-10.00)
[2020-12-14] MEDS: CEPHALEXIN 250 MG CAP PO SCH ×2 (09:13→14:04)
[2020-12-14 09:29] LABS: Glucose,Whole Blood 519 mg/dL (75-99)
[2020-12-14 09:29] LABS: Glucose,Whole Blood 525 mg/dL (75-99)
[2020-12-14] MEDS ORDERED: INSULIN REGULAR 100 UNIT in SODIUM CHLORIDE 0.9% 100 ML IV SCH (10:00)
[2020-12-14 10:02] LABS: African American GFR (CKD) 58.9 (60.0-200.0); Albumin 4.3 g/dL (3.80-4.90); Albumin/Globulin Ratio 2.53 (1.60-3.17); Anion Gap 22.7 mmol/L (4.00-12.00); BUN/Creat Ratio 27.69 Ratio (12.00-20.00); Calcium 9.2 mg/dL (8.7-10.3); Carbon Dioxide 18.3 mmol/L (21.6-31.8); Chol/HDL Ratio 2.4; Globulin 1.7 g/dL (1.6-3.3); LDL Cholesterol,Calculated 67.4 mg/dL (0.0-131.0); Non-African American GFR(CKD) 50.8 (60.0-200.0); Potassium 4.4 mmol/L (3.5-5.5); Total Bilirubin 0.8 mg/dL (0.2-1.2); VLDL Calculation 12.6 mg/dL (5.00-40.00)
[2020-12-14] MEDS: GABAPENTIN 100 MG CAP PO SCH ×3 (10:04→22:52)
[2020-12-14 10:33] LABS: Glucose,Whole Blood 493 mg/dL (75-99)
--- NOTE | 2020-12-14 10:59 | P.CRDCN ---
History of Present Illness Consult date: 12/14/20 History of present illness: HISTORY OF PRESENT ILLNESS: This is a 80-year-old male with a past medical history significant for coronary artery disease with previous stent placement, aortic stenosis with recent valve replacement, diabetes mellitus, hypertension, hyperlipidemia, and former nicotine dependence. Patient follows in the office with Dr. Forbes. We have been asked to see the patient in consultation for chest pain and hypertension. Gustavo callahan examined at the bedside. Patient states he has been feeling nauseous and vomiting for the past 4 days. Patient states he has been taking his antihypertensive medications but because he has been vomiting he is not sure how much of his medications actually stayed down. Patients blood pressure was elevated with a systolic over 200. Patient states his blood pressure if normally controlled at home. Patient denies having any chest pain yesterday, however he is slightly confused. Patient denies chest pain or pressure at the time of examination. He denies shortness of breath. EKG reveals sinus mechanism with first-degree AV block. No signs of acute ischemia Chest xray chronic changes without evidence for acute pulmonary disease Laboratory data: WBC 14.96. Hemoglobin 11.8. Platelet count 265. Sodium 136. Potassium 4.4. BUN 36. Creatinine 1.3. Blood sugars are in the 400- 500s. Troponin negative 4. Current home cardiac medications include hydrochlorothiazide 25 mg daily, amlo dipine 5 mg twice a day, losartan 100 mg daily, Plavix 75 mg daily, Coreg 12.5 mg twice a day, Lipitor 80 mg daily, and aspirin 81 mg Most recent echocardiogram obtained in May 2020 reveals ejection fraction 60-65% with moderate aortic stenosis Cardiac catheterization history: January 2020 with PCI to the RCA and mid left circumflex REVIEW OF SYSTEMS: At the time of my exam: CONSTITUTIONAL: Denies fever or chills. HEENT: Denies blurred vision, vision changes, or eye pain. Denies hemoptysis CARDIOVASCULAR: Denies chest pain. Denies orthopnea. Denies PND. Denies palpitations RESPIRATORY: Denies shortness of breath. GASTROINTESTINAL: Reports abdominal pain. Reports nausea. HEMATOLOGIC: Denies bleeding disorders. GENITOURINARY: Denies any blood in urine. SKIN: Denies pruitis. Denies rash. PHYSICAL EXAM: VITAL SIGNS: Reviewed. GENERAL: Well-developed in no acute distress. HEENT: Head is normocephalic. Pupils are equal, round. Sclerae anicteric. Mucous membranes of the mouth are moist. Neck supple. No JVD or thyromegaly LUNGS: Respirations even and unlabored. Lungs essentially clear to auscultation bilaterally. HEART: Regular rate and rhythm. S1 and S2 heard. ABDOMEN: Soft. Nondistended. Tenderness upon palpation. EXTREMITIES: Normal range of motion. No clubbing or cyanosis. Peripheral pulses intact. No lower extremity edema NEUROLOGIC: Awake and alert. Oriented x 2. ASSESSMENT: Chest pain, troponin negative x 3 Abdominal pain with nausea and vomiting Hypertension, uncontrolled, likely secondary to patient unable to keep medications down x 4 days Coronary artery disease with previous PCI to RCA and mid left circumflex, January 2020 History of TAVR, 2019, per patient at [facility] in [place] Hyperlipidemia Diabetes mellitus Hyperglycemia Former nicotine dependence PLAN: Obtain 2-D echo to assess cardiac structure and function Continue current cardiac medications. Anticipate blood pressure will stablize when patient is able to tolerate PO medications Plavix placed on hold per GI service. Resume when cleared with GI secondary to stenting last year Further recommendations pending patient course Nurse practitioner note has been reviewed by physician. Signing provider agrees with the documented findings, assessment, and plan of care. Past Medical History Past Medical History: Coronary Artery Disease (CAD), Chest Pain / Angina, CVA/TIA, Diabetes Mellitus, Eye Disorder, Hearing Disorder / Deafness, Hyperlipidemia, Hypertension, Osteoarthritis (OA), Sleep Apnea/CPAP/BIPAP, Vascular Disorder Additional Past Medical History / Comment(s): NIDDM type II, neuropathy in bi lateral hands, occasional bilateral hand tremors, multiple TIAs, bilateral caratid stents, murmur, leaky heart valve, bilaterally [place]/aides/tinnitis, JOSE MIGUEL but does not tolerate device, chronic low back pain, 1976 work injury/concussion, bilateral glaucoma with surgery, shingelles in 2009, varicose veins, FALLS. History of Any Multi-Drug Resistant Organisms: None Reported Past Surgical History: Appendectomy, Bariatric Surgery, Cholecystectomy, Heart Catheterization With Stent, Hernia Repair, Joint Replacement, Orthopedic Surgery Additional Past Surgical History / Comment(s): Recent L partial knee replacement, bilateral carpal tunnel releases, L hand trigger finger surgery, bilateral cataract removals, bilateral eye surgery for glaucoma, Lap banding, bilateral caratid transcaratid artery revascularization/stenting, umbilical hernia repair, vasectomy. Past Anesthesia/Blood Transfusion Reactions: No Reported Reaction Date of Last Stent Placement:: 01/07/20 Smoking Status: Former smoker - Past Family History Father Family Medical History: CVA/TIA Additional Family Medical History / Comment(s): stroke Mother Family Medical History: CVA/TIA Additional Family Medical History / Comment(s): stroke Medications and Allergies Home Medications Medication Instructions Recorded Confirmed Type Citalopram Hydrobromide [CeleXA] 40 mg PO AC-LUNCH 01/14/15 12/13/20 History metFORMIN HCL 1,000 mg PO BID 01/15/15 12/13/20 History Aspirin EC [Ecotrin Low Dose] 81 mg PO AC-BID 05/28/17 12/13/20 History Losartan Potassium 100 mg PO AC-LUNCH 01/05/20 12/13/20 History Carvedilol [Coreg] 12.5 mg PO BID 01/19/20 12/13/20 History amLODIPine [Norvasc] 5 mg PO BID 01/19/20 12/13/20 History Atorvastatin [Lipitor] 80 mg PO HS 12/13/20 12/13/20 History Celecoxib [CeleBREX] 200 mg PO AC-BID 12/13/20 12/13/20 History Clopidogrel [Plavix] 75 mg PO DAILY 12/13/20 12/13/20 History Gabapentin [Neurontin] 200 mg PO Q8H 12/13/20 12/13/20 History Linagliptin [Tradjenta] 5 mg PO AC-LUNCH 12/13/20 12/13/20 History cefaDROXiL [Duricef] 500 mg PO BID 12/13/20 12/13/20 History glipiZIDE [Glucotrol] 5 mg PO BID 12/13/20 12/13/20 History hydroCHLOROthiazide 25 mg PO AC-LUNCH 12/13/20 12/13/20 History oxyCODONE HCL [OxyIR] 5 mg PO Q4-6H PRN 12/13/20 12/13/20 History Allergies Allergy/AdvReac Type Severity Reaction Status Date / Time Penicillins Allergy Rash/Hives Verified 12/13/20 14:06 Physical Exam Vitals: Vital Signs Temp Pulse Pulse Resp BP BP BP 12/14/20 09:46 93 126/52 12/14/20 09:12 95 14 119/55 12/14/20 07:00 97.7 F 106 H 16 180/69 12/14/20 01:59 96 17 12/14/20 01:36 98 F 96 17 151/75 12/14/20 00:01 199/99 12/13/20 23:11 220/102 12/13/20 22:51 211/82 12/13/20 22:12 197/70 12/13/20 21:56 206/85 12/13/20 21:20 205/85 12/13/20 20:00 16 12/13/20 18:49 97.8 F 72 16 155/60 12/13/20 16:16 76 165/79 12/13/20 16:10 77 138/63 12/13/20 16:07 69 170/72 12/13/20 16:05 78 14 189/70 12/13/20 15:55 68 14 197/70 12/13/20 15:00 97.4 F L 65 18 178/98 12/13/20 14:33 99.4 F 66 18 184/80 12/13/20 14:11 66 18 184/80 12/13/20 12:53 67 18 190/78 12/13/20 12:25 99.4 F 72 20 170/61 Pulse Ox 12/14/20 09:46 12/14/20 09:12 98 12/14/20 07:00 96 12/14/20 01:59 12/14/20 01:36 96 12/14/20 00:01 12/13/20 23:11 12/13/20 22:51 12/13/20 22:12 12/13/20 21:56 12/13/20 21:20 12/13/20 20:00 12/13/20 18:49 97 12/13/20 16:16 12/13/20 16:10 12/13/20 16:07 12/13/20 16:05 98 12/13/20 15:55 98 12/13/20 15:00 98 12/13/20 14:33 98 12/13/20 14:11 98 12/13/20 12:53 96 12/13/20 12:25 97 Intake and Output 12/13/20 12/14/20 12/14/20 22:59 06:59 14:59 Other: Voiding Method Toilet Toilet # Voids 2 Results 12/14/20 05:01 12/14/20 05:01 Cardiac Enzymes 12/13/20 12/13/20 12/13/20 Range/Units 12:48 12:48 15:42 AST 24 (17-59) U/L Troponin I <0.012 <0.012 (0.000-0.034) ng/mL 12/13/20 12/13/20 12/14/20 Range/Units 18:42 22:47 05:01 AST 21 (17-59) U/L Troponin I <0.012 <0.012 (0.000-0.034) ng/mL Coagulation 12/13/20 Range/Units 12:48 PT 9.7 (9.0-12.0) sec APTT 22.2 (22.0-30.0) sec Lipids 12/14/20 Range/Units 05:01 Triglycerides 63.0 (0.0-149.0) mg/dL Cholesterol 137 (0-200) mg/dL HDL Cholesterol 57.0 (40.0-60.0) mg/dL Cholesterol/HDL Ratio 2.40 CBC 12/13/20 12/14/20 Range/Units 12:48 05:01 WBC 13.1 H 14.96 H (3.8-10.6) k/uL RBC 4.08 L 4.03 L (4.30-5.90) m/uL Hgb 12.4 L 11.8 L (13.0-17.5) gm/dL Hct 35.9 L 35.8 L (39.0-53.0) % Plt Count 210 265 (150-450) k/uL Comprehensive Metabolic Panel 12/13/20 12/14/20 Range/Units 12:48 05:01 Sodium 133 L 136 (137-145) mmol/L Potassium 4.4 4.4 (3.5-5.1) mmol/L Chloride 99 95 L (98-107) mmol/L Carbon Dioxide 23 18.3 L (22-30) mmol/L BUN 23 H 36.0 H (9-20) mg/dL Creatinine 1.00 1.3 (0.66-1.25) mg/dL Glucose 347 H 436 H (74-99) mg/dL Calcium 9.3 9.2 (8.4-10.2) mg/dL AST 24 21 (17-59) U/L ALT 19 20 (4-49) U/L Alkaline Phosphatase 85 81 (38-126) U/L Total Protein 6.6 6.0 L (6.3-8.2) g/dL Albumin 4.0 4.30 (3.5-5.0) g/dL Current Medications Generic Name Dose Route Start Last Admin Trade Name Freq PRN Reason Stop Dose Admin Hydrocodone Bitart/Acetaminophen 1 each 12/13/20 16:54 12/14/20 05:45 Hydrocodone/Apap 10-325mg 1 Each Tab PO 1 each Q6H PRN Administration Pain Amlodipine Besylate 10 mg 12/14/20 09:00 12/14/20 09:05 Amlodipine 10 Mg Tab PO 10 mg BID PHILIP Administration Aspirin 325 mg 12/14/20 09:00 12/14/20 09:13 Aspirin 325 Mg Tab PO 325 mg DAILY PHILIP Administration Atorvastatin Calcium 80 mg 12/13/20 21:00 12/13/20 19:51 Atorvastatin 80 Mg Tab PO 80 mg HS PHILIP Administration Carvedilol 12.5 mg 12/13/20 17:30 12/14/20 09:07 Carvedilol 12.5 Mg Tab PO 12.5 mg BID-W/MEALS PHILIP Administration Cephalexin 250 mg 12/13/20 18:00 12/14/20 09:13 Cephalexin 250 Mg Cap PO 250 mg QID PHILIP Administration Citalopram Hydrobromide 40 mg 12/14/20 12:30 Citalopram Hydrobromide 20 Mg Tab PO AC-LUNCH [facility] Clopidogrel Bisulfate 75 mg 12/14/20 09:00 12/14/20 09:07 Clopidogrel 75 Mg Tab PO 75 mg DAILY [facility] Administration Enoxaparin Sodium 40 mg 12/14/20 09:00 12/14/20 09:02 Enoxaparin 40 Mg/0.4 Ml Syringe SQ 40 mg DAILY [facility] Administration Gabapentin 200 mg 12/13/20 17:00 12/14/20 10:04 Gabapentin 100 Mg Cap PO Not Given Q8HR [facility] Hydralazine HCl 10 mg 12/13/20 16:56 12/14/20 08:22 Hydralazine Hcl 20 Mg/Ml 1 Ml Vial IVP 10 mg Q4HR PRN Administration Blood Pressure - High Hydralazine HCl 100 mg 12/14/20 00:00 12/14/20 09:07 Hydralazine Hcl 50 Mg Tab PO 100 mg TID [facility] Administration Hydrochlorothiazide 25 mg 12/14/20 12:30 Hydrochlorothiazide 25 Mg Tab PO AC-LUNCH [facility] Insulin Human Regular 100 unit 101 mls @ 0 mls/hr 12/14/20 10:00 / Sodium Chloride IV .Q0M [facility] Protocol Titrate Insulin Aspart 12 unit 12/14/20 12:30 Insulin Aspart (Novolog) 100 Unit/Ml Vial 0.13 unit/kg (12 unit) SQ AC-TID [facility] Linagliptin 5 mg 12/14/20 12:30 Linagliptin 5 Mg Tablet PO AC-LUNCH [facility] Lorazepam 0.5 mg 12/14/20 01:18 12/14/20 01:27 Lorazepam 2 Mg/Ml Inj IV 0.5 mg Q6HR PRN Administration Anxiety Losartan Potassium 100 mg 12/14/20 12:30 Losartan 50 Mg Tab PO AC-LUNCH [facility] Meloxicam 15 mg 12/14/20 09:00 12/14/20 09:13 Meloxicam 7.5 Mg Tab PO 15 mg DAILY [facility] Administration Morphine Sulfate 2 mg 12/14/20 00:00 12/14/20 00:24 Morphine Sulfate 2 Mg/Ml Syringe IVP 2 mg Q3H PRN Administration Pain/Discomfort Nitroglycerin 0.4 mg 12/13/20 13:46 12/13/20 22:34 Nitroglycerin Sl Tabs 0.4 Mg Tab SUBLINGUAL 0.4 mg Q5M PRN Administration Chest Pain Ondansetron HCl 4 mg 12/13/20 22:35 12/13/20 22:54 Ondansetron 4 Mg/2 Ml Vial IVP 4 mg Q6HR PRN Administration Nausea And Vomiting Pantoprazole Sodium 40 mg 12/14/20 09:00 12/14/20 09:02 Pantoprazole 40 Mg/10 Ml Vial IVP 40 mg BID [facility] Administration Intake and Output 12/13/20 12/14/20 12/14/20 22:59 06:59 14:59 Other: Voiding Method Toilet Toilet # Voids 2 12/14/20 05:01 12/14/20 05:01
--- NOTE | 2020-12-14 11:01 | ECHOF ---
Referral Reason:LV function MEASUREMENTS -------- HEIGHT: 170.2 cm WEIGHT: 95.3 kg BP: 151/75 RVIDd: 3.1 cm (< 3.3) IVSd: 1.5 cm (0.6 - 1.1) LVIDd: 3.5 cm (3.9 - 5.3) LVPWd: 1.6 cm (0.6 - 1.1) IVSs: 2.1 cm LVIDs: 2.4 cm LVPWs: 1.8 cm LA Diam: 3.5 cm (2.7 - 3.8) LAESV Index (A-L): 22.39 ml/m Ao Diam: 2.7 cm (2.0 - 3.7) AV Cusp: 1.4 cm (1.5 - 2.6) MV EXCURSION: 9.189 mm (> 18.000) MV EF SLOPE: 15 mm/s (70 - 150) EPSS: 1.0 cm MV E Uri: 0.86 m/s MV DecT: 167 ms MV A Uri: 1.60 m/s MV E/A Ratio: 0.54 AV maxP.78 mmHg AV meanP.17 mmHg RAP: 5.00 mmHg RVSP: 23.09 mmHg FINDINGS -------- Sinus rhythm. This was a technically adequate study. The left ventricular size is normal. There is moderate concentric left ventricular hypertrophy. O verall left ventricular systolic function is normal with, an EF between 65 - 70 %. The right ventricle is normal in size. Normal LA size by volume 22+/-6 ml/m2. The right atrium is normal in size. Interatrial and interventricular septum intact. Peak/mean gradient across the Aortic Valve is 25.78mmHg / 14.17mmHg. Normally functioning bioprosth etic valve. TAVR procedure 2020 Mild mitral annular calcification present. Mild tricuspid regurgitation present. Right ventricular systolic pressure is normal at < 35 mmHg. Trace/mild (physiologic) pulmonic regurgitation. The aortic root size is normal. IVC Not well visulized. There is no pericardial effusion. CONCLUSIONS -------- 1. The left ventricular size is normal. 2. There is moderate concentric left ventricular hypertrophy. 3. Overall left ventricular systolic function is normal with, an EF between 65 - 70 %. 4. Peak/mean gradient across the Aortic Valve is 25.78mmHg / 14.17mmHg. 5. Normally functioning bioprosthetic valve. 6. TAVR procedure 2020 7. Mild mitral annular calcification present. 8. Mild tricuspid regurgitation present. 9. Trace/mild (physiologic) pulmonic regurgitation. 10. There is no pericardial effusion. PHARMACIST APPRENTICE: AIDEN Winston
[2020-12-14] MEDS ORDERED: SODIUM CHLORIDE 0.9% 1,000 ML IV SCH (11:15)
[2020-12-14 11:22] LABS: Glucose,Whole Blood 422 mg/dL (75-99)
[2020-12-14 11:50] LABS: Glucose,Whole Blood 386 mg/dL (75-99)
[2020-12-14] MEDS ORDERED: LINAGLIPTIN 5 MG TABLET PO SCH (12:30)
[2020-12-14 12:46] LABS: Glucose,Whole Blood 323 mg/dL (75-99)
[2020-12-14 12:46] LABS: Glucose,Whole Blood 232 mg/dL (75-99)
[2020-12-14] MEDS ORDERED: SODIUM CHLORIDE 0.9% 1,000 ML IV STA (13:19)
[2020-12-14] MEDS: INSULIN ASPART (NovoLOG) 100 UNIT/ML VIAL SQ SCH ×2 (13:22→17:25)
[2020-12-14 13:28] LABS: Glucose,Whole Blood 180 mg/dL (75-99)
[2020-12-14] MEDS: CITALOPRAM HYDROBROMIDE 20 MG TAB PO SCH (13:38)
[2020-12-14] MEDS: hydroCHLOROthiazide 25 MG TAB PO SCH (13:38)
[2020-12-14] MEDS: LOSARTAN 50 MG TAB PO SCH (14:01)
[2020-12-14 14:15] LABS: Glucose,Whole Blood 109 mg/dL (75-99)
[2020-12-14 15:19] LABS: Glucose,Whole Blood 129 mg/dL (75-99)
[2020-12-14 16:20] LABS: Glucose,Whole Blood 150 mg/dL (75-99)
[2020-12-14 16:42] LABS: Calcium 8.9 mg/dL (8.4-10.2); Phosphorus 3.8 mg/dL (2.5-4.5); Potassium 4.3 mmol/L (3.5-5.1)
--- NOTE | 2020-12-14 16:50 | P.PN ---
Subjective Progress Note Date: 12/14/20 Alejo Lees is an 80 year old male who presented to [facility] emergency room, due to elevated blood pressure and chest pain, patient stated that at home his systolic blood pressure was 230, he takes multiple blood pressure medications and was unable to bring his blood pressure down, on his way to the hospital and he had an episode of chest pain, he was evaluated in the emergency room, vital examination on presentation revealed a temperature of 99.4 pulse 72 respiration 18 blood pressure 190/78 pulse Ox 96 % on room air, white blood count was 13.1, hemoglobin 12.4 platelet count 210, sodium 133 potassium 4.4 chloride 99 CO2 23 BUN 23 creatinine 1.0 glucose 347 troponin less than 0.012 chest x-ray revealed chronic changes without evidence for acute pulmonary disease, EKG reveals sinus rhythm with first-degree AV block, patient was admitted to telemetry floor for further evaluation and treatment serial EKGs were ordered cardiology consultation was requested home medications reviewed and reordered patient was also started on IV hydralazine when necessary for elevated blood pressure. On 12/14/2020 patient was seen and examined on the medical floor he is somnolent responsive in no apparent distress, he had episodes of agitation last night and received IV Ativan, today he is somnolent he opens his eyes to stimuli he answered 1 or 2 questions and then goes back to sleep, he is denying any pain or discomfort, this morning he had significantly elevated glucose levels in the 500s range and had positive ketones he was started on IV fluid and IV insulin drip, blood pressure has been decreasing, IV fluid was increased to 150 mL/h, patient was given a normal saline bolus of 500 mL repeat labs were ordered for this evening all blood pressure medications are on hold at this time. Yesterday patient was complaining of abdominal discomfort and vomiting amylase lipase and abdominal ultrasound were within normal limits urine analysis did not reveal any evidence of urinary tract infection. Chest x-ray on presentation did not reveal any evidence of infection. On admission patient was maintained on Keflex, this is held at this time and patient was started on IV Rocephin, blood culture, pro- calcitonin and lactic acid were ordered this afternoon and I am awaiting results repeat BMP was ordered Objective - Vital Signs Vital signs: Vital Signs Temp 98.0 F 12/14/20 14:51 Pulse 66 12/14/20 14:51 Resp 22 12/14/20 14:51 BP 92/47 12/14/20 14:51 Pulse Ox 95 12/14/20 14:51 Intake & Output 12/13/20 12/14/20 12/14/20 18:59 06:59 18:59 Intake Total 59.747 Balance 59.747 Weight 95.254 kg 95.254 kg Intake: Intake, IV Titration 59.747 Amount Insulin Regular 100 unit 59.747 In Sodium Chloride 0.9% 100 ml @ Titrate IV .Q0M [facility] Rx#:[id number] Other: Voiding Method Toilet # Voids 2 - Exam In general patient is somnolent responsive in no apparent distress HEENT head normocephalic and atraumatic Neck is supple no JVD no goiter no lymphadenopathy no carotid bruit Chest examination is clear to auscultation no crackles no wheezing Cardiac exam reveals regular heart sounds S1 and S2 no gallops no murmurs Abdomen is soft nontender no organomegaly with normal bowel sounds Extremity exam reveals no edema no cyanosis or clubbing Neurological examination reveals no gross focal deficits - Labs CBC & Chem 7: 12/14/20 05:01 12/14/20 15:48 Labs: Abnormal Lab Results - Last 24 Hours (Table) 12/13/20 12/13/20 12/13/20 Range/Units 17:23 20:51 23:15 WBC (4.50-10.00) X 10*3/uL RBC (4.40-5.60) X 10*6/uL Hgb (13.0-17.0) g/dL Hct (39.6-50.0) % Immature Gran # (0.00-0.04) X 10*3/uL Neutrophils # (1.80-7.70) X 10*3/uL Eosinophils # (0.04-0.35) X 10*3/uL Chloride (96-109) mmol/L Carbon Dioxide (21.6-31.8) mmol/L Anion Gap (4.00-12.00) mmol/L BUN (9.0-27.0) mg/dL Est GFR (CKD-EPI)AfAm (60.0-200.0) Est GFR (CKD-EPI)NonAf (60.0-200.0) BUN/Creatinine Ratio (12.00-20.00) Ratio Glucose (70-110) mg/dL POC Glucose (mg/dL) 302 H 310 H (75-99) mg/dL Total Protein (6.2-8.2) g/dL Urine Protein Trace H (Negative) Urine Glucose (UA) 4+ H (Negative) Urine Ketones 3+ H (Negative) 12/14/20 12/14/20 12/14/20 Range/Units 05:01 05:01 07:40 WBC 14.96 H (4.50-10.00) X 10*3/uL RBC 4.03 L (4.40-5.60) X 10*6/uL Hgb 11.8 L (13.0-17.0) g/dL Hct 35.8 L (39.6-50.0) % Immature Gran # 0.14 H (0.00-0.04) X 10*3/uL Neutrophils # 13.12 H (1.80-7.70) X 10*3/uL Eosinophils # 0 L (0.04-0.35) X 10*3/uL Chloride 95 L (96-109) mmol/L Carbon Dioxide 18.3 L (21.6-31.8) mmol/L Anion Gap 22.70 H (4.00-12.00) mmol/L BUN 36.0 H (9.0-27.0) mg/dL Est GFR (CKD-EPI)AfAm 58.9 L (60.0-200.0) Est GFR (CKD-EPI)NonAf 50.8 L (60.0-200.0) BUN/Creatinine Ratio 27.69 H (12.00-20.00) Ratio Glucose 436 H (70-110) mg/dL POC Glucose (mg/dL) 462 H (75-99) mg/dL Total Protein 6.0 L (6.2-8.2) g/dL Urine Protein (Negative) Urine Glucose (UA) (Negative) Urine Ketones (Negative) 12/14/20 12/14/20 12/14/20 Range/Units 09:27 09:28 10:32 WBC (4.50-10.00) X 10*3/uL RBC (4.40-5.60) X 10*6/uL Hgb (13.0-17.0) g/dL Hct (39.6-50.0) % Immature Gran # (0.00-0.04) X 10*3/uL Neutrophils # (1.80-7.70) X 10*3/uL Eosinophils # (0.04-0.35) X 10*3/uL Chloride (96-109) mmol/L Carbon Dioxide (21.6-31.8) mmol/L Anion Gap (4.00-12.00) mmol/L BUN (9.0-27.0) mg/dL Est GFR (CKD-EPI)AfAm (60.0-200.0) Est GFR (CKD-EPI)NonAf (60.0-200.0) BUN/Creatinine Ratio (12.00-20.00) Ratio Glucose (70-110) mg/dL POC Glucose (mg/dL) 519 H 525 H 493 H (75-99) mg/dL Total Protein (6.2-8.2) g/dL Urine Protein (Negative) Urine Glucose (UA) (Negative) Urine Ketones (Negative) 12/14/20 12/14/20 12/14/20 Range/Units 11:21 11:48 12:14 WBC (4.50-10.00) X 10*3/uL RBC (4.40-5.60) X 10*6/uL Hgb (13.0-17.0) g/dL Hct (39.6-50.0) % Immature Gran # (0.00-0.04) X 10*3/uL Neutrophils # (1.80-7.70) X 10*3/uL Eosinophils # (0.04-0.35) X 10*3/uL Chloride (96-109) mmol/L Carbon Dioxide (21.6-31.8) mmol/L Anion Gap (4.00-12.00) mmol/L BUN (9.0-27.0) mg/dL Est GFR (CKD-EPI)AfAm (60.0-200.0) Est GFR (CKD-EPI)NonAf (60.0-200.0) BUN/Creatinine Ratio (12.00-20.00) Ratio Glucose (70-110) mg/dL POC Glucose (mg/dL) 422 H 386 H 323 H (75-99) mg/dL Total Protein (6.2-8.2) g/dL Urine Protein (Negative) Urine Glucose (UA) (Negative) Urine Ketones (Negative) 12/14/20 12/14/20 12/14/20 Range/Units 12:44 13:14 14:11 WBC (4.50-10.00) X 10*3/uL RBC (4.40-5.60) X 10*6/uL Hgb (13.0-17.0) g/dL Hct (39.6-50.0) % Immature Gran # (0.00-0.04) X 10*3/uL Neutrophils # (1.80-7.70) X 10*3/uL Eosinophils # (0.04-0.35) X 10*3/uL Chloride (96-109) mmol/L Carbon Dioxide (21.6-31.8) mmol/L Anion Gap (4.00-12.00) mmol/L BUN (9.0-27.0) mg/dL Est GFR (CKD-EPI)AfAm (60.0-200.0) Est GFR (CKD-EPI)NonAf (60.0-200.0) BUN/Creatinine Ratio (12.00-20.00) Ratio Glucose (70-110) mg/dL POC Glucose (mg/dL) 232 H 180 H 109 H (75-99) mg/dL Total Protein (6.2-8.2) g/dL Urine Protein (Negative) Urine Glucose (UA) (Negative) Urine Ketones (Negative) 12/14/20 Range/Units 15:17 WBC (4.50-10.00) X 10*3/uL RBC (4.40-5.60) X 10*6/uL Hgb (13.0-17.0) g/dL Hct (39.6-50.0) % Immature Gran # (0.00-0.04) X 10*3/uL Neutrophils # (1.80-7.70) X 10*3/uL Eosinophils # (0.04-0.35) X 10*3/uL Chloride (96-109) mmol/L Carbon Dioxide (21.6-31.8) mmol/L Anion Gap (4.00-12.00) mmol/L BUN (9.0-27.0) mg/dL Est GFR (CKD-EPI)AfAm (60.0-200.0) Est GFR (CKD-EPI)NonAf (60.0-200.0) BUN/Creatinine Ratio (12.00-20.00) Ratio Glucose (70-110) mg/dL POC Glucose (mg/dL) 129 H (75-99) mg/dL Total Protein (6.2-8.2) g/dL Urine Protein (Negative) Urine Glucose (UA) (Negative) Urine Ketones (Negative) Assessment and Plan Plan: 1. Hypertensive emergency, on presentation resolved 2. Episode of chest pain, troponins are negative patient was seen by cardiology, patient denies any chest pain at this time 3. Underlying history of coronary artery disease 4. Underlying history of hypertension 5. Underlying history of hyperlipidemia 6. Underlying history of diabetes mellitus 7. Epigastric pain patient was started on IV Protonix, will check amylase and lipase, check abdomen ultrasound 8. Osteoarthritis with recent total knee arthroplasty surgery 9. Hyperglycemia with evidence of diabetic ketoacidosis responding to IV fluid and IV insulin drip 10. Somnolence, likely related to doses of IV Ativan and IV morphine that patient received, Ativan and morphine are discontinued at this time will monitor closely 11. Hypotension, may be related to multiple blood pressure medications that eulalio callahan has received in addition to dehydration related to diabetic ketoacidosis, at this time blood pressure medications are on hold patient is receiving IV fluid Will monitor blood pressure closely
[2020-12-14 17:17] LABS: Glucose,Whole Blood 187 mg/dL (75-99)
[2020-12-14] MEDS ORDERED: SODIUM CHLORIDE 0.9% 500 ML 500 ML IV ONE (17:35)
[2020-12-14 18:21] LABS: Glucose,Whole Blood 158 mg/dL (75-99)
[2020-12-14 19:29] LABS: Glucose,Whole Blood 121 mg/dL (75-99)
[2020-12-14 20:14] LABS: Glucose,Whole Blood 115 mg/dL (75-99)
[2020-12-14 20:32] LABS: Calcium 8.7 mg/dL (8.4-10.2); Phosphorus 3.5 mg/dL (2.5-4.5); Total Bilirubin 0.4 mg/dL (0.2-1.3); Total Protein 5.2 g/dL (6.3-8.2)
[2020-12-14] MEDS: ATORVASTATIN 80 MG TAB PO SCH (20:46)
[2020-12-14 21:01] LABS: Glucose,Whole Blood 138 mg/dL (75-99)
[2020-12-14 21:06] LABS: Potassium 4.1 mmol/L (3.5-5.1)
[2020-12-14] MEDS: D5-0.45% NACL WITH KCL 20MEQ/L 1,000 ML IV SCH (21:38)
[2020-12-14 22:01] LABS: Glucose,Whole Blood 155 mg/dL (75-99)
[2020-12-14 22:59] LABS: Glucose,Whole Blood 194 mg/dL (75-99)
[2020-12-15] LABS: Glucose,Whole Blood 189 mg/dL (75-99)
[2020-12-15 00:58] LABS: Glucose,Whole Blood 183 mg/dL (75-99)
[2020-12-15 01:03] LABS: Albumin 2.8 g/dL (3.5-5.0); Calcium 8.5 mg/dL (8.4-10.2); Potassium 3.8 mmol/L (3.5-5.1); Total Bilirubin 0.4 mg/dL (0.2-1.3); Total Protein 4.9 g/dL (6.3-8.2)
[2020-12-15] MEDS ORDERED: INSULIN NPH 300 UNIT/3 ML VIAL SQ ONE (01:30)
[2020-12-15 01:59] LABS: Glucose,Whole Blood 149 mg/dL (75-99)
[2020-12-15 03:03] LABS: Glucose,Whole Blood 147 mg/dL (75-99)
[2020-12-15] MEDS: D5-0.45% NACL WITH KCL 20MEQ/L 1,000 ML IV SCH (05:03)
[2020-12-15] MEDS: carvediloL 12.5 MG TAB PO SCH ×2 (06:20→17:25)
[2020-12-15] MEDS: SODIUM CHLORIDE 0.9% 1,000 ML IV SCH ×3 (06:21→20:55)
[2020-12-15 07:21] LABS: Glucose,Whole Blood 139 mg/dL (75-99)
--- NOTE | 2020-12-15 07:26 | P.CONS ---
History of Present Illness - Reason for Consult Consult date: 12/14/20 Hematemesis Requesting physician: Lauren Pickens - Chief Complaint High blood pressure - History of Present Illness 80-year-old male with a medical history significant for coronary artery disease, CVA, diabetes mellitus, hyperlipidemia, hypertension, JOSE MIGUEL and carotid stenosis as well as a prior history of LAP-BAND surgery who presented to the hospital due to elevated blood pressure and chest pain. Currently the patient has been seen by the cardiology service and is being medically managed for his elevated blood pressure. During the patient's stay he was noted to have elevation in his blood glucose and started on a DKA protocol. He also was noted to have some nausea and vomiting with concern for possible coffee-ground emesis. Patient had 2 total episodes of vomiting which were felt to be dark in color. No further episodes since that time. No complaints of abdominal pain at this time. Patient is somewhat somnolent and only providing limited history. He does take aspirin, Plavix and Mobic therapy at home. Unclear if the patient has ever had an EGD in the past and he reports he believes his last colonoscopy was performed remotely. Hemoglobin has remained stable currently at 12.4. 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 History of Any Multi-Drug Resistant Organisms: None Reported Past Surgical History: Appendectomy, Bariatric Surgery, Cholecystectomy, Heart Catheterization With Stent, Hernia Repair, Joint Replacement, Orthopedic Surgery Additional Past Surgical History / Comment(s): Recent L partial knee replacement, bilateral carpal tunnel releases, L hand trigger finger surgery, bilateral cataract removals, bilateral eye surgery for glaucoma, Lap banding, bilateral caratid transcaratid artery revascularization/stenting, umbilical hernia repair, vasectomy. Past Anesthesia/Blood Transfusion Reactions: No Reported Reaction Date of Last Stent Placement:: 01/07/20 Smoking Status: Former smoker - Past Family History Father Family Medical History: CVA/TIA Additional Family Medical History / Comment(s): stroke Mother Family Medical History: CVA/TIA Additional Family Medical History / Comment(s): stroke Medications and Allergies Home Medications Medication Instructions Recorded Confirmed Type Citalopram Hydrobromide [CeleXA] 40 mg PO AC-LUNCH 01/14/15 12/13/20 History metFORMIN HCL 1,000 mg PO BID 01/15/15 12/13/20 History Aspirin EC [Ecotrin Low Dose] 81 mg PO AC-BID 05/28/17 12/13/20 History Losartan Potassium 100 mg PO AC-LUNCH 01/05/20 12/13/20 History Carvedilol [Coreg] 12.5 mg PO BID 01/19/20 12/13/20 History amLODIPine [Norvasc] 5 mg PO BID 01/19/20 12/13/20 History Atorvastatin [Lipitor] 80 mg PO HS 12/13/20 12/13/20 History Celecoxib [CeleBREX] 200 mg PO AC-BID 12/13/20 12/13/20 History Clopidogrel [Plavix] 75 mg PO DAILY 12/13/20 12/13/20 History Gabapentin [Neurontin] 200 mg PO Q8H 12/13/20 12/13/20 History Linagliptin [Tradjenta] 5 mg PO AC-LUNCH 12/13/20 12/13/20 History cefaDROXiL [Duricef] 500 mg PO BID 12/13/20 12/13/20 History glipiZIDE [Glucotrol] 5 mg PO BID 12/13/20 12/13/20 History hydroCHLOROthiazide 25 mg PO AC-LUNCH 12/13/20 12/13/20 History oxyCODONE HCL [OxyIR] 5 mg PO Q4-6H PRN 12/13/20 12/13/20 History Allergies Allergy/AdvReac Type Severity Reaction Status Date / Time Penicillins Allergy Rash/Hives Verified 12/13/20 14:06 Physical Exam Vitals: Vital Signs Temp Pulse Resp BP BP Pulse Ox 12/14/20 14:05 71 84/47 12/14/20 13:46 98 12/14/20 13:40 98.1 F 67 18 84/41 96 12/14/20 10:30 86 114/57 12/14/20 09:46 93 126/52 12/14/20 09:12 95 14 119/55 98 12/14/20 07:00 97.7 F 106 H 16 180/69 96 12/14/20 01:59 96 17 12/14/20 01:36 98 F 96 17 151/75 96 12/14/20 00:01 199/99 12/13/20 23:11 220/102 12/13/20 22:51 211/82 12/13/20 22:12 197/70 12/13/20 21:56 206/85 12/13/20 21:20 205/85 12/13/20 20:00 16 12/13/20 18:49 97.8 F 72 16 155/60 97 12/13/20 16:16 76 165/79 12/13/20 16:10 77 138/63 12/13/20 16:07 69 170/72 12/13/20 16:05 78 14 189/70 98 12/13/20 15:55 68 14 197/70 98 12/13/20 15:00 97.4 F L 65 18 178/98 98 Intake and Output 12/13/20 12/14/20 12/14/20 22:59 06:59 14:59 Intake Total 59.747 Balance 59.747 Intake: Intake, IV Titration 59.747 Amount Insulin Regular 100 unit 59.747 In Sodium Chloride 0.9% 100 ml @ Titrate IV .Q0M [facility] Rx#:[id number] Other: Voiding Method Toilet Toilet # Voids 2 Weight 95.254 kg On physical examination, patient appears comfortable in no apparent distress. HEAD: Normocephalic, atraumatic. EYES: No scleral icterus. No conjunctival injection. MOUTH: No lesions, tongue midline. NECK: Trachea midline, no gross abnormalities. CHEST: Clear to auscultation with no wheezing or rhonchi appreciated. HEART: S1S2 appreciated. ABDOMEN: Soft, nontender to palpation. Bowel sounds are positive. No organomegaly. No guarding or rigidity. EXTREMITIES: No pedal edema. SKIN: No rashes, no jaundice. NEUROLOGIC: Alert and oriented x1. No focal deficits. Results CBC & Chem 7: 12/14/20 05:01 12/15/20 00:22 Labs: Abnormal Lab Results - Last 24 Hours (Table) 12/13/20 12/13/20 12/13/20 Range/Units 17:23 20:51 23:15 WBC (4.50-10.00) X 10*3/uL RBC (4.40-5.60) X 10*6/uL Hgb (13.0-17.0) g/dL Hct (39.6-50.0) % Immature Gran # (0.00-0.04) X 10*3/uL Neutrophils # (1.80-7.70) X 10*3/uL Eosinophils # (0.04-0.35) X 10*3/uL Chloride (96-109) mmol/L Carbon Dioxide (21.6-31.8) mmol/L Anion Gap (4.00-12.00) mmol/L BUN (9.0-27.0) mg/dL Est GFR (CKD-EPI)AfAm (60.0-200.0) Est GFR (CKD-EPI)NonAf (60.0-200.0) BUN/Creatinine Ratio (12.00-20.00) Ratio Glucose (70-110) mg/dL POC Glucose (mg/dL) 302 H 310 H (75-99) mg/dL Total Protein (6.2-8.2) g/dL Urine Protein Trace H (Negative) Urine Glucose (UA) 4+ H (Negative) Urine Ketones 3+ H (Negative) 12/14/20 12/14/20 12/14/20 Range/Units 05:01 05:01 07:40 WBC 14.96 H (4.50-10.00) X 10*3/uL RBC 4.03 L (4.40-5.60) X 10*6/uL Hgb 11.8 L (13.0-17.0) g/dL Hct 35.8 L (39.6-50.0) % Immature Gran # 0.14 H (0.00-0.04) X 10*3/uL Neutrophils # 13.12 H (1.80-7.70) X 10*3/uL Eosinophils # 0 L (0.04-0.35) X 10*3/uL Chloride 95 L (96-109) mmol/L Carbon Dioxide 18.3 L (21.6-31.8) mmol/L Anion Gap 22.70 H (4.00-12.00) mmol/L BUN 36.0 H (9.0-27.0) mg/dL Est GFR (CKD-EPI)AfAm 58.9 L (60.0-200.0) Est GFR (CKD-EPI)NonAf 50.8 L (60.0-200.0) BUN/Creatinine Ratio 27.69 H (12.00-20.00) Ratio Glucose 436 H (70-110) mg/dL POC Glucose (mg/dL) 462 H (75-99) mg/dL Total Protein 6.0 L (6.2-8.2) g/dL Urine Protein (Negative) Urine Glucose (UA) (Negative) Urine Ketones (Negative) 12/14/20 12/14/20 12/14/20 Range/Units 09:27 09:28 10:32 WBC (4.50-10.00) X 10*3/uL RBC (4.40-5.60) X 10*6/uL Hgb (13.0-17.0) g/dL Hct (39.6-50.0) % Immature Gran # (0.00-0.04) X 10*3/uL Neutrophils # (1.80-7.70) X 10*3/uL Eosinophils # (0.04-0.35) X 10*3/uL Chloride (96-109) mmol/L Carbon Dioxide (21.6-31.8) mmol/L Anion Gap (4.00-12.00) mmol/L BUN (9.0-27.0) mg/dL Est GFR (CKD-EPI)AfAm (60.0-200.0) Est GFR (CKD-EPI)NonAf (60.0-200.0) BUN/Creatinine Ratio (12.00-20.00) Ratio Glucose (70-110) mg/dL POC Glucose (mg/dL) 519 H 525 H 493 H (75-99) mg/dL Total Protein (6.2-8.2) g/dL Urine Protein (Negative) Urine Glucose (UA) (Negative) Urine Ketones (Negative) 12/14/20 12/14/20 12/14/20 Range/Units 11:21 11:48 12:14 WBC (4.50-10.00) X 10*3/uL RBC (4.40-5.60) X 10*6/uL Hgb (13.0-17.0) g/dL Hct (39.6-50.0) % Immature Gran # (0.00-0.04) X 10*3/uL Neutrophils # (1.80-7.70) X 10*3/uL Eosinophils # (0.04-0.35) X 10*3/uL Chloride (96-109) mmol/L Carbon Dioxide (21.6-31.8) mmol/L Anion Gap (4.00-12.00) mmol/L BUN (9.0-27.0) mg/dL Est GFR (CKD-EPI)AfAm (60.0-200.0) Est GFR (CKD-EPI)NonAf (60.0-200.0) BUN/Creatinine Ratio (12.00-20.00) Ratio Glucose (70-110) mg/dL POC Glucose (mg/dL) 422 H 386 H 323 H (75-99) mg/dL Total Protein (6.2-8.2) g/dL Urine Protein (Negative) Urine Glucose (UA) (Negative) Urine Ketones (Negative) 12/14/20 12/14/20 12/14/20 Range/Units 12:44 13:14 14:11 WBC (4.50-10.00) X 10*3/uL RBC (4.40-5.60) X 10*6/uL Hgb (13.0-17.0) g/dL Hct (39.6-50.0) % Immature Gran # (0.00-0.04) X 10*3/uL Neutrophils # (1.80-7.70) X 10*3/uL Eosinophils # (0.04-0.35) X 10*3/uL Chloride (96-109) mmol/L Carbon Dioxide (21.6-31.8) mmol/L Anion Gap (4.00-12.00) mmol/L BUN (9.0-27.0) mg/dL Est GFR (CKD-EPI)AfAm (60.0-200.0) Est GFR (CKD-EPI)NonAf (60.0-200.0) BUN/Creatinine Ratio (12.00-20.00) Ratio Glucose (70-110) mg/dL POC Glucose (mg/dL) 232 H 180 H 109 H (75-99) mg/dL Total Protein (6.2-8.2) g/dL Urine Protein (Negative) Urine Glucose (UA) (Negative) Urine Ketones (Negative) US - abdomen: report reviewed (Debris in stomach on US) Assessment and Plan (1) Nausea and vomiting Narrative/Plan: 80-year-old male with multiple medical comorbidities on aspirin and Plavix therapy as well as Mobic therapy at home who presented to the hospital for chest pain and elevated blood pressure which is currently being managed medically. He had 2 episodes of vomitus which he felt to be dark in nature. His hemoglobin has remained stable at 12.4. There have been no further episodes of vomiting. He reports a remote history of colonoscopy but does not believe he had EGD in the past. No abdominal pain reported. He does take Mobic therapy at home. Unclear etiology, may be related to uncontrolled blood sugars and a component of gastroparesis in the setting of likely esophagitis or possible Adele-Anderson tear, cannot rule out peptic ulcer disease or other etiology. Current Visit: Yes Status: Acute Code(s): R11.2 - NAUSEA WITH VOMITING, UNSPECIFIED SNOMED Code(s): 65383505 (2) Chest pain Current Visit: Yes Status: Acute Code(s): R07.9 - CHEST PAIN, UNSPECIFIED SNOMED Code(s): 18340137 (3) Hypertension Current Visit: Yes Status: Acute Code(s): I10 - ESSENTIAL (PRIMARY) HYPERTENSION SNOMED Code(s): 06612341 Plan: Supportive care Okay for consistent carbohydrate/heart healthy diet as tolerated Protonix 40 mg twice daily Continue to monitor hemoglobin and hematocrit and transfuse as needed Hold Plavix therapy at this time, if hemoglobin remained stable plan on reinitiation in the next 24 to 48 hours Continue medical management, if further evidence of bleeding or precipitous fall in hemoglobin will consider endoscopic evaluation at that time Continue other medical management per primary team Thank you for allowing us to participate in the care of the patient
[2020-12-15 08:39] LABS: Albumin 3.2 g/dL (3.5-5.0); Calcium 8.6 mg/dL (8.4-10.2); Total Bilirubin 0.5 mg/dL (0.2-1.3); Total Protein 5.5 g/dL (6.3-8.2)
[2020-12-15] MEDS: INSULIN DETEMIR (LEVEMIR) 100 UNIT/ML SYR SQ SCH (08:40)
[2020-12-15] MEDS: ASPIRIN 81 MG PO SCH (08:41)
[2020-12-15] MEDS: PANTOPRAZOLE 40 MG/10 ML VIAL IVP SCH ×2 (08:41→20:54)
[2020-12-15] MEDS: INSULIN ASPART (NovoLOG) 100 UNIT/ML VIAL SQ SCH ×3 (08:41→17:21)
[2020-12-15] MEDS: GABAPENTIN 100 MG CAP PO SCH ×2 (08:41→16:09)
[2020-12-15] MEDS: amLODIPine 10 MG TAB PO SCH ×2 (08:41→20:54)
[2020-12-15] MEDS: hydrALAZINE HCL 50 MG TAB PO SCH (08:41)
[2020-12-15] MEDS: ENOXAPARIN 40 MG/0.4 ML SYRINGE SQ SCH (08:42)
[2020-12-15 08:51] LABS: Basophils % (A) 0 %; Eosinophils # (A) 0.2 k/uL (0-0.7); Eosinophils % (A) 1 %; HCT 29.4 % (39.0-53.0); Lymphocytes # (A) 2.8 k/uL (1.0-4.8); Lymphocytes % (A) 22 %; MCH 30.7 pg (25.0-35.0); MCHC 34.2 g/dL (31.0-37.0); MCV 89.8 fL (80.0-100.0); Mean Platelet Volume 7.9; Monocytes # (A) 0.8 k/uL (0-1.0); Monocytes % (A) 7 %; Neutrophils # (A) 8.6 k/uL (1.3-7.7); Neutrophils % (A) 69 %; Platelet Count 218 k/uL (150-450); RBC 3.27 m/uL (4.30-5.90); RDW 13.4 % (11.5-15.5); WBC 12.5 k/uL (3.8-10.6)
--- NOTE | 2020-12-15 10:52 | P.PN ---
Subjective Progress Note Date: 12/15/20 Alejo Lees is an 80 year old male who presented to [facility] emergency room, due to elevated blood pressure and chest pain, patient stated that at home his systolic blood pressure was 230, he takes multiple blood pressure medications and was unable to bring his blood pressure down, on his way to the hospital and he had an episode of chest pain, he was evaluated in the emergency room, vital examination on presentation revealed a temperature of 99.4 pulse 72 respiration 18 blood pressure 190/78 pulse Ox 96 % on room air, white blood count was 13.1, hemoglobin 12.4 platelet count 210, sodium 133 potassium 4.4 chloride 99 CO2 23 BUN 23 creatinine 1.0 glucose 347 troponin less than 0.012 chest x-ray revealed chronic changes without evidence for acute pulmonary disease, EKG reveals sinus rhythm with first-degree AV block, patient was admitted to telemetry floor for further evaluation and treatment serial EKGs were ordered cardiology consultation was requested home medications reviewed and reordered patient was also started on IV hydralazine when necessary for elevated blood pressure. On 12/14/2020 patient was seen and examined on the medical floor he is somnolent responsive in no apparent distress, he had episodes of agitation last night and received IV Ativan, today he is somnolent he opens his eyes to stimuli he answered 1 or 2 questions and then goes back to sleep, he is denying any pain or discomfort, this morning he had significantly elevated glucose levels in the 500s range and had positive ketones he was started on IV fluid and IV insulin drip, blood pressure has been decreasing, IV fluid was increased to 150 mL/h, patient was given a normal saline bolus of 500 mL repeat labs were ordered for this evening all blood pressure medications are on hold at this time. Yesterday patient was complaining of abdominal discomfort and vomiting amylase lipase and abdominal ultrasound were within normal limits urine analysis did not reveal any evidence of urinary tract infection. Chest x-ray on presentation did not reveal any evidence of infection. On admission patient was maintained on Keflex, this is held at this time and patient was started on IV Rocephin, blood culture, pro- calcitonin and lactic acid were ordered this afternoon and I am awaiting results repeat BMP was ordered On 12/15/2020 patient is alert and oriented 3 currently resting comfortably in bed. Patient able to answer questions appropriately. White blood cell slightly improved to 12.5. Creatinine 1.98 and bun 50 blood sugars also improved. Repeat lactic acid 1.8. Current blood pressure 137/61. Discussed case with cardiology team patient back on home medication regime. Patient had episode of hypotension yesterday hydralazine was DC'd per cardiology. Patient remains on IV Rocephin. Insulin drip currently seated patient transition to subcu. At this time patient denies chest pain or shortness breath. Patient denies nausea vomiting or diarrhea. Patient denies any urinary burning or frequency. Objective - Vital Signs Vital signs: Vital Signs Temp 98.1 F 12/15/20 08:40 Pulse 76 12/15/20 08:40 Resp 18 12/15/20 08:40 BP 137/61 12/15/20 08:40 Pulse Ox 99 12/15/20 09:04 Intake & Output 12/14/20 12/15/20 12/15/20 18:59 06:59 18:59 Intake Total 63.989 22.179 400 Output Total 560 Balance 63.989 -537.821 400 Weight 95.254 kg 83.4 kg Intake: Intake, IV Titration 63.989 22.179 Amount Insulin Regular 100 unit 63.989 22.179 In Sodium Chloride 0.9% 100 ml @ Titrate IV .Q0M [facility] Rx#:[id number] Oral 400 Output: Urine 560 Other: Voiding Method Indwelling Catheter Indwelling Catheter Indwelling Catheter # Voids 1 0 # Bowel Movements 0 - Exam In general patient is somnolent responsive in no apparent distress HEENT head normocephalic and atraumatic Neck is supple no JVD no goiter no lymphadenopathy no carotid bruit Chest examination is clear to auscultation no crackles no wheezing Cardiac exam reveals regular heart sounds S1 and S2 no gallops no murmurs Abdomen is soft nontender no organomegaly with normal bowel sounds Extremity exam reveals no edema no cyanosis or clubbing Neurological examination reveals no gross focal deficits - Labs CBC & Chem 7: 12/15/20 07:45 12/15/20 07:45 Labs: Abnormal Lab Results - Last 24 Hours (Table) 12/14/20 12/14/20 12/14/20 Range/Units : 11:48 12:14 WBC (3.8-10.6) k/uL RBC (4.30-5.90) m/uL Hgb (13.0-17.5) gm/dL Hct (39.0-53.0) % Neutrophils # (1.3-7.7) k/uL Sodium (137-145) mmol/L Carbon Dioxide (22-30) mmol/L BUN (9-20) mg/dL Creatinine (0.66-1.25) mg/dL Glucose (74-99) mg/dL POC Glucose (mg/dL) 422 H 386 H 323 H (75-99) mg/dL Plasma Lactic Acid Jack (0.7-2.0) mmol/L AST (17-59) U/L Total Protein (6.3-8.2) g/dL Albumin (3.5-5.0) g/dL Procalcitonin (0.02-0.09) ng/mL 12/14/20 12/14/20 12/14/20 Range/Units 12:44 13:14 14:11 WBC (3.8-10.6) k/uL RBC (4.30-5.90) m/uL Hgb (13.0-17.5) gm/dL Hct (39.0-53.0) % Neutrophils # (1.3-7.7) k/uL Sodium (137-145) mmol/L Carbon Dioxide (22-30) mmol/L BUN (9-20) mg/dL Creatinine (0.66-1.25) mg/dL Glucose (74-99) mg/dL POC Glucose (mg/dL) 232 H 180 H 109 H (75-99) mg/dL Plasma Lactic Acid Jack (0.7-2.0) mmol/L AST (17-59) U/L Total Protein (6.3-8.2) g/dL Albumin (3.5-5.0) g/dL Procalcitonin (0.02-0.09) ng/mL 12/14/20 12/14/20 12/14/20 Range/Units 15:17 15:48 15:48 WBC (3.8-10.6) k/uL RBC (4.30-5.90) m/uL Hgb (13.0-17.5) gm/dL Hct (39.0-53.0) % Neutrophils # (1.3-7.7) k/uL Sodium (137-145) mmol/L Carbon Dioxide (22-30) mmol/L BUN (9-20) mg/dL Creatinine (0.66-1.25) mg/dL Glucose (74-99) mg/dL POC Glucose (mg/dL) 129 H (75-99) mg/dL Plasma Lactic Acid Jack 2.1 H* (0.7-2.0) mmol/L AST (17-59) U/L Total Protein (6.3-8.2) g/dL Albumin (3.5-5.0) g/dL Procalcitonin 0.20 H (0.02-0.09) ng/mL 12/14/20 12/14/20 12/14/20 Range/Units 15:48 16:19 17:15 WBC (3.8-10.6) k/uL RBC (4.30-5.90) m/uL Hgb (13.0-17.5) gm/dL Hct (39.0-53.0) % Neutrophils # (1.3-7.7) k/uL Sodium 135 L (137-145) mmol/L Carbon Dioxide 18 L (22-30) mmol/L BUN 54 H (9-20) mg/dL Creatinine 2.13 H (0.66-1.25) mg/dL Glucose 130 H (74-99) mg/dL POC Glucose (mg/dL) 150 H 187 H (75-99) mg/dL Plasma Lactic Acid Jack (0.7-2.0) mmol/L AST (17-59) U/L Total Protein (6.3-8.2) g/dL Albumin (3.5-5.0) g/dL Procalcitonin (0.02-0.09) ng/mL 12/14/20 12/14/20 12/14/20 Range/Units 18:20 19:28 19:52 WBC (3.8-10.6) k/uL RBC (4.30-5.90) m/uL Hgb (13.0-17.5) gm/dL Hct (39.0-53.0) % Neutrophils # (1.3-7.7) k/uL Sodium (137-145) mmol/L Carbon Dioxide 19 L (22-30) mmol/L BUN 55 H (9-20) mg/dL Creatinine 2.24 H (0.66-1.25) mg/dL Glucose 105 H (74-99) mg/dL POC Glucose (mg/dL) 158 H 121 H (75-99) mg/dL Plasma Lactic Acid Jack (0.7-2.0) mmol/L AST (17-59) U/L Total Protein 5.2 L (6.3-8.2) g/dL Albumin 3.0 L (3.5-5.0) g/dL Procalcitonin (0.02-0.09) ng/mL 12/14/20 12/14/20 12/14/20 Range/Units 20:11 21:00 22:00 WBC (3.8-10.6) k/uL RBC (4.30-5.90) m/uL Hgb (13.0-17.5) gm/dL Hct (39.0-53.0) % Neutrophils # (1.3-7.7) k/uL Sodium (137-145) mmol/L Carbon Dioxide (22-30) mmol/L BUN (9-20) mg/dL Creatinine (0.66-1.25) mg/dL Glucose (74-99) mg/dL POC Glucose (mg/dL) 115 H 138 H 155 H (75-99) mg/dL Plasma Lactic Acid Jack (0.7-2.0) mmol/L AST (17-59) U/L Total Protein (6.3-8.2) g/dL Albumin (3.5-5.0) g/dL Procalcitonin (0.02-0.09) ng/mL 12/14/20 12/14/20 12/15/20 Range/Units 22:58 23:58 00:22 WBC (3.8-10.6) k/uL RBC (4.30-5.90) m/uL Hgb (13.0-17.5) gm/dL Hct (39.0-53.0) % Neutrophils # (1.3-7.7) k/uL Sodium 132 L (137-145) mmol/L Carbon Dioxide 21 L (22-30) mmol/L BUN 56 H (9-20) mg/dL Creatinine 2.23 H (0.66-1.25) mg/dL Glucose 160 H (74-99) mg/dL POC Glucose (mg/dL) 194 H 189 H (75-99) mg/dL Plasma Lactic Acid Jack (0.7-2.0) mmol/L AST (17-59) U/L Total Protein 4.9 L (6.3-8.2) g/dL Albumin 2.8 L (3.5-5.0) g/dL Procalcitonin (0.02-0.09) ng/mL 12/15/20 12/15/20 12/15/20 Range/Units 00:57 01:58 03:02 WBC (3.8-10.6) k/uL RBC (4.30-5.90) m/uL Hgb (13.0-17.5) gm/dL Hct (39.0-53.0) % Neutrophils # (1.3-7.7) k/uL Sodium (137-145) mmol/L Carbon Dioxide (22-30) mmol/L BUN (9-20) mg/dL Creatinine (0.66-1.25) mg/dL Glucose (74-99) mg/dL POC Glucose (mg/dL) 183 H 149 H 147 H (75-99) mg/dL Plasma Lactic Acid Jack (0.7-2.0) mmol/L AST (17-59) U/L Total Protein (6.3-8.2) g/dL Albumin (3.5-5.0) g/dL Procalcitonin (0.02-0.09) ng/mL 12/15/20 12/15/20 12/15/20 Range/Units 07:16 07:45 07:45 WBC 12.5 H (3.8-10.6) k/uL RBC 3.27 L (4.30-5.90) m/uL Hgb 10.0 L D (13.0-17.5) gm/dL Hct 29.4 L (39.0-53.0) % Neutrophils # 8.6 H (1.3-7.7) k/uL Sodium 136 L (137-145) mmol/L Carbon Dioxide 21 L (22-30) mmol/L BUN 50 H (9-20) mg/dL Creatinine 1.98 H (0.66-1.25) mg/dL Glucose 135 H (74-99) mg/dL POC Glucose (mg/dL) 139 H (75-99) mg/dL Plasma Lactic Acid Jack (0.7-2.0) mmol/L AST 64 H (17-59) U/L Total Protein 5.5 L (6.3-8.2) g/dL Albumin 3.2 L (3.5-5.0) g/dL Procalcitonin (0.02-0.09) ng/mL Assessment and Plan Plan: 1. Hypertensive emergency, on presentation resolved. Patient back on home medication regime per cardiology 2. Episode of chest pain, troponins are negative patient was seen by cardiology, patient denies any chest pain at this time 3. Underlying history of coronary artery disease 4. Underlying history of hypertension 5. Underlying history of hyperlipidemia 6. Underlying history of diabetes mellitus 7. Epigastric pain with episode of the ground emesis. patient was started on IV Protonix, abdominal ultrasound completed showing no suspicious acute ultrasound abnormality. Large debris-filled stomach causing limitation of the exam. Amylase and lipase within normal limits. GI services following. Per GI services Plavix is currently on hold and it. If hemoGlobin remains stable reinitiation in the next 24-48 hours for EGD at this time 8. Osteoarthritis with recent total knee arthroplasty surgery 9. Hyperglycemia with evidence of diabetic ketoacidosis responding to IV fluid and IV insulin drip. Insulin drip has been DC'd 10. Somnolence, likely related to doses of IV Ativan and IV morphine that patient received, Ativan and morphine are discontinued at this time will monitor closely 11. Hypotension, may be related to multiple blood pressure medications that patient has received in addition to dehydration related to diabetic ketoacidosis, at this time blood pressure medications are on hold patient is receiving IV fluid Will monitor blood pressure closely. Improved. 12. Acute kidney injury likely secondary to dehydration. Creatinine 1.98 bun 50. Continue fluids at 150 13. Elevated lactic acid and white count. Initial lactic acid 2.1. White blood cell comp 14.9. No clear source of infection. Infectious disease is following blood urine cultures ordered. Patient maintained on Rocephin DVT prophylaxis Lovenox. GI prophylaxis Protonix Cardiology, GI and infectious disease service is following Patient maintained on Rocephin, cultures pending Patient maintained on normal saline at 150 repeat labs ordered for a.m.
--- NOTE | 2020-12-15 11:55 | P.PN ---
Subjective Progress Note Date: 12/15/20 Principal diagnosis: Nausea and vomiting Patient is seen and examined sitting up in his bed. He is more awake and alert today. He denies any further vomiting other than the 2 initial episodes. He did state that it was dark. He denies any abdominal pain, nausea, or vomiting. He has no recollection of any previous history of peptic ulcer disease. He denies any previous EGDs, and states his colonoscopy was several years ago. He states he's had no further signs or symptoms of GI bleed. His last bowel movement was on Sunday. He is tolerating his diet. Objective - Vital Signs Vital signs: Vital Signs Temp 98.1 F 12/15/20 08:40 Pulse 76 12/15/20 08:40 Resp 18 12/15/20 08:40 BP 137/61 12/15/20 08:40 Pulse Ox 99 12/15/20 09:04 Intake & Output 12/14/20 12/15/20 12/15/20 18:59 06:59 18:59 Intake Total 63.989 22.179 400 Output Total 560 Balance 63.989 -537.821 400 Weight 95.254 kg 83.4 kg Intake: Intake, IV Titration 63.989 22.179 Amount Insulin Regular 100 unit 63.989 22.179 In Sodium Chloride 0.9% 100 ml @ Titrate IV .Q0M [facility] Rx#:[id number] Oral 400 Output: Urine 560 Other: Voiding Method Indwelling Catheter Indwelling Catheter Indwelling Catheter # Voids 1 0 # Bowel Movements 0 - Exam General appearance: The patient is alert, oriented, appears in no acute distress. HET: Head is normocephalic and atraumatic. Conjunctiva pink. Sclera anicteric. Neck: Supple without lymphadenopathy. Abdomen: Soft, nontender, nondistended with bowel sounds. No guarding or rigidity. Extremities: Normal skin color and turgor. No pedal edema Skin: No rashes, no jaundice Neurological: No focal deficits. Alert and oriented 3. - Labs CBC & Chem 7: 12/15/20 07:45 12/15/20 07:45 Labs: Abnormal Lab Results - Last 24 Hours (Table) 12/14/20 12/14/20 12/14/20 Range/Units 11:21 11:48 12:14 WBC (3.8-10.6) k/uL RBC (4.30-5.90) m/uL Hgb (13.0-17.5) gm/dL Hct (39.0-53.0) % Neutrophils # (1.3-7.7) k/uL Sodium (137-145) mmol/L Carbon Dioxide (22-30) mmol/L BUN (9-20) mg/dL Creatinine (0.66-1.25) mg/dL Glucose (74-99) mg/dL POC Glucose (mg/dL) 422 H 386 H 323 H (75-99) mg/dL Plasma Lactic Acid Jack (0.7-2.0) mmol/L AST (17-59) U/L Total Protein (6.3-8.2) g/dL Albumin (3.5-5.0) g/dL Procalcitonin (0.02-0.09) ng/mL 12/14/20 12/14/20 12/14/20 Range/Units 12:44 13:14 14:11 WBC (3.8-10.6) k/uL RBC (4.30-5.90) m/uL Hgb (13.0-17.5) gm/dL Hct (39.0-53.0) % Neutrophils # (1.3-7.7) k/uL Sodium (137-145) mmol/L Carbon Dioxide (22-30) mmol/L BUN (9-20) mg/dL Creatinine (0.66-1.25) mg/dL Glucose (74-99) mg/dL POC Glucose (mg/dL) 232 H 180 H 109 H (75-99) mg/dL Plasma Lactic Acid Jack (0.7-2.0) mmol/L AST (17-59) U/L Total Protein (6.3-8.2) g/dL Albumin (3.5-5.0) g/dL Procalcitonin (0.02-0.09) ng/mL 12/14/20 12/14/20 12/14/20 Range/Units 15:17 15:48 15:48 WBC (3.8-10.6) k/uL RBC (4.30-5.90) m/uL Hgb (13.0-17.5) gm/dL Hct (39.0-53.0) % Neutrophils # (1.3-7.7) k/uL Sodium (137-145) mmol/L Carbon Dioxide (22-30) mmol/L BUN (9-20) mg/dL Creatinine (0.66-1.25) mg/dL Glucose (74-99) mg/dL POC Glucose (mg/dL) 129 H (75-99) mg/dL Plasma Lactic Acid Jack 2.1 H* (0.7-2.0) mmol/L AST (17-59) U/L Total Protein (6.3-8.2) g/dL Albumin (3.5-5.0) g/dL Procalcitonin 0.20 H (0.02-0.09) ng/mL 12/14/20 12/14/20 12/14/20 Range/Units 15:48 16:19 17:15 WBC (3.8-10.6) k/uL RBC (4.30-5.90) m/uL Hgb (13.0-17.5) gm/dL Hct (39.0-53.0) % Neutrophils # (1.3-7.7) k/uL Sodium 135 L (137-145) mmol/L Carbon Dioxide 18 L (22-30) mmol/L BUN 54 H (9-20) mg/dL Creatinine 2.13 H (0.66-1.25) mg/dL Glucose 130 H (74-99) mg/dL POC Glucose (mg/dL) 150 H 187 H (75-99) mg/dL Plasma Lactic Acid Jack (0.7-2.0) mmol/L AST (17-59) U/L Total Protein (6.3-8.2) g/dL Albumin (3.5-5.0) g/dL Procalcitonin (0.02-0.09) ng/mL 12/14/20 12/14/20 12/14/20 Range/Units 18:20 19:28 19:52 WBC (3.8-10.6) k/uL RBC (4.30-5.90) m/uL Hgb (13.0-17.5) gm/dL Hct (39.0-53.0) % Neutrophils # (1.3-7.7) k/uL Sodium (137-145) mmol/L Carbon Dioxide 19 L (22-30) mmol/L BUN 55 H (9-20) mg/dL Creatinine 2.24 H (0.66-1.25) mg/dL Glucose 105 H (74-99) mg/dL POC Glucose (mg/dL) 158 H 121 H (75-99) mg/dL Plasma Lactic Acid Jack (0.7-2.0) mmol/L AST (17-59) U/L Total Protein 5.2 L (6.3-8.2) g/dL Albumin 3.0 L (3.5-5.0) g/dL Procalcitonin (0.02-0.09) ng/mL 12/14/20 12/14/20 12/14/20 Range/Units 20:11 21:00 22:00 WBC (3.8-10.6) k/uL RBC (4.30-5.90) m/uL Hgb (13.0-17.5) gm/dL Hct (39.0-53.0) % Neutrophils # (1.3-7.7) k/uL Sodium (137-145) mmol/L Carbon Dioxide (22-30) mmol/L BUN (9-20) mg/dL Creatinine (0.66-1.25) mg/dL Glucose (74-99) mg/dL POC Glucose (mg/dL) 115 H 138 H 155 H (75-99) mg/dL Plasma Lactic Acid Jack (0.7-2.0) mmol/L AST (17-59) U/L Total Protein (6.3-8.2) g/dL Albumin (3.5-5.0) g/dL Procalcitonin (0.02-0.09) ng/mL 12/14/20 12/14/20 12/15/20 Range/Units 22:58 23:58 00:22 WBC (3.8-10.6) k/uL RBC (4.30-5.90) m/uL Hgb (13.0-17.5) gm/dL Hct (39.0-53.0) % Neutrophils # (1.3-7.7) k/uL Sodium 132 L (137-145) mmol/L Carbon Dioxide 21 L (22-30) mmol/L BUN 56 H (9-20) mg/dL Creatinine 2.23 H (0.66-1.25) mg/dL Glucose 160 H (74-99) mg/dL POC Glucose (mg/dL) 194 H 189 H (75-99) mg/dL Plasma Lactic Acid Jack (0.7-2.0) mmol/L AST (17-59) U/L Total Protein 4.9 L (6.3-8.2) g/dL Albumin 2.8 L (3.5-5.0) g/dL Procalcitonin (0.02-0.09) ng/mL 12/15/20 12/15/20 12/15/20 Range/Units 00:57 01:58 03:02 WBC (3.8-10.6) k/uL RBC (4.30-5.90) m/uL Hgb (13.0-17.5) gm/dL Hct (39.0-53.0) % Neutrophils # (1.3-7.7) k/uL Sodium (137-145) mmol/L Carbon Dioxide (22-30) mmol/L BUN (9-20) mg/dL Creatinine (0.66-1.25) mg/dL Glucose (74-99) mg/dL POC Glucose (mg/dL) 183 H 149 H 147 H (75-99) mg/dL Plasma Lactic Acid Jack (0.7-2.0) mmol/L AST (17-59) U/L Total Protein (6.3-8.2) g/dL Albumin (3.5-5.0) g/dL Procalcitonin (0.02-0.09) ng/mL 12/15/20 12/15/20 12/15/20 Range/Units 07:16 07:45 07:45 WBC 12.5 H (3.8-10.6) k/uL RBC 3.27 L (4.30-5.90) m/uL Hgb 10.0 L D (13.0-17.5) gm/dL Hct 29.4 L (39.0-53.0) % Neutrophils # 8.6 H (1.3-7.7) k/uL Sodium 136 L (137-145) mmol/L Carbon Dioxide 21 L (22-30) mmol/L BUN 50 H (9-20) mg/dL Creatinine 1.98 H (0.66-1.25) mg/dL Glucose 135 H (74-99) mg/dL POC Glucose (mg/dL) 139 H (75-99) mg/dL Plasma Lactic Acid Jack (0.7-2.0) mmol/L AST 64 H (17-59) U/L Total Protein 5.5 L (6.3-8.2) g/dL Albumin 3.2 L (3.5-5.0) g/dL Procalcitonin (0.02-0.09) ng/mL Assessment and Plan (1) Nausea and vomiting Narrative/Plan: 80-year-old male with multiple medical comorbidities on aspirin and Plavix therapy as well as Mobic therapy at home who presented to the hospital for chest pain and elevated blood pressure which is currently being managed medically. He had 2 episodes of vomitus which he felt to be dark in nature. His hemoglobin has remained stable at 12.4. There have been no further episodes of vomiting. He reports a remote history of colonoscopy but does not believe he had EGD in the past. No abdominal pain reported. He does take Mobic therapy at home. Unclear etiology, may be related to uncontrolled blood sugars and a component of gastroparesis in the setting of likely esophagitis or possible Adele-Anderson te ar, cannot rule out peptic ulcer disease or other etiology. Current Visit: Yes Status: Acute Code(s): R11.2 - NAUSEA WITH VOMITING, UNSPECIFIED SNOMED Code(s): 76211269 (2) Diabetes mellitus Current Visit: No Status: Acute Code(s): E11.9 - TYPE 2 DIABETES MELLITUS WITHOUT COMPLICATIONS SNOMED Code(s): 91425572 (3) Chest pain Current Visit: Yes Status: Acute Code(s): R07.9 - CHEST PAIN, UNSPECIFIED SNOMED Code(s): 42426961 Plan: Supportive care Okay for consistent carbohydrate/heart healthy diet as tolerated Protonix 40 mg twice daily Continue to monitor hemoglobin and hematocrit and transfuse as needed Hold Plavix therapy at this time, if hemoglobin remained stable plan on reinitiation in the next 24 to 48 hours Continue medical management, if further evidence of bleeding or precipitous fall in hemoglobin will consider endoscopic evaluation at that time Continue other medical management per primary team Thank you for allowing us to participate in the care of the patient Dr. Coy I agree with the dictator's note, documented as a scribe by Miriam Disla.
[2020-12-15 12:13] LABS: Glucose,Whole Blood 130 mg/dL (75-99)
[2020-12-15] MEDS: hydroCHLOROthiazide 25 MG TAB PO SCH (12:16)
[2020-12-15] MEDS: LOSARTAN 50 MG TAB PO SCH (12:17)
[2020-12-15] MEDS: CITALOPRAM HYDROBROMIDE 20 MG TAB PO SCH (12:17)
--- NOTE | 2020-12-15 13:43 | P.PN ---
Subjective This is a 80-year-old male with a past medical history significant for coronary artery disease with previous stent placement, aortic stenosis with recent TAVR, diabetes mellitus, hypertension, hyperlipidemia, and former nicotine dependence. Patient follows in the office with Dr. Forbes. We have been asked to see the patient in consultation for chest pain and hypertension. Patient states he has been taking his antihypertensive medications but because he has been vomiting he is not sure how much of his medications actually stayed down. Patients blood pressure was elevated with a systolic over 200. Patient states his blood pressure if normally controlled at home. EKG reveals sinus mechanism with first- degree AV block. No signs of acute ischemia. Chest xray chronic changes without evidence for acute pulmonary disease. Current home cardiac medications include hydrochlorothiazide 25 mg daily, amlodipine 5 mg twice a day, losartan 100 mg da ney, Plavix 75 mg daily, Coreg 12.5 mg twice a day, Lipitor 80 mg daily, and aspirin 81 mg. Cardiac catheterization history: January 2020 with PCI to the RCA and mid left circumflex. Emesis was dark per the patient and concern for coffee ground emesis- GI was consulted. 12/14:Echocardiogram revealed EF 65-70%, peak/mean gradient across aortic valve is 25 mmHg/14 mmHg, normally functioning bioprosthetic valve, mild tricuspid regurgitation. 12/15/2020: Patient alert and oriented x 3 this morning, appears comfortable. No more emesis per patient. Patient's blood pressures improved BP 129/57, heart rate 75, afebrile, oxygen saturation is 99% on 2 L nasal cannula. Laboratory data: WBC 12.5. Hemoglobin 10. Platelet count 218. Sodium 136. Potassium 4.0. BUN 50. Creatinine 1.98. Blood sugars are improving. serum creatinine is improving. Patient was on insulin drip and has been transition to subq. Patient currently being maintained on hydralazine 100mg TID, hydrochlorothiazide 25mg daily, amlodipine 10 mg twice a day, aspirin 81 mg daily, atorvastatin 80 mg daily, carvedilol 12.5 mg twice a day, losartan 100 mg daily. Patient was hypotensive yesterday evening BP 92/47, 86/44, 89/48. PHYSICAL EXAM: VITAL SIGNS: Reviewed. GENERAL: Well-developed in no acute distress. HEENT: Head is normocephalic. Pupils are equal, round. Sclerae anicteric. Mucous membranes of the mouth are moist. Neck supple. No JVD or thyromegaly LUNGS: Respirations even and unlabored. Lungs essentially clear to auscultation bilaterally. HEART: Regular rate and rhythm. S1 and S2 heard. ABDOMEN: Soft. Nondistended. Tenderness upon palpation. EXTREMITIES: Normal range of motion. No clubbing or cyanosis. Peripheral pulses intact. No lower extremity edema NEUROLOGIC: Awake and alert. Oriented x 2. ASSESSMENT: Chest pain, troponin negative x 3, acute coronary syndrome has been ruled out Abdominal pain with nausea and vomiting Hypertension, uncontrolled, likely secondary to patient unable to keep medications down x 4 days Coronary artery disease with previous PCI to RCA and mid left circumflex, January 2020 History of TAVR, 2019, per patient at [facility] in [place] Hyperlipidemia Diabetes mellitus Hyperglycemia Former nicotine dependence Acute Kidney Injury PLAN: Stop hydralazine 100mg TID and Stop PRN Hydralazine Patient is currently back on his home antihypertensive medication and his BP has improved. Plavix placed on hold per GI service. Resume when cleared with GI secondary to stenting last year. Per GI if hemoglobin remains stable, plan to reinitiate plavix within the next 24-48 hours Nurse practitioner note has been reviewed by physician. Signing provider agrees with the documented findings, assessment, and plan of care. Objective - Vital Signs Vital signs: Vital Signs Temp 98.8 F 12/15/20 12:16 Pulse 75 12/15/20 12:16 Resp 18 12/15/20 12:16 BP 129/57 12/15/20 12:16 Pulse Ox 99 12/15/20 12:16 Intake & Output 12/14/20 12/15/20 12/15/20 18:59 06:59 18:59 Intake Total 63.989 22.179 400 Output Total 560 Balance 63.989 -537.821 400 Weight 95.254 kg 83.4 kg Intake: Intake, IV Titration 63.989 22.179 Amount Insulin Regular 100 unit 63.989 22.179 In Sodium Chloride 0.9% 100 ml @ Titrate IV .Q0M PHILIP Rx#:[id number] Oral 400 Output: Urine 560 Other: Voiding Method Indwelling Catheter Indwelling Catheter Indwelling Catheter # Voids 1 0 # Bowel Movements 0 - Labs CBC & Chem 7: 12/15/20 07:45 12/15/20 07:45 Labs: Abnormal Lab Results - Last 24 Hours (Table) 12/14/20 12/14/20 12/14/20 Range/Units 14:11 15:17 15:48 WBC (3.8-10.6) k/uL RBC (4.30-5.90) m/uL Hgb (13.0-17.5) gm/dL Hct (39.0-53.0) % Neutrophils # (1.3-7.7) k/uL Sodium (137-145) mmol/L Carbon Dioxide (22-30) mmol/L BUN (9-20) mg/dL Creatinine (0.66-1.25) mg/dL Glucose (74-99) mg/dL POC Glucose (mg/dL) 109 H 129 H (75-99) mg/dL Plasma Lactic Acid Jack 2.1 H* (0.7-2.0) mmol/L AST (17-59) U/L Total Protein (6.3-8.2) g/dL Albumin (3.5-5.0) g/dL Procalcitonin (0.02-0.09) ng/mL 12/14/20 12/14/20 12/14/20 Range/Units 15:48 15:48 16:19 WBC (3.8-10.6) k/uL RBC (4.30-5.90) m/uL Hgb (13.0-17.5) gm/dL Hct (39.0-53.0) % Neutrophils # (1.3-7.7) k/uL Sodium 135 L (137-145) mmol/L Carbon Dioxide 18 L (22-30) mmol/L BUN 54 H (9-20) mg/dL Creatinine 2.13 H (0.66-1.25) mg/dL Glucose 130 H (74-99) mg/dL POC Glucose (mg/dL) 150 H (75-99) mg/dL Plasma Lactic Acid Jack (0.7-2.0) mmol/L AST (17-59) U/L Total Protein (6.3-8.2) g/dL Albumin (3.5-5.0) g/dL Procalcitonin 0.20 H (0.02-0.09) ng/mL 12/14/20 12/14/20 12/14/20 Range/Units 17:15 18:20 19:28 WBC (3.8-10.6) k/uL RBC (4.30-5.90) m/uL Hgb (13.0-17.5) gm/dL Hct (39.0-53.0) % Neutrophils # (1.3-7.7) k/uL Sodium (137-145) mmol/L Carbon Dioxide (22-30) mmol/L BUN (9-20) mg/dL Creatinine (0.66-1.25) mg/dL Glucose (74-99) mg/dL POC Glucose (mg/dL) 187 H 158 H 121 H (75-99) mg/dL Plasma Lactic Acid Jack (0.7-2.0) mmol/L AST (17-59) U/L Total Protein (6.3-8.2) g/dL Albumin (3.5-5.0) g/dL Procalcitonin (0.02-0.09) ng/mL 12/14/20 12/14/20 12/14/20 Range/Units 19:52 20:11 21:00 WBC (3.8-10.6) k/uL RBC (4.30-5.90) m/uL Hgb (13.0-17.5) gm/dL Hct (39.0-53.0) % Neutrophils # (1.3-7.7) k/uL Sodium (137-145) mmol/L Carbon Dioxide 19 L (22-30) mmol/L BUN 55 H (9-20) mg/dL Creatinine 2.24 H (0.66-1.25) mg/dL Glucose 105 H (74-99) mg/dL POC Glucose (mg/dL) 115 H 138 H (75-99) mg/dL Plasma Lactic Acid Jack (0.7-2.0) mmol/L AST (17-59) U/L Total Protein 5.2 L (6.3-8.2) g/dL Albumin 3.0 L (3.5-5.0) g/dL Procalcitonin (0.02-0.09) ng/mL 12/14/20 12/14/20 12/14/20 Range/Units 22:00 22:58 23:58 WBC (3.8-10.6) k/uL RBC (4.30-5.90) m/uL Hgb (13.0-17.5) gm/dL Hct (39.0-53.0) % Neutrophils # (1.3-7.7) k/uL Sodium (137-145) mmol/L Carbon Dioxide (22-30) mmol/L BUN (9-20) mg/dL Creatinine (0.66-1.25) mg/dL Glucose (74-99) mg/dL POC Glucose (mg/dL) 155 H 194 H 189 H (75-99) mg/dL Plasma Lactic Acid Jack (0.7-2.0) mmol/L AST (17-59) U/L Total Protein (6.3-8.2) g/dL Albumin (3.5-5.0) g/dL Procalcitonin (0.02-0.09) ng/mL 12/15/20 12/15/20 12/15/20 Range/Units 00:22 00:57 01:58 WBC (3.8-10.6) k/uL RBC (4.30-5.90) m/uL Hgb (13.0-17.5) gm/dL Hct (39.0-53.0) % Neutrophils # (1.3-7.7) k/uL Sodium 132 L (137-145) mmol/L Carbon Dioxide 21 L (22-30) mmol/L BUN 56 H (9-20) mg/dL Creatinine 2.23 H (0.66-1.25) mg/dL Glucose 160 H (74-99) mg/dL POC Glucose (mg/dL) 183 H 149 H (75-99) mg/dL Plasma Lactic Acid Jack (0.7-2.0) mmol/L AST (17-59) U/L Total Protein 4.9 L (6.3-8.2) g/dL Albumin 2.8 L (3.5-5.0) g/dL Procalcitonin (0.02-0.09) ng/mL 12/15/20 12/15/20 12/15/20 Range/Units 03:02 07:16 07:45 WBC 12.5 H (3.8-10.6) k/uL RBC 3.27 L (4.30-5.90) m/uL Hgb 10.0 L D (13.0-17.5) gm/dL Hct 29.4 L (39.0-53.0) % Neutrophils # 8.6 H (1.3-7.7) k/uL Sodium (137-145) mmol/L Carbon Dioxide (22-30) mmol/L BUN (9-20) mg/dL Creatinine (0.66-1.25) mg/dL Glucose (74-99) mg/dL POC Glucose (mg/dL) 147 H 139 H (75-99) mg/dL Plasma Lactic Acid Jack (0.7-2.0) mmol/L AST (17-59) U/L Total Protein (6.3-8.2) g/dL Albumin (3.5-5.0) g/dL Procalcitonin (0.02-0.09) ng/mL 12/15/20 12/15/20 Range/Units 07:45 12:07 WBC (3.8-10.6) k/uL RBC (4.30-5.90) m/uL Hgb (13.0-17.5) gm/dL Hct (39.0-53.0) % Neutrophils # (1.3-7.7) k/uL Sodium 136 L (137-145) mmol/L Carbon Dioxide 21 L (22-30) mmol/L BUN 50 H (9-20) mg/dL Creatinine 1.98 H (0.66-1.25) mg/dL Glucose 135 H (74-99) mg/dL POC Glucose (mg/dL) 130 H (75-99) mg/dL Plasma Lactic Acid Jack (0.7-2.0) mmol/L AST 64 H (17-59) U/L Total Protein 5.5 L (6.3-8.2) g/dL Albumin 3.2 L (3.5-5.0) g/dL Procalcitonin (0.02-0.09) ng/mL
[2020-12-15 17:16] LABS: Glucose,Whole Blood 67 mg/dL (75-99)
[2020-12-15 17:30] LABS: Glucose,Whole Blood 79 mg/dL (75-99)
[2020-12-15 19:44] LABS: Glucose,Whole Blood 145 mg/dL (75-99)
[2020-12-15] MEDS: ATORVASTATIN 80 MG TAB PO SCH (20:54)
--- NOTE | 2020-12-15 23:48 | CONS ---
CONSULTATION DATE OF SERVICE: 12/15/2020 REASON FOR CONSULTATION: Questionable sepsis/leukocytosis. HISTORY OF PRESENT ILLNESS: The patient is an 80-year-old male who currently recently did have left knee replacement. Patient subsequently discharged home the next day and the patient was doing okay for 2 subsequently started not feeling well and having generalized weakness and apparently the patient was noticed to have elevated blood pressure in the outpatient setting with systolic O2 30 mmHg. EMS was called and the patient was brought into the ER. On the way to the ER, apparently the patient did have some chest pain. The patient subsequently has been admitted to the hospital for workup for chest pain and elevated blood pressure. The patient did not have a fever during this hospital admission. The patient did have a white count which was elevated from 13.1, has slightly up to 14.1 yesterday. However came down to 12.5 today. Patient BUN and creatinine mildly elevated. Liver enzymes are normal. Urine is negative. Diaz PCR was negative. The patient did have a chest x-ray that was negative for acute pneumonia. Patient was started on Rocephin. Infectious Disease for consulted for further management, concern for possible sepsis. Patient at time of my evaluation mentioned that he is feeling slightly better. He denies any headache or URI symptoms. No chest pain, shortness of breath or cough. No nausea, vomiting, abdominal pain, no diarrhea. REVIEW OF SYSTEMS: Positive points have been mentioned in HPI. Rest of systems are negative. PAST MEDICAL HISTORY: Coronary artery disease, CVA, TIA, diabetes mellitus, hyperlipidemia, hypertension, osteoarthritis. PAST SURGICAL HISTORY: Appendectomy, bariatric surgery, cholecystectomy, PTCA with stent, hernia repair and left knee replacement. SOCIAL HISTORY: Remote history of smoking. No drinking or drug use. FAMILY HISTORY: Father with history of CVA/TIA. ALLERGIES: PENICILLIN. Tolerated cephalosporin without any problem. MEDICATIONS: The patient is currently on [place], Norvasc, aspirin, Lipitor, Coreg, Rocephin 1 g daily. Xanax, Lovenox and Neurontin, hydrochlorothiazide, NovoLog, Levemir, Cozaar, NitroSat, Zofran and Protonix. PHYSICAL EXAMINATION: Blood pressure 127/57 with a pulse of 71, temperature 97.9. He is 98% on 2 L nasal cannula. General description is an elderly male lying in bed in no distress. No tachypnea or accessory muscles of respiration use. HEENT: Examination shows pallor. No scleral icterus. Oral mucous membranes dry. NECK: Trachea central. No thyromegaly. Lungs unlabored breathing, clear to auscultation anteriorly. No wheeze or crackles. Heart S1, S2. Regular rate and rhythm. ABDOMEN: Soft, no tenderness. No guarding. No rigidity. EXTREMITIES: No edema of the feet. SKIN examination: No rash or mass palpable. Examination of the left knee currently covered with dressing. No swelling. No redness. NEUROLOGICAL: Patient is awake, alert, oriented times three. Mood and affect normal. LABS: Hemoglobin is 10.3, white count 8.5, BUN of 15, creatinine 1.98. There is a mildly elevated procalcitonin with mild elevated. Urine is negative. Chest x-ray negative. DIAGNOSTIC IMPRESSION AND PLAN: Patient admitted to the hospital with weakness. Did have significant elevated blood pressure in this patient with recent left knee arthroplasty, the patient currently does not have any obvious focus of infection and has been afebrile with mildly elevated white count, possible reactive worsening edema consultation underlying infection less likely but not excluded. PLAN: 1. The patient white count seemed to show a downward trend with the patient covered with Rocephin to continue. 2. We will follow on clinical condition and culture to further adjust medication if needed. Thank you for this consultation. We will follow this patient along with you. MMANALYL / LINHN: [id number] / MTDD
[2020-12-16] MEDS: GABAPENTIN 100 MG CAP PO SCH ×4 (00:42→22:39)
[2020-12-16] MEDS: SODIUM CHLORIDE 0.9% 1,000 ML IV SCH ×3 (01:50→16:05)
[2020-12-16 06:20] LABS: Glucose,Whole Blood 125 mg/dL (75-99)
[2020-12-16] MEDS: carvediloL 12.5 MG TAB PO SCH ×2 (06:53→16:08)
[2020-12-16 08:18] LABS: Glucose,Whole Blood 207 mg/dL (75-99)
[2020-12-16] MEDS: INSULIN DETEMIR (LEVEMIR) 100 UNIT/ML SYR SQ SCH (08:20)
[2020-12-16] MEDS: INSULIN ASPART (NovoLOG) 100 UNIT/ML VIAL SQ SCH ×3 (08:20→17:03)
[2020-12-16] MEDS: amLODIPine 10 MG TAB PO SCH (08:21)
[2020-12-16] MEDS: ASPIRIN 81 MG PO SCH (08:21)
[2020-12-16] MEDS: PANTOPRAZOLE 40 MG/10 ML VIAL IVP SCH ×2 (08:21→20:22)
[2020-12-16 09:00] LABS: Basophils % (A) 0 %; Eosinophils # (A) 0.2 k/uL (0-0.7); Eosinophils % (A) 3 %; HCT 26.2 % (39.0-53.0); HGB 8.9 gm/dL (13.0-17.5); Lymphocytes % (A) 22 %; MCH 30.4 pg (25.0-35.0); MCHC 34.2 g/dL (31.0-37.0); MCV 88.8 fL (80.0-100.0); Mean Platelet Volume 7.9; Monocytes # (A) 0.7 k/uL (0-1.0); Monocytes % (A) 7 %; Neutrophils # (A) 6.2 k/uL (1.3-7.7); Neutrophils % (A) 67 %; Platelet Count 196 k/uL (150-450); RBC 2.95 m/uL (4.30-5.90); RDW 13.4 % (11.5-15.5); WBC 9.3 k/uL (3.8-10.6)
[2020-12-16] MEDS ORDERED: ENOXAPARIN 30 MG/0.3 ML SYRINGE SQ SCH (09:00)
[2020-12-16 09:11] LABS: Albumin 2.7 g/dL (3.5-5.0); Calcium 8.5 mg/dL (8.4-10.2); Potassium 4.2 mmol/L (3.5-5.1); Total Bilirubin 0.6 mg/dL (0.2-1.3)
[2020-12-16] MEDS ORDERED: VANCOMYCIN IV PER PHARMACY 1 EACH MISC MISCELLANE PRN (10:35)
[2020-12-16] MEDS: VANCOMYCIN 1,500 MG in SODIUM CHLORIDE 0.9% 250 ML IVPB SCH (10:57)
[2020-12-16 12:04] LABS: Glucose,Whole Blood 262 mg/dL (75-99)
[2020-12-16] MEDS: CITALOPRAM HYDROBROMIDE 20 MG TAB PO SCH (12:22)
[2020-12-16] MEDS: hydroCHLOROthiazide 25 MG TAB PO SCH (12:22)
[2020-12-16] MEDS: LOSARTAN 50 MG TAB PO SCH (12:22)
--- NOTE | 2020-12-16 12:47 | P.PN ---
Subjective Progress Note Date: 12/16/20 Principal diagnosis: Nausea and vomiting She was seen and examined sitting up in the bedside chair. He states he had a black bowel movement this morning. He also had a drop in his hemoglobin from 10-8.9. He denies any abdominal pain, nausea, or further emesis. His Plavix has been on hold. Objective - Vital Signs Vital signs: Vital Signs Temp 98.3 F 12/16/20 08:17 Pulse 70 12/16/20 08:17 Resp 16 12/16/20 08:17 BP 144/66 12/16/20 08:17 Pulse Ox 97 12/16/20 08:18 Intake & Output 12/15/20 12/16/20 12/16/20 18:59 06:59 18:59 Intake Total 1000 30 490 Output Total 850 1575 800 Balance 150 -1545 -310 Weight 80 kg Intake: IV 30 10 Invasive Line 1 20 10 Invasive Line 2 10 Oral 1000 480 Output: Urine 850 1575 800 Other: Voiding Method Indwelling Catheter Indwelling Catheter Indwelling Catheter # Voids 0 # Bowel Movements 0 - Exam General appearance: The patient is alert, oriented, appears in no acute distress. HET: Head is normocephalic and atraumatic. Conjunctiva pink. Sclera anicteric. Neck: Supple without lymphadenopathy. Abdomen: Soft, nontender, nondistended with bowel sounds. No guarding or rigidity. Extremities: Normal skin color and turgor. No pedal edema Skin: No rashes, no jaundice Neurological: No focal deficits. Alert and oriented 3. - Labs CBC & Chem 7: 12/16/20 07:48 12/16/20 07:48 Labs: Abnormal Lab Results - Last 24 Hours (Table) 12/15/20 12/15/20 12/15/20 Range/Units 07:45 12:07 17:10 RBC (4.30-5.90) m/uL Hgb (13.0-17.5) gm/dL Hct (39.0-53.0) % Chloride (98-107) mmol/L BUN (9-20) mg/dL Creatinine (0.66-1.25) mg/dL Glucose (74-99) mg/dL POC Glucose (mg/dL) 130 H 67 L (75-99) mg/dL Hemoglobin A1c 7.4 H (4.0-6.0) % Total Protein (6.3-8.2) g/dL Albumin (3.5-5.0) g/dL 12/15/20 12/16/20 12/16/20 Range/Units 19:43 06:19 07:48 RBC 2.95 L (4.30-5.90) m/uL Hgb 8.9 L (13.0-17.5) gm/dL Hct 26.2 L (39.0-53.0) % Chloride (98-107) mmol/L BUN (9-20) mg/dL Creatinine (0.66-1.25) mg/dL Glucose (74-99) mg/dL POC Glucose (mg/dL) 145 H 125 H (75-99) mg/dL Hemoglobin A1c (4.0-6.0) % Total Protein (6.3-8.2) g/dL Albumin (3.5-5.0) g/dL 12/16/20 12/16/20 Range/Units 07:48 08:17 RBC (4.30-5.90) m/uL Hgb (13.0-17.5) gm/dL Hct (39.0-53.0) % Chloride 108 H (98-107) mmol/L BUN 27 H (9-20) mg/dL Creatinine 1.26 H (0.66-1.25) mg/dL Glucose 117 H (74-99) mg/dL POC Glucose (mg/dL) 207 H (75-99) mg/dL Hemoglobin A1c (4.0-6.0) % Total Protein 5.0 L (6.3-8.2) g/dL Albumin 2.7 L (3.5-5.0) g/dL Microbiology - Last 24 Hours (Table) 12/14/20 15:48 Blood Culture Gram Stain - Final Blood 12/14/20 15:48 Blood Culture - Final Blood Assessment and Plan (1) Nausea and vomiting Narrative/Plan: 80-year-old male with multiple medical comorbidities on aspirin and Plavix therapy as well as Mobic therapy at home who presented to the hospital for chest pain and elevated blood pressure which is currently being managed medically. He had 2 episodes of vomitus which he felt to be dark in nature. His hemoglobin h as remained stable at 12.4. There have been no further episodes of vomiting. He reports a remote history of colonoscopy but does not believe he had EGD in the past. No abdominal pain reported. He does take Mobic therapy at home. Unclear etiology, may be related to uncontrolled blood sugars and a component of gastroparesis in the setting of likely esophagitis or possible Adele-Anderson tear, cannot rule out peptic ulcer disease or other etiology. Current Visit: Yes Status: Acute Code(s): R11.2 - NAUSEA WITH VOMITING, UNSPECIFIED SNOMED Code(s): 07734166 (2) Diabetes mellitus Current Visit: No Status: Acute Code(s): E11.9 - TYPE 2 DIABETES MELLITUS WITHOUT COMPLICATIONS SNOMED Code(s): 22827692 (3) Chest pain Current Visit: Yes Status: Acute Code(s): R07.9 - CHEST PAIN, UNSPECIFIED SNOMED Code(s): 23654037 (4) Anemia due to acute blood loss Narrative/Plan: Iron studies ordered. Patient had a dark stool this morning with a drop in his hemoglobin from 12.4-8.9. Plavix has been held., Need to consider possible upper GI source of bleed. Possible etiologies include peptic ulcer disease, gastritis, esophagitis, or AVM, also need to consider possibility of neoplasm. Current Visit: Yes Status: Acute Code(s): D62 - ACUTE POSTHEMORRHAGIC ANEMIA SNOMED Code(s): 708607199 Plan: Supportive care Consistent carbohydrate diet, nothing by mouth after midnight Protonix 40 mg twice daily Continue to monitor hemoglobin and hematocrit and transfuse as needed Iron studies ordered Hold Plavix therapy at this time We'll proceed with upper endoscopy tomorrow, patient has had further signs of GI bleed with drop in hemoglobin Continue other medical management per primary team Thank you for allowing us to participate in the care of the patient Dr. Coy I agree with the dictator's note, documented as a scribe by Miriam Disla.
--- NOTE | 2020-12-16 13:01 | P.PN ---
Subjective This is a 80-year-old male with a past medical history significant for coronary artery disease with previous stent placement, aortic stenosis with recent TAVR, diabetes mellitus, hypertension, hyperlipidemia, and former nicotine dependence. Patient follows in the office with Dr. Forbes. We have been asked to see the patient in consultation for chest pain and hypertension. Patient states he has been taking his antihypertensive medications but because he has been vomiting he is not sure how much of his medications actually stayed down. Patients blood pressure was elevated with a systolic over 200. Patient states his blood pressure if normally controlled at home. EKG reveals sinus mechanism with first- degree AV block. No signs of acute ischemia. Chest xray chronic changes without evidence for acute pulmonary disease. Current home cardiac medications include hydrochlorothiazide 25 mg daily, amlodipine 5 mg twice a day, losartan 100 mg da ney, Plavix 75 mg daily, Coreg 12.5 mg twice a day, Lipitor 80 mg daily, and aspirin 81 mg. Cardiac catheterization history: January 2020 with PCI to the RCA and mid left circumflex. Emesis was dark per the patient and concern for coffee ground emesis- GI was consulted. 12/14:Echocardiogram revealed EF 65-70%, peak/mean gradient across aortic valve is 25 mmHg/14 mmHg, normally functioning bioprosthetic valve, mild tricuspid regurgitation. 12/15/2020: Patient alert and oriented x 3 this morning, appears comfortable. No more emesis per patient. Patient's blood pressures improved BP 129/57, heart rate 75, afebrile, oxygen saturation is 99% on 2 L nasal cannula. Laboratory data: WBC 12.5. Hemoglobin 10. Platelet count 218. Sodium 136. Potassium 4.0. BUN 50. Creatinine 1.98. Blood sugars are improving. serum creatinine is improving. Patient was on insulin drip and has been transition to subq. Patient currently being maintained on hydralazine 100mg TID, hydrochlorothiazide 25mg daily, amlodipine 10 mg twice a day, aspirin 81 mg daily, atorvastatin 80 mg daily, carvedilol 12.5 mg twice a day, losartan 100 mg daily. Patient was hypotensive yesterday evening BP 92/47, 86/44, 89/48. 12/16/2020: Patient seen and examined at bedside, no acute distress. Eager to go home. Patient with episode of black stool overnight. Blood pressure 144/66, HR 70 afebrile, maintaining oxygen saturation 97% on room air. No hypotension noted overnight. Patient currently being maintained on hydralazine 100mg TID, hydrochlorothiazide 25mg daily, amlodipine 10 mg twice a day, aspirin 81 mg daily, atorvastatin 80 mg daily, carvedilol 12.5 mg twice a day, losartan 100 mg daily. WBC 9.3, hemoglobin 8.9, platelets 196, sodium 137, potassium 4.2, serum creatinine 1.26 PHYSICAL EXAM: VITAL SIGNS: Reviewed. GENERAL: Well-developed in no acute distress. HEENT: Head is normocephalic. Pupils are equal, round. Sclerae anicteric. Mucous membranes of the mouth are moist. Neck supple. No JVD or thyromegaly LUNGS: Respirations even and unlabored. Lungs essentially clear to auscultation bilaterally. HEART: Regular rate and rhythm. S1 and S2 heard. ABDOMEN: Soft. Nondistended. Tenderness upon palpation. EXTREMITIES: Normal range of motion. No clubbing or cyanosis. Peripheral pulses intact. No lower extremity edema NEUROLOGIC: Awake and alert. Oriented x 2. ASSESSMENT: Chest pain, troponin negative x 3, acute coronary syndrome has been ruled out Abdominal pain with nausea and vomiting Hypertension, uncontrolled, likely secondary to patient unable to keep medications down x 4 days Coronary artery disease with previous PCI to RCA and mid left circumflex, January 2020 History of TAVR, 2019, per patient at [facility] in [place] Hyperlipidemia Diabetes mellitus Hyperglycemia Former nicotine dependence Acute Kidney Injury Anemia PLAN: Change amlodipine to 10mg daily Patient BP has improved Hgb 8.9 today, from 10 yesterday. Plan for GI to take him for upper endoscopy tomorrow Plavix placed on hold per GI service. Resume when cleared with GI secondary to stenting last year. Per GI if hemoglobin remains stable, plan to reinitiate plavix within the next 24-48 hours. We will sign off at this time, Pleas reach out with any other questions or concerns. Patient to follow up with Dr. Forbes outpatient Nurse practitioner note has been reviewed by physician. Signing provider agrees with the documented findings, assessment, and plan of care. Objective - Vital Signs Vital signs: Vital Signs Temp 98.3 F 12/16/20 12:00 Pulse 74 12/16/20 12:00 Resp 16 12/16/20 12:00 BP 135/56 12/16/20 12:00 Pulse Ox 98 12/16/20 12:00 Intake & Output 12/15/20 12/16/20 12/16/20 18:59 06:59 18:59 Intake Total 1000 30 490 Output Total 850 1575 800 Balance 150 -1545 -310 Weight 80 kg Intake: IV 30 10 Invasive Line 1 20 10 Invasive Line 2 10 Oral 1000 480 Output: Urine 850 1575 800 Other: Voiding Method Indwelling Catheter Indwelling Catheter Indwelling Catheter # Voids 0 # Bowel Movements 0 - Labs CBC & Chem 7: 12/16/20 07:48 12/16/20 07:48 Labs: Abnormal Lab Results - Last 24 Hours (Table) 12/15/20 12/15/20 12/15/20 Range/Units 07:45 17:10 19:43 RBC (4.30-5.90) m/uL Hgb (13.0-17.5) gm/dL Hct (39.0-53.0) % Chloride (98-107) mmol/L BUN (9-20) mg/dL Creatinine (0.66-1.25) mg/dL Glucose (74-99) mg/dL POC Glucose (mg/dL) 67 L 145 H (75-99) mg/dL Hemoglobin A1c 7.4 H (4.0-6.0) % Total Protein (6.3-8.2) g/dL Albumin (3.5-5.0) g/dL 12/16/20 12/16/20 12/16/20 Range/Units 06:19 07:48 07:48 RBC 2.95 L (4.30-5.90) m/uL Hgb 8.9 L (13.0-17.5) gm/dL Hct 26.2 L (39.0-53.0) % Chloride 108 H (98-107) mmol/L BUN 27 H (9-20) mg/dL Creatinine 1.26 H (0.66-1.25) mg/dL Glucose 117 H (74-99) mg/dL POC Glucose (mg/dL) 125 H (75-99) mg/dL Hemoglobin A1c (4.0-6.0) % Total Protein 5.0 L (6.3-8.2) g/dL Albumin 2.7 L (3.5-5.0) g/dL 12/16/20 12/16/20 Range/Units 08:17 12:02 RBC (4.30-5.90) m/uL Hgb (13.0-17.5) gm/dL Hct (39.0-53.0) % Chloride (98-107) mmol/L BUN (9-20) mg/dL Creatinine (0.66-1.25) mg/dL Glucose (74-99) mg/dL POC Glucose (mg/dL) 207 H 262 H (75-99) mg/dL Hemoglobin A1c (4.0-6.0) % Total Protein (6.3-8.2) g/dL Albumin (3.5-5.0) g/dL Microbiology - Last 24 Hours (Table) 12/14/20 15:48 Blood Culture Gram Stain - Final Blood 12/14/20 15:48 Blood Culture - Final Blood
[2020-12-16] MEDS ORDERED: SODIUM CHLORIDE 0.9% 1,000 ML IV STA (15:33)
[2020-12-16 16:50] LABS: Glucose,Whole Blood 78 mg/dL (75-99)
--- NOTE | 2020-12-16 17:23 | P.PN ---
Subjective Progress Note Date: 12/16/20 Alejo Lees is an 80 year old male who presented to [facility] emergency room, due to elevated blood pressure and chest pain, patient stated that at home his systolic blood pressure was 230, he takes multiple blood pressure medications and was unable to bring his blood pressure down, on his way to the hospital and he had an episode of chest pain, he was evaluated in the emergency room, vital examination on presentation revealed a temperature of 99.4 pulse 72 respiration 18 blood pressure 190/78 pulse Ox 96 % on room air, white blood count was 13.1, hemoglobin 12.4 platelet count 210, sodium 133 potassium 4.4 chloride 99 CO2 23 BUN 23 creatinine 1.0 glucose 347 troponin less than 0.012 chest x-ray revealed chronic changes without evidence for acute pulmonary disease, EKG reveals sinus rhythm with first-degree AV block, patient was admitted to telemetry floor for further evaluation and treatment serial EKGs were ordered cardiology consultation was requested home medications reviewed and reordered patient was also started on IV hydralazine when necessary for elevated blood pressure. On 12/14/2020 patient was seen and examined on the medical floor he is somnolent responsive in no apparent distress, he had episodes of agitation last night and received IV Ativan, today he is somnolent he opens his eyes to stimuli he answered 1 or 2 questions and then goes back to sleep, he is denying any pain or discomfort, this morning he had significantly elevated glucose levels in the 500s range and had positive ketones he was started on IV fluid and IV insulin drip, blood pressure has been decreasing, IV fluid was increased to 150 mL/h, patient was given a normal saline bolus of 500 mL repeat labs were ordered for this evening all blood pressure medications are on hold at this time. Yesterday patient was complaining of abdominal discomfort and vomiting amylase lipase and abdominal ultrasound were within normal limits urine analysis did not reveal any evidence of urinary tract infection. Chest x-ray on presentation did not reveal any evidence of infection. On admission patient was maintained on Keflex, this is held at this time and patient was started on IV Rocephin, blood culture, pro- calcitonin and lactic acid were ordered this afternoon and I am awaiting results repeat BMP was ordered On 12/15/2020 patient is alert and oriented 3 currently resting comfortably in bed. Patient able to answer questions appropriately. White blood cell slightly improved to 12.5. Creatinine 1.98 and bun 50 blood sugars also improved. Repeat lactic acid 1.8. Current blood pressure 137/61. Discussed case with cardiology team patient back on home medication regime. Patient had episode of hypotension yesterday hydralazine was DC'd per cardiology. Patient remains on IV Rocephin. Insulin drip currently seated patient transition to subcu. At this time patient denies chest pain or shortness breath. Patient denies nausea vomiting or diarrhea. Patient denies any urinary burning or frequency. On 12/16/2020 patient was seen and examined on the medical floor he is alert and oriented 3 in no apparent distress there is no fever or chills no headache or dizziness no chest pain no shortness of breath no cough no nausea or vomiting no abdominal pain no diarrhea no blood in the stools no burning with urination no frequency or urgency and no hematuria. Glucose level is well-controlled, kidney function is improving significantly creatinine is down to 1.26 down from 1.98 yesterday at this time will decrease IV fluid to 75 mL per hour normal saline. Patient has positive blood culture for gram-positive cocci Dr. Panda infectious disease was notified and patient was started on IV vancomycin Objective - Vital Signs Vital signs: Vital Signs Temp 98.3 F 12/16/20 08:17 Pulse 70 12/16/20 08:17 Resp 16 12/16/20 08:17 BP 144/66 12/16/20 08:17 Pulse Ox 97 12/16/20 08:18 Intake & Output 12/15/20 12/16/20 12/16/20 18:59 06:59 18:59 Intake Total 1000 30 490 Output Total 850 1575 Balance 150 -1545 490 Weight 80 kg Intake: IV 30 10 Invasive Line 1 20 10 Invasive Line 2 10 Oral 1000 480 Output: Urine 850 1575 Other: Voiding Method Indwelling Catheter Indwelling Catheter Indwelling Catheter # Voids 0 # Bowel Movements 0 - Exam In general patient is somnolent responsive in no apparent distress HEENT head normocephalic and atraumatic Neck is supple no JVD no goiter no lymphadenopathy no carotid bruit Chest examination is clear to auscultation no crackles no wheezing Cardiac exam reveals regular heart sounds S1 and S2 no gallops no murmurs Abdomen is soft nontender no organomegaly with normal bowel sounds Extremity exam reveals no edema no cyanosis or clubbing Neurological examination reveals no gross focal deficits - Labs CBC & Chem 7: 12/16/20 07:48 12/16/20 07:48 Labs: Abnormal Lab Results - Last 24 Hours (Table) 12/15/20 12/15/20 12/15/20 Range/Units 07:45 12:07 17:10 RBC (4.30-5.90) m/uL Hgb (13.0-17.5) gm/dL Hct (39.0-53.0) % Chloride (98-107) mmol/L BUN (9-20) mg/dL Creatinine (0.66-1.25) mg/dL Glucose (74-99) mg/dL POC Glucose (mg/dL) 130 H 67 L (75-99) mg/dL Hemoglobin A1c 7.4 H (4.0-6.0) % Total Protein (6.3-8.2) g/dL Albumin (3.5-5.0) g/dL 12/15/20 12/16/20 12/16/20 Range/Units 19:43 06:19 07:48 RBC 2.95 L (4.30-5.90) m/uL Hgb 8.9 L (13.0-17.5) gm/dL Hct 26.2 L (39.0-53.0) % Chloride (98-107) mmol/L BUN (9-20) mg/dL Creatinine (0.66-1.25) mg/dL Glucose (74-99) mg/dL POC Glucose (mg/dL) 145 H 125 H (75-99) mg/dL Hemoglobin A1c (4.0-6.0) % Total Protein (6.3-8.2) g/dL Albumin (3.5-5.0) g/dL 12/16/20 12/16/20 Range/Units 07:48 08:17 RBC (4.30-5.90) m/uL Hgb (13.0-17.5) gm/dL Hct (39.0-53.0) % Chloride 108 H (98-107) mmol/L BUN 27 H (9-20) mg/dL Creatinine 1.26 H (0.66-1.25) mg/dL Glucose 117 H (74-99) mg/dL POC Glucose (mg/dL) 207 H (75-99) mg/dL Hemoglobin A1c (4.0-6.0) % Total Protein 5.0 L (6.3-8.2) g/dL Albumin 2.7 L (3.5-5.0) g/dL Microbiology - Last 24 Hours (Table) 12/14/20 15:48 Blood Culture Gram Stain - Final Blood 12/14/20 15:48 Blood Culture - Final Blood Assessment and Plan Plan: 1. Hypertensive emergency, on presentation resolved. Patient back on home medication regime per cardiology 2. Episode of chest pain, troponins are negative patient was seen by cardiology, patient denies any chest pain at this time 3. Underlying history of coronary artery disease 4. Underlying history of hypertension 5. Underlying history of hyperlipidemia 6. Underlying history of diabetes mellitus 7. Epigastric pain with episode of the ground emesis. patient was started on IV Protonix, abdominal ultrasound completed showing no suspicious acute ultrasound abnormality. Large debris-filled stomach causing limitation of the exam. Amylase and lipase within normal limits. GI services following. Per GI services Plavix is currently on hold and it. If hemoGlobin remains stable reinitiation in the next 24-48 hours for EGD at this time 8. Osteoarthritis with recent total knee arthroplasty surgery 9. Hyperglycemia with evidence of diabetic ketoacidosis responding to IV fluid and IV insulin drip. Insulin drip has been DC'd 10. Somnolence, likely related to doses of IV Ativan and IV morphine that patient received, Ativan and morphine are discontinued at this time will monitor closely 11. Hypotension, may be related to multiple blood pressure medications that patient has received in addition to dehydration related to diabetic ketoacidosis, at this time blood pressure medications are on hold patient is receiving IV fluid Will monitor blood pressure closely. Improved. 12. Acute kidney injury likely secondary to dehydration. Creatinine down to 1.26 will decrease IV fluid to 75 mL/h 13. Elevated lactic acid and white count. Initial lactic acid 2.1. White blood cell comp 14.9. No clear source of infection. Infectious disease is following blood urine cultures ordered. Patient maintained on Rocephin DVT prophylaxis Lovenox. GI prophylaxis Protonix Cardiology, GI and infectious disease service is following Patient maintained on Rocephin, cultures pending Patient maintained on normal saline at 150 repeat labs ordered for a.m.
[2020-12-16] MEDS: ATORVASTATIN 80 MG TAB PO SCH (20:21)
[2020-12-16] MEDS: HYDROcodone/APAP 10-325MG 1 EACH TAB PO PRN (20:25)
[2020-12-16 20:36] LABS: Glucose,Whole Blood 246 mg/dL (75-99)
[2020-12-16 21:11] LABS: % Iron Saturation 14.29 (15.00-50.00)
[2020-12-16 21:32] LABS: Ferritin 390.7 ng/mL (22.0-322.0)
--- NOTE | 2020-12-16 23:04 | PN ---
PROGRESS NOTE DATE OF SERVICE: 12/16/2020 REASON FOR FOLLOWUP: 1. Possible infection. 2. Bacteremia. INTERVAL HISTORY: The patient's blood culture is reported positive with Gram-positive cocci. This morning the patient overall is feeling better, breathing comfortably. The patient denies having any chest pain, shortness of breath or cough. No nausea, no vomiting, no abdominal pain or diarrhea. PHYSICAL EXAMINATION: Blood pressure 147/68 with a pulse of 70, temperature 97.6. He is 96% on room air. General description is an elderly male up in the chair in no distress. RESPIRATORY SYSTEM: Unlabored breathing. Clear to auscultation anteriorly. HEART: S1, S2. Regular rate and rhythm. ABDOMEN: Soft. No tenderness. LABS: Hemoglobin 8.9, white count 9.3, BUN of 27, creatinine 1.26. DIAGNOSTIC IMPRESSION AND PLAN: Patient admitted to hospital with generalized weakness , no obvious clinical focus of infection, now with blood cultures growing positive in this patient who did have recent left knee arthroplasty. Blood culture has been repeated. Vancomycin will be added. Will wait for the blood culture to finalize and monitor clinical course closely. Continue with supportive care. MMODL / IJN: [id number] / MTDD
[2020-12-17 06:07] LABS: Glucose,Whole Blood 173 mg/dL (75-99)
[2020-12-17] MEDS: INSULIN ASPART (NovoLOG) 100 UNIT/ML VIAL SQ SCH ×3 (06:11→15:02)
[2020-12-17] MEDS: carvediloL 12.5 MG TAB PO SCH ×2 (06:15→15:52)
[2020-12-17] MEDS: INSULIN DETEMIR (LEVEMIR) 100 UNIT/ML SYR SQ SCH (07:57)
[2020-12-17] MEDS: GABAPENTIN 100 MG CAP PO SCH ×3 (07:58→22:59)
[2020-12-17] MEDS: amLODIPine 10 MG TAB PO SCH (08:05)
[2020-12-17] MEDS: PANTOPRAZOLE 40 MG/10 ML VIAL IVP SCH ×2 (08:05→20:13)
[2020-12-17] MEDS: ENOXAPARIN 40 MG/0.4 ML SYRINGE SQ SCH (08:05)
[2020-12-17] MEDS: ASPIRIN 81 MG PO SCH (08:06)
[2020-12-17 08:46] LABS: HCT 26.8 % (39.0-53.0); HGB 9.5 gm/dL (13.0-17.5); MCH 31.2 pg (25.0-35.0); MCHC 35.3 g/dL (31.0-37.0); MCV 88.4 fL (80.0-100.0); Platelet Count 174 k/uL (150-450); RBC 3.03 m/uL (4.30-5.90); RDW 13.2 % (11.5-15.5); WBC 7.4 k/uL (3.8-10.6)
--- NOTE | 2020-12-17 10:35 | P.PN ---
Subjective Progress Note Date: 12/17/20 Alejo Lees is an 80 year old male who presented to [facility] emergency room, due to elevated blood pressure and chest pain, patient stated that at home his systolic blood pressure was 230, he takes multiple blood pressure medications and was unable to bring his blood pressure down, on his way to the hospital and he had an episode of chest pain, he was evaluated in the emergency room, vital examination on presentation revealed a temperature of 99.4 pulse 72 respiration 18 blood pressure 190/78 pulse Ox 96 % on room air, white blood count was 13.1, hemoglobin 12.4 platelet count 210, sodium 133 potassium 4.4 chloride 99 CO2 23 BUN 23 creatinine 1.0 glucose 347 troponin less than 0.012 chest x-ray revealed chronic changes without evidence for acute pulmonary disease, EKG reveals sinus rhythm with first-degree AV block, patient was admitted to telemetry floor for further evaluation and treatment serial EKGs were ordered cardiology consultation was requested home medications reviewed and reordered patient was also started on IV hydralazine when necessary for elevated blood pressure. On 12/14/2020 patient was seen and examined on the medical floor he is somnolent responsive in no apparent distress, he had episodes of agitation last night and received IV Ativan, today he is somnolent he opens his eyes to stimuli he answered 1 or 2 questions and then goes back to sleep, he is denying any pain or discomfort, this morning he had significantly elevated glucose levels in the 500s range and had positive ketones he was started on IV fluid and IV insulin drip, blood pressure has been decreasing, IV fluid was increased to 150 mL/h, patient was given a normal saline bolus of 500 mL repeat labs were ordered for this evening all blood pressure medications are on hold at this time. Yesterday patient was complaining of abdominal discomfort and vomiting amylase lipase and abdominal ultrasound were within normal limits urine analysis did not reveal any evidence of urinary tract infection. Chest x-ray on presentation did not reveal any evidence of infection. On admission patient was maintained on Keflex, this is held at this time and patient was started on IV Rocephin, blood culture, pro- calcitonin and lactic acid were ordered this afternoon and I am awaiting results repeat BMP was ordered On 12/15/2020 patient is alert and oriented 3 currently resting comfortably in bed. Patient able to answer questions appropriately. White blood cell slightly improved to 12.5. Creatinine 1.98 and bun 50 blood sugars also improved. Repeat lactic acid 1.8. Current blood pressure 137/61. Discussed case with cardiology team patient back on home medication regime. Patient had episode of hypotension yesterday hydralazine was DC'd per cardiology. Patient remains on IV Rocephin. Insulin drip currently seated patient transition to subcu. At this time patient denies chest pain or shortness breath. Patient denies nausea vomiting or diarrhea. Patient denies any urinary burning or frequency. On 12/16/2020 patient was seen and examined on the medical floor he is alert and oriented 3 in no apparent distress there is no fever or chills no headache or dizziness no chest pain no shortness of breath no cough no nausea or vomiting no abdominal pain no diarrhea no blood in the stools no burning with urination no frequency or urgency and no hematuria. Glucose level is well-controlled, kidney function is improving significantly creatinine is down to 1.26 down from 1.98 yesterday at this time will decrease IV fluid to 75 mL per hour normal saline. Patient has positive blood culture for gram-positive cocci Dr. Panda infectious disease was notified and patient was started on IV vancomycin And 12/17/2020 patient is alert and oriented 3. Patient to undergo EGD today per GI services. Patient remains on IV vancomycin. GI, cardiology and infectious disease following. This time patient denies chest pain or shortness breath. Patient denies nausea vomiting or diarrhea. Patient denies any urinary burning or frequency. Patient remains on IV vancomycin. Objective - Vital Signs Vital signs: Vital Signs Temp 98.3 F 12/17/20 08:00 Pulse 68 12/17/20 08:00 Resp 18 12/17/20 08:00 BP 155/62 12/17/20 08:00 Pulse Ox 97 12/17/20 08:00 Intake & Output 12/16/20 12/17/20 12/17/20 18:59 06:59 18:59 Intake Total 1460 600 Output Total 1999 2249 Balance -540 -1650 Weight 79.3 kg Intake: IV 20 Invasive Line 1 20 Intake, IV Titration 600 Amount Sodium Chloride 0.9% 1, 600 000 ml @ 75 mls/hr IV . [id number] STA Rx#:[id number] Oral 1440 Output: Urine 2000 2250 Other: Voiding Method Indwelling Catheter Indwelling Catheter Indwelling Catheter - Exam In general patient is somnolent responsive in no apparent distress HEENT head normocephalic and atraumatic Neck is supple no JVD no goiter no lymphadenopathy no carotid bruit Chest examination is clear to auscultation no crackles no wheezing Cardiac exam reveals regular heart sounds S1 and S2 no gallops no murmurs Abdomen is soft nontender no organomegaly with normal bowel sounds Extremity exam reveals no edema no cyanosis or clubbing Neurological examination reveals no gross focal deficits - Labs CBC & Chem 7: 12/17/20 08:02 12/16/20 07:48 Labs: Abnormal Lab Results - Last 24 Hours (Table) 12/16/20 12/16/20 12/16/20 Range/Units 07:48 12:02 20:24 RBC (4.30-5.90) m/uL Hgb (13.0-17.5) gm/dL Hct (39.0-53.0) % POC Glucose (mg/dL) 262 H 246 H (75-99) mg/dL Iron 34 L (65-175) ug/dL % Saturation 14.29 L (15.00-50.00) Ferritin 390.7 H (22.0-322.0) ng/mL C-Reactive Protein (<1.0) mg/dL 12/17/20 12/17/20 12/17/20 Range/Units 06:05 08:02 08:02 RBC 3.03 L (4.30-5.90) m/uL Hgb 9.5 L (13.0-17.5) gm/dL Hct 26.8 L (39.0-53.0) % POC Glucose (mg/dL) 173 H (75-99) mg/dL Iron (65-175) ug/dL % Saturation (15.00-50.00) Ferritin (22.0-322.0) ng/mL C-Reactive Protein 1.0 H (<1.0) mg/dL Microbiology - Last 24 Hours (Table) 12/14/20 15:48 Blood Culture Gram Stain - Final Blood Blood Culture - Preliminary Coagulase Negative Staph 12/14/20 15:48 Blood Culture - Final Blood Assessment and Plan Plan: 1. Hypertensive emergency, on presentation resolved. Patient back on home medication regime per cardiology 2. Episode of chest pain, troponins are negative patient was seen by cardiology, patient denies any chest pain at this time 3. Underlying history of coronary artery disease 4. Underlying history of hypertension 5. Underlying history of hyperlipidemia 6. Underlying history of diabetes mellitus 7. Epigastric pain with episode of the ground emesis. patient was started on IV Protonix, abdominal ultrasound completed showing no suspicious acute ultrasound abnormality. Large debris-filled stomach causing limitation of the exam. Amylase and lipase within normal limits. GI services following. Per GI services Plavix is currently on hold and it. EGD today 12/17/2020 8. Osteoarthritis with recent total knee arthroplasty surgery 9. Hyperglycemia with evidence of diabetic ketoacidosis responding to IV fluid and IV insulin drip. Insulin drip has been DC'd 10. Somnolence, likely related to doses of IV Ativan and IV morphine that patient received, Ativan and morphine are discontinued at this time will monitor closely 11. Hypotension, may be related to multiple blood pressure medications that patient has received in addition to dehydration related to diabetic k etoacidosis, at this time blood pressure medications are on hold patient is receiving IV fluid Will monitor blood pressure closely. Improved. 12. Acute kidney injury likely secondary to dehydration. Creatinine down to 1.26 will decrease IV fluid to 75 mL/h 13 bacteremia. Culture positive for coag negative staph. Patient currently on vancomycin DVT prophylaxis Lovenox. GI prophylaxis Protonix Cardiology, GI and infectious disease service is following EGD today 12/17/2020 Patient remains on vancomycin for positive blood culture
[2020-12-17 11:10] LABS: Albumin 2.8 g/dL (3.5-5.0); Calcium 8.6 mg/dL (8.4-10.2); Potassium 4.1 mmol/L (3.5-5.1); Total Bilirubin 0.4 mg/dL (0.2-1.3); Total Protein 4.9 g/dL (6.3-8.2)
[2020-12-17] MEDS: CITALOPRAM HYDROBROMIDE 20 MG TAB PO SCH (11:20)
[2020-12-17] MEDS: hydroCHLOROthiazide 25 MG TAB PO SCH (11:20)
[2020-12-17] MEDS: LOSARTAN 50 MG TAB PO SCH (11:20)
[2020-12-17] MEDS: VANCOMYCIN 1,500 MG in SODIUM CHLORIDE 0.9% 250 ML IVPB SCH (11:20)
[2020-12-17 12:07] LABS: Glucose,Whole Blood 246 mg/dL (75-99)
[2020-12-17 12:11] VITALS: BMI 27.3
[2020-12-17] MEDS ORDERED: LIDOCAINE 1% INJ 10MG/ML (20 ML MDV) ONE (14:05)
[2020-12-17] MEDS ORDERED: PROPOFOL 10 MG/ML 20 ML VIAL IV ONE (14:05)
[2020-12-17] MEDS ORDERED: IV FLUID CONTINUATION 500 ML IV ONE (14:09)
--- NOTE | 2020-12-17 15:01 | P.PCN ---
Date of Procedure: 12/17/20 Description of Procedure: BRIEF HISTORY: 80-year-old male admitted to the hospital with GI consult for the patient had initially had episodes of hematemesis/coffee-ground emesis. Subsequently, patient had a dark stool this morning with a drop in his hemoglobin from 12.4- 8.9. Plavix has been held., Need to consider possible upper GI source of bleed. Possible etiologies include peptic ulcer disease, gastritis, esophagitis, or AVM, also need to consider possibility of neoplasm PROCEDURE PERFORMED: Esophagogastroduodenoscopy with Endo Clip placement 3 and epinephrine injection. PREOPERATIVE DIAGNOSIS: Anemia of acute blood loss, coffee-ground emesis, melena. ESTIMATED BLOOD LOSS: Minimal. IV sedation per anesthesia. PROCEDURE: After informed consent was obtained, the patient was brought into the endoscopy unit. IV sedation was administered by Anesthesia under continuous monitoring. Initially the Olympus GIF-190 video endoscope was inserted into the mouth. Esophagus intubated without any difficulty. It was gradually advanced into the stomach and duodenum and carefully examined. The bulb and the second part of the duodenum were significant for a 1 cm cratered ulcer in the duodenal sweep with an adherent clot. Lavage was used to remove the clot and there was an area of oozing of blood that was noted. Epinephrine injection with a total of 4.5 mL and Endo Clip placement 3 were used to achieve hemostasis. The scope at this time was withdrawn to the stomach, adequately insufflated with air, and upon careful examination, mucosa of the antrum, body, cardia and the fundus appeared normal. The scope was then withdrawn into the esophagus. The GE junction was located at 39 cm from the incisors. The esophagus appeared normal. There were no erosions or ulcerations seen and the patient tolerated the procedure well. IMPRESSION: 1. Cratered duodenal ulcer, with clots adherent to the ulcer and oozing of blood treated with Endo Clip placement 3 and epinephrine injection with hemostasis achieved. 2. No other sources of bleeding noted, or pathology to explain anemia. RECOMMENDATIONS: The findings of this examination were discussed with the patient and the medical team. Patient should remain nothing by mouth except for ice chips. Surgical consult is been placed and the surgeon has been informed of the details of the case. Continue to monitor hemoglobin and hematocrit and transfuse as needed. Hold any anticoagulation at this time. Avoid NSAID use.
--- NOTE | 2020-12-17 17:09 | P.GSCN ---
History of Present Illness Consult date: 12/17/20 Reason for Consult: Duodenal ulcer History of present illness: 80-year-old male hospitalized for hypertension. Patient was noted to have some coffee-ground emesis and dark colored stools. Patient's hemoglobin dropped. Patient does take Fransisca and Plavix. Underwent EGD today and was found to have a 1 cm duodenal ulcer with evidence of active bleeding. Bleeding was controlled with 3 clips. We were consulted for surgical standby. Patient denies abdominal pain. He has a history of previous lap band placement by myself years ago. 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 History of Any Multi-Drug Resistant Organisms: None Reported Past Surgical History: Appendectomy, Bariatric Surgery, Cholecystectomy, Heart Catheterization With Stent, Hernia Repair, Joint Replacement, Orthopedic Surgery Additional Past Surgical History / Comment(s): Recent L partial knee replacement, bilateral carpal tunnel releases, L hand trigger finger surgery, bilateral cataract removals, bilateral eye surgery for glaucoma, Lap banding, bilateral caratid transcaratid artery revascularization/stenting, umbilical hernia repair, vasectomy. Past Anesthesia/Blood Transfusion Reactions: No Reported Reaction Date of Last Stent Placement:: 01/07/20 Smoking Status: Former smoker - Past Family History Father Family Medical History: CVA/TIA Additional Family Medical History / Comment(s): stroke Mother Family Medical History: CVA/TIA Additional Family Medical History / Comment(s): stroke Medications and Allergies Home Medications Medication Instructions Recorded Confirmed Type Citalopram Hydrobromide [CeleXA] 40 mg PO AC-LUNCH 01/14/15 12/13/20 History metFORMIN HCL 1,000 mg PO BID 01/15/15 12/13/20 History Aspirin EC [Ecotrin Low Dose] 81 mg PO AC-BID 05/28/17 12/13/20 History Losartan Potassium 100 mg PO AC-LUNCH 01/05/20 12/13/20 History Carvedilol [Coreg] 12.5 mg PO BID 01/19/20 12/13/20 History amLODIPine [Norvasc] 5 mg PO BID 01/19/20 12/13/20 History Atorvastatin [Lipitor] 80 mg PO HS 12/13/20 12/13/20 History Celecoxib [CeleBREX] 200 mg PO AC-BID 12/13/20 12/13/20 History Clopidogrel [Plavix] 75 mg PO DAILY 12/13/20 12/13/20 History Gabapentin [Neurontin] 200 mg PO Q8H 12/13/20 12/13/20 History Linagliptin [Tradjenta] 5 mg PO AC-LUNCH 12/13/20 12/13/20 History cefaDROXiL [Duricef] 500 mg PO BID 12/13/20 12/13/20 History glipiZIDE [Glucotrol] 5 mg PO BID 12/13/20 12/13/20 History hydroCHLOROthiazide 25 mg PO AC-LUNCH 12/13/20 12/13/20 History oxyCODONE HCL [OxyIR] 5 mg PO Q4-6H PRN 12/13/20 12/13/20 History Allergies Allergy/AdvReac Type Severity Reaction Status Date / Time Penicillins Allergy Rash/Hives Verified 12/13/20 14:06 Surgical - Exam Vital Signs Temp Pulse Resp BP Pulse Ox 99.4 F 72 20 170/61 97 12/13/20 12:25 12/13/20 12:25 12/13/20 12:25 12/13/20 12:25 12/13/20 12:25 Physical exam: General: Well-developed, well-nourished HEENT: Normocephalic, sclerae nonicteric Abdomen: Nontender, nondistended Extremities: No edema Neuro: Alert and oriented Results - Labs 12/17/20 08:02 12/17/20 08:02 Abnormal Lab Results - Last 24 Hours (Table) 12/16/20 12/16/20 12/17/20 Range/Units 07:48 20:24 06:05 RBC (4.30-5.90) m/uL Hgb (13.0-17.5) gm/dL Hct (39.0-53.0) % Sodium (137-145) mmol/L Glucose (74-99) mg/dL POC Glucose (mg/dL) 246 H 173 H (75-99) mg/dL Iron 34 L (65-175) ug/dL % Saturation 14.29 L (15.00-50.00) Ferritin 390.7 H (22.0-322.0) ng/mL C-Reactive Protein (<1.0) mg/dL Total Protein (6.3-8.2) g/dL Albumin (3.5-5.0) g/dL 12/17/20 12/17/20 12/17/20 Range/Units 08:02 08:02 08:02 RBC 3.03 L (4.30-5.90) m/uL Hgb 9.5 L (13.0-17.5) gm/dL Hct 26.8 L (39.0-53.0) % Sodium 135 L (137-145) mmol/L Glucose 195 H (74-99) mg/dL POC Glucose (mg/dL) (75-99) mg/dL Iron (65-175) ug/dL % Saturation (15.00-50.00) Ferritin (22.0-322.0) ng/mL C-Reactive Protein 1.0 H (<1.0) mg/dL Total Protein 4.9 L (6.3-8.2) g/dL Albumin 2.8 L (3.5-5.0) g/dL 12/17/20 Range/Units 12:05 RBC (4.30-5.90) m/uL Hgb (13.0-17.5) gm/dL Hct (39.0-53.0) % Sodium (137-145) mmol/L Glucose (74-99) mg/dL POC Glucose (mg/dL) 246 H (75-99) mg/dL Iron (65-175) ug/dL % Saturation (15.00-50.00) Ferritin (22.0-322.0) ng/mL C-Reactive Protein (<1.0) mg/dL Total Protein (6.3-8.2) g/dL Albumin (3.5-5.0) g/dL Microbiology - Last 24 Hours (Table) 12/14/20 15:48 Blood Culture Gram Stain - Final Blood Blood Culture - Preliminary Coagulase Negative Staph 12/16/20 10:39 Blood Culture - Preliminary Blood No Growth after 24 hours Diabetes panel 12/17/20 Range/Units 08:02 Sodium 135 L (137-145) mmol/L Potassium 4.1 (3.5-5.1) mmol/L Chloride 106 (98-107) mmol/L Carbon Dioxide 24 (22-30) mmol/L BUN 17 (9-20) mg/dL Creatinine 1.04 (0.66-1.25) mg/dL Glucose 195 H (74-99) mg/dL Calcium 8.6 (8.4-10.2) mg/dL AST 38 (17-59) U/L ALT 24 (4-49) U/L Alkaline Phosphatase 57 (38-126) U/L Total Protein 4.9 L (6.3-8.2) g/dL Albumin 2.8 L (3.5-5.0) g/dL Calcium panel 12/17/20 Range/Units 08:02 Calcium 8.6 (8.4-10.2) mg/dL Albumin 2.8 L (3.5-5.0) g/dL Pituitary panel 12/17/20 Range/Units 08:02 Sodium 135 L (137-145) mmol/L Potassium 4.1 (3.5-5.1) mmol/L Chloride 106 (98-107) mmol/L Carbon Dioxide 24 (22-30) mmol/L BUN 17 (9-20) mg/dL Creatinine 1.04 (0.66-1.25) mg/dL Glucose 195 H (74-99) mg/dL Calcium 8.6 (8.4-10.2) mg/dL Adrenal panel 12/17/20 Range/Units 08:02 Sodium 135 L (137-145) mmol/L Potassium 4.1 (3.5-5.1) mmol/L Chloride 106 (98-107) mmol/L Carbon Dioxide 24 (22-30) mmol/L BUN 17 (9-20) mg/dL Creatinine 1.04 (0.66-1.25) mg/dL Glucose 195 H (74-99) mg/dL Calcium 8.6 (8.4-10.2) mg/dL Total Bilirubin 0.4 (0.2-1.3) mg/dL AST 38 (17-59) U/L ALT 24 (4-49) U/L Alkaline Phosphatase 57 (38-126) U/L Total Protein 4.9 L (6.3-8.2) g/dL Albumin 2.8 L (3.5-5.0) g/dL Assessment and Plan (1) Bleeding duodenal ulcer Narrative/Plan: 80-year-old male with endoscopic findings of bleeding duodenal ulcer. Bleeding thus far control endoscopically. Certainly the patient is at high risk of rebleed. Discussed options of transfer to tertiary care hospital for advanced endoscopic and interventional radiology backup. Patient states he will consider. For now will remain on surgical standby. Current Visit: Yes Status: Acute Code(s): K26.4 - CHRONIC OR UNSPECIFIED DUODENAL ULCER WITH HEMORRHAGE SNOMED Code(s): 73931908
--- NOTE | 2020-12-17 17:14 | PN ---
PROGRESS NOTE DATE OF SERVICE: 12/17/2020 REASON FOR FOLLOWUP: Positive blood culture. INTERVAL HISTORY: The patient is currently afebrile. The patient is feeling better, breathing comfortably. Patient denies having any chest pain or shortness of breath or cough. No nausea, no vomiting, no abdominal pain or diarrhea. PHYSICAL EXAMINATION: Blood pressure 171/70 with a pulse of 57, temperature 98.3. He is 97% on room air. General description is an elderly male lying in bed in no distress. RESPIRATORY SYSTEM: Unlabored breathing. Clear to auscultation anteriorly. HEART: S1, S2. Regular rate and rhythm. ABDOMEN: Soft. No tenderness. Left knee is currently dressed. No significant swelling or redness. LABS: Hemoglobin is 9.5, white count 7.4. BUN of 17 and creatinine 1.04. Blood culture with coagulase-negative Staph. Blood cultures so far negative. DIAGNOSTIC IMPRESSION AND PLAN: Patient with positive blood culture with coagulase-negative Staphylococcus, possible skin contamination, as he has no obvious focus. He did have recent left knee replacement. Will wait for the blood culture that was drawn yesterday morning before the vancomycin was started. If any of those are negative, vancomycin will be safely discontinued. His questions and concerns were answered. MMODL / IJN: [id number] /
[2020-12-17 17:27] LABS: Glucose,Whole Blood 249 mg/dL (75-99)
[2020-12-17] MEDS: ATORVASTATIN 80 MG TAB PO SCH (20:13)
[2020-12-17 20:25] LABS: Glucose,Whole Blood 204 mg/dL (75-99)
[2020-12-18] MEDS: INSULIN DETEMIR (LEVEMIR) 100 UNIT/ML SYR SQ SCH (06:06)
[2020-12-18] MEDS: INSULIN ASPART (NovoLOG) 100 UNIT/ML VIAL SQ SCH ×4 (06:06→21:06)
[2020-12-18] MEDS: carvediloL 12.5 MG TAB PO SCH ×2 (06:08→17:43)
[2020-12-18 08:51] LABS: Basophils % (A) 0 %; Eosinophils # (A) 0.2 k/uL (0-0.7); Eosinophils % (A) 2 %; HCT 28.7 % (39.0-53.0); HGB 9.6 gm/dL (13.0-17.5); Lymphocytes # (A) 2.3 k/uL (1.0-4.8); Lymphocytes % (A) 27 %; MCH 29.3 pg (25.0-35.0); MCHC 33.4 g/dL (31.0-37.0); MCV 87.8 fL (80.0-100.0); Mean Platelet Volume 7.8; Monocytes # (A) 0.5 k/uL (0-1.0); Monocytes % (A) 6 %; Neutrophils # (A) 5.4 k/uL (1.3-7.7); Neutrophils % (A) 63 %; Platelet Count 199 k/uL (150-450); RBC 3.27 m/uL (4.30-5.90); RDW 13.8 % (11.5-15.5); WBC 8.7 k/uL (3.8-10.6)
[2020-12-18] MEDS: PANTOPRAZOLE 40 MG/10 ML VIAL IVP SCH ×2 (08:53→19:53)
[2020-12-18] MEDS: ENOXAPARIN 40 MG/0.4 ML SYRINGE SQ SCH (08:53)
[2020-12-18] MEDS: amLODIPine 10 MG TAB PO SCH (08:54)
[2020-12-18] MEDS: GABAPENTIN 100 MG CAP PO SCH ×2 (08:54→15:31)
[2020-12-18] MEDS: ASPIRIN 81 MG PO SCH (08:54)
[2020-12-18 09:06] LABS: Calcium 8.8 mg/dL (8.4-10.2); Potassium 4.3 mmol/L (3.5-5.1); Total Bilirubin 0.7 mg/dL (0.2-1.3); Total Protein 5.1 g/dL (6.3-8.2)
--- NOTE | 2020-12-18 09:32 | P.PN ---
Subjective Progress Note Date: 12/18/20 Alejo Lees is an 80 year old male who presented to [facility] emergency room, due to elevated blood pressure and chest pain, patient stated that at home his systolic blood pressure was 230, he takes multiple blood pressure medications and was unable to bring his blood pressure down, on his way to the hospital and he had an episode of chest pain, he was evaluated in the emergency room, vital examination on presentation revealed a temperature of 99.4 pulse 72 respiration 18 blood pressure 190/78 pulse Ox 96 % on room air, white blood count was 13.1, hemoglobin 12.4 platelet count 210, sodium 133 potassium 4.4 chloride 99 CO2 23 BUN 23 creatinine 1.0 glucose 347 troponin less than 0.012 chest x-ray revealed chronic changes without evidence for acute pulmonary disease, EKG reveals sinus rhythm with first-degree AV block, patient was admitted to telemetry floor for further evaluation and treatment serial EKGs were ordered cardiology consultation was requested home medications reviewed and reordered patient was also started on IV hydralazine when necessary for elevated blood pressure. On 12/14/2020 patient was seen and examined on the medical floor he is somnolent responsive in no apparent distress, he had episodes of agitation last night and received IV Ativan, today he is somnolent he opens his eyes to stimuli he answered 1 or 2 questions and then goes back to sleep, he is denying any pain or discomfort, this morning he had significantly elevated glucose levels in the 500s range and had positive ketones he was started on IV fluid and IV insulin drip, blood pressure has been decreasing, IV fluid was increased to 150 mL/h, patient was given a normal saline bolus of 500 mL repeat labs were ordered for this evening all blood pressure medications are on hold at this time. Yesterday patient was complaining of abdominal discomfort and vomiting amylase lipase and abdominal ultrasound were within normal limits urine analysis did not reveal any evidence of urinary tract infection. Chest x-ray on presentation did not reveal any evidence of infection. On admission patient was maintained on Keflex, this is held at this time and patient was started on IV Rocephin, blood culture, pro- calcitonin and lactic acid were ordered this afternoon and I am awaiting results repeat BMP was ordered On 12/15/2020 patient is alert and oriented 3 currently resting comfortably in bed. Patient able to answer questions appropriately. White blood cell slightly improved to 12.5. Creatinine 1.98 and bun 50 blood sugars also improved. Repeat lactic acid 1.8. Current blood pressure 137/61. Discussed case with cardiology team patient back on home medication regime. Patient had episode of hypotension yesterday hydralazine was DC'd per cardiology. Patient remains on IV Rocephin. Insulin drip currently seated patient transition to subcu. At this time patient denies chest pain or shortness breath. Patient denies nausea vomiting or diarrhea. Patient denies any urinary burning or frequency. On 12/16/2020 patient was seen and examined on the medical floor he is alert and oriented 3 in no apparent distress there is no fever or chills no headache or dizziness no chest pain no shortness of breath no cough no nausea or vomiting no abdominal pain no diarrhea no blood in the stools no burning with urination no frequency or urgency and no hematuria. Glucose level is well-controlled, kidney function is improving significantly creatinine is down to 1.26 down from 1.98 yesterday at this time will decrease IV fluid to 75 mL per hour normal saline. Patient has positive blood culture for gram-positive cocci Dr. Panda infectious disease was notified and patient was started on IV vancomycin On 12/17/2020 patient is alert and oriented 3. Patient to undergo EGD today per GI services. Patient remains on IV vancomycin. GI, cardiology and infectious disease following. This time patient denies chest pain or shortness breath. Patient denies nausea vomiting or diarrhea. Patient denies any urinary burning or frequency. Patient remains on IV vancomycin. On 12/18/2020 Patient was seen and examined on the medical floor, he is alert and oriented x 3 in no distress, he denies any complaints there is no fever or chills no headache or dizziness no chest pain no shortness of breath no palpitation no cough no nausea or vomiting no abdominal pain no diarrhea no blood in the stools no burning with urination no frequency or urgency and no hematuria, there is no weakness or numbness in any of the extremities no change in vision speech or gait. Patient had an EGD yesterday with Dr. Avalos that revealed evidence of with clots adherent to the ulcer and oozing of blood. Surgical consultation requested and patient was seen by Dr. Hernandez. Otherwise p atient had positive blood culture for coagulase-negative gram-positive cocci, patient was seen by Dr. Panda and is maintained on IV vancomycin especially in view of his recent knee replacement surgery. At this time we are awaiting further plans by Dr. Hernandez, Will consult physical therapy and occupational therapy. Objective - Vital Signs Vital signs: Vital Signs Temp 98 F 12/17/20 20:00 Pulse 68 12/18/20 04:00 Resp 16 12/18/20 04:00 BP 126/58 12/18/20 04:00 Pulse Ox 95 12/18/20 04:00 Intake & Output 12/17/20 12/18/20 12/18/20 18:59 06:59 18:59 Intake Total 400 0 Output Total 2800 1325 Balance -2400 -1325 0 Weight 79.3 kg 79 kg Intake: IV 400 Oral 0 Output: Urine 2800 1325 Other: Voiding Method Indwelling Catheter Indwelling Catheter - Exam In general patient is somnolent responsive in no apparent distress HEENT head normocephalic and atraumatic Neck is supple no JVD no goiter no lymphadenopathy no carotid bruit Chest examination is clear to auscultation no crackles no wheezing Cardiac exam reveals regular heart sounds S1 and S2 no gallops no murmurs Abdomen is soft nontender no organomegaly with normal bowel sounds Extremity exam reveals no edema no cyanosis or clubbing Neurological examination reveals no gross focal deficits - Labs CBC & Chem 7: 12/18/20 08:11 12/18/20 08:11 Labs: Abnormal Lab Results - Last 24 Hours (Table) 12/17/20 12/17/20 12/17/20 Range/Units 08:02 08:02 12:05 Sodium 135 L (137-145) mmol/L Glucose 195 H (74-99) mg/dL POC Glucose (mg/dL) 246 H (75-99) mg/dL C-Reactive Protein 1.0 H (<1.0) mg/dL Total Protein 4.9 L (6.3-8.2) g/dL Albumin 2.8 L (3.5-5.0) g/dL 12/17/20 12/17/20 Range/Units 17:25 20:08 Sodium (137-145) mmol/L Glucose (74-99) mg/dL POC Glucose (mg/dL) 249 H 204 H (75-99) mg/dL C-Reactive Protein (<1.0) mg/dL Total Protein (6.3-8.2) g/dL Albumin (3.5-5.0) g/dL Microbiology - Last 24 Hours (Table) 12/14/20 15:48 Blood Culture Gram Stain - Final Blood Blood Culture - Preliminary Coagulase Negative Staph 12/16/20 10:39 Blood Culture - Preliminary Blood No Growth after 24 hours Assessment and Plan Plan: 1. Hypertensive emergency, on presentation resolved. Patient back on home medication regime per cardiology 2. Episode of chest pain, troponins are negative patient was seen by cardiology, patient denies any chest pain at this time 3. Underlying history of coronary artery disease 4. Underlying history of hypertension 5. Underlying history of hyperlipidemia 6. Underlying history of diabetes mellitus 7. Epigastric pain with episode of the ground emesis. patient was started on IV Protonix, abdominal ultrasound completed showing no suspicious acute ultrasound abnormality. Large debris-filled stomach causing limitation of the exam. Amylase and lipase within normal limits. GI services following. Per GI services Plavix is currently on hold and it. EGD today 12/17/2020 8. Osteoarthritis with recent total knee arthroplasty surgery 9. Hyperglycemia with evidence of diabetic ketoacidosis responding to IV fluid and IV insulin drip. Insulin drip has been DC'd 10. Somnolence, likely related to doses of IV Ativan and IV morphine that patient received, Ativan and morphine are discontinued at this time will monitor closely 11. Hypotension, may be related to multiple blood pressure medications that patient has received in addition to dehydration related to diabetic ketoacidosis, at this time blood pressure medications are on hold patient is receiving IV fluid Will monitor blood pressure closely. Improved. 12. Acute kidney injury likely secondary to dehydration. Creatinine down to 1.26 will decrease IV fluid to 75 mL/h 13 bacteremia. Culture positive for coag negative staph. Patient currently on vancomycin DVT prophylaxis Lovenox. GI prophylaxis Protonix Cardiology, GI and infectious disease service is following EGD results mentioned above, patient was seen by Dr. Hernandez, awaiting further plans Patient remains on vancomycin for positive blood culture Consult physical therapy and occupational therapy
--- NOTE | 2020-12-18 10:22 | P.PN ---
Subjective Progress Note Date: 12/18/20 Principal diagnosis: Bleeding duodenal ulcer Patient without new complaints. No bowel movement since yesterday. Hemoglobin stable at 9.6. No vomiting. Objective - Vital Signs Vital signs: Vital Signs Temp 98 F 12/17/20 20:00 Pulse 68 12/18/20 04:00 Resp 16 12/18/20 04:00 BP 126/58 12/18/20 04:00 Pulse Ox 95 12/18/20 04:00 Intake & Output 12/17/20 12/18/20 12/18/20 18:59 06:59 18:59 Intake Total 400 0 Output Total 2800 1325 Balance -2400 -1325 0 Weight 79.3 kg 79 kg Intake: IV 400 Oral 0 Output: Urine 2800 1325 Other: Voiding Method Indwelling Catheter Indwelling Catheter - Exam Abdomen: Soft, nontender, nondistended - Labs CBC & Chem 7: 12/18/20 08:11 12/18/20 08:11 Labs: Abnormal Lab Results - Last 24 Hours (Table) 12/17/20 12/17/20 12/17/20 Range/Units 08:02 12:05 17:25 RBC (4.30-5.90) m/uL Hgb (13.0-17.5) gm/dL Hct (39.0-53.0) % Sodium 135 L (137-145) mmol/L Glucose 195 H (74-99) mg/dL POC Glucose (mg/dL) 246 H 249 H (75-99) mg/dL Total Protein 4.9 L (6.3-8.2) g/dL Albumin 2.8 L (3.5-5.0) g/dL 12/17/20 12/18/20 12/18/20 Range/Units 20:08 08:11 08:11 RBC 3.27 L (4.30-5.90) m/uL Hgb 9.6 L (13.0-17.5) gm/dL Hct 28.7 L (39.0-53.0) % Sodium 134 L (137-145) mmol/L Glucose 191 H (74-99) mg/dL POC Glucose (mg/dL) 204 H (75-99) mg/dL Total Protein 5.1 L (6.3-8.2) g/dL Albumin 3.0 L (3.5-5.0) g/dL Microbiology - Last 24 Hours (Table) 12/14/20 15:48 Blood Culture Gram Stain - Final Blood Blood Culture - Preliminary Coagulase Negative Staph 12/16/20 10:39 Blood Culture - Preliminary Blood No Growth after 24 hours Assessment and Plan (1) Bleeding duodenal ulcer Narrative/Plan: 6-year-old male with recent diagnosis of bleeding duodenal ulcer. Hold anticoagulation and mobile. Continue aggressive antiacid therapy. Gradually increase diet. Current Visit: Yes Status: Acute Code(s): K26.4 - CHRONIC OR UNSPECIFIED DUODENAL ULCER WITH HEMORRHAGE SNOMED Code(s): 84341090
[2020-12-18 12:25] LABS: Glucose,Whole Blood 297 mg/dL (75-99)
[2020-12-18] MEDS: CITALOPRAM HYDROBROMIDE 20 MG TAB PO SCH (12:28)
[2020-12-18] MEDS: VANCOMYCIN 1,500 MG in SODIUM CHLORIDE 0.9% 250 ML IVPB SCH (12:28)
[2020-12-18] MEDS: LOSARTAN 50 MG TAB PO SCH (12:28)
[2020-12-18] MEDS: hydroCHLOROthiazide 25 MG TAB PO SCH (12:28)
[2020-12-18 16:43] LABS: Glucose,Whole Blood 198 mg/dL (75-99)
--- NOTE | 2020-12-18 17:54 | PN ---
PROGRESS NOTE DATE OF SERVICE: 12/18/2020 REASON FOR FOLLOWUP: Positive blood culture and a question of infection. INTERVAL HISTORY: The patient is currently afebrile. Patient is breathing comfortably. The patient denies having any chest pain. No shortness of breath or cough. Patient is status post EGD yesterday. No evidence of duodenal ulcer, bleeding with application of four clips. The patient is currently not having any abdominal pain. No nausea, vomiting or diarrhea or any worsening pain to the left knee. PHYSICAL EXAMINATION: Blood pressure is 156/69 with a pulse of 74, temperature 98. He is 96% on room air. General description is an elderly male lying in bed in no distress. Respiratory system: Unlabored breathing, clear to auscultation anteriorly. HEART: S1, S2. Regular rate and rhythm. ABDOMEN: Soft, no tenderness. Left knee is currently dressed up. LABS: Hemoglobin 9.8, white count 8.7, BUN of 14, creatinine 1.01. Blood culture repeat has been negative. DIAGNOSTIC IMPRESSION AND PLAN: 1. Patient with a positive blood culture, coagulase negative Staphylococcus, likely skin contaminant. Blood culture will be repeated before starting vanco. If those are negative, we will go ahead and discontinue vancomycin. 2. Patient with elevated white count more likely reactive to his gastrointestinal bleed in this patient status post EGD with evidence of bleeding duodenal ulcer and status post Endoclip application. Patient monitored closely. Antibiotics can be safely discontinued. MMODL / IJN: [id number] /
[2020-12-18] MEDS: ATORVASTATIN 80 MG TAB PO SCH (19:53)
[2020-12-18 20:55] LABS: Glucose,Whole Blood 247 mg/dL (75-99)
[2020-12-19] MEDS: GABAPENTIN 100 MG CAP PO SCH ×4 (00:18→21:03)
[2020-12-19] MEDS ORDERED: VANCOMYCIN 1,500 MG in SODIUM CHLORIDE 0.9% 250 ML IVPB SCH (02:00)
[2020-12-19] MEDS: carvediloL 12.5 MG TAB PO SCH ×2 (06:23→17:39)
[2020-12-19 07:48] LABS: Glucose,Whole Blood 197 mg/dL (75-99)
[2020-12-19 07:55] LABS: Basophils % (A) 0 %; Eosinophils # (A) 0.2 k/uL (0-0.7); Eosinophils % (A) 2 %; HCT 28.3 % (39.0-53.0); HGB 10.1 gm/dL (13.0-17.5); Lymphocytes # (A) 1.8 k/uL (1.0-4.8); Lymphocytes % (A) 15 %; MCH 31.1 pg (25.0-35.0); MCHC 35.6 g/dL (31.0-37.0); MCV 87.2 fL (80.0-100.0); Monocytes # (A) 0.6 k/uL (0-1.0); Monocytes % (A) 5 %; Neutrophils # (A) 9.7 k/uL (1.3-7.7); Neutrophils % (A) 78 %; Platelet Count 199 k/uL (150-450); RBC 3.25 m/uL (4.30-5.90); RDW 13.3 % (11.5-15.5); WBC 12.4 k/uL (3.8-10.6)
[2020-12-19 08:05] LABS: Calcium 8.6 mg/dL (8.4-10.2); Potassium 3.6 mmol/L (3.5-5.1); Total Bilirubin 0.6 mg/dL (0.2-1.3); Total Protein 5.2 g/dL (6.3-8.2)
[2020-12-19] MEDS: ASPIRIN 81 MG PO SCH (08:49)
[2020-12-19] MEDS: amLODIPine 10 MG TAB PO SCH (08:49)
[2020-12-19] MEDS: INSULIN DETEMIR (LEVEMIR) 100 UNIT/ML SYR SQ SCH (08:50)
[2020-12-19] MEDS: INSULIN ASPART (NovoLOG) 100 UNIT/ML VIAL SQ SCH ×7 (08:50→21:10)
[2020-12-19] MEDS: ENOXAPARIN 40 MG/0.4 ML SYRINGE SQ SCH (08:52)
[2020-12-19] MEDS: PANTOPRAZOLE 40 MG/10 ML VIAL IVP SCH ×2 (09:08→21:03)
--- NOTE | 2020-12-19 10:15 | P.PN ---
Subjective Progress Note Date: 12/18/20 Principal diagnosis: Nausea and vomiting, duodenal ulcer Patient is seen lying in bed with no acute complaints. No signs or symptoms of GI bleeding. No abdominal pain reported. Objective - Vital Signs Vital signs: Vital Signs Temp 98.1 F 12/18/20 08:50 Pulse 66 12/18/20 08:50 Resp 16 12/18/20 08:50 BP 153/70 12/18/20 08:50 Pulse Ox 94 L 12/18/20 08:50 Intake & Output 12/17/20 12/18/20 12/18/20 18:59 06:59 18:59 Intake Total 400 0 Output Total 2800 1325 Balance -2400 -1325 0 Weight 79.3 kg 79 kg Intake: IV 400 Oral 0 Output: Urine 2800 1325 Other: Voiding Method Indwelling Catheter Indwelling Catheter Indwelling Catheter - Exam On physical examination, patient appears comfortable in no apparent distress. HEAD: Normocephalic, atraumatic. EYES: No scleral icterus. No conjunctival injection. MOUTH: No lesions, tongue midline. NECK: Trachea midline, no gross abnormalities. ABDOMEN: Soft, nontender to palpation. Bowel sounds are positive. No organomegaly. No guarding or rigidity. EXTREMITIES: No pedal edema. SKIN: No rashes, no jaundice. NEUROLOGIC: Alert and oriented x3. No focal deficits. - Labs CBC & Chem 7: 12/19/20 07:22 12/19/20 07:22 Labs: Abnormal Lab Results - Last 24 Hours (Table) 12/17/20 12/17/20 12/17/20 Range/Units 12:05 17:25 20:08 RBC (4.30-5.90) m/uL Hgb (13.0-17.5) gm/dL Hct (39.0-53.0) % Sodium (137-145) mmol/L Glucose (74-99) mg/dL POC Glucose (mg/dL) 246 H 249 H 204 H (75-99) mg/dL Total Protein (6.3-8.2) g/dL Albumin (3.5-5.0) g/dL 12/18/20 12/18/20 Range/Units 08:11 08:11 RBC 3.27 L (4.30-5.90) m/uL Hgb 9.6 L (13.0-17.5) gm/dL Hct 28.7 L (39.0-53.0) % Sodium 134 L (137-145) mmol/L Glucose 191 H (74-99) mg/dL POC Glucose (mg/dL) (75-99) mg/dL Total Protein 5.1 L (6.3-8.2) g/dL Albumin 3.0 L (3.5-5.0) g/dL Microbiology - Last 24 Hours (Table) 12/14/20 15:48 Blood Culture Gram Stain - Final Blood Blood Culture - Preliminary Coagulase Negative Staph 12/16/20 10:39 Blood Culture - Preliminary Blood No Growth after 24 hours Assessment and Plan (1) Nausea and vomiting Narrative/Plan: 80-year-old male with multiple medical comorbidities on aspirin and Plavix therapy as well as Mobic therapy at home who presented to the hospital for chest pain and elevated blood pressure which is currently being managed medically. He had 2 episodes of vomitus which he felt to be dark in nature. His hemoglobin has remained stable at 12.4, but subsequently fell. There have been no further episodes of vomiting. He reports a remote history of colonoscopy but does not believe he had EGD in the past. No abdominal pain reported. He does take Mobic therapy at home. Patient was taken for EGD with findings of a duodenal ulcer with active oozing of blood treated with Endo Clip placement 3 and epinephrine injection. Current Visit: Yes Status: Acute Code(s): R11.2 - NAUSEA WITH VOMITING, UNSPECIFIED SNOMED Code(s): 74720680 (2) Duodenal ulcer Current Visit: Yes Status: Acute Code(s): K26.9 - DUODENAL ULCER, UNSP ACUTE OR CHRONIC, W/O HEMOR OR PERF SNOMED Code(s): 77031680 (3) Chest pain Current Visit: Yes Status: Acute Code(s): R07.9 - CHEST PAIN, UNSPECIFIED SNOMED Code(s): 72735968 (4) Hypertension Current Visit: Yes Status: Acute Code(s): I10 - ESSENTIAL (PRIMARY) HYPERTENSION SNOMED Code(s): 35069395 Plan: Supportive care Okay for consistent carbohydrate/heart healthy diet as tolerated Protonix 40 mg twice daily Continue to monitor hemoglobin and hematocrit and transfuse as needed Hold Plavix therapy at this time Avoid NSAID use Surgical service is following the patient Continue other medical management per primary team Thank you for allowing us to participate in the care of the patient
--- NOTE | 2020-12-19 10:32 | P.PN ---
Subjective Progress Note Date: 12/19/20 Principal diagnosis: Bleeding duodenal ulcer Patient doing well. Denies pain. Had liquid brown stools today. Tolerating regular diet now. White blood cell count 12.4, hemoglobin 10.1, no abdominal pain Objective - Vital Signs Vital signs: Vital Signs Temp 98.4 F 12/19/20 09:14 Pulse 66 12/19/20 09:14 Resp 16 12/19/20 09:14 BP 155/70 12/19/20 09:14 Pulse Ox 98 12/19/20 09:14 Intake & Output 12/18/20 12/19/20 12/19/20 18:59 06:59 18:59 Intake Total 610 230 Output Total 1350 900 Balance -740 -900 230 Weight 86.7 kg Intake: Oral 610 230 Output: Urine 1350 900 Other: Voiding Method Indwelling Catheter Indwelling Catheter - Exam Abdomen: Soft, nontender, nondistended - Labs CBC & Chem 7: 12/19/20 07:22 12/19/20 07:22 Labs: Abnormal Lab Results - Last 24 Hours (Table) 12/18/20 12/18/20 12/18/20 Range/Units 12:11 16:42 20:48 WBC (3.8-10.6) k/uL RBC (4.30-5.90) m/uL Hgb (13.0-17.5) gm/dL Hct (39.0-53.0) % Neutrophils # (1.3-7.7) k/uL Sodium (137-145) mmol/L Glucose (74-99) mg/dL POC Glucose (mg/dL) 297 H 198 H 247 H (75-99) mg/dL Total Protein (6.3-8.2) g/dL Albumin (3.5-5.0) g/dL 12/19/20 12/19/20 12/19/20 Range/Units 07:22 07:22 07:46 WBC 12.4 H (3.8-10.6) k/uL RBC 3.25 L (4.30-5.90) m/uL Hgb 10.1 L (13.0-17.5) gm/dL Hct 28.3 L (39.0-53.0) % Neutrophils # 9.7 H (1.3-7.7) k/uL Sodium 134 L (137-145) mmol/L Glucose 179 H (74-99) mg/dL POC Glucose (mg/dL) 197 H (75-99) mg/dL Total Protein 5.2 L (6.3-8.2) g/dL Albumin 3.0 L (3.5-5.0) g/dL Microbiology - Last 24 Hours (Table) 12/16/20 10:39 Blood Culture - Preliminary Blood No Growth after 48 hours Assessment and Plan (1) Bleeding duodenal ulcer Narrative/Plan: Patient doing better at this time. Continue antiacid therapy. Continue holding anticoagulation and mobic. Current Visit: Yes Status: Acute Code(s): K26.4 - CHRONIC OR UNSPECIFIED DUODENAL ULCER WITH HEMORRHAGE SNOMED Code(s): 74952678
--- NOTE | 2020-12-19 11:21 | P.PN ---
Subjective Progress Note Date: 12/19/20 Alejo Lees is an 80 year old male who presented to [facility] emergency room, due to elevated blood pressure and chest pain, patient stated that at home his systolic blood pressure was 230, he takes multiple blood pressure medications and was unable to bring his blood pressure down, on his way to the hospital and he had an episode of chest pain, he was evaluated in the emergency room, vital examination on presentation revealed a temperature of 99.4 pulse 72 respiration 18 blood pressure 190/78 pulse Ox 96 % on room air, white blood count was 13.1, hemoglobin 12.4 platelet count 210, sodium 133 potassium 4.4 chloride 99 CO2 23 BUN 23 creatinine 1.0 glucose 347 troponin less than 0.012 chest x-ray revealed chronic changes without evidence for acute pulmonary disease, EKG reveals sinus rhythm with first-degree AV block, patient was admitted to telemetry floor for further evaluation and treatment serial EKGs were ordered cardiology consultation was requested home medications reviewed and reordered patient was also started on IV hydralazine when necessary for elevated blood pressure. On 12/14/2020 patient was seen and examined on the medical floor he is somnolent responsive in no apparent distress, he had episodes of agitation last night and received IV Ativan, today he is somnolent he opens his eyes to stimuli he answered 1 or 2 questions and then goes back to sleep, he is denying any pain or discomfort, this morning he had significantly elevated glucose levels in the 500s range and had positive ketones he was started on IV fluid and IV insulin drip, blood pressure has been decreasing, IV fluid was increased to 150 mL/h, patient was given a normal saline bolus of 500 mL repeat labs were ordered for this evening all blood pressure medications are on hold at this time. Yesterday patient was complaining of abdominal discomfort and vomiting amylase lipase and abdominal ultrasound were within normal limits urine analysis did not reveal any evidence of urinary tract infection. Chest x-ray on presentation did not reveal any evidence of infection. On admission patient was maintained on Keflex, this is held at this time and patient was started on IV Rocephin, blood culture, pro- calcitonin and lactic acid were ordered this afternoon and I am awaiting results repeat BMP was ordered On 12/15/2020 patient is alert and oriented 3 currently resting comfortably in bed. Patient able to answer questions appropriately. White blood cell slightly improved to 12.5. Creatinine 1.98 and bun 50 blood sugars also improved. Repeat lactic acid 1.8. Current blood pressure 137/61. Discussed case with cardiology team patient back on home medication regime. Patient had episode of hypotension yesterday hydralazine was DC'd per cardiology. Patient remains on IV Rocephin. Insulin drip currently seated patient transition to subcu. At this time patient denies chest pain or shortness breath. Patient denies nausea vomiting or diarrhea. Patient denies any urinary burning or frequency. On 12/16/2020 patient was seen and examined on the medical floor he is alert and oriented 3 in no apparent distress there is no fever or chills no headache or dizziness no chest pain no shortness of breath no cough no nausea or vomiting no abdominal pain no diarrhea no blood in the stools no burning with urination no frequency or urgency and no hematuria. Glucose level is well-controlled, kidney function is improving significantly creatinine is down to 1.26 down from 1.98 yesterday at this time will decrease IV fluid to 75 mL per hour normal saline. Patient has positive blood culture for gram-positive cocci Dr. Panda infectious disease was notified and patient was started on IV vancomycin On 12/17/2020 patient is alert and oriented 3. Patient to undergo EGD today per GI services. Patient remains on IV vancomycin. GI, cardiology and infectious disease following. This time patient denies chest pain or shortness breath. Patient denies nausea vomiting or diarrhea. Patient denies any urinary burning or frequency. Patient remains on IV vancomycin. On 12/18/2020 Patient was seen and examined on the medical floor, he is alert and oriented x 3 in no distress, he denies any complaints there is no fever or chills no headache or dizziness no chest pain no shortness of breath no palpitation no cough no nausea or vomiting no abdominal pain no diarrhea no blood in the stools no burning with urination no frequency or urgency and no hematuria, there is no weakness or numbness in any of the extremities no change in vision speech or gait. Patient had an EGD yesterday with Dr. Avalos that revealed evidence of with clots adherent to the ulcer and oozing of blood. Surgical consultation requested and patient was seen by Dr. Hernandez. Otherwise p atient had positive blood culture for coagulase-negative gram-positive cocci, patient was seen by Dr. Panda and is maintained on IV vancomycin especially in view of his recent knee replacement surgery. At this time we are awaiting further plans by Dr. Hernandez, Will consult physical therapy and occupational therapy. On 12/19/2020. Patient is alert and oriented 3 currently resting complain bed talking on phone. white blood cell slightly increased to 12.4. Patient maintained on Rocephin and vancomycin has been DC'd per ID. Hgb stable at 10.1. Anticoagulation currently on hold. No further episodes of bleeding. We'll continue to monitor. This time patient denies any chest pain or shortness breath. Patient denies nausea vomiting or diarrhea. Patient denies any urinary burning or frequency. Surgical and infectious disease services are following Objective - Vital Signs Vital signs: Vital Signs Temp 98.4 F 12/19/20 09:14 Pulse 66 12/19/20 09:14 Resp 16 12/19/20 09:14 BP 155/70 12/19/20 09:14 Pulse Ox 98 12/19/20 09:14 Intake & Output 12/18/20 12/19/20 12/19/20 18:59 06:59 18:59 Intake Total 610 230 Output Total 1350 900 Balance -740 -900 230 Weight 86.7 kg Intake: Oral 610 230 Output: Urine 1350 900 Other: Voiding Method Indwelling Catheter Indwelling Catheter - Exam In general patient is somnolent responsive in no apparent distress HEENT head normocephalic and atraumatic Neck is supple no JVD no goiter no lymphadenopathy no carotid bruit Chest examination is clear to auscultation no crackles no wheezing Cardiac exam reveals regular heart sounds S1 and S2 no gallops no murmurs Abdomen is soft nontender no organomegaly with normal bowel sounds Extremity exam reveals no edema no cyanosis or clubbing Neurological examination reveals no gross focal deficits - Labs CBC & Chem 7: 12/19/20 07:22 12/19/20 07:22 Labs: Abnormal Lab Results - Last 24 Hours (Table) 12/18/20 12/18/20 12/18/20 Range/Units 12:11 16:42 20:48 WBC (3.8-10.6) k/uL RBC (4.30-5.90) m/uL Hgb (13.0-17.5) gm/dL Hct (39.0-53.0) % Neutrophils # (1.3-7.7) k/uL Sodium (137-145) mmol/L Glucose (74-99) mg/dL POC Glucose (mg/dL) 297 H 198 H 247 H (75-99) mg/dL Total Protein (6.3-8.2) g/dL Albumin (3.5-5.0) g/dL 12/19/20 12/19/20 12/19/20 Range/Units 07:22 07:22 07:46 WBC 12.4 H (3.8-10.6) k/uL RBC 3.25 L (4.30-5.90) m/uL Hgb 10.1 L (13.0-17.5) gm/dL Hct 28.3 L (39.0-53.0) % Neutrophils # 9.7 H (1.3-7.7) k/uL Sodium 134 L (137-145) mmol/L Glucose 179 H (74-99) mg/dL POC Glucose (mg/dL) 197 H (75-99) mg/dL Total Protein 5.2 L (6.3-8.2) g/dL Albumin 3.0 L (3.5-5.0) g/dL Microbiology - Last 24 Hours (Table) 12/16/20 10:39 Blood Culture - Preliminary Blood No Growth after 48 hours Assessment and Plan Plan: 1. Hypertensive emergency, on presentation resolved. Patient back on home medication regime per cardiology 2. Episode of chest pain, troponins are negative patient was seen by cardiology, patient denies any chest pain at this time 3. Underlying history of coronary artery disease 4. Underlying history of hypertension 5. Underlying history of hyperlipidemia 6. Underlying history of diabetes mellitus 7. Bleeding duodenal ulcer seen on EGD on 12/17/2020. Hemoglobin remained stable 10.1. Per surgical services continue antacids and to hold anticoagulation at this time 8. Osteoarthritis with recent total knee arthroplasty surgery 9. Hyperglycemia with evidence of diabetic ketoacidosis responding to IV fluid and IV insulin drip. Insulin drip has been DC'd 10. Somnolence, likely related to doses of IV Ativan and IV morphine that patient received, Ativan and morphine are discontinued at this time will monitor closely 11. Hypotension, may be related to multiple blood pressure medications that patient has received in addition to dehydration related to diabetic ketoacidosis, at this time blood pressure medications are on hold patient is receiving IV fluid Will monitor blood pressure closely. Improved. 12. Acute kidney injury likely secondary to dehydration. Creatinine down to 1.26 will decrease IV fluid to 75 mL/h. Resolved. 13 bacteremia. Culture positive for coag negative staph. Patient evaluated by infectious disease likely contamination at this time vancomycin has been DC'd. Patient remains with elevated white blood cell count remains on Rocephin. DVT prophylaxis Lovenox. GI prophylaxis Protonix Cardiology, GI and infectious disease service is following EGD results mentioned above, patient was seen by Dr. Hernandez, awaiting further plans Patient remains on vancomycin for positive blood culture Consult physical therapy and occupational therapy
[2020-12-19 11:36] LABS: Glucose,Whole Blood 257 mg/dL (75-99)
--- NOTE | 2020-12-19 12:20 | P.PN ---
Subjective Progress Note Date: 12/19/20 Principal diagnosis: Nausea and vomiting, duodenal ulcer Patient is seen lying in bed with no acute complaints. No signs or symptoms of GI bleeding. He is tolerating his diet and denies any abdominal pain at this time. Objective - Vital Signs Vital signs: Vital Signs Temp 98.4 F 12/19/20 09:14 Pulse 66 12/19/20 09:14 Resp 16 12/19/20 09:14 BP 155/70 12/19/20 09:14 Pulse Ox 98 12/19/20 09:14 Intake & Output 12/18/20 12/19/20 12/19/20 18:59 06:59 18:59 Intake Total 610 230 Output Total 1350 900 Balance -740 -900 230 Weight 86.7 kg Intake: Oral 610 230 Output: Urine 1350 900 Other: Voiding Method Indwelling Catheter Indwelling Catheter - Exam On physical examination, patient appears comfortable in no apparent distress. HEAD: Normocephalic, atraumatic. EYES: No scleral icterus. No conjunctival injection. MOUTH: No lesions, tongue midline. NECK: Trachea midline, no gross abnormalities. ABDOMEN: Soft, nontender to palpation. Bowel sounds are positive. No organomegaly. No guarding or rigidity. EXTREMITIES: No pedal edema. SKIN: No rashes, no jaundice. NEUROLOGIC: Alert and oriented x3. No focal deficits. - Labs CBC & Chem 7: 12/19/20 07:22 12/19/20 07:22 Labs: Abnormal Lab Results - Last 24 Hours (Table) 12/18/20 12/18/20 12/18/20 Range/Units 12:11 16:42 20:48 WBC (3.8-10.6) k/uL RBC (4.30-5.90) m/uL Hgb (13.0-17.5) gm/dL Hct (39.0-53.0) % Neutrophils # (1.3-7.7) k/uL Sodium (137-145) mmol/L Glucose (74-99) mg/dL POC Glucose (mg/dL) 297 H 198 H 247 H (75-99) mg/dL Total Protein (6.3-8.2) g/dL Albumin (3.5-5.0) g/dL 12/19/20 12/19/20 12/19/20 Range/Units 07:22 07:22 07:46 WBC 12.4 H (3.8-10.6) k/uL RBC 3.25 L (4.30-5.90) m/uL Hgb 10.1 L (13.0-17.5) gm/dL Hct 28.3 L (39.0-53.0) % Neutrophils # 9.7 H (1.3-7.7) k/uL Sodium 134 L (137-145) mmol/L Glucose 179 H (74-99) mg/dL POC Glucose (mg/dL) 197 H (75-99) mg/dL Total Protein 5.2 L (6.3-8.2) g/dL Albumin 3.0 L (3.5-5.0) g/dL Microbiology - Last 24 Hours (Table) 12/16/20 10:39 Blood Culture - Preliminary Blood No Growth after 48 hours Assessment and Plan (1) Nausea and vomiting Narrative/Plan: 80-year-old male with multiple medical comorbidities on aspirin and Plavix therapy as well as Mobic therapy at home who presented to the hospital for chest pain and elevated blood pressure which is currently being managed medically. He had 2 episodes of vomitus which he felt to be dark in nature. His hemoglobin has remained stable at 12.4, but subsequently fell. There have been no further episodes of vomiting. He reports a remote history of colonoscopy but does not believe he had EGD in the past. No abdominal pain reported. He does take Mobic therapy at home. Patient was taken for EGD with findings of a duodenal ulcer with active oozing of blood treated with Endo Clip placement 3 and epinephrine injection. Current Visit: Yes Status: Acute Code(s): R11.2 - NAUSEA WITH VOMITING, UNSPECIFIED SNOMED Code(s): 41424210 (2) Duodenal ulcer Current Visit: Yes Status: Acute Code(s): K26.9 - DUODENAL ULCER, UNSP ACUTE OR CHRONIC, W/O HEMOR OR PERF SNOMED Code(s): 66640856 (3) Chest pain Current Visit: Yes Status: Acute Code(s): R07.9 - CHEST PAIN, UNSPECIFIED SNOMED Code(s): 31857353 (4) Hypertension Current Visit: Yes Status: Acute Code(s): I10 - ESSENTIAL (PRIMARY) HYPERTENSION SNOMED Code(s): 08816748 Plan: Supportive care Okay for consistent carbohydrate/heart healthy diet as tolerated Protonix 40 mg twice daily Continue to monitor hemoglobin and hematocrit and transfuse as needed Hold Plavix therapy at this time, okay to resume after 72 hours if no further signs or symptoms of bleeding and hemoglobin stable Avoid NSAID use Surgical service is following the patient Continue other medical management per primary team Thank you for allowing us to participate in the care of the patient
[2020-12-19] MEDS: CITALOPRAM HYDROBROMIDE 20 MG TAB PO SCH (14:24)
[2020-12-19] MEDS: LOSARTAN 50 MG TAB PO SCH (14:24)
[2020-12-19] MEDS: hydroCHLOROthiazide 25 MG TAB PO SCH (14:24)
[2020-12-19 16:42] LABS: Glucose,Whole Blood 127 mg/dL (75-99)
--- NOTE | 2020-12-19 19:41 | PN ---
PROGRESS NOTE DATE OF SERVICE: 12/19/2020 REASON FOR FOLLOWUP: Positive blood culture, likely contaminant. Leukocytosis possible reactive. INTERVAL HISTORY: Patient is currently afebrile. The patient is feeling better. He is breathing comfortably. Patient denies having any chest pain or shortness of breath. No cough. No nausea. No vomiting. No abdominal pain. No pain to the left knee area. PHYSICAL EXAMINATION: Blood pressure 103/67, pulse of 70, temperature is 97.6. He is 97% on room air. General description: The patient is an elderly male up in the bed in no distress. Respiratory system: Unlabored breathing, clear to auscultation anteriorly. Heart S1, S2. Regular rate and rhythm. Abdomen soft, no tenderness. Left knee currently with no swelling, redness. Dressing intact. LABS: Hemoglobin is 10.1, white count 12.4, BUN of 14, creatinine 1.03. DIAGNOSTIC IMPRESSION AND PLAN: 1. Patient with positive blood culture with Staph epidermidis, likely contaminant. Repeat blood cultures negative. The patient is off vancomycin. 2. Patient admitted to the hospital with weakness, more likely related to his bleeding peptic ulcer disease. The patient did have a bleeding duodenal ulcer status post endoscopic clipping. White count mildly elevated. Will monitor closely and continue supportive care. MMODL / IJN: [id number] / CARLO
[2020-12-19] MEDS: ATORVASTATIN 80 MG TAB PO SCH (21:03)
[2020-12-19] MEDS: HYDROcodone/APAP 10-325MG 1 EACH TAB PO PRN (21:03)
[2020-12-19 21:16] LABS: Glucose,Whole Blood 118 mg/dL (75-99)
[2020-12-20] MEDS: INSULIN ASPART (NovoLOG) 100 UNIT/ML VIAL SQ SCH ×7 (06:27→19:54)
[2020-12-20] MEDS: INSULIN DETEMIR (LEVEMIR) 100 UNIT/ML SYR SQ SCH (06:28)
[2020-12-20] MEDS: carvediloL 12.5 MG TAB PO SCH ×2 (06:28→17:27)
[2020-12-20 07:20] LABS: Glucose,Whole Blood 192 mg/dL (75-99)
[2020-12-20 08:12] VITALS: RESP 16
[2020-12-20] MEDS: amLODIPine 10 MG TAB PO SCH (08:14)
[2020-12-20] MEDS: GABAPENTIN 100 MG CAP PO SCH ×3 (08:14→19:53)
[2020-12-20] MEDS: ASPIRIN 81 MG PO SCH (08:14)
[2020-12-20] MEDS: PANTOPRAZOLE 40 MG/10 ML VIAL IVP SCH (08:14)
[2020-12-20 08:17] LABS: Albumin 3.2 g/dL (3.5-5.0); Calcium 8.8 mg/dL (8.4-10.2); Potassium 3.9 mmol/L (3.5-5.1); Total Bilirubin 0.6 mg/dL (0.2-1.3); Total Protein 5.6 g/dL (6.3-8.2)
[2020-12-20 08:18] LABS: Basophils # (A) 0.1 k/uL (0-0.2); Basophils % (A) 0 %; Eosinophils # (A) 0.3 k/uL (0-0.7); Eosinophils % (A) 3 %; HGB 10.4 gm/dL (13.0-17.5); Lymphocytes # (A) 2.4 k/uL (1.0-4.8); Lymphocytes % (A) 21 %; MCH 30.5 pg (25.0-35.0); MCHC 34.6 g/dL (31.0-37.0); MCV 88.2 fL (80.0-100.0); Mean Platelet Volume 8.3; Monocytes # (A) 0.6 k/uL (0-1.0); Monocytes % (A) 6 %; Neutrophils # (A) 7.8 k/uL (1.3-7.7); Neutrophils % (A) 69 %; Platelet Count 236 k/uL (150-450); RDW 13.6 % (11.5-15.5); WBC 11.2 k/uL (3.8-10.6)
--- NOTE | 2020-12-20 10:56 | P.PN ---
Subjective Progress Note Date: 12/20/20 Principal diagnosis: Nausea and vomiting Seen and examined lying in bed sleeping. He denies any further black stools or coffee-ground emesis. He denies abdominal pain, nausea, or vomiting. He said bowel movements which he reports are brown. Hemoglobin is stable at 10.4. Objective - Vital Signs Vital signs: Vital Signs Temp 97.9 F 12/20/20 08:00 Pulse 76 12/20/20 08:00 Resp 16 12/20/20 08:00 BP 161/77 12/20/20 08:00 Pulse Ox 97 12/20/20 08:00 Intake & Output 12/19/20 12/20/20 12/20/20 18:59 06:59 18:59 Intake Total 620 480 240 Output Total 600 450 Balance 20 480 -210 Weight 85.3 kg Intake: Oral 620 480 240 Output: Urine 600 450 Other: Voiding Method Indwelling Catheter Toilet Toilet Urinal Urinal # Voids 2 - Exam General appearance: The patient is alert, oriented, appears in no acute distress. HET: Head is normocephalic and atraumatic. Conjunctiva pink. Sclera anicteric. Neck: Supple without lymphadenopathy. Abdomen: Soft, nontender, nondistended with bowel sounds. No guarding or rigidity. Extremities: Normal skin color and turgor. No pedal edema Skin: No rashes, no jaundice Neurological: No focal deficits. Alert and oriented 3. - Labs CBC & Chem 7: 12/20/20 07:32 12/20/20 07:32 Labs: Abnormal Lab Results - Last 24 Hours (Table) 12/19/20 12/19/20 12/19/20 Range/Units 11:35 16:41 20:50 WBC (3.8-10.6) k/uL RBC (4.30-5.90) m/uL Hgb (13.0-17.5) gm/dL Hct (39.0-53.0) % Neutrophils # (1.3-7.7) k/uL Sodium (137-145) mmol/L Glucose (74-99) mg/dL POC Glucose (mg/dL) 257 H 127 H 118 H (75-99) mg/dL Total Protein (6.3-8.2) g/dL Albumin (3.5-5.0) g/dL 12/20/20 12/20/20 12/20/20 Range/Units 07:09 07:32 07:32 WBC 11.2 H (3.8-10.6) k/uL RBC 3.40 L (4.30-5.90) m/uL Hgb 10.4 L (13.0-17.5) gm/dL Hct 30.0 L (39.0-53.0) % Neutrophils # 7.8 H (1.3-7.7) k/uL Sodium 136 L (137-145) mmol/L Glucose 189 H (74-99) mg/dL POC Glucose (mg/dL) 192 H (75-99) mg/dL Total Protein 5.6 L (6.3-8.2) g/dL Albumin 3.2 L (3.5-5.0) g/dL Microbiology - Last 24 Hours (Table) 12/16/20 10:39 Blood Culture - Preliminary Blood No Growth after 72 hours 12/14/20 15:48 Blood Culture Gram Stain - Final Blood Blood Culture - Final Staph capitis SS ureolyticus Assessment and Plan (1) Nausea and vomiting Narrative/Plan: 80-year-old male with multiple medical comorbidities on aspirin and Plavix therapy as well as Mobic therapy at home who presented to the hospital for chest pain and elevated blood pressure which is currently being managed medically. He had 2 episodes of vomitus which he felt to be dark in nature. His hemoglobin pantoja s remained stable at 12.4. There have been no further episodes of vomiting. He reports a remote history of colonoscopy but does not believe he had EGD in the past. No abdominal pain reported. He does take Mobic therapy at home. Unclear etiology, may be related to uncontrolled blood sugars and a component of gastroparesis in the setting of likely esophagitis or possible Adele-Anderson tear, cannot rule out peptic ulcer disease or other etiology. Current Visit: Yes Status: Acute Code(s): R11.2 - NAUSEA WITH VOMITING, UNSPECIFIED SNOMED Code(s): 76672576 (2) Diabetes mellitus Current Visit: No Status: Acute Code(s): E11.9 - TYPE 2 DIABETES MELLITUS WITHOUT COMPLICATIONS SNOMED Code(s): 51006776 (3) Chest pain Current Visit: Yes Status: Acute Code(s): R07.9 - CHEST PAIN, UNSPECIFIED SNOMED Code(s): 22099028 (4) Anemia due to acute blood loss Narrative/Plan: Iron studies ordered. Patient had a dark stool this morning with a drop in his hemoglobin from 12.4-8.9. Plavix has been held., Need to consider possible upper GI source of bleed. Possible etiologies include peptic ulcer disease, gastritis, esophagitis, or AVM, also need to consider possibility of neoplasm. Current Visit: Yes Status: Acute Code(s): D62 - ACUTE POSTHEMORRHAGIC ANEMIA SNOMED Code(s): 314641537 (5) Bleeding duodenal ulcer Narrative/Plan: No further bleeding. Gen. surgery is on consult and following patient. Current Visit: Yes Status: Acute Code(s): K26.4 - CHRONIC OR UNSPECIFIED DUODENAL ULCER WITH HEMORRHAGE SNOMED Code(s): 65999501 Plan: Continue symptomatic and supportive care Continue diet as tolerated Surgical services on consult Continue to hold Plavix until Sunday, may resume Sunday Patient may be discharged home from a gastroenterology standpoint with follow-up Thank you for this consultation. Dr. Coy I agree with the dictator's note, documented as a scribe by Miriam Disla.
[2020-12-20 12:04] LABS: Glucose,Whole Blood 179 mg/dL (75-99)
[2020-12-20] MEDS: hydroCHLOROthiazide 25 MG TAB PO SCH (12:17)
[2020-12-20] MEDS: CITALOPRAM HYDROBROMIDE 20 MG TAB PO SCH (12:17)
[2020-12-20] MEDS: LOSARTAN 50 MG TAB PO SCH (12:22)
--- NOTE | 2020-12-20 12:45 | PN ---
PROGRESS NOTE DATE OF SERVICE: 12/20/2020 REASON FOR FOLLOWUP: 1. Positive blood culture. 2. Leukocytosis and question of infection. INTERVAL HISTORY: The patient is currently afebrile. Patient is breathing comfortably. Patient denies having any chest pain. No shortness of breath or cough. No nausea, no vomiting. No abdominal pain or diarrhea. No pain to the left knee area. PHYSICAL EXAMINATION: Blood pressure is 161/77 with a pulse of 76, temperature 97.9. He is 97% on room air. General description an elderly male lying in bed in no distress. RESPIRATORY SYSTEM: Unlabored breathing, clear to auscultation anteriorly. HEART: S1, S2. Regular rate and rhythm. ABDOMEN: Soft, no tenderness. LABS: Hemoglobin 10.4, white count 11.2, BUN of 19, creatinine 1.14. DIAGNOSTIC IMPRESSION AND PLAN: 1. Patient with positive blood culture with Staph capitis, likely contaminant. Repeat blood cultures negative. 2. Mildly elevated white count, possibly reactive in this patient did have bleeding peptic ulcer. We will monitor the patient closely off antibiotic therapy. Continue supportive care. MMODL / IJN: [id number] /
--- NOTE | 2020-12-20 14:25 | P.PN ---
Subjective Progress Note Date: 12/20/20 Principal diagnosis: Bleeding duodenal ulcer Patient doing well. Denies pain. Had liquid brown stools today. Hemoglobin is stable. Tolerating diet. He would like to go home. Objective - Vital Signs Vital signs: Vital Signs Temp 97.8 F 12/20/20 11:50 Pulse 66 12/20/20 13:59 Resp 16 12/20/20 13:59 BP 140/63 12/20/20 11:50 Pulse Ox 99 12/20/20 11:50 Intake & Output 12/19/20 12/20/20 12/20/20 18:59 06:59 18:59 Intake Total 620 480 240 Output Total 600 450 Balance 20 480 -210 Weight 85.3 kg Intake: Oral 620 480 240 Output: Urine 600 450 Other: Voiding Method Indwelling Catheter Toilet Toilet Urinal Urinal # Voids 2 - Exam Abdomen: Soft, nontender, nondistended - Labs CBC & Chem 7: 12/20/20 07:32 12/20/20 07:32 Labs: Abnormal Lab Results - Last 24 Hours (Table) 12/19/20 12/19/20 12/20/20 Range/Units 16:41 20:50 07:09 WBC (3.8-10.6) k/uL RBC (4.30-5.90) m/uL Hgb (13.0-17.5) gm/dL Hct (39.0-53.0) % Neutrophils # (1.3-7.7) k/uL Sodium (137-145) mmol/L Glucose (74-99) mg/dL POC Glucose (mg/dL) 127 H 118 H 192 H (75-99) mg/dL Total Protein (6.3-8.2) g/dL Albumin (3.5-5.0) g/dL 12/20/20 12/20/20 12/20/20 Range/Units 07:32 07:32 12:01 WBC 11.2 H (3.8-10.6) k/uL RBC 3.40 L (4.30-5.90) m/uL Hgb 10.4 L (13.0-17.5) gm/dL Hct 30.0 L (39.0-53.0) % Neutrophils # 7.8 H (1.3-7.7) k/uL Sodium 136 L (137-145) mmol/L Glucose 189 H (74-99) mg/dL POC Glucose (mg/dL) 179 H (75-99) mg/dL Total Protein 5.6 L (6.3-8.2) g/dL Albumin 3.2 L (3.5-5.0) g/dL Microbiology - Last 24 Hours (Table) 12/16/20 10:39 Blood Culture - Preliminary Blood No Growth after 96 hours 12/14/20 15:48 Blood Culture Gram Stain - Final Blood Blood Culture - Final Staph capitis SS ureolyticus Assessment and Plan (1) Bleeding duodenal ulcer Narrative/Plan: Patient doing well at this time. Continue to hold anticoagulation and NSAID use. Stable for discharge. Follow-up GI or myself as an outpatient. Current Visit: Yes Status: Acute Code(s): K26.4 - CHRONIC OR UNSPECIFIED DUODENAL ULCER WITH HEMORRHAGE SNOMED Code(s): 98914884
[2020-12-20 17:08] LABS: Glucose,Whole Blood 241 mg/dL (75-99)
[2020-12-20 19:52] LABS: Glucose,Whole Blood 266 mg/dL (75-99)
[2020-12-20] MEDS: PANTOPRAZOLE 40 MG TABLET PO SCH (19:53)
[2020-12-20] MEDS: ATORVASTATIN 80 MG TAB PO SCH (19:53)
[2020-12-20] MEDS: HYDROcodone/APAP 10-325MG 1 EACH TAB PO PRN (21:08)
[2020-12-21] MEDS: GABAPENTIN 100 MG CAP PO SCH (07:47)
[2020-12-21] MEDS: PANTOPRAZOLE 40 MG TABLET PO SCH (07:47)
[2020-12-21] MEDS: carvediloL 12.5 MG TAB PO SCH (07:47)
[2020-12-21] MEDS: ASPIRIN 81 MG PO SCH (07:47)
[2020-12-21] MEDS: INSULIN DETEMIR (LEVEMIR) 100 UNIT/ML SYR SQ SCH (07:47)
[2020-12-21] MEDS: amLODIPine 10 MG TAB PO SCH (07:47)
[2020-12-21] MEDS: INSULIN ASPART (NovoLOG) 100 UNIT/ML VIAL SQ SCH ×5 (07:48→12:44)
[2020-12-21 07:54] LABS: Glucose,Whole Blood 198 mg/dL (75-99)
--- NOTE | 2020-12-21 09:57 | P.PN ---
Subjective Progress Note Date: 12/20/20 Alejo Lees is an 80 year old male who presented to [facility] emergency room, due to elevated blood pressure and chest pain, patient stated that at home his systolic blood pressure was 230, he takes multiple blood pressure medications and was unable to bring his blood pressure down, on his way to the hospital and he had an episode of chest pain, he was evaluated in the emergency room, vital examination on presentation revealed a temperature of 99.4 pulse 72 respiration 18 blood pressure 190/78 pulse Ox 96 % on room air, white blood count was 13.1, hemoglobin 12.4 platelet count 210, sodium 133 potassium 4.4 chloride 99 CO2 23 BUN 23 creatinine 1.0 glucose 347 troponin less than 0.012 chest x-ray revealed chronic changes without evidence for acute pulmonary disease, EKG reveals sinus rhythm with first-degree AV block, patient was admitted to telemetry floor for further evaluation and treatment serial EKGs were ordered cardiology consultation was requested home medications reviewed and reordered patient was also started on IV hydralazine when necessary for elevated blood pressure. On 12/14/2020 patient was seen and examined on the medical floor he is somnolent responsive in no apparent distress, he had episodes of agitation last night and received IV Ativan, today he is somnolent he opens his eyes to stimuli he answered 1 or 2 questions and then goes back to sleep, he is denying any pain or discomfort, this morning he had significantly elevated glucose levels in the 500s range and had positive ketones he was started on IV fluid and IV insulin drip, blood pressure has been decreasing, IV fluid was increased to 150 mL/h, patient was given a normal saline bolus of 500 mL repeat labs were ordered for this evening all blood pressure medications are on hold at this time. Yesterday patient was complaining of abdominal discomfort and vomiting amylase lipase and abdominal ultrasound were within normal limits urine analysis did not reveal any evidence of urinary tract infection. Chest x-ray on presentation did not reveal any evidence of infection. On admission patient was maintained on Keflex, this is held at this time and patient was started on IV Rocephin, blood culture, pro- calcitonin and lactic acid were ordered this afternoon and I am awaiting results repeat BMP was ordered On 12/15/2020 patient is alert and oriented 3 currently resting comfortably in bed. Patient able to answer questions appropriately. White blood cell slightly improved to 12.5. Creatinine 1.98 and bun 50 blood sugars also improved. Repeat lactic acid 1.8. Current blood pressure 137/61. Discussed case with cardiology team patient back on home medication regime. Patient had episode of hypotension yesterday hydralazine was DC'd per cardiology. Patient remains on IV Rocephin. Insulin drip currently seated patient transition to subcu. At this time patient denies chest pain or shortness breath. Patient denies nausea vomiting or diarrhea. Patient denies any urinary burning or frequency. On 12/16/2020 patient was seen and examined on the medical floor he is alert and oriented 3 in no apparent distress there is no fever or chills no headache or dizziness no chest pain no shortness of breath no cough no nausea or vomiting no abdominal pain no diarrhea no blood in the stools no burning with urination no frequency or urgency and no hematuria. Glucose level is well-controlled, kidney function is improving significantly creatinine is down to 1.26 down from 1.98 yesterday at this time will decrease IV fluid to 75 mL per hour normal saline. Patient has positive blood culture for gram-positive cocci Dr. Panda infectious disease was notified and patient was started on IV vancomycin On 12/17/2020 patient is alert and oriented 3. Patient to undergo EGD today per GI services. Patient remains on IV vancomycin. GI, cardiology and infectious disease following. This time patient denies chest pain or shortness breath. Patient denies nausea vomiting or diarrhea. Patient denies any urinary burning or frequency. Patient remains on IV vancomycin. On 12/18/2020 Patient was seen and examined on the medical floor, he is alert and oriented x 3 in no distress, he denies any complaints there is no fever or chills no headache or dizziness no chest pain no shortness of breath no palpitation no cough no nausea or vomiting no abdominal pain no diarrhea no blood in the stools no burning with urination no frequency or urgency and no hematuria, there is no weakness or numbness in any of the extremities no change in vision speech or gait. Patient had an EGD yesterday with Dr. Avalos that revealed evidence of with clots adherent to the ulcer and oozing of blood. Surgical consultation requested and patient was seen by Dr. Hernandez. Otherwise p atient had positive blood culture for coagulase-negative gram-positive cocci, patient was seen by Dr. Panda and is maintained on IV vancomycin especially in view of his recent knee replacement surgery. At this time we are awaiting further plans by Dr. Hernandez, Will consult physical therapy and occupational therapy. On 12/19/2020. Patient is alert and oriented 3 currently resting complain bed talking on phone. white blood cell slightly increased to 12.4. Patient maintained on Rocephin and vancomycin has been DC'd per ID. Hgb stable at 10.1. Anticoagulation currently on hold. No further episodes of bleeding. We'll continue to monitor. This time patient denies any chest pain or shortness breath. Patient denies nausea vomiting or diarrhea. Patient denies any urinary burning or frequency. Surgical and infectious disease services are following . On 12/20/2020 Patient was seen and examined on the medical floor, he is alert and oriented x 3 in no distress, he denies any complaints there is no fever or chills no headache or dizziness no chest pain no shortness of breath no palpi tation no cough no nausea or vomiting no abdominal pain no diarrhea no blood in the stools no burning with urination no frequency or urgency and no hematuria, there is no weakness or numbness in any of the extremities no change in vision speech or gait. Patient is feeling well, awaiting clearance by infectious disease surgery and gastroenterology for possible discharge in the next 1-2 days Objective - Vital Signs Vital signs: Vital Signs Temp 98.2 F 12/21/20 07:44 Pulse 75 12/21/20 08:00 Resp 16 12/21/20 08:00 BP 151/67 12/21/20 07:44 Pulse Ox 98 12/21/20 07:44 Intake & Output 12/20/20 12/21/20 12/21/20 18:59 06:59 18:59 Intake Total 1200 240 Output Total 450 260 Balance 750 -260 240 Weight 85.5 kg Intake: Oral 1200 240 Output: Urine 450 260 Other: Voiding Method Toilet Toilet Toilet Urinal Urinal Urinal # Voids 1 - Exam In general patient is somnolent responsive in no apparent distress HEENT head normocephalic and atraumatic Neck is supple no JVD no goiter no lymphadenopathy no carotid bruit Chest examination is clear to auscultation no crackles no wheezing Cardiac exam reveals regular heart sounds S1 and S2 no gallops no murmurs Abdomen is soft nontender no organomegaly with normal bowel sounds Extremity exam reveals no edema no cyanosis or clubbing Neurological examination reveals no gross focal deficits - Labs CBC & Chem 7: 12/20/20 07:32 12/20/20 07:32 Labs: Abnormal Lab Results - Last 24 Hours (Table) 12/20/20 12/20/20 12/20/20 Range/Units 12:01 16:57 19:50 POC Glucose (mg/dL) 179 H 241 H 266 H (75-99) mg/dL 12/21/20 Range/Units 07:51 POC Glucose (mg/dL) 198 H (75-99) mg/dL Microbiology - Last 24 Hours (Table) 12/16/20 10:39 Blood Culture - Preliminary Blood No Growth after 96 hours Assessment and Plan Plan: 1. Hypertensive emergency, on presentation resolved. Patient back on home medication regime per cardiology 2. Episode of chest pain, troponins are negative patient was seen by cardiolo gy, patient denies any chest pain at this time 3. Underlying history of coronary artery disease 4. Underlying history of hypertension 5. Underlying history of hyperlipidemia 6. Underlying history of diabetes mellitus 7. Bleeding duodenal ulcer seen on EGD on 12/17/2020. Hemoglobin remained stable 10.1. Per surgical services continue antacids and to hold anticoagulation at this time 8. Osteoarthritis with recent total knee arthroplasty surgery 9. Hyperglycemia with evidence of diabetic ketoacidosis responding to IV fluid and IV insulin drip. Insulin drip has been DC'd 10. Somnolence, likely related to doses of IV Ativan and IV morphine that patient received, Ativan and morphine are discontinued at this time will monitor closely 11. Hypotension, may be related to multiple blood pressure medications that patient has received in addition to dehydration related to diabetic ketoacidosis, at this time blood pressure medications are on hold patient is receiving IV fluid Will monitor blood pressure closely. Improved. 12. Acute kidney injury likely secondary to dehydration. Creatinine down to 1.26 will decrease IV fluid to 75 mL/h. Resolved. 13 bacteremia. Culture positive for coag negative staph. Patient evaluated by infectious disease likely contamination at this time vancomycin has been DC'd. Patient remains with elevated white blood cell count remains on Rocephin. DVT prophylaxis Lovenox. GI prophylaxis Protonix Cardiology, GI and infectious disease service is following EGD results mentioned above, patient was seen by Dr. Hernandez, awaiting further pl ans Patient remains on vancomycin for positive blood culture Consult physical therapy and occupational therapy
--- NOTE | 2020-12-21 10:11 | P.PN ---
Subjective Progress Note Date: 12/21/20 Principal diagnosis: Nausea and vomiting Seen and examined lying in bed sleeping. He is status post upper endoscopy with bleeding ulcer. Surgery has also been on consult. GI cleared for discharge yesterday. He denies any further black stools or coffee-ground emesis. He mitzi es abdominal pain, nausea, or vomiting. He said bowel movements which he reports are brown. Objective - Vital Signs Vital signs: Vital Signs Temp 98.2 F 12/21/20 07:44 Pulse 75 12/21/20 08:00 Resp 16 12/21/20 08:00 BP 151/67 12/21/20 07:44 Pulse Ox 98 12/21/20 07:44 Intake & Output 12/20/20 12/21/20 12/21/20 18:59 06:59 18:59 Intake Total 1200 240 Output Total 450 260 Balance 750 -260 240 Weight 85.5 kg Intake: Oral 1200 240 Output: Urine 450 260 Other: Voiding Method Toilet Toilet Toilet Urinal Urinal Urinal # Voids 1 - Exam General appearance: The patient is alert, oriented, appears in no acute distress. HET: Head is normocephalic and atraumatic. Conjunctiva pink. Sclera anicteric. Neck: Supple without lymphadenopathy. Abdomen: Soft, nontender, nondistended with bowel sounds. No guarding or rigidity. Extremities: Normal skin color and turgor. No pedal edema Skin: No rashes, no jaundice Neurological: No focal deficits. Alert and oriented 3. - Labs CBC & Chem 7: 12/20/20 07:32 12/20/20 07:32 Labs: Abnormal Lab Results - Last 24 Hours (Table) 12/20/20 12/20/20 12/20/20 Range/Units 12:01 16:57 19:50 POC Glucose (mg/dL) 179 H 241 H 266 H (75-99) mg/dL 12/21/20 Range/Units 07:51 POC Glucose (mg/dL) 198 H (75-99) mg/dL Microbiology - Last 24 Hours (Table) 12/16/20 10:39 Blood Culture - Preliminary Blood No Growth after 96 hours Assessment and Plan (1) Nausea and vomiting Narrative/Plan: 80-year-old male with multiple medical comorbidities on aspirin and Plavix therapy as well as Mobic therapy at home who presented to the hospital for chest pain and elevated blood pressure which is currently being managed medically. He had 2 episodes of vomitus which he felt to be dark in nature. His hemoglobin has remained stable at 12.4. There have been no further episodes of vomiting. He reports a remote history of colonoscopy but does not believe he had EGD in past. No abdominal pain reported. He does take Mobic therapy at home. Unclear etiology, may be related to uncontrolled blood sugars and a component of gastroparesis in the setting of likely esophagitis or possible Adele-Anderson tear, cannot rule out peptic ulcer disease or other etiology. Current Visit: Yes Status: Acute Code(s): R11.2 - NAUSEA WITH VOMITING, UNSPECIFIED SNOMED Code(s): 59869686 (2) Diabetes mellitus Current Visit: No Status: Acute Code(s): E11.9 - TYPE 2 DIABETES MELLITUS WITHOUT COMPLICATIONS SNOMED Code(s): 67413730 (3) Chest pain Current Visit: Yes Status: Acute Code(s): R07.9 - CHEST PAIN, UNSPECIFIED SNOMED Code(s): 79045597 (4) Anemia due to acute blood loss Narrative/Plan: Iron studies ordered. Patient had a dark stool this morning with a drop in his hemoglobin from 12.4-8.9. Plavix has been held., Need to consider possible upper GI source of bleed. Possible etiologies include peptic ulcer disease, gastritis, esophagitis, or AVM, also need to consider possibility of neoplasm. Current Visit: Yes Status: Acute Code(s): D62 - ACUTE POSTHEMORRHAGIC ANEMIA SNOMED Code(s): 627583450 (5) Bleeding duodenal ulcer Narrative/Plan: No further bleeding. Gen. surgery is on consult and following patient. Current Visit: Yes Status: Acute Code(s): K26.4 - CHRONIC OR UNSPECIFIED DUODENAL ULCER WITH HEMORRHAGE SNOMED Code(s): 22868920 Plan: Continue symptomatic and supportive care Continue diet as tolerated Surgical services on consult Continue to hold Plavix until Sunday, may resume Sunday Patient may be discharged home from a gastroenterology standpoint with follow-up Thank you for this consultation, we will sign off at this time Dr. Coy I agree with the dictator's note, documented as a scribe by Miriam Disla.
[2020-12-21 11:43] VITALS: BP 113/57; PULSE 69; TEMP 98
[2020-12-21 11:51] LABS: Glucose,Whole Blood 203 mg/dL (75-99)
[2020-12-21] MEDS: CITALOPRAM HYDROBROMIDE 20 MG TAB PO SCH (12:43)
[2020-12-21] MEDS: HYDROcodone/APAP 10-325MG 1 EACH TAB PO PRN (12:44)
[2020-12-21] MEDS: hydroCHLOROthiazide 25 MG TAB PO SCH (12:44)
[2020-12-21] MEDS: LOSARTAN 50 MG TAB PO SCH (12:44)
--- NOTE | 2020-12-21 14:01 | PN ---
PROGRESS NOTE DATE OF SERVICE: 12/21/2020 REASON FOR FOLLOWUP: Positive blood culture and elevated white count. INTERVAL HISTORY: The patient is afebrile. The patient is feeling better. Breathing comfortably. The patient denies having any chest pain, shortness of breath or cough. No nausea, no vomiting. No abdominal pain, no diarrhea or pain to the left knee area. PHYSICAL EXAMINATION: Blood pressure 113/57, pulse of 69, temperature 98. He is 99% on room air. General description is an elderly male lying in bed in no distress. RESPIRATORY SYSTEM: Unlabored breathing, clear to auscultation anteriorly. HEART: S1, S2. Regular rate and rhythm. ABDOMEN: Soft, no tenderness. EXTREMITIES: No edema of feet. LABS: No new labs have been obtained today. Blood culture repeat has been negative. DIAGNOSTIC IMPRESSION AND PLAN: Patient with positive blood cultures, likely skin contaminant. Repeat blood culture has been negative. No need for vancomycin. Elevated white count, possible reactive. No focus of infection. Patient continued to be monitored off antibiotic therapy. Recommend no need for any antibiotic on discharge. MMODL / IJN: [id number] /
--- NOTE | 2020-12-21 15:21 | P.PN ---
Subjective Progress Note Date: 12/21/20 Principal diagnosis: Bleeding duodenal ulcer Patient doing well today. No pain. Tolerating diet. Brown stools. Objective - Vital Signs Vital signs: Vital Signs Temp 98.0 F 12/21/20 11:42 Pulse 69 12/21/20 14:00 Resp 16 12/21/20 14:00 BP 113/57 12/21/20 11:42 Pulse Ox 99 12/21/20 11:42 Intake & Output 12/20/20 12/21/20 12/21/20 18:59 06:59 18:59 Intake Total 1200 240 Output Total 450 260 Balance 750 -260 240 Weight 85.5 kg Intake: Oral 1200 240 Output: Urine 450 260 Other: Voiding Method Toilet Toilet Toilet Urinal Urinal Urinal # Voids 1 - Exam Abdomen: Soft, nontender, nondistended - Labs CBC & Chem 7: 12/20/20 07:32 12/20/20 07:32 Labs: Abnormal Lab Results - Last 24 Hours (Table) 12/20/20 12/20/20 12/21/20 Range/Units 16:57 19:50 07:51 POC Glucose (mg/dL) 241 H 266 H 198 H (75-99) mg/dL 12/21/20 Range/Units 11:45 POC Glucose (mg/dL) 203 H (75-99) mg/dL Microbiology - Last 24 Hours (Table) 12/16/20 10:39 Blood Culture - Preliminary Blood No Growth after 120 hours Assessment and Plan (1) Bleeding duodenal ulcer Narrative/Plan: Patient being discharged. Continue antiacids and holding anticoagulation. Continue holding NSAID use. Follow-up as an outpatient. Current Visit: Yes Status: Acute Code(s): K26.4 - CHRONIC OR UNSPECIFIED DUODENAL ULCER WITH HEMORRHAGE SNOMED Code(s): 88868073
--- NOTE | 2020-12-22 11:51 | P.DS ---
Providers Date of admission: 12/15/20 15:25 Expected date of discharge: 12/21/20 Attending physician: Mell Baer Consults: 12/13/20 13:46 Consult Physician Urgent Consulting Provider: Valerie Oakley Consult Reason/Comments: chest pain Do you want consulting provider notified?: Yes 12/13/20 16:57 Consult Physician Routine Consulting Provider: Missy Forbes Consult Reason/Comments: chest pain Do you want consulting provider notified?: Yes 12/13/20 23:59 Consult Physician Routine Consulting Provider: Angely Hull Consult Reason/Comments: Nausea, Vomiting Do you want consulting provider notified?: Yes, Notify in am 12/14/20 17:07 Consult Physician Routine Consulting Provider: Katy Panda Consult Reason/Comments: possible sepsis Do you want consulting provider notified?: Yes 12/17/20 14:41 Consult Physician Urgent Consulting Provider: Valdemar Hernandez Consult Reason/Comments: large duodenal ulcer Do you want consulting provider notified?: Yes Primary care physician: Mell Buffy [facility] Course: Discharge diagnosis 1. Hypertensive emergency, on presentation resolved. Patient back on home medication regime per cardiology 2. Episode of chest pain, troponins are negative patient was seen by cardiology, patient denies any chest pain at this time 3. Underlying history of coronary artery disease 4. Underlying history of hypertension 5. Underlying history of hyperlipidemia 6. Underlying history of diabetes mellitus 7. Bleeding duodenal ulcer seen on EGD on 12/17/2020. Hemoglobin remained stable 10.1. Per surgical services continue antacids and to hold anticoagulation at this time 8. Osteoarthritis with recent total knee arthroplasty surgery 9. Hyperglycemia with evidence of diabetic ketoacidosis responding to IV fluid and IV insulin drip. Insulin drip has been DC'd 10. Somnolence, likely related to doses of IV Ativan and IV morphine that patient received, Ativan and morphine are discontinued at this time will monitor closely 11. Hypotension, may be related to multiple blood pressure medications that patient has received in addition to dehydration related to diabetic ketoacidosis, at this time blood pressure medications are on hold patient is receiving IV fluid Will monitor blood pressure closely. Improved. 12. Acute kidney injury likely secondary to dehydration. Creatinine down to 1.26 will decrease IV fluid to 75 mL/h. Resolved. 13 bacteremia. Culture positive for coag negative staph. Patient evaluated by infectious disease likely contamination at this time vancomycin has been DC'd. Patient remains with elevated white blood cell count remains on Rocephin. Hospital course Alejo Lees is an 80 year old male who presented to [facility] emergency room, due to elevated blood pressure and chest pain, patient stated that at home his systolic blood pressure was 230, he takes multiple blood pressure medications and was unable to bring his blood pressure down, on his way to the hospital and he had an episode of chest pain, he was evaluated in the emergency room, vital examination on presentation revealed a temperature of 99.4 pulse 72 respiration 18 blood pressure 190/78 pulse Ox 96 % on room air, white blood count was 13.1, hemoglobin 12.4 platelet count 210, sodium 133 potassium 4.4 chloride 99 CO2 23 BUN 23 creatinine 1.0 glucose 347 troponin less than 0.012 chest x-ray revealed chronic changes without evidence for acute pulmonary disease, EKG reveals sinus rhythm with first-degree AV block, patient was ad mitted to telemetry floor for further evaluation and treatment serial EKGs were ordered cardiology consultation was requested home medications reviewed and reordered patient was also started on IV hydralazine when necessary for elevated blood pressure. On 12/14/2020 patient was seen and examined on the medical floor he is somnolent responsive in no apparent distress, he had episodes of agitation last night and received IV Ativan, today he is somnolent he opens his eyes to stimuli he answered 1 or 2 questions and then goes back to sleep, he is denying any pain or discomfort, this morning he had significantly elevated glucose levels in the 500s range and had positive ketones he was started on IV fluid and IV insulin drip, blood pressure has been decreasing, IV fluid was increased to 150 mL/h, patient was given a normal saline bolus of 500 mL repeat labs were ordered for this evening all blood pressure medications are on hold at this time. Yesterday patient was complaining of abdominal discomfort and vomiting amylase lipase and abdominal ultrasound were within normal limits urine analysis did not reveal any evidence of urinary tract infection. Chest x-ray on presentation did not reveal any evidence of infection. On admission patient was maintained on Keflex, this is held at this time and patient was started on IV Rocephin, blood culture, pro- calcitonin and lactic acid were ordered this afternoon and I am awaiting results repeat BMP was ordered On 12/15/2020 patient is alert and oriented 3 currently resting comfortably in bed. Patient able to answer questions appropriately. White blood cell slightly improved to 12.5. Creatinine 1.98 and bun 50 blood sugars also improved. Repeat lactic acid 1.8. Current blood pressure 137/61. Discussed case with cardiology team patient back on home medication regime. Patient had episode of hypotension yesterday hydralazine was DC'd per cardiology. Patient remains on IV Rocephin. Insulin drip currently seated patient transition to subcu. At this time patient denies chest pain or shortness breath. Patient denies nausea vomiting or diarrhea. Patient denies any urinary burning or frequency. On 12/16/2020 patient was seen and examined on the medical floor he is alert and oriented 3 in no apparent distress there is no fever or chills no headache or dizziness no chest pain no shortness of breath no cough no nausea or vomiting no abdominal pain no diarrhea no blood in the stools no burning with urination no frequency or urgency and no hematuria. Glucose level is well-controlled, kidney function is improving significantly creatinine is down to 1.26 down from 1.98 yesterday at this time will decrease IV fluid to 75 mL per hour normal saline. Patient has positive blood culture for gram-positive cocci Dr. Panda infectious disease was notified and patient was started on IV vancomycin On 12/17/2020 patient is alert and oriented 3. Patient to undergo EGD today per GI services. Patient remains on IV vancomycin. GI, cardiology and infectious disease following. This time patient denies chest pain or shortness breath. Patient denies nausea vomiting or diarrhea. Patient denies any urinary burning or frequency. Patient remains on IV vancomycin. On 12/18/2020 Patient was seen and examined on the medical floor, he is alert and oriented x 3 in no distress, he denies any complaints there is no fever or chills no headache or dizziness no chest pain no shortness of breath no palpitation no cough no nausea or vomiting no abdominal pain no diarrhea no blood in the stools no burning with urination no frequency or urgency and no hematuria, there is no weakness or numbness in any of the extremities no change in vision speech or gait. Patient had an EGD yesterday with Dr. Avalos that revealed evidence of with clots adherent to the ulcer and oozing of blood. Surgical consultation requested and patient was seen by Dr. Hernandez. Otherwise patient had positive blood culture for coagulase-negative gram-positive cocci, patient was seen by Dr. Panda and is maintained on IV vancomycin especially in view of his recent knee replacement surgery. At this time we are awaiting further plans by Dr. Hernandez, Will consult physical therapy and occupational therapy. On 12/19/2020. Patient is alert and oriented 3 currently resting complain bed talking on phone. white blood cell slightly increased to 12.4. Patient maintained on Rocephin and vancomycin has been DC'd per ID. Hgb stable at 10.1. Anticoagulation currently on hold. No further episodes of bleeding. We'll continue to monitor. This time patient denies any chest pain or shortness breath. Patient denies nausea vomiting or diarrhea. Patient denies any urinary burning or frequency. Surgical and infectious disease services are following . On 12/20/2020 Patient was seen and examined on the medical floor, he is alert and oriented x 3 in no distress, he denies any complaints there is no fever or chills no headache or dizziness no chest pain no shortness of breath no palpitation no cough no nausea or vomiting no abdominal pain no diarrhea no blood in the stools no burning with urination no frequency or urgency and no hematuria, there is no weakness or numbness in any of the extremities no change in vision speech or gait. Patient is feeling well, awaiting clearance by infectious disease surgery and gastroenterology for possible discharge in the next 1-2 days On 12/22/2020 patient is alert and oriented 3. Patient cleared for discharge. Infectious disease no need for antibiotics upon discharge. Patient follow-up [facility] [place] PCP for further management Patient Condition at Discharge: Stable Plan - Discharge Summary Discharge Rx Participant: No New Discharge Prescriptions: New Nitroglycerin Sl Tabs [Nitrostat] 0.4 mg SUBLINGUAL Q5M PRN tab PRN Reason: Chest Pain HYDROcodone/APAP 10-325MG [[place] 10-325] 1 each PO Q6H PRN tab PRN Reason: Pain Pantoprazole [Protonix] 40 mg PO BID tablet. Continue Citalopram Hydrobromide [CeleXA] 40 mg PO AC-LUNCH metFORMIN HCL 1,000 mg PO BID Aspirin EC [Ecotrin Low Dose] 81 mg PO AC-BID Losartan Potassium 100 mg PO AC-LUNCH amLODIPine [Norvasc] 5 mg PO BID Carvedilol [Coreg] 12.5 mg PO BID hydroCHLOROthiazide 25 mg PO AC-LUNCH glipiZIDE [Glucotrol] 5 mg PO BID cefaDROXiL [Duricef] 500 mg PO BID Gabapentin [Neurontin] 200 mg PO Q8H Linagliptin [Tradjenta] 5 mg PO AC-LUNCH Atorvastatin [Lipitor] 80 mg PO HS Clopidogrel [Plavix] 75 mg PO DAILY Discontinued Celecoxib [CeleBREX] 200 mg PO AC-BID oxyCODONE HCL [OxyIR] 5 mg PO Q4-6H PRN PRN Reason: Pain Discharge Medication List Citalopram Hydrobromide [CeleXA] 40 mg PO AC-LUNCH 01/14/15 [History] metFORMIN HCL 1,000 mg PO BID 01/15/15 [History] Aspirin EC [Ecotrin Low Dose] 81 mg PO AC-BID 05/28/17 [History] Losartan Potassium 100 mg PO AC-LUNCH 01/05/20 [History] Carvedilol [Coreg] 12.5 mg PO BID 01/19/20 [History] amLODIPine [Norvasc] 5 mg PO BID 01/19/20 [History] Atorvastatin [Lipitor] 80 mg PO HS 12/13/20 [History] Clopidogrel [Plavix] 75 mg PO DAILY 12/13/20 [History] Gabapentin [Neurontin] 200 mg PO Q8H 12/13/20 [History] Linagliptin [Tradjenta] 5 mg PO AC-LUNCH 12/13/20 [History] cefaDROXiL [Duricef] 500 mg PO BID 12/13/20 [History] glipiZIDE [Glucotrol] 5 mg PO BID 12/13/20 [History] hydroCHLOROthiazide 25 mg PO AC-LUNCH 12/13/20 [History] HYDROcodone/APAP 10-325MG [[place] 10-325] 1 each PO Q6H PRN tab 12/21/20 [Rx] Nitroglycerin Sl Tabs [Nitrostat] 0.4 mg SUBLINGUAL Q5M PRN tab 12/21/20 [Rx] Pantoprazole [Protonix] 40 mg PO BID tablet. 12/21/20 [Rx] Follow up Appointment(s)/Referral(s): Mell Baer MD [Primary Care Provider] - 12/24/20 11:30 am Manny Coy MD [STAFF PHYSICIAN] - 12/28/20 1:30 pm Patient Instructions/Handouts: Chest Pain (DC), Peptic Ulcer (DC) Discharge Disposition: HOME SELF-CARE
== END 2020-12-21 15:40 | disposition home or self-care (01) | DRG 377 ==
LOC: EC 12:23 → 6NMEDSUR 13:46 → 3SCARD 12-14 14:32 → OBSVTOIN 12-15 15:25 → 3SCARD 12-18 15:14
PROVIDERS: ADMIT Internal Medicine; ATTEND Internal Medicine
PROC: 0W3P8ZZ Control Bleeding in Gastrointestinal Tract, Via Natural or Artificial Opening Endoscopic (ICD-10-PCS; principal; 2020-12-17 12:30)
PROC: 3E0G8GC Introduction of Other Therapeutic Substance into Upper GI, Via Natural or Artificial Opening Endoscopic (ICD-10-PCS; principal; 2020-12-17 12:30)
DX: K26.4 Chronic or unspecified duodenal ulcer with hemorrhage (principal); E11.10 Type 2 diabetes mellitus with ketoacidosis without coma; I16.1 Hypertensive emergency; N17.9 Acute kidney failure, unspecified; D62 Acute posthemorrhagic anemia; I10 Essential (primary) hypertension; H91.93 Unspecified hearing loss, bilateral; E86.0 Dehydration; I25.10 Atherosclerotic heart disease of native coronary artery without angina pectoris; I35.0 Nonrheumatic aortic (valve) stenosis; I44.0 Atrioventricular block, first degree; M19.90 Unspecified osteoarthritis, unspecified site; D72.829 Elevated white blood cell count, unspecified; E78.5 Hyperlipidemia, unspecified; Z20.822 Contact with and (suspected) exposure to COVID-19; I95.2 Hypotension due to drugs; I95.89 Other hypotension; T46.5X5A Adverse effect of other antihypertensive drugs, initial encounter; T40.2X5A Adverse effect of other opioids, initial encounter; T42.4X5A Adverse effect of benzodiazepines, initial encounter; F41.9 Anxiety disorder, unspecified; F32.9 Major depressive disorder, single episode, unspecified; M54.9 Dorsalgia, unspecified; G89.29 Other chronic pain; I65.29 Occlusion and stenosis of unspecified carotid artery; G47.33 Obstructive sleep apnea (adult) (pediatric); Z99.89 Dependence on other enabling machines and devices; Z97.4 Presence of external hearing-aid; Z98.42 Cataract extraction status, left eye; Z98.41 Cataract extraction status, right eye; Z98.890 Other specified postprocedural states; Z95.5 Presence of coronary angioplasty implant and graft; Z95.2 Presence of prosthetic heart valve; Z79.02 Long term (current) use of antithrombotics/antiplatelets; Z79.82 Long term (current) use of aspirin; Z79.84 Long term (current) use of oral hypoglycemic drugs; Z79.899 Other long term (current) drug therapy; Z82.3 Family history of stroke; Z86.73 Personal history of transient ischemic attack (TIA), and cerebral infarction without residual deficits; Z87.891 Personal history of nicotine dependence; Z96.652 Presence of left artificial knee joint; Z98.84 Bariatric surgery status
CPT/HCPCS: 36415; 43243; 43255; 71045; 76700; 80048; 80053; 80061; 81003; 82009; 82150; 82728; 83036; 83540; 83550; 83605; 83690; 83735; 84100; 84145; 84484; 85025; 85027; 85610; 85730; 86140; 87040; 87077; 87186; 87636; 93005; 93306; 94760; 99285

== ENCOUNTER 2021-01-02 20:53 | Emergency (ER) | payer MEDICARE ==
[2021-01-02 20:58] VITALS: TEMP 98.6
[2021-01-02] MEDS ORDERED: SODIUM CHLORIDE 0.9% 500 ML 500 ML IV ONE (21:12)
[2021-01-02 21:15] LABS: Glucose,Whole Blood 291 mg/dL (75-99)
[2021-01-02 21:16] VITALS: RESP 16
[2021-01-02 21:31] LABS: Basophils # (A) 0.1 k/uL (0-0.2); Basophils % (A) 1 %; Eosinophils # (A) 0.2 k/uL (0-0.7); Eosinophils % (A) 1 %; HCT 28.3 % (39.0-53.0); HGB 9.9 gm/dL (13.0-17.5); Lymphocytes # (A) 2.3 k/uL (1.0-4.8); Lymphocytes % (A) 19 %; MCH 31.1 pg (25.0-35.0); MCHC 35.1 g/dL (31.0-37.0); MCV 88.5 fL (80.0-100.0); Mean Platelet Volume 7.6; Monocytes # (A) 0.7 k/uL (0-1.0); Monocytes % (A) 6 %; Neutrophils # (A) 8.8 k/uL (1.3-7.7); Neutrophils % (A) 73 %; Platelet Count 243 k/uL (150-450); RDW 14.4 % (11.5-15.5); WBC 12.1 k/uL (3.8-10.6)
--- NOTE | 2021-01-02 21:34 | XR ---
EXAMINATION TYPE: XR chest 1V portable DATE OF EXAM: 01/02/2021 COMPARISON: 12/13/2020 HISTORY: Altered mental status TECHNIQUE: Single view FINDINGS: Heart is normal. Lungs are clear of infiltrate. There is no heart failure. There are no hil ar masses. Costophrenic angles are clear. There are chest leads. Bony thorax is intact. IMPRESSION: No active cardiopulmonary disease. There is clearing of the minimal pleural reaction at t he left lung base compared to old exam.
[2021-01-02 21:42] LABS: Albumin 3.9 g/dL (3.5-5.0); Calcium 9.4 mg/dL (8.4-10.2); Potassium 4.3 mmol/L (3.5-5.1); Total Bilirubin 0.5 mg/dL (0.2-1.3)
[2021-01-02 21:48] LABS: Partial Thromboplastin Time 19.4 sec (22.0-30.0); Prothrombin Time 10.5 sec (9.0-12.0)
[2021-01-02 22:21] VITALS: BP 121/62; PULSE 67
--- NOTE | 2021-01-02 22:43 | ED ---
General Adult HPI - General Chief complaint: Neuro Symptoms/Deficit Stated complaint: Neuro Symptoms Time Seen by Provider: 01/02/21 21:11 Source: patient, family Mode of arrival: wheelchair Limitations: no limitations - Related Data Home Medications Medication Instructions Recorded Confirmed Citalopram Hydrobromide [CeleXA] 40 mg PO AC-LUNCH 01/14/15 12/13/20 metFORMIN HCL 1,000 mg PO BID 01/15/15 12/13/20 Aspirin EC [Ecotrin Low Dose] 81 mg PO AC-BID 05/28/17 12/13/20 Losartan Potassium 100 mg PO AC-LUNCH 01/05/20 12/13/20 Carvedilol [Coreg] 12.5 mg PO BID 01/19/20 12/13/20 amLODIPine [Norvasc] 5 mg PO BID 01/19/20 12/13/20 Atorvastatin [Lipitor] 80 mg PO HS 12/13/20 12/13/20 Clopidogrel [Plavix] 75 mg PO DAILY 12/13/20 12/13/20 Gabapentin [Neurontin] 200 mg PO Q8H 12/13/20 12/13/20 Linagliptin [Tradjenta] 5 mg PO AC-LUNCH 12/13/20 12/13/20 cefaDROXiL [Duricef] 500 mg PO BID 12/13/20 12/13/20 glipiZIDE [Glucotrol] 5 mg PO BID 12/13/20 12/13/20 hydroCHLOROthiazide 25 mg PO AC-LUNCH 12/13/20 12/13/20 Previous Rx's Medication Instructions Recorded HYDROcodone/APAP 10-325MG [[place] 1 each PO Q6H PRN tab 12/21/20 10-325] Nitroglycerin Sl Tabs [Nitrostat] 0.4 mg SUBLINGUAL Q5M PRN tab 12/21/20 Pantoprazole [Protonix] 40 mg PO BID tablet. 12/21/20 Allergies Allergy/AdvReac Type Severity Reaction Status Date / Time Penicillins Allergy Rash/Hives Verified 01/02/21 21:05 Review of Systems ROS Statement: Those systems with pertinent positive or pertinent negative responses have been documented in the HPI. ROS Other: All systems not noted in ROS Statement are negative. 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 Gomez and gomez vaccine 11/2020 History of Any Multi-Drug Resistant Organisms: None Reported Past Surgical History: Appendectomy, Bariatric Surgery, Cholecystectomy, Heart Catheterization With Stent, Hernia Repair, Joint Replacement, Orthopedic Surgery Additional Past Surgical History / Comment(s): Recent L partial knee replacement, bilateral carpal tunnel releases, L hand trigger finger surgery, bilateral cataract removals, bilateral eye surgery for glaucoma, Lap banding, bilateral caratid transcaratid artery revascularization/stenting, umbilical hernia repair, vasectomy. Past Anesthesia/Blood Transfusion Reactions: No Reported Reaction Date of Last Stent Placement:: 01/07/20 Past Psychological History: Anxiety, Depression Smoking Status: Former smoker - Past Family History Father Family Medical History: CVA/TIA Additional Family Medical History / Comment(s): stroke Mother Family Medical History: CVA/TIA Additional Family Medical History / Comment(s): stroke General Exam Limitations: no limitations Course Vital Signs 01/02/21 01/02/21 01/02/21 20:55 21:05 21:15 Temperature 98.6 F Pulse Rate 75 70 71 Respiratory 18 16 16 Rate Blood Pressure 137/59 146/60 146/70 O2 Sat by Pulse 99 99 99 Oximetry 01/02/21 01/02/21 21:50 22:00 Temperature Pulse Rate 71 67 Respiratory 16 16 Rate Blood Pressure 148/63 121/62 O2 Sat by Pulse 99 100 Oximetry Medical Decision Making - Lab Data Result diagrams: 01/02/21 21:17 01/02/21 21:17 Lab Results 01/02/21 01/02/21 01/02/21 Range/Units 21:12 21:17 21:17 WBC 12.1 H (3.8-10.6) k/uL RBC 3.20 L (4.30-5.90) m/uL Hgb 9.9 L (13.0-17.5) gm/dL Hct 28.3 L (39.0-53.0) % MCV 88.5 (80.0-100.0) fL MCH 31.1 (25.0-35.0) pg MCHC 35.1 (31.0-37.0) g/dL RDW 14.4 (11.5-15.5) % Plt Count 243 (150-450) k/uL MPV 7.6 Neutrophils % 73 % Lymphocytes % 19 % Monocytes % 6 % Eosinophils % 1 % Basophils % 1 % Neutrophils # 8.8 H (1.3-7.7) k/uL Lymphocytes # 2.3 (1.0-4.8) k/uL Monocytes # 0.7 (0-1.0) k/uL Eosinophils # 0.2 (0-0.7) k/uL Basophils # 0.1 (0-0.2) k/uL PT 10.5 (9.0-12.0) sec INR 1.0 (<1.2) APTT 19.4 L (22.0-30.0) sec Sodium (137-145) mmol/L Potassium (3.5-5.1) mmol/L Chloride (98-107) mmol/L Carbon Dioxide (22-30) mmol/L Anion Gap mmol/L BUN (9-20) mg/dL Creatinine (0.66-1.25) mg/dL Est GFR (CKD-EPI)AfAm (>60 ml/min/1.73 sqM) Est GFR (CKD-EPI)NonAf (>60 ml/min/1.73 sqM) Glucose (74-99) mg/dL POC Glucose (mg/dL) 291 H (75-99) mg/dL POC Glu [employer] ID [place], [place] Calcium (8.4-10.2) mg/dL Total Bilirubin (0.2-1.3) mg/dL AST (17-59) U/L ALT (4-49) U/L Alkaline Phosphatase (38-126) U/L Troponin I (0.000-0.034) ng/mL Total Protein (6.3-8.2) g/dL Albumin (3.5-5.0) g/dL 01/02/21 01/02/21 Range/Units 21:17 21:17 WBC (3.8-10.6) k/uL RBC (4.30-5.90) m/uL Hgb (13.0-17.5) gm/dL Hct (39.0-53.0) % MCV (80.0-100.0) fL MCH (25.0-35.0) pg MCHC (31.0-37.0) g/dL RDW (11.5-15.5) % Plt Count (150-450) k/uL MPV Neutrophils % % Lymphocytes % % Monocytes % % Eosinophils % % Basophils % % Neutrophils # (1.3-7.7) k/uL Lymphocytes # (1.0-4.8) k/uL Monocytes # (0-1.0) k/uL Eosinophils # (0-0.7) k/uL Basophils # (0-0.2) k/uL PT (9.0-12.0) sec INR (<1.2) APTT (22.0-30.0) sec Sodium 133 L (137-145) mmol/L Potassium 4.3 (3.5-5.1) mmol/L Chloride 102 (98-107) mmol/L Carbon Dioxide 22 (22-30) mmol/L Anion Gap 9 mmol/L BUN 21 H (9-20) mg/dL Creatinine 1.22 (0.66-1.25) mg/dL Est GFR (CKD-EPI)AfAm 64 (>60 ml/min/1.73 sqM) Est GFR (CKD-EPI)NonAf 55 (>60 ml/min/1.73 sqM) Glucose 261 H (74-99) mg/dL POC Glucose (mg/dL) (75-99) mg/dL POC Glu [employer] Teacher ID Calcium 9.4 (8.4-10.2) mg/dL Total Bilirubin 0.5 (0.2-1.3) mg/dL AST 30 (17-59) U/L ALT 21 (4-49) U/L Alkaline Phosphatase 79 (38-126) U/L Troponin I <0.012 (0.000-0.034) ng/mL Total Protein 6.0 L (6.3-8.2) g/dL Albumin 3.9 (3.5-5.0) g/dL Disposition Clinical Impression: Hyperglycemia Disposition: HOME SELF-CARE Condition: Good Instructions (If sedation given, give patient instructions): Diabetic Hyperglycemia (ED) Is patient prescribed a controlled substance at d/c from ED?: No Referrals: Mell Baer MD [Primary Care Provider] - 1-2 days
== END 2021-01-02 23:30 | disposition home or self-care (01) ==
LOC: EC 20:53
DX: E11.65 Type 2 diabetes mellitus with hyperglycemia (principal); I25.10 Atherosclerotic heart disease of native coronary artery without angina pectoris; E78.5 Hyperlipidemia, unspecified; I10 Essential (primary) hypertension; M19.90 Unspecified osteoarthritis, unspecified site; G47.33 Obstructive sleep apnea (adult) (pediatric); F32.9 Major depressive disorder, single episode, unspecified; E11.40 Type 2 diabetes mellitus with diabetic neuropathy, unspecified; Z99.81 Dependence on supplemental oxygen; Z90.89 Acquired absence of other organs; Z90.49 Acquired absence of other specified parts of digestive tract; Z95.5 Presence of coronary angioplasty implant and graft; Z87.891 Personal history of nicotine dependence; Z86.73 Personal history of transient ischemic attack (TIA), and cerebral infarction without residual deficits; Z79.84 Long term (current) use of oral hypoglycemic drugs; Z79.82 Long term (current) use of aspirin
CPT/HCPCS: 36415; 71045; 80053; 84484; 85025; 85610; 85730; 93005; 96360; 99285

== ENCOUNTER 2021-06-16 12:39 | Emergency (ER) | payer MEDICARE ==
[2021-06-16 12:45] VITALS: RESP 18
--- NOTE | 2021-06-16 13:55 | ED ---
General Adult HPI - General Chief complaint: Shortness of Breath Stated complaint: Covid +, sent by PCP Time Seen by Provider: 06/16/21 13:15 Source: patient, RN notes reviewed Mode of arrival: ambulatory Limitations: no limitations - History of Present Illness Initial comments: This is an 80-year-old male presents emergency Department chief complaint of cough congestion. Patient states he tested positive for COVID-19 today. Patient states she's had symptoms for 1 week. Patient has not that he had one vaccine in summer. Patient denies recent fever chills difficulty mild congestion bodyaches. No other associated symptoms. - Related Data Home Medications Medication Instructions Recorded Confirmed Citalopram Hydrobromide [CeleXA] 40 mg PO AC-LUNCH 01/14/15 12/13/20 metFORMIN HCL [Glucophage] 1,000 mg PO BID 01/15/15 12/13/20 Aspirin EC [Ecotrin Low Dose] 81 mg PO AC-BID 05/28/17 12/13/20 Losartan Potassium 100 mg PO AC-LUNCH 01/05/20 12/13/20 Carvedilol [Coreg] 12.5 mg PO BID 01/19/20 12/13/20 amLODIPine [Norvasc] 5 mg PO BID 01/19/20 12/13/20 Atorvastatin [Lipitor] 80 mg PO HS 12/13/20 12/13/20 Clopidogrel [Plavix] 75 mg PO DAILY 12/13/20 12/13/20 Gabapentin [Neurontin] 200 mg PO Q8H 12/13/20 12/13/20 Linagliptin [Tradjenta] 5 mg PO AC-LUNCH 12/13/20 12/13/20 cefaDROXiL [Duricef] 500 mg PO BID 12/13/20 12/13/20 glipiZIDE [Glucotrol] 5 mg PO BID 12/13/20 12/13/20 hydroCHLOROthiazide 25 mg PO AC-LUNCH 12/13/20 12/13/20 Previous Rx's Medication Instructions Recorded HYDROcodone/APAP 10-325MG [[place] 1 each PO Q6H PRN tab 12/21/20 10-325] Nitroglycerin Sl Tabs [Nitrostat] 0.4 mg SUBLINGUAL Q5M PRN tab 12/21/20 Pantoprazole [Protonix] 40 mg PO BID tablet. 12/21/20 Allergies Allergy/AdvReac Type Severity Reaction Status Date / Time Penicillins Allergy Rash/Hives Verified 06/16/21 12:43 Review of Systems ROS Statement: Those systems with pertinent positive or pertinent negative responses have been documented in the HPI. ROS Other: All systems not noted in ROS Statement are negative. 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 [employer] vaccine 11/2020 History of Any Multi-Drug Resistant Organisms: None Reported Past Surgical History: Appendectomy, Bariatric Surgery, Cholecystectomy, Heart Catheterization With Stent, Hernia Repair, Joint Replacement, Orthopedic Surgery Additional Past Surgical History / Comment(s): Recent L partial knee replacement, bilateral carpal tunnel releases, L hand trigger finger surgery, bilateral cataract removals, bilateral eye surgery for glaucoma, Lap banding, bilateral caratid transcaratid artery revascularization/stenting, umbilical hernia repair, vasectomy. Past Anesthesia/Blood Transfusion Reactions: No Reported Reaction Date of Last Stent Placement:: 01/07/20 Past Psychological History: Anxiety, Depression Smoking Status: Former smoker - Past Family History Father Family Medical History: CVA/TIA Additional Family Medical History / Comment(s): stroke Mother Family Medical History: CVA/TIA Additional Family Medical History / Comment(s): stroke General Exam Limitations: no limitations General appearance: alert, in no apparent distress Head exam: Present: atraumatic, normocephalic, normal inspection Eye exam: Present: normal appearance, PERRL, EOMI. Absent: scleral icterus, conjunctival injection, periorbital swelling ENT exam: Present: normal exam, normal oropharynx, mucous membranes moist Neck exam: Present: normal inspection, full ROM. Absent: tenderness, meningismus, lymphadenopathy Respiratory exam: Present: normal lung sounds bilaterally. Absent: respiratory distress, wheezes, rales, rhonchi, stridor Cardiovascular Exam: Present: regular rate, normal rhythm, normal heart sounds. Absent: systolic murmur, diastolic murmur, rubs, gallop, clicks Neurological exam: Present: alert, oriented X3, CN II-XII intact. Absent: motor sensory deficit Course Vital Signs 06/16/21 12:43 Temperature 97.2 F L Pulse Rate 77 Respiratory 18 Rate Blood Pressure 159/82 O2 Sat by Pulse 98 Oximetry Medical Decision Making - Medical Decision Making Patient did receive monoclonal antibodies will be discharged in stable condition. Return parameters were discussed. Disposition Clinical Impression: COVID-19 Disposition: HOME SELF-CARE Condition: Stable Instructions (If sedation given, give patient instructions): Coronavirus Disease 2019 (COVID-19) Additional Instructions: Please return to the Emergency Department if symptoms worsen or any other conc erns. Is patient prescribed a controlled substance at d/c from ED?: No Referrals: Mell Baer MD [Primary Care Provider] - 1-2 days Time of Disposition: 13:55
[2021-06-16] MEDS ORDERED: CASIRIVIMAB/IMDEVIMAB (EUA) 1,200 MG in SODIUM CHLORIDE 0.9% 100 ML IVPB ONE (14:30)
[2021-06-16] MEDS ORDERED: SODIUM CHLORIDE 0.9% 50 ML IVPB ONE (15:00)
[2021-06-16 16:08] VITALS: BP 184/86; PULSE 67; TEMP 98.8
== END 2021-06-16 16:35 | disposition home or self-care (01) ==
LOC: EC 12:39
DX: U07.1 COVID-19 (principal); E11.40 Type 2 diabetes mellitus with diabetic neuropathy, unspecified; I10 Essential (primary) hypertension; I25.10 Atherosclerotic heart disease of native coronary artery without angina pectoris; E78.5 Hyperlipidemia, unspecified; M19.90 Unspecified osteoarthritis, unspecified site; F32.9 Major depressive disorder, single episode, unspecified; F41.9 Anxiety disorder, unspecified; Z87.891 Personal history of nicotine dependence; Z79.84 Long term (current) use of oral hypoglycemic drugs; Z79.82 Long term (current) use of aspirin; Z79.02 Long term (current) use of antithrombotics/antiplatelets; Z79.899 Other long term (current) drug therapy; Z88.0 Allergy status to penicillin; Z90.49 Acquired absence of other specified parts of digestive tract; Z86.73 Personal history of transient ischemic attack (TIA), and cerebral infarction without residual deficits
CPT/HCPCS: 99283 ×2; 96360; 96361; M0243; Q0244; 96365

== ENCOUNTER → 2021-11-29 | Outpatient (CLI) | payer MEDICARE ==
[2021-11-29 20:59] LABS: Basophils # (A) 0.06 X 10*3/uL (0.00-0.10); Basophils % (A) 0.7 %; Eosinophils # (A) 0.12 X 10*3/uL (0.04-0.35); Eosinophils % (A) 1.4 %; HCT 33.3 % (39.6-50.0); HGB 10.7 g/dL (13.0-17.0); Immature Grans, Automated 0.5 %; Lymphocytes # (A) 2.55 X 10*3/uL (0.90-5.00); Lymphocytes % (A) 30.1 %; MCHC 32.1 g/dL (32.0-37.0); MCV 90.2 fL (80.0-97.0); Mean Platelet Volume 11.6 fL (9.5-12.2); Monocytes # (A) 0.72 X 10*3/uL (0.20-1.00); Monocytes % (A) 8.5 %; NRBC Per 100 WBC 0 /100 WBCS (0.0-0.0); Neutrophils # (A) 4.98 X 10*3/uL (1.80-7.70); Neutrophils % (A) 58.8 %; Platelet Count 167 X 10*3/uL (140-440); RBC 3.69 X 10*6/uL (4.40-5.60); RDW 13.6 % (11.5-14.5); WBC 8.47 X 10*3/uL (4.50-10.00)
[2021-11-29 21:10] LABS: Erythrocyte Sedimentation Rate 12 mm/Hr (0-20)
== END | disposition home or self-care (01) ==
LOC: LABWHC1 11:09
PROVIDERS: ATTEND Orthopaedic Surgery
DX: M25.562 Pain in left knee (principal)
CPT/HCPCS: 36415; 85025; 85652; 86140

== ENCOUNTER → 2021-12-19 | Outpatient (CLI) | payer MEDICARE, OTHER | END | disposition home or self-care (01) | LOC: LABPAT 09:42 | PROVIDERS: ATTEND Orthopaedic Surgery | DX: Z01.812 Encounter for preprocedural laboratory examination (principal); Z22.322 Carrier or suspected carrier of Methicillin resistant Staphylococcus aureus; M17.12 Unilateral primary osteoarthritis, left knee | CPT/HCPCS: 87070 ==

== ENCOUNTER 2022-01-03 08:20 | Inpatient (IN) | payer MEDICARE ==
--- NOTE | 2022-01-02 11:40 | HP ---
HISTORY AND PHYSICAL CHIEF COMPLAINT: Left knee pain. HISTORY OF PRESENT ILLNESS: The patient is an 81-year-old retired male who presents with progressive left knee pain after undergoing unicompartmental replacement in December of 2020. He has had progressive persistent pain ever since. He has pain with any weight-bearing activities. He notes it is quite severe. He has been limping. He had adequate rehabilitation after his surgery. PAST MEDICAL HISTORY: Significant for type 2 diabetes, hypertension, hyperlipidemia, peripheral vascular disease along with coronary artery disease. PAST SURGICAL HISTORY: Significant for previous left knee unicompartmental replacement along with heart valve surgery. CURRENT MEDICATIONS: Amlodipine, aspirin, citalopram, Coreg, glipizide, hydrochlorothiazide, Lipitor, losartan, metformin, nitroglycerin and [place]. ALLERGIES: PENICILLIN. FAMILY HISTORY: Significant for heart disease. SOCIAL HISTORY: Significant for previous tobacco use. REVIEW OF SYSTEMS: Sixteen-point review of systems otherwise reviewed and noncontributory. PHYSICAL EXAMINATION: On examination, the patient is approximately 5 feet 7 inches, 198 pounds of mesomorphic habitus. HEENT exam is non-focal. NECK: Supple. He has painless passive motion of his left hip. Straight-leg raise is negative. Active motion of left knee: Minus 12 to 98 degrees of flexion. He has a moderate effusion. He is tender about the medial and lateral patella facet along his medial joint line. Collaterals are stable. His distal neurovascular exam appears intact in the left lower extremity. He does have an antalgic gait pattern. X-rays to include weight-bearing notch, lateral and Merchant views of the left knee obtained in the office show a medial compartment replacement along with severe patellofemoral compartment osteoarthrosis. IMPRESSION: 1. Status post left knee unicompartmental replacement. 2. Left severe patellofemoral compartment osteoarthrosis. RECOMMENDATIONS: I talked to the patient at length regarding his condition along with treatment options. At this point he is having significant pain related to his patellofemoral osteoarthrosis despite previous surgery and conservative measures. After thorough discussion he elected to proceed with surgery. We will plan to proceed with revision left total knee arthroplasty. Risks and benefits were discussed at length in layman's terms. He underwent preoperative cardiac evaluation by Dr. Forbes. MMODL / IJN: [id number] /
[~2022-01-03 08:20] MED LIST changes: +ACETAMINOPHEN TAB 500 MG TAB PO PRN; -ALPRAZolam 0.25 MG TAB PO PRN; -ALPRAZolam 0.5 MG TAB PO PRN; -ASPIRIN 325 MG TAB PO STA; -CLOPIDOGREL 75 MG TAB PO STA; -DEXAMETHASONE SOD PHOSPHATE 10 MG/ML 1 ML VIAL IV ONE; +DEXAMETHASONE SOD PHOSPHATE 4 MG/ML 1 ML VIAL IV ONE; -HYDROmorphone 0.5 MG/0.5 ML SYRINGE IVP PRN; +MELOXICAM 7.5 MG TAB PO PRN; -NITROGLYCERIN SL TABS 0.4 MG TAB SUBLINGUAL PRN; +ONDANSETRON 4 MG/2 ML VIAL IVP ONE; +ONDANSETRON 4 MG/2 ML VIAL IVP PRN; -SODIUM CHLORIDE 0.9% 1,000 ML in EMPTY BAG 1 BAG IV ONE; +TRANEXAMIC ACID IN NACL,ISO-OS 1,000 MG in SALINE 1 100ML.BAG IVPB PRN
[2022-01-03] MEDS: LACTATED RINGERS 1,000 ML IV SCH (08:59)
[2022-01-03 09:25] LABS: Glucose,Whole Blood 148 mg/dL (75-99)
[2022-01-03 09:59] LABS: HCT 32.6 % (39.0-53.0); HGB 10.5 gm/dL (13.0-17.5); MCH 29.3 pg (25.0-35.0); MCHC 32.3 g/dL (31.0-37.0); MCV 90.7 fL (80.0-100.0); Mean Platelet Volume 8.1; Platelet Count 177 k/uL (150-450); RBC 3.59 m/uL (4.30-5.90); WBC 9.2 k/uL (3.8-10.6)
[2022-01-03] MEDS ORDERED: MIDAZOLAM 2 MG/2 ML VIAL IVP ONE (10:26)
[2022-01-03] MEDS ORDERED: fentaNYL (PF) 50 MCG/ML 2 ML AMP IVP ONE (10:26)
[2022-01-03] MEDS ORDERED: GLYCOPYRROLATE 0.2 MG/ML 2 ML VIAL ONE (10:49)
[2022-01-03] MEDS ORDERED: DEXAMETHASONE SOD PHOSPHATE 4 MG/ML 1 ML VIAL ONE (10:49)
[2022-01-03] MEDS ORDERED: LIDOCAINE 2% INJ 20 MG/ML (2 ML VIAL) ONE (10:49)
[2022-01-03] MEDS ORDERED: PROPOFOL 10 MG/ML 20 ML VIAL IV ONE (10:49)
[2022-01-03] MEDS ORDERED: ROCURONIUM 10 MG/ML (5 ML VIAL) IV ONE (10:49)
[2022-01-03] MEDS ORDERED: NEOSTIGMINE 1 MG/ML 10 ML VIAL ONE (10:49)
[2022-01-03] MEDS ORDERED: ROPIVACAINE 5 MG/ML 30 ML VIAL ONE (10:49)
[2022-01-03] MEDS ORDERED: fentaNYL (PF) 50 MCG/ML 2 ML AMP ONE (10:49)
[2022-01-03] MEDS ORDERED: TRANEXAMIC ACID IN NACL,ISO-OS 1,000 MG/100 ML BAG ONE (10:49)
[2022-01-03] MEDS ORDERED: PHENYLEPHRINE-0.9% NACL SYG 1,000 MCG/10 ML SYRINGE ONE (10:49)
[2022-01-03] MEDS ORDERED: SUCCINYLCHOLINE CHLORIDE 100 MG/5 ML SYR IV ONE (10:49)
[2022-01-03] MEDS ORDERED: MORPHINE SULFATE (PF) 0.3 MG/0.3 ML SYR ONE (10:49)
[2022-01-03] MEDS ORDERED: ceFAZolin 1,000 MG in SODIUM CHLORIDE 0.9% 1,000 ML IRRIGATION ONE (11:09)
[2022-01-03] MEDS ORDERED: ROPIVACAINE 0.2%-NS ON-Q PUMP 1,090 MG, EMPTY PAIN BALL 1 EACH MISCELLANE PRN (11:20)
--- NOTE | 2022-01-03 11:22 | P.ANPRN ---
Procedure Note - Anesthesia - Nerve Block Performed Left Adductor Canal Time Out Performed: Yes (:) Date of Procedure: 01/03/22 Procedure Start Time: Procedure Stop Time: : Location of Patient: PreOp Indication: Acute Post-Operative Pain, Requested by Surgeon (Dr Jean Baptiste) Sedation Type: Sedate with meaningful contact maintained Preparation: Sterile Prep, Sterile Dressing Position: Supine Catheter: Indwelling Needle Types: Pajunk Needle Gauge: 21 Ultrasound used to visualize needle placement: Yes Ultrasound used to observe medication spread: Yes Injectate: 0.5% Ropivacaine (see comment for volume) (15cc) Blood Aspirated: No Pain Paresthesia on Injection Noted: No Resistance on Injection: Normal Image Stored and Saved: Yes Events: Uneventful and Well Tolerated
--- NOTE | 2022-01-03 11:23 | P.ANPRN ---
Procedure Note - Anesthesia - Nerve Block Performed Left iPack Time Out Performed: Yes Date of Procedure: 01/03/22 Procedure Start Time: 10:35 Procedure Stop Time: 10:41 Location of Patient: PreOp Indication: Acute Post-Operative Pain, Requested by Surgeon (Dr Jean Baptiste) Sedation Type: Sedate with meaningful contact maintained Preparation: Sterile Prep Position: Supine Catheter: None Needle Types: Pajunk Needle Gauge: 21 Ultrasound used to visualize needle placement: Yes Ultrasound used to observe medication spread: Yes Injectate: 0.5% Ropivacaine (see comment for volume) (15cc + 5cc PF Normal saline) Blood Aspirated: No Pain Paresthesia on Injection Noted: No Resistance on Injection: Normal Image Stored and Saved: Yes Events: Uneventful and Well Tolerated
[2022-01-03] MEDS ORDERED: LACTATED RINGERS 1,000 ML IV ONE (12:09)
[2022-01-03] MEDS ORDERED: HYDROmorphone 0.5 MG/0.5 ML SYRINGE IVP PRN (12:35)
[2022-01-03] MEDS ORDERED: HYDROcodone/APAP 5-325MG 1 EACH TAB PO PRN (12:35)
[2022-01-03] MEDS ORDERED: NALOXONE 0.4 MG/ML 1 ML VIAL IV PRN (12:35)
--- NOTE | 2022-01-03 13:01 | P.OP ---
Date of Procedure: 01/03/22 Preoperative Diagnosis: Painful left knee medial compartment arthroplasty/severe patellofemoral compartment osteoarthrosis Postoperative Diagnosis: Same Procedure(s) Performed: Revision left total knee arthroplastycementedposterior stabilized Implants: Depuy Attune size 7 cemented femoral component, size 6 cemented tibial component with a 14 x 50 mm stem, 13 mm articular surface, 38 mm cemented patellar component. This is a posterior stabilized implant. Anesthesia: [facility] Surgeon: Madan Jean Baptiste Rn Palliative #1: Jude Reeves Assistant #2: Juan A Mott Estimated Blood Loss (ml): 50 Pathology: other (Bone fragments) Condition: stable Disposition: PACU Indications for Procedure: The patient's 81-year-old male presents with progressive left knee pain after undergoing a left knee medial compartment arthroplasty recently. He had progresses patellofemoral symptoms despite adequate rehabilitation. A discussion of the risks and benefits of operative intervention versus continued conservative measures made with patient. He opted to proceed with surgery. Operative risks to include infection, neurovascular injury, development of blood clots, fracture, component loosening, component failure need for subsequent procedures was discussed. Informed consent was obtained. Operative Findings: As below Description of Procedure: The patient was brought to the operating room, and after induction of general anesthesia the left lower extremity was prepped and draped in a normal fashion. The tourniquet was inflated to 270 mm marker. A longitudinal incision extending 3 finger breaths above the superior pole of patella extending to the medial aspect the tibial tubercle was then made. The skin and subcutaneous tissues were divided sharply. Electrocautery was used for hemostasis. A medial parapatellar arthrotomy was performed. The medial soft tissues to include the superficial and deep portions of the medial collateral ligament were elevated subperiosteally. The patella was everted. A portion of the retropatellar fat pad was excised sharply. The anterior cruciate ligament was sacrificed. Blunt retractors were placed. The femoral and tibial components were then removed utilizing a small sagittal saw along with thin osteotomes. There were both removed without significant bone loss. A starting hole was made in the distal femur 1 cm anterior to the posterior cruciate ligament origin. An intramedullary femoral guide was then inserted planning on 5 valgus distal cut with 9 mm distal resection. The cutting block was pinned in place. The distal cut was then made. The posterior referencing sizing guide was utilized. I felt size 7 was most appropriate. 3 of external rotation was built into the system and verified off the trans-epicondylar axis and the posterior condyles. The cutting block was pinned in place. The anterior, posterior, and chamfer cuts then made. Bone fragments were removed. The intercondylar guide was placed and the notch cut was made with a sagittal saw. The bone block was removed in one fragment. The trial component was then placed. There is good anterior to posterior and medial to lateral fit. The distal peg holes were drilled. The trial component was removed. Attention was then paid towards preparing the proximal femur. An extra medullary guide was utilized in line with the tibial shaft and second metatarsal distally. I planned on 0 mm resection from the medial compartment. The cutting block was pinned in place. The proximal tibial cut was then made. The bone was removed in one fragment. The remnants of the medial and lateral menisci were excised at the capsular junction with electrocautery. The tibia sized most appropriately at size 6. The trial femoral and tibial components were placed along with a 13 mm articular surface. I was able to obtain full flexion and extension with internal and external rotation. After several flexion and extension cycles, the tibial rotation was marked with electrocautery line with the medial one third of the tibial tubercle. Attention was then paid towards preparing the patella. A patella reamer was utilized taking stem to 14 mm of bone stock. A good flush cut was made. The patella sized most appropriately 38 mm. The peg holes were drilled. The trial components placed. I had good patellofemoral tracking with no hands technique. The trial components were then removed. The tibia was prepared in the appropriate rotation with appropriate reamer and keel punch. The flexion and extension gaps were checked and felt to be symmetric at 13 mm. A trial components were then removed. The bony surfaces were prepared with pulsatile lavage and dried. The tibial component was then cemented place was fully seated. Excess cement was removed. The femoral component cemented place and was fully seated. Excess cement was removed. The trial 13 mm articular surface was placed and the knee was put in full extension. The patella component was cemented place. After the cement had sufficiently hardened, the knee was again taken through a range of motion. Again I was able to obtain full flexion and extension with varus and valgus stress. The trial 13 mm articular surface was removed and the final one inserted. This was fully seated. Care was taken to avoid any soft tissue interposition. Pulsatile lavage was again utilized. The medial parapatellar arthrotomy was closed with #2 Ethibond suture. The tourniquet was deflated with approximately 70 minutes total tourniquet time. Final hemostasis was obtained with the cautery. There was minimal bleeding therefore a deep drain was not placed. The subcutaneous tissues were reapproximated with interrupted 2-0 Vicryl sutures. The skin was reapproximated with 3-0 subcuticular strata fix suture. Skin tape and adhesive was applied. A sterile dressing was applied. The patient was awoken from sedation and transferred to recovery room in good condition. Blood loss was estimated at 50 mL. No complications were incurred. Sponge and needle counts were correct at the end of the case. Zen MIXON and Juan A will sted during the major components of this case to include exposure, bone resection, implantation, and closure.
[2022-01-03] MEDS: HYDROmorphone 0.5 MG/0.5 ML SYRINGE IVP PRN ×4 (13:03→13:37)
--- NOTE | 2022-01-03 13:20 | XR ---
EXAMINATION TYPE: XR knee limited LT DATE OF EXAM: 01/03/2022 CLINICAL HISTORY: Left knee pain and arthritis status post total knee replacement. TECHNIQUE: Portable AP and crosstable lateral views of the left knee are obtained immediately postop eratively. COMPARISON: None FINDINGS: Metallic hardware from total left knee arthroplasty is seen and appears satisfactory in al ignment and position. There is evidence of recent surgery with diffuse subcutaneous gas , and soft t issue swelling noted. IMPRESSION: METALLIC HARDWARE FROM TOTAL LEFT KNEE ARTHROPLASTY IS SATISFACTORY IN ALIGNMENT.
[2022-01-03] MEDS ORDERED: hydrALAZINE HCL 20 MG/ML 1 ML VIAL IVP ONE (13:25)
[2022-01-03] MEDS ORDERED: KETOROLAC 15 MG/ML 1 ML VIAL IVP ONE (13:38)
[2022-01-03 16:54] LABS: Glucose,Whole Blood 245 mg/dL (75-99)
[2022-01-03] MEDS ORDERED: NITROGLYCERIN SL TABS 0.4 MG TAB SUBLINGUAL PRN (18:00)
[2022-01-03] MEDS ORDERED: HYDROcodone/APAP 10-325MG 1 EACH TAB PO PRN (18:00)
[2022-01-03] MEDS: amLODIPine 5 MG TAB PO SCH (20:17)
[2022-01-03] MEDS: HYDROcodone/APAP 10-325MG 1 EACH TAB PO PRN (20:26)
[2022-01-03] MEDS: carvediloL 12.5 MG TAB PO SCH (20:26)
[2022-01-03 20:43] LABS: Glucose,Whole Blood 313 mg/dL (75-99)
[2022-01-03] MEDS ORDERED: SENNOSIDES-DOCUSATE SODIUM 1 EACH TAB PO SCH (21:00)
[2022-01-03] MEDS ORDERED: ATORVASTATIN 80 MG TAB PO SCH (21:00)
[2022-01-03] MEDS: INSULIN ASPART (NovoLOG) 100 UNIT/ML VIAL SQ SCH (21:18)
--- NOTE | 2022-01-04 07:04 | P.PN ---
Progress Note - Text Progress Note Date: 01/04/22 Postoperative day # 1 status post total knee arthroplasty, and adductor canal catheter placed for postoperative analgesia, currently at ropivacaine 0.2% 8 mL per hour and continuous infusion, visual analogue scale is 3/10, patient using oral pain medication for breakthrough pain. Assessment and plan= Acute postoperative pain, adductor canal catheter for pain control, pain is well controlled we'll continue the same management.
[2022-01-04 07:07] LABS: Glucose,Whole Blood 215 mg/dL (75-99)
[2022-01-04] MEDS: LACTATED RINGERS 1,000 ML IV SCH (07:23)
[2022-01-04] MEDS: carvediloL 12.5 MG TAB PO SCH (07:58)
[2022-01-04] MEDS: INSULIN ASPART (NovoLOG) 100 UNIT/ML VIAL SQ SCH (07:59)
[2022-01-04] MEDS: amLODIPine 5 MG TAB PO SCH (07:59)
[2022-01-04] MEDS: HYDROcodone/APAP 10-325MG 1 EACH TAB PO PRN (07:59)
[2022-01-04 08:15] VITALS: BP 169/68; PULSE 70; RESP 18; TEMP 98.2
[2022-01-04] MEDS ORDERED: RIVAROXABAN 10 MG TAB PO SCH (09:00)
[2022-01-04] MEDS ORDERED: ASPIRIN 81 MG PO SCH (09:00)
[2022-01-04] MEDS ORDERED: LOSARTAN 50 MG TAB PO SCH (09:00)
[2022-01-04] MEDS ORDERED: CITALOPRAM HYDROBROMIDE 20 MG TAB PO SCH (09:00)
[2022-01-04 09:12] LABS: Basophils # (A) 0.01 X 10*3/uL (0.00-0.10); Basophils % (A) 0.1 %; Eosinophils # (A) 0 X 10*3/uL (0.04-0.35); Eosinophils % (A) 0 %; HCT 27.2 % (39.6-50.0); HGB 8.6 g/dL (13.0-17.0); Immature Grans, Automated 0.4 %; MCH 29.3 pg (27.0-32.0); MCHC 31.6 g/dL (32.0-37.0); MCV 92.5 fL (80.0-97.0); Monocytes # (A) 0.86 X 10*3/uL (0.20-1.00); Monocytes % (A) 8.6 %; NRBC Per 100 WBC 0 /100 WBCS (0.0-0.0); Neutrophils # (A) 7.48 X 10*3/uL (1.80-7.70); Neutrophils % (A) 74.9 %; Platelet Count 174 X 10*3/uL (140-440); RBC 2.94 X 10*6/uL (4.40-5.60); RDW 14.3 % (11.5-14.5); WBC 9.99 X 10*3/uL (4.50-10.00)
[2022-01-04 09:19] LABS: African American GFR (CKD) 42.3 (60.0-200.0); Albumin 3.8 g/dL (3.8-4.9); Anion Gap 10.7 mmol/L (10.00-18.00); BUN/Creat Ratio 21.29 Ratio (12.00-20.00); Blood Urea Nitrogen 36.2 mg/dL (9.0-27.0); Carbon Dioxide 19.3 mmol/L (20.0-27.5); Globulin 1.9 g/dL (1.6-3.3); Non-African American GFR(CKD) 36.5 (60.0-200.0); Total Bilirubin 0.3 mg/dL (0.30-1.20); Total Protein 5.7 g/dL (6.2-8.2)
--- NOTE | 2022-01-04 10:35 | P.PN ---
Subjective Progress Note Date: 01/04/22 Principal diagnosis: Painful left knee medial compartment arthroplasty/severe patellofemoral compartment osteoarthrosis Patient was seen at bedside this morning resting comfortably lying in the semirecumbent position. Patient says he has been using walker and walked around the room and through the garcía and up-and-down a couple steps. Patient rates the pain in his knee currently is 6/7 out of 10. He says [place] does help ease the pain. Patient says he does have a walker at home to use. Patient says he is looking forward to going home at this time. Patient denies any chest pain, fever, shortness of breath, nausea, vomiting, change in vision, loss of bowel/bladder control. Objective - Vital Signs Vital signs: Vital Signs Temp 98.2 F 01/04/22 08:00 Pulse 70 01/04/22 08:00 Resp 18 01/04/22 08:00 BP 169/68 01/04/22 08:00 Pulse Ox 97 01/04/22 08:00 FiO2 Intake & Output 01/03/22 01/04/22 01/04/22 18:59 06:59 18:59 Intake Total 1551 Output Total 50 900 Balance 1501 -900 Weight 88.6 kg Intake: IV 1501 Intake, IV Titration 50 Amount ceFAZolin 2 gm In Sodium 50 Chloride 0.9% 50 ml @ 100 mls/hr IVPB Q8H [facility] Rx#: [id number] Output: Urine 900 Straight 675 Estimated Blood Loss 50 Other: Voiding Method Urinal - Exam Left knee: Incision is clean, dry, and intact. The mesh tape is in good condition. There is minimal soft tissue swelling and ecchymosis surrounding the medial and lateral aspects of the incision. Calf is soft, no tenderness with palpation. Plantar flexion, dorsiflexion, EHL, FHL are intact. Sensory exam to light touch throughout the extremity is intact, dorsal pedis pulses 2+. - Labs CBC & Chem 7: 01/04/22 04:05 01/04/22 04:05 Labs: Abnormal Lab Results - Last 24 Hours (Table) 01/03/22 01/03/22 01/04/22 Range/Units 16:52 20:41 04:05 RBC 2.94 L (4.40-5.60) X 10*6/uL Hgb 8.6 L (13.0-17.0) g/dL Hct 27.2 L (39.6-50.0) % MCHC 31.6 L (32.0-37.0) g/dL Eosinophils # 0 L (0.04-0.35) X 10*3/uL Sodium (135-145) mmol/L Carbon Dioxide (20.0-27.5) mmol/L BUN (9.0-27.0) mg/dL Creatinine (0.6-1.5) mg/dL Est GFR (CKD-EPI)AfAm (60.0-200.0) Est GFR (CKD-EPI)NonAf (60.0-200.0) BUN/Creatinine Ratio (12.00-20.00) Ratio Glucose (70-110) mg/dL POC Glucose (mg/dL) 245 H 313 H (75-99) mg/dL AST (14-35) U/L ALT (10-49) U/L Total Protein (6.2-8.2) g/dL 01/04/22 01/04/22 Range/Units 04:05 07:05 RBC (4.40-5.60) X 10*6/uL Hgb (13.0-17.0) g/dL Hct (39.6-50.0) % MCHC (32.0-37.0) g/dL Eosinophils # (0.04-0.35) X 10*3/uL Sodium 134 L (135-145) mmol/L Carbon Dioxide 19.3 L (20.0-27.5) mmol/L BUN 36.2 H (9.0-27.0) mg/dL Creatinine 1.7 H (0.6-1.5) mg/dL Est GFR (CKD-EPI)AfAm 42.3 L (60.0-200.0) Est GFR (CKD-EPI)NonAf 36.5 L (60.0-200.0) BUN/Creatinine Ratio 21.29 H (12.00-20.00) Ratio Glucose 170 H (70-110) mg/dL POC Glucose (mg/dL) 215 H (75-99) mg/dL AST 239 H (14-35) U/L ALT 261 H (10-49) U/L Total Protein 5.7 L (6.2-8.2) g/dL Assessment and Plan Assessment: 1. Painful left knee medial compartment arthroplasty/severe patellofemoral compartment osteoarthrosis - Postoperative day 1 status post Revision left total knee arthropl astycementedposterior stabilized Plan: 1. Painful left knee medial compartment arthroplasty/severe patellofemoral compartment osteoarthrosis - revision left total knee art hroplastycementedposterior stabilized performed yesterday, 01/03/2022. Patient stable at bedside this morning. Plan discharge home today with health services. 2. Appreciate medical management 3. Pain management - Leadore 10 mg/325 mg 4. DVT prophylaxis - Xarelto in hospital. Going home with Eliquis 2.5 mg BID x 2 weeks 5. GI prophylaxis - senna; Colace 6. PT/OT - weightbearing as tolerated with walker 7. Encourage incentive spirometer use 8. Discharge planning - discharge home today with health services Time with Patient: Less than 30
--- NOTE | 2022-01-04 10:36 | P.DS ---
Providers Date of admission: 01/03/22 08:20 Expected date of discharge: 01/04/22 Attending physician: Madan Jean Baptiste Consults: 01/03/22 12:40 Consult Physician Routine Consulting Provider: Mell Baer Consult Reason/Comments: Medical Management s/p revision left total knee arthroplasty Do you want consulting provider notified?: Yes Primary care physician: Mell Baer [facility] Course: Date of admission: 01/03/2022 Date of discharge: 01/04/2022 Admission diagnosis: Painful left knee medial compartment arthroplasty/severe patellofemoral compartment osteoarthrosis Discharge diagnosis: Same Attending physician: Dr. Jean Baptiste Surgical procedures: Revision left total knee arthroplastycementedposterior stabilized Brief history: Patient is a 81-year-old male with a history of painful left knee medial compartment arthroplasty/severe patellofemoral compartment osteoarthrosis. At this point patient has failed conservative treatment measures and has opted to proceed with a elective revision left total knee arthroplastycemented posterior stabilized. Hospital course: Details of patient's surgery can be found in operative report. Patient tolerated the procedure well and was subsequently transported to orthopedic floor. Patient's orthopeidc and medical care was provided daily. Patient had daily laboratory tests performed for evaluation of overall blood counts. Patient had daily physical therapy to include strengthening range of motion as well as education with walker ambulation. Patient was treated with Xarelto for their postoperative DVT prophylaxis during their inpatient stay. Patient was noted to have a relatively uneventful postoperative course. Patient reported satisfactory pain control with oral pain medications by postoperative day 1. Patient showed satisfactory progress with physical therapy. Patient moved steadily through the program and had no difficulty meeting the goals by postoperative day 1. Given patient's otherwise satisfactory course and having met physical therapy goals, plan is to discharge patient home with health services on postoperative day 1. Discharge condition/disposition: Patient will be discharged home with health services in stable condition. Discharge medications: Instructions are given on resumption of patient's normal daily medications per primary care recommendation, in addition patient will be prescribed [place] 10 mg/325 mg; Colace; Eliquis 2.5 mg BID x 2 weeks. Discharge instructions: 1. Wound care and infection precautions, keep incision dry and covered while showering, no lotions, creams, moisturizers. No soaking, tubs, pools, hottubs. Do not scrub over the incision. 2. Weight-bear as tolerated with walker / cane until follow-up. 3. Ice and elevate when necessary. Do not exceed 20 minutes per hour with ice pack. 4. Utilize compression sleeve until seen at first follow up appointment. 5. Visiting nursing care. 6. Home physical therapy including home CPM. 7. Pain meds and anticoagulants per prescription. 8. Pain medication has potential to cause constipation. Increase oral fluid and fiber intake. Contact primary care provider if you have not had a bowel movement within 48 hours after discharge 9. No anti-inflammatory medication until discussed at first post operative visit, this including Motrin, Aleve, Mobic, Diclofenac. 10. Follow up in office at 2 weeks postop with Zen Reeves PA-C / Juan A Mott PA-C 11. Follow up with your primary care doctor 7-10 days after discharge. 12. Contact [facility] with any questions, . Keep incision clean, dry, intact. While showering, cover mesh tape with Saran wrap. Keep mesh tape on until follow-up appointment in office in 2 weeks. Medications: [place] 10 mg/325 mg; Colace; Eliquis 2.5 mg BID x 2 weeks. Assessment: Painful left knee medial compartment arthroplasty/severe patellofemoral compartment osteoarthrosis Procedures: Revision left total knee arthroplastycementedposterior stabilized Patient Condition at Discharge: Good Plan - Discharge Summary Discharge Rx Participant: No New Discharge Prescriptions: New HYDROcodone/APAP 10-325MG [[place] 10-325] 1 tab PO Q6HR PRN #27 tab PRN Reason: Pain Docusate [Colace] 100 mg PO DAILY #30 capsule Apixaban [Eliquis] 2.5 mg PO BID #60 tab No Action Citalopram Hydrobromide [CeleXA] 40 mg PO DAILY metFORMIN HCL [Glucophage] 1,000 mg PO BID Aspirin EC [Ecotrin Low Dose] 81 mg PO DAILY Losartan Potassium 100 mg PO DAILY amLODIPine [Norvasc] 5 mg PO BID Carvedilol [Coreg] 12.5 mg PO BID glipiZIDE [Glucotrol] 5 mg PO BID Linagliptin [Tradjenta] 5 mg PO AC-LUNCH Atorvastatin [Lipitor] 80 mg PO HS Nitroglycerin Sl Tabs [Nitrostat] 0.4 mg SUBLINGUAL Q5M PRN tab PRN Reason: Chest Pain HYDROcodone/APAP 10-325MG [[place] 10-325] 1 each PO Q6H PRN tab PRN Reason: Pain Discharge Medication List Citalopram Hydrobromide [CeleXA] 40 mg PO DAILY 01/14/15 [History] metFORMIN HCL [Glucophage] 1,000 mg PO BID 01/15/15 [History] Aspirin EC [Ecotrin Low Dose] 81 mg PO DAILY 05/28/17 [History] Losartan Potassium 100 mg PO DAILY 01/05/20 [History] Carvedilol [Coreg] 12.5 mg PO BID 01/19/20 [History] amLODIPine [Norvasc] 5 mg PO BID 01/19/20 [History] Atorvastatin [Lipitor] 80 mg PO HS 12/13/20 [History] Linagliptin [Tradjenta] 5 mg PO AC-LUNCH 12/13/20 [History] glipiZIDE [Glucotrol] 5 mg PO BID 12/13/20 [History] HYDROcodone/APAP 10-325MG [[place] 10-325] 1 each PO Q6H PRN tab 12/21/20 [Rx] Nitroglycerin Sl Tabs [Nitrostat] 0.4 mg SUBLINGUAL Q5M PRN tab 12/21/20 [Rx] Apixaban [Eliquis] 2.5 mg PO BID #60 tab 01/04/22 [Rx] Docusate [Colace] 100 mg PO DAILY #30 capsule 01/04/22 [Rx] HYDROcodone/APAP 10-325MG [[place] 10-325] 1 tab PO Q6HR PRN #27 tab 01/04/22 [Rx] Follow up Appointment(s)/Referral(s): [facility], [NON-STAFF] - As Needed Juan A Mott, PAC [PHYSICIAN DRAWER IN DOBBY LOOM] - 2 Weeks [facility]ipment [NON-STAFF] - As Needed (Continuous Passive Motion knee machine) Patient Instructions/Handouts: Knee Replacement (DC) Activity/Diet/Wound Care/Special Instructions: Discharge instructions: 1. Wound care and infection precautions, keep incision dry and covered while showering, no lotions, creams, moisturizers. No soaking, tubs, pools, hottubs. Do not scrub over the incision. 2. Weight-bear as tolerated with walker / cane until follow-up. 3. Ice and elevate when necessary. Do not exceed 20 minutes per hour with ice pack. 4. Utilize compression sleeve until seen at first follow up appointment. 5. Visiting nursing care. 6. Home physical therapy including home CPM. 7. Pain meds and anticoagulants per prescription. 8. Pain medication has potential to cause constipation. Increase oral fluid and fiber intake. Contact primary care provider if you have not had a bowel movement within 48 hours after discharge 9. No anti-inflammatory medication until discussed at first post operative visit, this including Motrin, Aleve, Mobic, Diclofenac. 10. Follow up in office at 2 weeks postop with Zen Reeves PA-C / Juan A Mott PA-C 11. Follow up with your primary care doctor 7-10 days after discharge. 12. Contact [facility] with any questions, . Keep incision clean, dry, intact. While showering, cover mesh tape with Saran wrap. Keep mesh tape on until follow-up appointment in office in 2 weeks. Medications: [place] 10 mg/325 mg; Colace; Eliquis 2.5 mg BID x 2 weeks. Discharge Disposition: HOME WITH HOME HEALTH SERVICES
[2022-01-04 11:27] LABS: Glucose,Whole Blood 223 mg/dL (75-99)
--- NOTE | 2022-01-04 13:42 | P.CONS ---
History of Present Illness - Reason for Consult Consult date: 01/03/22 - History of Present Illness Alejo Lees, is an 81-year-old male admitted to [facility] by Dr. Jean Baptiste, and underwent revision of left total knee arthroplasty, he was admitted to medical floor post surgery consultation was requested for medical management while hospitalized. He has a known history of hypertension, hyperlipidemia, peripheral vascular disease, diabetes mellitus, history of coronary artery disease, history of bleeding duodenal ulcer, and history of osteoarthritis. 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, occasional bilateral hand tremors, multiple TIAs-no residual effects per pt., bilateral carotid stents, bilaterally [place]/aides/tinnitis, JOSE MIGUEL but does not tolerate device, chronic low back pain, 1976 work inj ury/concussion, bilateral glaucoma with surgery, varicose veins History of Any Multi-Drug Resistant Organisms: None Reported Past Surgical History: Appendectomy, Bariatric Surgery, Cardiac Valve Replacement, Cholecystectomy, Heart Catheterization With Stent, Hernia Repair, Joint Replacement, Orthopedic Surgery Additional Past Surgical History / Comment(s): Recent L partial knee replacement, bilateral carpal tunnel releases, L hand trigger finger surgery, bilateral cataract removals, bilateral eye surgery for glaucoma, Lap banding, bilateral carotid transcarotid artery revascularization/stenting, umbilical hernia repair, vasectomy, TAVR surg. to replace aortic valve @[facility] Past Anesthesia/Blood Transfusion Reactions: No Reported Reaction Date of Last Stent Placement:: 01/07/20 Smoking Status: Former smoker - Past Family History Father Family Medical History: CVA/TIA Additional Family Medical History / Comment(s): stroke Mother Family Medical History: CVA/TIA Additional Family Medical History / Comment(s): stroke Medications and Allergies Home Medications Medication Instructions Recorded Confirmed Type Citalopram Hydrobromide [CeleXA] 40 mg PO DAILY 01/14/15 01/03/22 History metFORMIN HCL [Glucophage] 1,000 mg PO BID 01/15/15 01/03/22 History Aspirin EC [Ecotrin Low Dose] 81 mg PO DAILY 05/28/17 01/03/22 History Losartan Potassium 100 mg PO DAILY 01/05/20 01/03/22 History Carvedilol [Coreg] 12.5 mg PO BID 01/19/20 01/03/22 History amLODIPine [Norvasc] 5 mg PO BID 01/19/20 01/03/22 History Atorvastatin [Lipitor] 80 mg PO HS 12/13/20 01/03/22 History Linagliptin [Tradjenta] 5 mg PO AC-LUNCH 12/13/20 01/03/22 History glipiZIDE [Glucotrol] 5 mg PO BID 12/13/20 01/03/22 History HYDROcodone/APAP 10-325MG [[place] 1 each PO Q6H PRN tab 12/21/20 01/03/22 Rx 10-325] Nitroglycerin Sl Tabs [Nitrostat] 0.4 mg SUBLINGUAL Q5M PRN tab 12/21/20 12/29/21 Rx Allergies Allergy/AdvReac Type Severity Reaction Status Date / Time Penicillins Allergy Rash/Hives Verified 01/03/22 08:58 Physical Exam Vitals: Vital Signs Temp Pulse Pulse Resp BP Pulse Ox 01/03/22 15:19 98.3 F 75 18 139/85 95 01/03/22 14:01 76 16 128/58 95 01/03/22 13:46 74 16 132/60 95 01/03/22 13:31 77 16 145/67 98 01/03/22 13:15 69 16 173/74 100 01/03/22 13:00 71 16 193/86 100 01/03/22 12:55 96.9 F L 89 14 184/85 97 01/03/22 10:50 63 16 155/77 99 01/03/22 09:20 187/77 01/03/22 09:09 97. F L 71 18 216/90 100 Intake and Output 01/03/22 01/03/22 01/03/22 06:59 14:59 22:59 Intake Total 1501 50 Output Total 50 Balance 1451 50 Intake: IV 1501 Intake, IV Titration 50 Amount ceFAZolin 2 gm In Sodium 50 Chloride 0.9% 50 ml @ 100 mls/hr IVPB Q8H [facility] Rx#: [id number] Output: Estimated Blood Loss 50 Other: Weight 88.6 kg In general patient is alert and oriented x 3 in no distress HEENT head normocephalic and atraumatic Neck is supple no JVD no goiter no lymphadenopathy no carotid bruit Chest examination is clear to auscultation no crackles no wheezing Cardiac exam reveals regular heart sounds S1 and S2 no gallops no murmurs Abdomen is soft nontender no organomegaly with normal bowel sounds Extremity exam reveals no edema no cyanosis or clubbing Neurological examination reveals no gross focal deficits Results CBC & Chem 7: 01/03/22 09:43 Labs: Abnormal Lab Results - Last 24 Hours (Table) 01/03/22 01/03/22 01/03/22 Range/Units 09:14 09:43 16:52 RBC 3.59 L (4.30-5.90) m/uL Hgb 10.5 L (13.0-17.5) gm/dL Hct 32.6 L (39.0-53.0) % POC Glucose (mg/dL) 148 H 245 H (75-99) mg/dL Assessment and Plan Plan: Status post revision of left total knee arthroplasty, done today by Dr. Jean Baptiste Underlying history of hypertension Underlying history of hyperlipidemia Underlying history of hhy-umjowds-zdxzvstig diabetes mellitus Underlying history of coronary artery disease Underlying history of peripheral vascular disease Underlying history of obstructive sleep apnea Underlying history of carotid stenosis Underlying history of osteoarthritis At this time patient is admitted to medical floor Home medications reviewed Will hold diabetes medications at this time and cover with a sliding scale. For DVT prophylaxis patient was started on Xarelto 10 mg daily by orthopedic surgery Will check labs in a.m. and follow closely
== END 2022-01-04 11:56 | disposition home health service (06) | DRG 468 ==
LOC: 2ORMAIN 08:20 → EDSTATUS 10:10 → 4SSUR 13:31
PROVIDERS: ADMIT Orthopaedic Surgery; ATTEND Orthopaedic Surgery
PROC: 0SRD0J9 Replacement of Left Knee Joint with Synthetic Substitute, Cemented, Open Approach (ICD-10-PCS; 2022-01-03)
PROC: 0SPD0JZ Removal of Synthetic Substitute from Left Knee Joint, Open Approach (ICD-10-PCS; principal; 2022-01-03 10:10)
DX: T84.84XA Pain due to internal orthopedic prosthetic devices, implants and grafts, initial encounter (principal); Y79.2 Prosthetic and other implants, materials and accessory orthopedic devices associated with adverse incidents; M17.12 Unilateral primary osteoarthritis, left knee; E78.5 Hyperlipidemia, unspecified; H91.90 Unspecified hearing loss, unspecified ear; G47.33 Obstructive sleep apnea (adult) (pediatric); E11.51 Type 2 diabetes mellitus with diabetic peripheral angiopathy without gangrene; I10 Essential (primary) hypertension; H93.13 Tinnitus, bilateral; M54.50 Low back pain, unspecified; G89.29 Other chronic pain; R25.1 Tremor, unspecified; I25.10 Atherosclerotic heart disease of native coronary artery without angina pectoris; H91.93 Unspecified hearing loss, bilateral; Z97.4 Presence of external hearing-aid; Z98.890 Other specified postprocedural states; Z79.82 Long term (current) use of aspirin; Z79.899 Other long term (current) drug therapy; Z79.84 Long term (current) use of oral hypoglycemic drugs; Z98.84 Bariatric surgery status; Z95.2 Presence of prosthetic heart valve; Z87.891 Personal history of nicotine dependence; Z86.73 Personal history of transient ischemic attack (TIA), and cerebral infarction without residual deficits; Z95.828 Presence of other vascular implants and grafts; Z87.820 Personal history of traumatic brain injury; Z88.0 Allergy status to penicillin
CPT/HCPCS: 80053; 85025; 85027; 87635; 88300; 88305; 88331

== ENCOUNTER → 2022-01-18 | Outpatient (CLI) | payer MEDICARE ==
--- NOTE | 2022-01-18 15:37 | US ---
EXAMINATION TYPE: US venous doppler duplex LE LT DATE OF EXAM: 01/18/2022 3:01 PM COMPARISON: NONE CLINICAL HISTORY: M79.662 PAIN IN LEG. Knee surgery x 2 weeks, pain. No redness or swelling. Was on blood thinners for 2 weeks. SIDE PERFORMED: Left TECHNIQUE: The lower extremity deep venous system is examined utilizing real time linear array sonog maicol with graded compression, doppler sonography and color-flow sonography. VESSELS IMAGED: Common Femoral Vein Deep Femoral Vein Greater Saphenous Vein * Femoral Vein Popliteal Vein Small Saphenous Vein * Proximal Calf Veins (* superficial vessels) Left Leg: Negative for DVT Grayscale, color doppler, spectral doppler imaging performed of the deep veins of the left lower extr emity. There is normal flow, compressibility, vascular waveforms. IMPRESSION: No ultrasound evidence for acute DVT in the left lower extremity.
== END | disposition home or self-care (01) ==
LOC: RADUSWWP 14:22
PROVIDERS: ATTEND Internal Medicine
DX: M79.662 Pain in left lower leg (principal)

== ENCOUNTER 2022-01-28 15:42 | Emergency (ER) | payer MEDICARE ==
--- NOTE | 2022-01-28 16:20 | ED ---
General Adult HPI - General Chief complaint: Weakness Stated complaint: Poss GI bleed Time Seen by Provider: 01/28/22 15:58 Source: patient, family, RN notes reviewed Mode of arrival: ambulatory Limitations: no limitations - History of Present Illness Initial comments: Patient is an 81-year-old male presents emergency room with complaints of generalized weakness. He reports that earlier in the day he had a bowel movement that was bloody and then the stools turned transitioned into tarry-like stools. He has a history of GIB with bleeding ulcer. He is complaining of upper abdominal pain without any nausea or vomiting. His son who is at the bedside reports that he saw that his stool was thick and tarry in the toilet earlier today. Despite his weakness he denies any other complaints. He denies any chest pain, shortness of breath, dizziness or abdominal pain without palpation. In addition to his GI bleed and also history he has a past medical history significant for diabetes, hypertension, peripheral vascular disease, coronary artery disease, hyperlipidemia; he has had bariatric surgery many years ago. - Related Data Home Medications Medication Instructions Recorded Confirmed Citalopram Hydrobromide [CeleXA] 40 mg PO DAILY 01/14/15 01/28/22 metFORMIN HCL [Glucophage] 1,000 mg PO BID 01/15/15 01/28/22 Aspirin EC [Ecotrin Low Dose] 81 mg PO DAILY 05/28/17 01/28/22 Losartan Potassium 100 mg PO DAILY 01/05/20 01/28/22 amLODIPine [Norvasc] 5 mg PO BID 01/19/20 01/28/22 carvediloL [Coreg] 12.5 mg PO BID 01/19/20 01/28/22 Atorvastatin [Lipitor] 80 mg PO HS 12/13/20 01/28/22 Linagliptin [Tradjenta] 5 mg PO DAILY 12/13/20 01/28/22 glipiZIDE [Glucotrol] 5 mg PO BID 12/13/20 01/28/22 HYDROcodone/APAP 10-325MG [[place] 1 tab PO TID PRN 01/28/22 01/28/22 10-325] Previous Rx's Medication Instructions Recorded Nitroglycerin Sl Tabs [Nitrostat] 0.4 mg SUBLINGUAL Q5M PRN tab 12/21/20 Docusate [Colace] 100 mg PO DAILY #30 capsule 01/04/22 Allergies Allergy/AdvReac Type Severity Reaction Status Date / Time Penicillins Allergy Rash/Hives Verified 01/28/22 17:44 Review of Systems ROS Statement: Those systems with pertinent positive or pertinent negative responses have been documented in the HPI. ROS Other: All systems not noted in ROS Statement are negative. 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 Gomez and gomez vaccine 11/2020 History of Any Multi-Drug Resistant Organisms: None Reported Past Surgical History: Appendectomy, Bariatric Surgery, Cholecystectomy, Heart Catheterization With Stent, Hernia Repair, Joint Replacement, Orthopedic Surgery Additional Past Surgical History / Comment(s): Recent L partial knee replacement, bilateral carpal tunnel releases, L hand trigger finger surgery, bilateral cataract removals, bilateral eye surgery for glaucoma, Lap banding, bilateral caratid transcaratid artery revascularization/stenting, umbilical hernia repair, vasectomy. Past Anesthesia/Blood Transfusion Reactions: No Reported Reaction Date of Last Stent Placement:: 01/07/20 Past Psychological History: Anxiety, Depression Smoking Status: Former smoker Past Alcohol Use History: None Reported Past Drug Use History: None Reported - Past Family History Father Family Medical History: CVA/TIA Additional Family Medical History / Comment(s): stroke Mother Family Medical History: CVA/TIA Additional Family Medical History / Comment(s): stroke General Exam Limitations: no limitations (Hard of hearing) General appearance: alert, in no apparent distress Head exam: Present: atraumatic, normocephalic, normal inspection Eye exam: Present: normal appearance, PERRL, EOMI. Absent: scleral icterus, conjunctival injection, periorbital swelling ENT exam: Present: normal exam, mucous membranes moist Neck exam: Present: normal inspection Respiratory exam: Present: normal lung sounds bilaterally. Absent: respiratory distress, wheezes, rales, rhonchi, stridor Cardiovascular Exam: Present: regular rate, normal rhythm, normal heart sounds. Absent: systolic murmur, diastolic murmur, rubs, gallop, clicks GI/Abdominal exam: Present: soft, tenderness (epigastric and bilateral upper quadrants), other (large scar tissue with old LUQ incision scar) Rectal exam: Present: normal rectal tone, black stool, tenderness Extremities exam: Present: other (recent left knee replacement). Absent: pedal edema, joint swelling Back exam: Present: normal inspection. Absent: vertebral tenderness Neurological exam: Present: alert, oriented X3, CN II-XII intact Psychiatric exam: Present: normal affect, normal mood Skin exam: Present: warm, dry, pallor, other (Left knee incision well approximated without edema erythremia or drainage.) Course Vital Signs 01/28/22 01/28/22 01/28/22 15:49 15:52 16:00 Temperature 98.3 F Pulse Rate 82 81 Respiratory 20 18 Rate Blood Pressure 133/49 133/49 O2 Sat by Pulse 99 99 98 Oximetry 01/28/22 01/28/22 01/28/22 16:30 17:00 17:35 Temperature 98.8 F Pulse Rate 76 72 83 Respiratory 18 16 16 Rate Blood Pressure 129/43 129/51 139/49 O2 Sat by Pulse 98 98 99 Oximetry 01/28/22 01/28/22 17:40 17:51 Temperature 98.8 F 98.8 F Pulse Rate 80 84 Respiratory 18 16 Rate Blood Pressure 137/50 130/46 O2 Sat by Pulse Oximetry Medical Decision Making - Medical Decision Making High probability for GI bleed. Unfortunately there is not GI coverage at her facility today. Will check stat labs including stool for occult blood. Medications verified at bedside along with family patient was previously on El iquis temporarily after his knee surgery reports that he has been off of his Eliquis for 5 days now. He is taking a baby aspirin. Hemoglobin with critical results of 4.4. Baseline hemoglobin appears to be 8-10. With his hemoglobin prior to left knee surgery at 8.1 3 weeks ago. Denies any chest pain or shortness of breath. Will obtain stat EKG. Will arrange transfer to [facility] due to no GI services available. Will give IV Protonix along with 2 units of packed red blood cells. Case discussed with Patric. EKG completed and unchanged compared to previous. [facility] contacted chiqui gandhi transfer. Dr. Borges at [facility] ER accepting transfer. Will start transfusion and transfer patient. - Lab Data Result diagrams: 01/28/22 16:05 01/28/22 16:08 Lab Results 01/28/22 01/28/22 01/28/22 Range/Units 16:00 16:05 16:08 WBC 9.4 (3.8-10.6) k/uL RBC 1.45 L (4.30-5.90) m/uL Hgb 4.4 L* D (13.0-17.5) gm/dL Hct 14.3 L* (39.0-53.0) % MCV 98.4 D (80.0-100.0) fL MCH 30.3 (25.0-35.0) pg MCHC 30.8 L (31.0-37.0) g/dL RDW 17.0 H (11.5-15.5) % Plt Count 213 (150-450) k/uL MPV 8.9 Neutrophils % 77 % Lymphocytes % 16 % Monocytes % 4 % Eosinophils % 1 % Basophils % 0 % Neutrophils # 7.2 (1.3-7.7) k/uL Lymphocytes # 1.5 (1.0-4.8) k/uL Monocytes # 0.3 (0-1.0) k/uL Eosinophils # 0.1 (0-0.7) k/uL Basophils # 0.0 (0-0.2) k/uL Hypochromasia Marked Anisocytosis Slight Macrocytosis Slight PT 11.4 (9.0-12.0) sec INR 1.1 (<1.2) APTT 17.7 L (22.0-30.0) sec Sodium (137-145) mmol/L Potassium (3.5-5.1) mmol/L Chloride (98-107) mmol/L Carbon Dioxide (22-30) mmol/L Anion Gap mmol/L BUN (9-20) mg/dL Creatinine (0.66-1.25) mg/dL Est GFR (CKD-EPI)AfAm (>60 ml/min/1.73 sqM) Est GFR (CKD-EPI)NonAf (>60 ml/min/1.73 sqM) Glucose (74-99) mg/dL Plasma Lactic Acid Jack (0.7-2.0) mmol/L Calcium (8.4-10.2) mg/dL Total Bilirubin (0.2-1.3) mg/dL AST (17-59) U/L ALT (4-49) U/L Alkaline Phosphatase (38-126) U/L Troponin I (0.000-0.034) ng/mL Total Protein (6.3-8.2) g/dL Albumin (3.5-5.0) g/dL Stool Occult Blood Positive (Negative) Blood Type Blood Type Recheck Bld Type Recheck Status Antibody Screen Crossmatch Spec Expiration Date 01/28/22 01/28/22 01/28/22 Range/Units 16:08 16:08 16:08 WBC (3.8-10.6) k/uL RBC (4.30-5.90) m/uL Hgb (13.0-17.5) gm/dL Hct (39.0-53.0) % MCV (80.0-100.0) fL MCH (25.0-35.0) pg MCHC (31.0-37.0) g/dL RDW (11.5-15.5) % Plt Count (150-450) k/uL MPV Neutrophils % % Lymphocytes % % Monocytes % % Eosinophils % % Basophils % % Neutrophils # (1.3-7.7) k/uL Lymphocytes # (1.0-4.8) k/uL Monocytes # (0-1.0) k/uL Eosinophils # (0-0.7) k/uL Basophils # (0-0.2) k/uL Hypochromasia Anisocytosis Macrocytosis PT (9.0-12.0) sec INR (<1.2) APTT (22.0-30.0) sec Sodium 132 L (137-145) mmol/L Potassium 4.9 (3.5-5.1) mmol/L Chloride 108 H (98-107) mmol/L Carbon Dioxide 14 L (22-30) mmol/L Anion Gap 10 mmol/L BUN 58 H (9-20) mg/dL Creatinine 1.53 H (0.66-1.25) mg/dL Est GFR (CKD-EPI)AfAm 48 (>60 ml/min/1.73 sqM) Est GFR (CKD-EPI)NonAf 41 (>60 ml/min/1.73 sqM) Glucose 309 H (74-99) mg/dL Plasma Lactic Acid Jack 5.1 H* (0.7-2.0) mmol/L Calcium 8.0 L (8.4-10.2) mg/dL Total Bilirubin 0.2 (0.2-1.3) mg/dL AST 18 (17-59) U/L ALT 14 (4-49) U/L Alkaline Phosphatase 51 (38-126) U/L Troponin I <0.012 (0.000-0.034) ng/mL Total Protein 4.6 L (6.3-8.2) g/dL Albumin 2.7 L (3.5-5.0) g/dL Stool Occult Blood (Negative) Blood Type Blood Type Recheck Bld Type Recheck Status Antibody Screen Crossmatch Spec Expiration Date 01/28/22 Range/Units 16:08 WBC (3.8-10.6) k/uL RBC (4.30-5.90) m/uL Hgb (13.0-17.5) gm/dL Hct (39.0-53.0) % MCV (80.0-100.0) fL MCH (25.0-35.0) pg MCHC (31.0-37.0) g/dL RDW (11.5-15.5) % Plt Count (150-450) k/uL MPV Neutrophils % % Lymphocytes % % Monocytes % % Eosinophils % % Basophils % % Neutrophils # (1.3-7.7) k/uL Lymphocytes # (1.0-4.8) k/uL Monocytes # (0-1.0) k/uL Eosinophils # (0-0.7) k/uL Basophils # (0-0.2) k/uL Hypochromasia Anisocytosis Macrocytosis PT (9.0-12.0) sec INR (<1.2) APTT (22.0-30.0) sec Sodium (137-145) mmol/L Potassium (3.5-5.1) mmol/L Chloride (98-107) mmol/L Carbon Dioxide (22-30) mmol/L Anion Gap mmol/L BUN (9-20) mg/dL Creatinine (0.66-1.25) mg/dL Est GFR (CKD-EPI)AfAm (>60 ml/min/1.73 sqM) Est GFR (CKD-EPI)NonAf (>60 ml/min/1.73 sqM) Glucose (74-99) mg/dL Plasma Lactic Acid Jack (0.7-2.0) mmol/L Calcium (8.4-10.2) mg/dL Total Bilirubin (0.2-1.3) mg/dL AST (17-59) U/L ALT (4-49) U/L Alkaline Phosphatase (38-126) U/L Troponin I (0.000-0.034) ng/mL Total Protein (6.3-8.2) g/dL Albumin (3.5-5.0) g/dL Stool Occult Blood (Negative) Blood Type O Positive Blood Type Recheck O Pos Bld Type Recheck Status No Antibody Screen NEGATIVE Crossmatch See Detail Spec Expiration Date 01/31/20222307 - EKG Data EKG Comments: Sinus rhythm with first-degree block. Ventricular rate 84 bpm, [place] interval 28 ms, QRS duration 90 ms QT/QTC 343/384, [place] T axes *, 14, 30 When compared to previous EKG there are: no significant change Disposition Clinical Impression: Anemia due to acute blood loss, GIB (gastrointestinal bleeding) Disposition: OTHER INSTITUTION NOT DEFINED Condition: Serious Referrals: Mell Baer MD [Primary Care Provider] - 1-2 days Time of Disposition: 17:57 - Out of Hospital Transfer - Req. Specs Out of Hospital Transfer - Requested Specifics: Other Emergency Center ([facility] Emergency Room)
[2022-01-28 16:27] LABS: Anisocytosis Slight; Basophils % (A) 0 %; Eosinophils # (A) 0.1 k/uL (0-0.7); Eosinophils % (A) 1 %; Hypochromasia Marked; Lymphocytes # (A) 1.5 k/uL (1.0-4.8); Lymphocytes % (A) 16 %; MCH 30.3 pg (25.0-35.0); MCHC 30.8 g/dL (31.0-37.0); MCV 98.4 fL (80.0-100.0); Macrocytosis Slight; Mean Platelet Volume 8.9; Monocytes # (A) 0.3 k/uL (0-1.0); Monocytes % (A) 4 %; Neutrophils # (A) 7.2 k/uL (1.3-7.7); Neutrophils % (A) 77 %; Platelet Count 213 k/uL (150-450); RBC 1.45 m/uL (4.30-5.90); WBC 9.4 k/uL (3.8-10.6)
[2022-01-28 16:28] LABS: INR 1.1 (<1.2); Prothrombin Time 11.4 sec (9.0-12.0)
[2022-01-28 16:31] LABS: HCT 14.3 % (39.0-53.0); HGB 4.4 gm/dL (13.0-17.5)
[2022-01-28 16:37] LABS: Albumin 2.7 g/dL (3.5-5.0); Potassium 4.9 mmol/L (3.5-5.1); Total Bilirubin 0.2 mg/dL (0.2-1.3); Total Protein 4.6 g/dL (6.3-8.2)
[2022-01-28] MEDS ORDERED: PANTOPRAZOLE 40 MG/10 ML VIAL IVP STA (16:37)
[2022-01-28 16:45] LABS: Partial Thromboplastin Time 17.7 sec (22.0-30.0)
[2022-01-28 17:42] VITALS: TEMP 98.8
[2022-01-28 17:53] VITALS: BP 130/46; PULSE 84; RESP 16
== END 2022-01-28 18:10 | disposition other institution (70) ==
LOC: EC 15:42
DX: D62 Acute posthemorrhagic anemia (principal); K92.2 Gastrointestinal hemorrhage, unspecified; I25.10 Atherosclerotic heart disease of native coronary artery without angina pectoris; I10 Essential (primary) hypertension; E78.5 Hyperlipidemia, unspecified; E11.40 Type 2 diabetes mellitus with diabetic neuropathy, unspecified; Z87.891 Personal history of nicotine dependence; Z88.0 Allergy status to penicillin; Z79.899 Other long term (current) drug therapy; Z79.84 Long term (current) use of oral hypoglycemic drugs; Z79.82 Long term (current) use of aspirin
CPT/HCPCS: 36415; 86900; 86901; 80053; 83605; 84484; 85025; 85610; 85730; 86850; 86920; 82272; 99285; 96374; P9016; C9113; 93005

== ENCOUNTER 2022-05-30 14:08 | Emergency (ER) | payer MEDICARE, OTHER ==
[2022-05-30 14:28] VITALS: RESP 18; TEMP 98.3
--- NOTE | 2022-05-30 14:57 | ED ---
General Adult HPI - General Chief complaint: Neuro Symptoms/Deficit Stated complaint: TIA Time Seen by Provider: 05/30/22 14:22 Source: patient, family, RN notes reviewed Mode of arrival: EMS Limitations: no limitations - History of Present Illness Initial comments: Patient is an 81-year-old male presented to the emergency room via EMS with complaints of having an episode of difficulty in finding words and right side hand numbness along with dropping an object 4 times while attempting to remove it from the freezer earlier today. He states that his symptoms lasted approximately 5-10 minutes and resolved after eating the food he was removing from the freezer. Symptoms have not returned. He has a known history of TIAs which are followed by his primary care provider Dr. Bare but does not currently follow with a neurologist. He does have a history of carotid artery disease with bilateral intervention to his carotids. In addition to his TIA/CVA history his past medical history significant for valvular disease with TAVR, coronary artery disease with stents, peripheral vascular disease, obstructive sleep apnea, diabetes with bilateral hand neuropathy, upper extremity tremor, hypertension and hyperlipidemia. - Related Data Home Medications Medication Instructions Recorded Confirmed Citalopram Hydrobromide [CeleXA] 40 mg PO DAILY 01/14/15 01/28/22 metFORMIN HCL [Glucophage] 1,000 mg PO BID 01/15/15 01/28/22 Aspirin EC [Ecotrin Low Dose] 81 mg PO DAILY 05/28/17 01/28/22 Losartan Potassium 100 mg PO DAILY 01/05/20 01/28/22 amLODIPine [Norvasc] 5 mg PO BID 01/19/20 01/28/22 carvediloL [Coreg] 12.5 mg PO BID 01/19/20 01/28/22 Atorvastatin [Lipitor] 80 mg PO HS 12/13/20 01/28/22 Linagliptin [Tradjenta] 5 mg PO DAILY 12/13/20 01/28/22 glipiZIDE [Glucotrol] 5 mg PO BID 12/13/20 01/28/22 HYDROcodone/APAP 10-325MG [Boon 1 tab PO TID PRN 01/28/22 01/28/22 10-325] Previous Rx's Medication Instructions Recorded Nitroglycerin Sl Tabs [Nitrostat] 0.4 mg SUBLINGUAL Q5M PRN tab 12/21/20 Docusate [Colace] 100 mg PO DAILY #30 capsule 01/04/22 Allergies Allergy/AdvReac Type Severity Reaction Status Date / Time Penicillins Allergy Rash/Hives Verified 05/30/22 14:28 Review of Systems ROS Statement: Those systems with pertinent positive or pertinent negative responses have been documented in the HPI. ROS Other: All systems not noted in ROS Statement are negative. 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, occasional bilateral hand tremors, multiple TIAs, bilateral caratid stents, murmur, leaky heart valve, bilaterally [place]/aides/tinnitis, [employer] MIGUEL but does not tolerate device, chronic low back pain, 1976 work injury/concussion, bilateral glaucoma with surgery, shingelles in 2009, varicose veins, FALLS. Gomez and gomez vaccine 11/2020 History of Any Multi-Drug Resistant Organisms: None Reported Past Surgical History: Appendectomy, Bariatric Surgery, Cholecystectomy, Heart Catheterization With Stent, Hernia Repair, Joint Replacement, Orthopedic Surgery Additional Past Surgical History / Comment(s): Recent L partial knee replacement, bilateral carpal tunnel releases, L hand trigger finger surgery, bilateral cataract removals, bilateral eye surgery for glaucoma, Lap banding, bilateral caratid transcaratid artery revascularization/stenting, umbilical hernia repair, vasectomy. Past Anesthesia/Blood Transfusion Reactions: No Reported Reaction Date of Last Stent Placement:: 01/07/20 Past Psychological History: Anxiety, Depression Smoking Status: Former smoker Past Alcohol Use History: None Reported Past Drug Use History: None Reported - Past Family History Father Family Medical History: CVA/TIA Additional Family Medical History / Comment(s): stroke Mother Family Medical History: CVA/TIA Additional Family Medical History / Comment(s): stroke General Exam Limitations: no limitations General appearance: alert, in no apparent distress Head exam: Present: atraumatic, normocephalic, normal inspection Eye exam: Present: normal appearance, PERRL, EOMI. Absent: scleral icterus, conjunctival injection, nystagmus, periorbital swelling ENT exam: Present: normal exam, mucous membranes moist Neck exam: Present: normal inspection, full ROM. Absent: lymphadenopathy Respiratory exam: Present: normal lung sounds bilaterally. Absent: respiratory distress, wheezes, rales, rhonchi, stridor Cardiovascular Exam: Present: regular rate, normal rhythm, normal heart sounds. Absent: systolic murmur, diastolic murmur, rubs, gallop, clicks GI/Abdominal exam: Present: soft, normal bowel sounds. Absent: distended, tenderness, guarding, rebound, rigid Back exam: Present: normal inspection Neurological exam: Present: alert, oriented X3, CN II-XII intact Expanded Neurological exam: Present: protecting the airway Speech: Present: fluid speech Cranial nerves: EOM's Intact: Normal, Gag Reflex: Normal Sensory exam: Upper Extremity Light Touch: Normal, Lower Extremity Light Touch: Normal Motor strength exam: RUE: 5, LUE: 5, RLE: 5, LLE: 5 Eye Response: (4) open spontaneously Motor Response: (6) obeys commands Verbal Response: (5) oriented [place] Total: 15 Psychiatric exam: Present: normal affect, normal mood Skin exam: Present: warm, dry, intact, normal color. Absent: rash Course Vital Signs 05/30/22 05/30/22 14:23 14:28 Temperature 98.3 F Pulse Rate 60 61 Respiratory 18 18 Rate Blood Pressure 129/56 122/52 O2 Sat by Pulse 97 97 Oximetry Medical Decision Making - Medical Decision Making 81-year-old male presenting to the emergency room with transient symptom of right hand numbness and difficulty finding words that was very transient lasting less than a few minutes with known history of TIAs and upper extremity neuropathy. Symptoms resolved prior to EMS arrival and continue to be resolved upon arrival to the ER. No recent CT of the brain despite NIH score of [address] of the brain. Will check EKG CMP CBC coags and urinalysis. Patient is on baby aspirin and high intensity statin. is concerned regarding possibility of hypoglycemia as eating causes resolution of symptoms. EKG shows sinus bradycardia with a first-degree AV block. CBC reveals chronic anemia without any leukocytosis. BMP shows mild dehydration with slight elevation and BUN/creatinine coags stable. Will give additional 500 mL of normal saline IV fluids. Computed tomography scan shows no evidence of acute intracranial process. Significant chronic small vessel changes and old infarcts noted. Urinalysis negative for evidence of urinary tract infection or significant hyperglycemia. Patient tolerated IV fluid bolus well without side effects. Patient would like to be discharged home. and family at bedside agreeable for discharge home with strict return parameters to the emergency room if any new neurovascular symptoms occur to return to the emergency room via ambulance immediately. Signs and symptoms of hypoglycemia also reviewed. Upcoming appointment with primary care scheduled for early next month. Advised to contact primary care provider tomorrow for possible sooner follow-up appointment. Advised to continue current aspirin and statin therapy. Case discussed with Dr. Valladares. - Lab Data Result diagrams: 05/30/22 14:40 05/30/22 14:40 Lab Results 05/30/22 05/30/22 05/30/22 Range/Units 14:40 14:40 14:40 WBC 8.5 (3.8-10.6) k/uL RBC 3.56 L (4.30-5.90) m/uL Hgb 10.2 L (13.0-17.5) gm/dL Hct 30.4 L (39.0-53.0) % MCV 85.5 (80.0-100.0) fL MCH 28.8 (25.0-35.0) pg MCHC 33.6 (31.0-37.0) g/dL RDW 14.7 (11.5-15.5) % Plt Count 197 (150-450) k/uL MPV 8.9 Neutrophils % 66 % Lymphocytes % 24 % Monocytes % 6 % Eosinophils % 2 % Basophils % 1 % Neutrophils # 5.6 (1.3-7.7) k/uL Lymphocytes # 2.0 (1.0-4.8) k/uL Monocytes # 0.5 (0-1.0) k/uL Eosinophils # 0.2 (0-0.7) k/uL Basophils # 0.0 (0-0.2) k/uL PT 10.8 (9.0-12.0) sec INR 1.0 (<1.2) APTT 20.9 L (22.0-30.0) sec Sodium 137 (137-145) mmol/L Potassium 4.6 (3.5-5.1) mmol/L Chloride 105 (98-107) mmol/L Carbon Dioxide 22 (22-30) mmol/L Anion Gap 10 mmol/L BUN 35 H (9-20) mg/dL Creatinine 1.63 H (0.66-1.25) mg/dL Est GFR (CKD-EPI)AfAm 44 (>60 ml/min/1.73 sqM) Est GFR (CKD-EPI)NonAf 38 (>60 ml/min/1.73 sqM) Glucose 91 (74-99) mg/dL Calcium 8.6 (8.4-10.2) mg/dL Total Bilirubin 0.6 (0.2-1.3) mg/dL AST 28 (17-59) U/L ALT 20 (4-49) U/L Alkaline Phosphatase 65 (38-126) U/L Troponin I (0.000-0.034) ng/mL Total Protein 6.2 L (6.3-8.2) g/dL Albumin 4.0 (3.5-5.0) g/dL 05/30/22 Range/Units 14:40 WBC (3.8-10.6) k/uL RBC (4.30-5.90) m/uL Hgb (13.0-17.5) gm/dL Hct (39.0-53.0) % MCV (80.0-100.0) fL MCH (25.0-35.0) pg MCHC (31.0-37.0) g/dL RDW (11.5-15.5) % Plt Count (150-450) k/uL MPV Neutrophils % % Lymphocytes % % Monocytes % % Eosinophils % % Basophils % % Neutrophils # (1.3-7.7) k/uL Lymphocytes # (1.0-4.8) k/uL Monocytes # (0-1.0) k/uL Eosinophils # (0-0.7) k/uL Basophils # (0-0.2) k/uL PT (9.0-12.0) sec INR (<1.2) APTT (22.0-30.0) sec Sodium (137-145) mmol/L Potassium (3.5-5.1) mmol/L Chloride (98-107) mmol/L Carbon Dioxide (22-30) mmol/L Anion Gap mmol/L BUN (9-20) mg/dL Creatinine (0.66-1.25) mg/dL Est GFR (CKD-EPI)AfAm (>60 ml/min/1.73 sqM) Est GFR (CKD-EPI)NonAf (>60 ml/min/1.73 sqM) Glucose (74-99) mg/dL Calcium (8.4-10.2) mg/dL Total Bilirubin (0.2-1.3) mg/dL AST (17-59) U/L ALT (4-49) U/L Alkaline Phosphatase (38-126) U/L Troponin I <0.012 (0.000-0.034) ng/mL Total Protein (6.3-8.2) g/dL Albumin (3.5-5.0) g/dL - EKG Data EKG Comments: Sinus bradycardia with first-degree AV block, ventricular rate 59 bpm, TX interval 283 ms, QRS duration 92 ms, QT/QTC 415/414 ms, PRT axes 79, -4, 41 - Radiology Data Radiology results: report reviewed, image reviewed CT of the brain without contrast impression moderate burden of chronic small vessel ischemic disease. Old lacunar infarcts redemonstrated bilateral basal cleaning clear. No acute intracranial abnormality seen Disposition Clinical Impression: TIA (transient ischemic attack) Disposition: HOME SELF-CARE Condition: Stable Instructions (If sedation given, give patient instructions): Transient Ischemic Attack (ED) Additional Instructions: Please continue to take your medications as prescribed. Please contact her primary care provider for follow-up as soon as possible. If any neurological symptoms occur please return to the emergency room immediately. Please return to the Emergency Department if symptoms worsen or any other concerns. Is patient prescribed a controlled substance at d/c from ED?: No Referrals: Mell Baer MD [Primary Care Provider] - 1-2 days Time of Disposition: 16:12
[2022-05-30 15:09] LABS: Basophils % (A) 1 %; Eosinophils # (A) 0.2 k/uL (0-0.7); Eosinophils % (A) 2 %; HCT 30.4 % (39.0-53.0); HGB 10.2 gm/dL (13.0-17.5); Lymphocytes % (A) 24 %; MCH 28.8 pg (25.0-35.0); MCHC 33.6 g/dL (31.0-37.0); MCV 85.5 fL (80.0-100.0); Mean Platelet Volume 8.9; Monocytes # (A) 0.5 k/uL (0-1.0); Monocytes % (A) 6 %; Neutrophils # (A) 5.6 k/uL (1.3-7.7); Neutrophils % (A) 66 %; Platelet Count 197 k/uL (150-450); RBC 3.56 m/uL (4.30-5.90); RDW 14.7 % (11.5-15.5); WBC 8.5 k/uL (3.8-10.6)
[2022-05-30 15:10] LABS: Prothrombin Time 10.8 sec (9.0-12.0)
[2022-05-30 15:11] LABS: Calcium 8.6 mg/dL (8.4-10.2); Potassium 4.6 mmol/L (3.5-5.1); Total Bilirubin 0.6 mg/dL (0.2-1.3); Total Protein 6.2 g/dL (6.3-8.2)
[2022-05-30 15:14] LABS: Partial Thromboplastin Time 20.9 sec (22.0-30.0)
--- NOTE | 2022-05-30 15:38 | CT ---
EXAMINATION TYPE: CT brain wo con DATE OF EXAM: 05/30/2022 COMPARISON: 05/31/2020 HISTORY: 81-year-old male episode of dropping items. Right hand numbness and slurred speech. Episode lasted 5-10 min. Hx TIA TECHNIQUE: Examination was done in axial plane without intravenous contrast. Coronal and sagittal r econstructions performed. CT DLP: 1163.4 mGycm Automated exposure control for dose reduction was used. FINDINGS: There is no evidence of acute intracranial hemorrhage, acute ischemic changes, mass, mass-effect, or extra-axial fluid collection. There is no effacement of cerebral sulci or basal subarachnoid cister ns. There is no hydrocephalus. There is no midline shift. [place]-white matter distinction is preserv ed. Moderate periventricular white matter hypodensity is redemonstrated. Old lacunar infarcts bilateral b geo ganglia redemonstrated. Paranasal sinuses and mastoid air cells well pneumatized. Slight leftward nasal septal deviation. Orb its and globes are intact. IMPRESSION: Moderate burden of chronic small vessel ischemic disease. Old lacunar infarcts redemonstrated bilater al basal ganglia. No acute intracranial abnormality seen.
[2022-05-30] MEDS ORDERED: SODIUM CHLORIDE 0.9% 500 ML 500 ML IV STA (15:44)
[2022-05-30 15:56] LABS: Appearance,Urine Clear (Clear); Bilirubin,Urine Negative (Negative); Blood,Urine Negative (Negative); Color,Urine Yellow; Glucose,Urine (UA) Negative (Negative); Ketones,Urine Negative (Negative); Leukocyte Esterase,Urine Negative (Negative); Nitrite,Urine Negative (Negative); PH, Urine 5.5 (5.0-8.0); Protein,Urine Trace (Negative); Specific Gravity,Urine 1.025 (1.001-1.035)
[2022-05-30 16:06] VITALS: BP 148/62
[2022-05-30 16:32] VITALS: PULSE 67
== END 2022-05-30 16:32 | disposition home or self-care (01) ==
LOC: EC 14:08
DX: G45.9 Transient cerebral ischemic attack, unspecified (principal); E11.9 Type 2 diabetes mellitus without complications; E78.5 Hyperlipidemia, unspecified; I10 Essential (primary) hypertension; M19.90 Unspecified osteoarthritis, unspecified site; F41.9 Anxiety disorder, unspecified; F32.A Depression, unspecified; Z87.891 Personal history of nicotine dependence; Z88.0 Allergy status to penicillin; Z79.84 Long term (current) use of oral hypoglycemic drugs; Z79.82 Long term (current) use of aspirin; Z79.899 Other long term (current) drug therapy
CPT/HCPCS: 36415; 70450; 80053; 81003; 84484; 85025; 85610; 85730; 93005; 99284